=== PATIENT | male | born 1945 | race American Indian/Alaskan Native ===

== ENCOUNTER 2017-12-14 15:15 | Inpatient (IN) | payer MEDICARE ==
[2017-12-14 16:37] LABS: BASO % 0.3 % (0.0-2.0); EOS # 0.1 K/uL (0.0-0.7); EOS % 2.1 % (0.0-4.0); HEMOGLOBIN 11.9 g/dL (12.0-18.0); LYMPH # 1.8 K/uL (1.0-4.3); LYMPH % 34.8 % (20.0-40.0); MEAN CELL VOLUME 98.1 fL (80.0-94.0); MEAN CORPUSCULAR HEMOGLOBIN 33.4 pg (27.0-31.0); MEAN PLATELET VOLUME 9.4 fL (7.2-11.7); MONO % 18.7 % (0.0-10.0); NEUT # 2.3 K/uL (1.8-7.0); NEUT % 44.1 % (50.0-75.0); NRBC % 0.3 % (0.0-2.0); RBC 3.55 Mil/uL (4.40-5.90); RED CELL DISTRIBUTION WIDTH 14.3 % (11.5-14.5); WHITE BLOOD COUNT 5.2 K/uL (4.8-10.8)
[2017-12-14 16:45] LABS: INR 1.7; PROTHROMBIN TIME 19.4 SECONDS (9.7-12.2)
[2017-12-14 16:55] LABS: ALB/GLOB RATIO 0.6 (1.0-2.1); ALBUMIN 2.4 g/dL (3.5-5.0); ALT/SGPT 61 U/L (21-72); AST/SGOT 100 U/L (17-59); BLOOD UREA NITROGEN 28 mg/dL (9-20); CALCIUM 8.2 mg/dl (8.6-10.4); GFR AFRICAN-AMERICAN > 60; GFR NON-AFRICAN AMERICAN 60
[2017-12-14 17:09] LABS: B-TYPE NATRIURETIC PEPTIDE 1100 pg/mL (0-900)
--- NOTE | 2017-12-14 17:26 | C.PDOC ---
History Of Present Illness 72 year old male presents to the ED c/o 2 month history of bilateral extremity swelling. Patient reports taking his "water pill" with no relief this morning. Patient tried getting out of bed this morning but his leg" felt too weak" and had to slid out of bed. Patient denies trauma, injury, fall, headache, head injury, LOC, CP, SOB, weakness, numbness. Time Seen by Provider: 12/14/17 16:00 Chief Complaint (Nursing): Lower Extremity Problem/Injury History Per: Patient History/Exam Limitations: no limitations Onset/Duration Of Symptoms: Days Current Symptoms Are (Timing): Still Present Recent travel outside of the [place]: No Additional History Per: Patient - Ankle/Foot Description Of Injury: Other Currently Unable To: Bend Or Move Past Medical History Reviewed: Historical Data, Nursing Documentation, Vital Signs Vital Signs: Last Vital Signs Temp 97.5 F L 12/14/17 15:20 Pulse 88 12/14/17 17:50 Resp 16 12/14/17 17:50 BP 180/65 H 12/14/17 17:50 Pulse Ox 98 12/14/17 18:07 - Medical History PMH: HTN Surgical History: No Surg Hx Family History: States: Unknown Family Hx - Social History Hx Alcohol Use: No (Former drinker) Hx Substance Use: No - Immunization History Hx Tetanus Toxoid Vaccination: No Hx Influenza Vaccination: No Hx Pneumococcal Vaccination: No Review Of Systems Constitutional: Negative for: Fever, Chills Cardiovascular: Negative for: Chest Pain Respiratory: Negative for: Cough, Shortness of Breath Gastrointestinal: Negative for: Nausea, Vomiting, Abdominal Pain Musculoskeletal: Positive for: Foot Pain Skin: Negative for: Rash Neurological: Negative for: Weakness, Numbness Physical Exam - Physical Exam Appears: Non-toxic, Chronically Ill Skin: Normal Color, Warm, Dry, Other (7 cm stage 2 decubitus ulcer to the right hip) Head: Atraumatic, Normacephalic Eye(s): bilateral: Normal Inspection Nose: No Discharge Oral Mucosa: Moist Neck: Normal ROM, Supple Chest: Symmetrical Cardiovascular: Rhythm Regular, No Murmur Respiratory: Normal Breath Sounds, No Rales, No Rhonchi, No Wheezing Gastrointestinal/Abdominal: Soft, No Tenderness, No Guarding, No Rebound Extremity: No Tenderness, No Calf Tenderness, Capillary Refill (< 2 seconds), Swelling (+2 pitting edema until his knees), Other (no erythema ) Pulses: Left Dorsalis Pedis: Normal, Right Dorsalis Pedis: Normal Neurological/Psych: Oriented x3 ED Course And Treatment - Laboratory Results Result Diagrams: 12/14/17 16:18 12/14/17 16:33 O2 Sat by Pulse Oximetry: 98 (On RA) Pulse Ox Interpretation: Normal Medical Decision Making Medical Decision Making: Plan: * EKG * Labs * CXR * Lasix 20 mg IVP Thecase was discussed with Dr. Johnson (PMD) who agrees to admit the patient to his service as the patient has unsteady gait. The patient has started to have tremors, Librium given. Disposition - Disposition Disposition: HOSPITALIZED Disposition Time: 17:30 Condition: FAIR - POA Present On Arrival: Pressure Ulcer - Clinical Impression Clinical Impression: Leg edema, Weakness, Failure to thrive - PA / ANIMAL RIDE MANAGER / Resident Statement MD/DO has reviewed & agrees with the documentation as recorded. - Scribe Statement The provider has reviewed the documentation as recorded by the Scribe Trip Romero All medical record entries made by the Scribe were at my direction and personally dictated by me. I have reviewed the chart and agree that the record accurately reflects my personal performance of the history, physical exam, medical decision making, and the department course for this patient. I have also personally directed, reviewed, and agree with the discharge instructions and disposition.
--- NOTE | 2017-12-14 17:34 | RAD ---
PROCEDURE: CHEST RADIOGRAPH, 1 VIEW HISTORY: chest pain COMPARISON: None available. FINDINGS: LUNGS: Clear. PLEURA: No pneumothorax or pleural fluid seen. CARDIOVASCULAR: Top-normal heart size. Possible minimal pulmonary venous congestion OSSEOUS STRUCTURES: No significant abnormalities. VISUALIZED UPPER ABDOMEN: Normal. OTHER FINDINGS: None. IMPRESSION: Heart size. Possible minimal pulmonary venous congestion
--- NOTE | 2017-12-14 23:33 | CP.PCM.HP ---
History of Present Illness - History of Present Illness History of Present Illness: Chief Complaint : Lower Extremity Problem/Injury HPI: 72 year old male presents to the ED c/o 2 month history of bilateral extremity swelling. Patient reports taking his "water pill" with no relief this morning. Patient tried getting out of bed this morning but his leg" felt too weak" and had to slid out of bed. Patient denies trauma, injury, fall, headache , head injury, LOC, CP, SOB, weakness, numbness. Present on Admission - Present on Admission Any Indicators Present on Admission: No Past Patient History - Past Medical History & Family History Past Medical History?: Yes - Past Social History Smoking Status: Former Smoker - CARDIAC Hx Hypertension: Yes - RENAL Hx Renal Failure: Yes - ENDOCRINE/METABOLIC Hx Diabetes Mellitus Type 2: Yes - MUSCULOSKELETAL/RHEUMATOLOGICAL Hx Falls: Yes - PSYCHIATRIC Hx Substance Use: No - SURGICAL HISTORY Hx Surgeries: Yes Hx Herniorrhaphy: Yes (Umbilical) - ANESTHESIA Hx Anesthesia: Yes Hx Anesthesia Reactions: No Hx Malignant Hyperthermia: No Has any member of the family had a problem w/ anesthesia?: No Meds Allergies/Adverse Reactions: Allergies Allergy/AdvReac Type Severity Reaction Status Date / Time No Known Allergies Allergy Verified 12/14/17 15:26 Results - Vital Signs Recent Vital Signs: Last Vital Signs Temp 97.5 F L 12/14/17 15:20 Pulse 88 12/14/17 17:50 Resp 16 12/14/17 17:50 BP 180/65 H 12/14/17 17:50 Pulse Ox 98 12/14/17 18:44 - Labs Result Diagrams: 12/27/17 07:13 12/27/17 07:13 Labs: Laboratory Results - last 24 hr 12/14/17 12/14/17 12/14/17 16:18 16:33 16:33 WBC 5.2 RBC 3.55 L Hgb 11.9 L Hct 34.9 L MCV 98.1 H MCH 33.4 H MCHC 34.0 RDW 14.3 Plt Count 65 L MPV 9.4 Neut % (Auto) 44.1 L Lymph % (Auto) 34.8 Cedar % (Auto) 18.7 H Eos % (Auto) 2.1 Baso % (Auto) 0.3 Neut # (Auto) 2.3 Lymph # (Auto) 1.8 Cedar # (Auto) 1.0 H Eos # (Auto) 0.1 Baso # (Auto) 0.0 Differential Comment PT 19.4 H INR 1.7 APTT 35 H Sodium 139 Potassium 3.4 L Chloride 104 Carbon Dioxide 22 Anion Gap 16 BUN 28 H Creatinine 1.2 Est GFR ( Amer) > 60 Est GFR (Non-Af Amer) 60 Random Glucose 196 H Calcium 8.2 L Total Bilirubin 3.2 H AST 100 H ALT 61 Alkaline Phosphatase 122 Troponin I 0.0250 NT-Pro-B Natriuret Pep 1100 H Total Protein 6.1 L Albumin 2.4 L Globulin 3.7 Albumin/Globulin Ratio 0.6 L
[2017-12-15] MEDS: Multiple Vitamins Oral Solution PO SCH (09:48)
[2017-12-15] MEDS: (Novolin R) Insulin Human Regular 100 units/ml vial SC SCH ×3 (12:00→22:32)
[2017-12-15 12:42] LABS: IRON 78 ug/dL (49-181)
[2017-12-15 12:53] LABS: % IRON SATURATION 38 (20-55); TOTAL IRON BINDING CAPACITY 206 ug/dL (250-450)
--- NOTE | 2017-12-15 14:45 | US ---
HISTORY: cirrhosis COMPARISON: None. TECHNIQUE: Sonographic evaluation of the abdomen. FINDINGS: LIVER: Measures 15.3 cm. Patent portal vein. Portal venous flow: Hepatopetal. Increased echogenicity of the liver parenchyma. Nodular contour to the liver consistent with clinical diagnosis of cirrhosis. No mass. No intrahepatic bile duct dilatation. GALLBLADDER: Unremarkable. No gallstones. COMMON BILE DUCT: Measures 17.6 mm. Dilated common bile duct without visible intrinsic or extrinsic abnormality. PANCREAS: Unremarkable as visualized. No mass. No ductal dilatation. Portions of the tail and distal body obscured by overlying bowel gas. Incomplete visualization pancreatic head. RIGHT KIDNEY: Measures 5.6 x 9.4cm. Normal echogenicity. No calculus, mass, or hydronephrosis. LEFT KIDNEY: Measures 5.4 x 10.2cm. Normal echogenicity. No calculus, mass, or hydronephrosis. SPLEEN: Normal in size and contour. No mass. AORTA: No aneurysmal dilatation. IVC: Unremarkable. OTHER FINDINGS: Intra-abdominal ascites identified IMPRESSION: Nodular contour to the liver, increased echogenicity compatible hepatocellular disease/ fatty infiltration. Markedly dilated common bile duct without intrahepatic bile duct dilatation. Limitations of the current examination: Suboptimal assessment of the pancreas including pancreatic head, tail.
[2017-12-15] MEDS ORDERED: Multivitamin (MVI) 10 ML, Thiamine 100 MG, Folic Acid 1 MG in Sodium Chloride 0.9% 1,00... IV ONE (19:30)
--- NOTE | 2017-12-15 23:47 | CP.PCM.PN ---
Subjective - Date & Time of Evaluation Date of Evaluation: 12/15/17 Time of Evaluation: 19:45 - Subjective Subjective: Pt seen and examined, afebrile, no chest pain, sob, is feeling better Objective - Vital Signs/Intake and Output Vital Signs (last 24 hours): Temp Pulse Resp BP Pulse Ox 99.4 F 106 H 20 135/61 93 L 12/15/17 16:00 12/15/17 16:00 12/15/17 08:00 12/15/17 16:00 12/15/17 16:00 Intake and Output: 12/15/17 12/16/17 18:59 06:59 Intake Total 100 600 Output Total 50 Balance 100 550 - Medications Medications: Current Medications Chlordiazepoxide (Librium) 25 mg PO Q6 [facility] Last Admin: 12/15/17 18:01 Dose: 25 mg Chlordiazepoxide (Librium) 25 mg PO Q4 PRN PRN Reason: alcohol withdrawal Famotidine (Pepcid) 40 mg PO DAILY [facility] Last Admin: 12/15/17 09:48 Dose: 40 mg Furosemide (Lasix) 40 mg IVP DAILY [facility] Last Admin: 12/15/17 09:49 Dose: 40 mg Multivitamins/Vitamin C 10 ml/Thiamine HCl 100 mg/ Folic Acid 1 mg/ Sodium Chloride 1,011.2 mls @ 80 mls/hr IV .[id number] ONE Stop: 12/16/17 08:08 Last Admin: 12/15/17 20:06 Dose: 80 mls/hr Insulin Human Regular (Novolin R) 0 unit SC ACHS [facility] PRN Reason: Protocol Last Admin: 12/15/17 22:32 Dose: Not Given Multivitamins/Vitamin C (Multi-Delyn Liquid) 5 ml PO DAILY [facility] Last Admin: 12/15/17 09:48 Dose: 5 ml Pneumococcal Polyvalent Vaccine (Pneumovax 23 Vaccine) 0.5 ml IM .ONCE ONE Stop: 12/16/17 10:01 Spironolactone (Aldactone) 25 mg PO BID [facility] Last Admin: 12/15/17 17:06 Dose: 25 mg - Labs Labs: 12/14/17 16:18 12/14/17 16:33 PT 19.4 SECONDS (9.7-12.2) H 12/14/17 16:33 INR 1.7 12/14/17 16:33 APTT 35 SECONDS (21-34) H 12/14/17 16:33 - Constitutional Appears: No Acute Distress, Chronically Ill - Head Exam Head Exam: ATRAUMATIC, NORMAL INSPECTION, NORMOCEPHALIC - Eye Exam Eye Exam: EOMI, Normal appearance, PERRL Pupil Exam: NORMAL ACCOMODATION, PERRL - Respiratory Exam Respiratory Exam: Decreased Breath Sounds, Rales, Rhonchi - Cardiovascular Exam Cardiovascular Exam: REGULAR RHYTHM, +S1, +S2. absent: Murmur - GI/Abdominal Exam GI & Abdominal Exam: Soft, Normal Bowel Sounds. absent: Tenderness - Rectal Exam Rectal Exam: Deferred - Exam Exam: Circumcision, NORMAL INSPECTION External exam: NORMAL EXTERNAL EXAM Speculum exam: NORMAL SPECULUM EXAM Bimanual exam: NORMAL BIMANUAL EXAM
--- NOTE | 2017-12-16 00:37 | CARD ---
APPROVED REPORT EXAM: Two-dimensional and M-mode echocardiogram with Doppler and color Doppler. Other Information Quality : GoodRhythm : INDICATION Peripheral Edema Cardiac Disease: RISK FACTORS Hypertension 2D DIMENSIONS IVSd0.9 (0.7-1.1cm)LVDd4.2 (3.9-5.9cm) PWd0.9 (0.7-1.1cm)LVDs2.2 (2.5-4.0cm) FS (%) 47.6 %LVEF (%)70.0 (>50%) M-Mode DIMENSIONS Left Atrium (MM)4.01 (2.5-4.0cm)Aortic Root3.44 (2.2-3.7cm) Aortic Cusp Exc.2.46 (1.5-2.0cm) Mitral Valve MV E Rjxwckfa15.7cm/sMV A Hkxvusby332.6cm/sE/A ratio0.8 TDI E/Lateral E'0.0E/Medial E'0.0 Tricuspid Valve TR Peak [id number]/sTR Peak [id number] LEFT VENTRICLE The left ventricle is normal size. There is normal left ventricular wall thickness. Left ventricle systolic function is normal. The Ejection Fraction is 65-70%. There is normal LV segmental wall motion. Tissue Doppler imaging reveals abnormal left ventricular diastolic dysfunction. RIGHT VENTRICLE The right ventricle is normal size. There is normal right ventricular wall thickness. The right ventricular systolic function is normal. ATRIA The left atrium size is normal. The right atrium size is normal. The interatrial septum is intact with no evidence for an atrial septal defect. AORTIC VALVE The aortic valve is normal in structure. No aortic regurgitation is present. There is no aortic valvular stenosis. There is no aortic valvular vegetation. MITRAL VALVE The mitral valve is normal in structure. There is no evidence of mitral valve prolapse. There is no mitral valve stenosis. Mitral regurgitation is mild. TRICUSPID VALVE The tricuspid valve is normal in structure. There is mild tricuspid regurgitation. Right ventricular systolic pressure is estimated at 40-50 mmHg. There is mild-moderate pulmonary hypertension. PULMONIC VALVE The pulmonic valve is not well visualized. There is mild pulmonic valvular regurgitation. GREAT VESSELS The aortic root is normal in size. PERICARDIAL EFFUSION There is no significant pericardial effusion. <Conclusion> Left ventricle systolic function is normal. The Ejection Fraction is 65-70%. Diastolic dysfunction. No aortic regurgitation is present. Mitral regurgitation is mild. There is mild tricuspid regurgitation. There is mild-moderate pulmonary hypertension. There is mild pulmonic valvular regurgitation.
[2017-12-16 07:00] LABS: BARBITURATES, UR NEGATIVE (NEGATIVE); OPIATES, UR NEGATIVE (NEGATIVE); PHENCYCLIDINE, UR NEGATIVE (NEGATIVE)
[2017-12-16 07:01] LABS: BASO % 0.2 % (0.0-2.0); EOS % 0.6 % (0.0-4.0); HEMOGLOBIN 12.2 g/dL (12.0-18.0); LYMPH # 1.8 K/uL (1.0-4.3); LYMPH % 29.4 % (20.0-40.0); MEAN CORPUSCULAR HEMOGLOBIN 33.5 pg (27.0-31.0); MEAN CORPUSCULAR HGB CONC 34.5 g/dL (33.0-37.0); MEAN PLATELET VOLUME 9.7 fL (7.2-11.7); MONO # 0.6 K/uL (0.0-0.8); MONO % 9.8 % (0.0-10.0); NEUT # 3.6 K/uL (1.8-7.0); NRBC % 0.2 % (0.0-2.0); RBC 3.63 Mil/uL (4.40-5.90); RED CELL DISTRIBUTION WIDTH 14.9 % (11.5-14.5)
[2017-12-16 07:04] LABS: BENZODIAZEPINES, UR POSITIVE (NEGATIVE)
[2017-12-16 07:11] LABS: ALB/GLOB RATIO 0.6 (1.0-2.1); ALBUMIN 2.1 g/dL (3.5-5.0); ALT/SGPT 57 U/L (21-72); AST/SGOT 74 U/L (17-59); BLOOD UREA NITROGEN 20 mg/dL (9-20); CALCIUM 7.6 mg/dl (8.6-10.4); GFR AFRICAN-AMERICAN > 60; GFR NON-AFRICAN AMERICAN > 60
[2017-12-16] MEDS: (Novolin R) Insulin Human Regular 100 units/ml vial SC SCH ×4 (07:48→23:02)
[2017-12-16] MEDS ORDERED: Pneumococcal 23-Valent Vaccine IM ONE (10:00)
[2017-12-16] MEDS ORDERED: Potassium Chloride 20 mEq ER Tab PO ONE (10:15)
[2017-12-16] MEDS: Multiple Vitamins Oral Solution PO SCH (10:45)
--- NOTE | 2017-12-16 11:53 | PN ---
DATE: LOCATION: [address]. SUBJECTIVE: This is a 72-year-old male seen and examined in rounds early this morning. Case discussed with the staff in the chart. Today's lab results showed thrombocytopenia of 42 secondary to liver disease, but so far normal hemoglobin and hematocrit with low potassium at 3.2, blood glucose level 171, calcium 7.6, total bilirubin 3, AST 74, normal ALT, albumin 2.1, total protein 5.6. Ultrasound of the abdomen was ordered and the findings are indicative of liver cirrhosis with markedly dilated common bile duct. PHYSICAL EXAMINATION: GENERAL: This is a 72-year-old male, appears to be somewhat awake and alert. VITAL SIGNS: Afebrile with blood pressure of 124/60, pulse of 82, respiratory rate of 20 to 22. HEENT: Showed dry oral mucous membrane. Bilateral icteric sclerae. LUNGS: A few scattered crepitation. Decreased air entry at bases. HEART: Positive S1 and S2. ABDOMEN: Soft, bowel sounds are present with mild generalized tenderness. No mass or organomegaly. No rebound tenderness or guarding. RECTAL: The patient refused. EXTREMITIES: Without significant clubbing, cyanosis, or edema. NEURO: No reported new neurological deficits, sensory or motor. IMPRESSION: 1. Alcoholic liver disease. 2. Abnormal liver function tests secondary to above. 3. Jaundice with increased bilirubin levels secondary to above; however, the patient was found to have dilated common bile duct on the ultrasound of unclear etiology despite no evidence of obstructive jaundice by radiology studies. 4. Hypertension by history. 5. Thrombocytopenia due to alcoholic liver disease. 6. Cancer markers including alpha-fetoprotein which reported to be normal but with elevated CEA and CA 19-9 raising the question of possible colon neoplastic lesion and/or pancreatic neoplastic lesion. SUGGESTIONS: 1. Agree with your plan. 2. . 3. Lactulose p.o. 4. Ammonia level. 5. The patient may need ERCP with biliary stent insertion when he is more stable clinically. Lachelle Rodrigues MD
[2017-12-16 14:06] LABS: ARTERIAL BLOOD GAS HEMOGLOBIN 12.6 g/dL (11.7-17.4); ARTERIAL BLOOD GAS O2 SAT 92.5 % (95-98); ARTERIAL BLOOD GAS PCO2 34 mm/Hg (35-45); ARTERIAL BLOOD GAS PH 7.51 (7.35-7.45); ARTERIAL BLOOD GAS PO2 52 mm/Hg (80-100); ARTERIAL BLOOD GAS TCO2 28.1 mmol/L (22-28)
[2017-12-16] MEDS ORDERED: Vancomycin 1 gm/NS 200 ml 1 GM/200 ML BAG IVPB ONE (16:00)
[2017-12-16] MEDS: Sodium Chloride 0.9% 1,000 ML IV SCH (16:29)
[2017-12-16] MEDS: Piperacill/Tazo 3.375gm in Dex 3.375 GM/50 ML BAG IVPB SCH ×2 (17:13→22:57)
[2017-12-16 20:18] LABS: SQUAMOUS EPITHIAL < 1 /hpf (0-5); URINE BACTERIA RARE (<OCC); URINE BILIRUBIN NEGATIVE (NEGATIVE); URINE BLOOD 1+ (NEGATIVE); URINE CLARITY Clear (Clear); URINE COLOR Yellow (YELLOW); URINE GLUCOSE (UA) NORMAL (Normal); URINE LEUKOCYTE ESTERASE NEG Leu/uL (Negative); URINE PROTEIN NEGATIVE (NEGATIVE)
--- NOTE | 2017-12-16 22:05 | CP.PCM.CON ---
History of Present Illness - History of Present Illness History of Present Illness: 72 year old male seen at bedside with is daughter present for b/l leg swelling with weeping x 2 months. Patient is sleeping at time of visit and unresponsive to questioning secondary to Delirium Tremens due to chronic alcohol abuse so patient's daughter answers all questions during visit. Daughter states that patient was given a "water pill" which has decreased the swelling in his legs greatly. She states that he is a diabetic but has no history of ulceration to b/ l LE. Denies any further pedal complaints at this time. Denies any recent N/V/F/ C/CP/SOB/D/posterior calf pain. Review of Systems - Review of Systems Review of Systems: ROS as per HPI Past Patient History - Past Medical History & Family History Past Medical History?: Yes - Past Social History Smoking Status: Former Smoker - CARDIAC Hx Hypertension: Yes - RENAL Hx Renal Failure: Yes - ENDOCRINE/METABOLIC Hx Diabetes Mellitus Type 2: Yes - MUSCULOSKELETAL/RHEUMATOLOGICAL Hx Falls: Yes - PSYCHIATRIC Hx Substance Use: No - SURGICAL HISTORY Hx Surgeries: Yes Hx Herniorrhaphy: Yes (Umbilical) - ANESTHESIA Hx Anesthesia: Yes Hx Anesthesia Reactions: No Hx Malignant Hyperthermia: No Has any member of the family had a problem w/ anesthesia?: No Meds Allergies/Adverse Reactions: Allergies Allergy/AdvReac Type Severity Reaction Status Date / Time No Known Allergies Allergy Verified 12/14/17 15:26 - Medications Medications: Current Medications Acetaminophen (Tylenol 650 Mg Supp) 650 mg [place] Q6 PRN PRN Reason: fever of >100.4 and above Last Admin: 12/16/17 17:05 Dose: 650 mg Chlordiazepoxide (Librium) 25 mg PO Q6 [facility] Last Admin: 12/16/17 18:26 Dose: Not Given Chlordiazepoxide (Librium) 25 mg PO Q4 PRN PRN Reason: alcohol withdrawal Famotidine (Pepcid) 40 mg PO DAILY [facility] Last Admin: 12/16/17 10:46 Dose: 40 mg Furosemide (Lasix) 40 mg IVP DAILY [facility] Last Admin: 12/16/17 10:48 Dose: 40 mg Sodium Chloride (Sodium Chloride 0.9%) 1,000 mls @ 100 mls/hr IV .Q10H [facility] Last Admin: 12/16/17 16:29 Dose: 100 mls/hr Piperacillin Sod/Tazobactam Sod (Zosyn 3.375 Gm Iv Premix) 3.375 gm in 50 mls @ 100 mls/hr IVPB Q8 JE PRN Reason: Protocol Last Admin: 12/16/17 17:13 Dose: 100 mls/hr Vancomycin HCl 750 mg/ Sodium (Chloride) 100 mls @ 100 mls/hr IVPB Q12 JE PRN Reason: Protocol Insulin Human Regular (Novolin R) 0 unit SC ACHS JE PRN Reason: Protocol Last Admin: 12/16/17 18:26 Dose: Not Given Multivitamins/Vitamin C (Multi-Delyn Liquid) 5 ml PO DAILY [facility] Last Admin: 12/16/17 10:45 Dose: 5 ml Spironolactone (Aldactone) 25 mg PO BID [facility] Last Admin: 12/16/17 18:26 Dose: Not Given Physical Exam - Constitutional Appears: Well, Non-toxic, No Acute Distress - Extremities Exam Additional comments: VASC: DP/PT pulses are palpable 2/4 B/L. Cap refill time: < 3 seconds to all digits. Skin temperature warm to cool from proximal to distal. Moderate 1+ pitting edema noted to b/l legs with weeping. DERM: no onen lesions, no inter digital maceration, nails are cut to hygenic length, no clinical suspicion of active infection. Hyperpigmented skin noted to distal medial leg most likely secondary to hemosiderin deposition NEURO: Unable to determine due to patient's mental status ORTHO: Unable to determine due to patient's mental status - Neurological Exam Neurological exam: Alert, Oriented x3 - Psychiatric Exam Psychiatric exam: Normal Affect, Normal Mood Results - Vital Signs Recent Vital Signs: Last Vital Signs Temp 102.1 F H 12/16/17 17:05 Pulse 100 H 12/16/17 15:25 Resp 24 12/16/17 15:25 BP 144/72 12/16/17 15:25 Pulse Ox 98 12/16/17 15:25 - Labs Result Diagrams: 12/16/17 06:44 12/16/17 06:44 Labs: Laboratory Results - last 24 hr 12/16/17 12/16/17 12/16/17 02:24 06:40 06:44 WBC 6.0 RBC 3.63 L Hgb 12.2 Hct 35.2 MCV 97.0 H MCH 33.5 H MCHC 34.5 RDW 14.9 H Plt Count 42 L D MPV 9.7 Neut % (Auto) 60.0 Lymph % (Auto) 29.4 [place] % (Auto) 9.8 Eos % (Auto) 0.6 Baso % (Auto) 0.2 Neut # (Auto) 3.6 Lymph # (Auto) 1.8 [place] # (Auto) 0.6 Eos # (Auto) 0.0 Baso # (Auto) 0.0 Puncture Site pCO2 pO2 HCO3 ABG pH ABG Total CO2 ABG O2 Saturation ABG Base Excess ABG Hemoglobin ABG Carboxyhemoglobin POC ABG HHb (Measured) ABG Methemoglobin Elkin Test A-a O2 Difference Respiratory Index Hgb O2 Saturation Liter Flow FiO2 Sodium Potassium Chloride Carbon Dioxide Anion Gap BUN Creatinine Est GFR ( Amer) Est GFR (Non-Af Amer) POC Glucose (mg/dL) 200 H Random Glucose Lactic Acid Calcium Total Bilirubin AST ALT Alkaline Phosphatase Ammonia Total Protein Albumin Globulin Albumin/Globulin Ratio Urine Color Urine Clarity Urine pH Ur Specific [place] Urine Protein Urine Glucose (UA) Urine Ketones Urine Blood Urine Nitrate Urine Bilirubin Urine Urobilinogen Ur Leukocyte Esterase Urine WBC (Auto) Urine RBC (Auto) Ur Squamous Epith Cells Urine Bacteria Hyaline Casts Urine Opiates Screen Negative Urine Methadone Screen Negative Ur Barbiturates Screen Negative Ur Phencyclidine Scrn Negative Ur Amphetamines Screen Negative U Benzodiazepines Scrn Positive U Oth Cocaine Metabols Negative U Cannabinoids Screen Negative 12/16/17 12/16/17 12/16/17 06:44 06:44 07:05 WBC RBC Hgb Hct MCV MCH MCHC RDW Plt Count MPV Neut % (Auto) Lymph % (Auto) [place] % (Auto) Eos % (Auto) Baso % (Auto) Neut # (Auto) Lymph # (Auto) [place] # (Auto) Eos # (Auto) Baso # (Auto) Puncture Site pCO2 pO2 HCO3 ABG pH ABG Total CO2 ABG O2 Saturation ABG Base Excess ABG Hemoglobin ABG Carboxyhemoglobin POC ABG HHb (Measured) ABG Methemoglobin [place]kin Test A-a O2 Difference Respiratory Index Hgb O2 Saturation Liter Flow FiO2 Sodium 138 Potassium 3.2 L Chloride 105 Carbon Dioxide 26 Anion Gap 11 BUN 20 Creatinine 1.0 Est GFR ( Amer) > 60 Est GFR (Non-Af Amer) > 60 POC Glucose (mg/dL) 188 H Random Glucose 171 H Lactic Acid Calcium 7.6 L Total Bilirubin 3.0 H AST 74 H D ALT 57 Alkaline Phosphatase 114 Ammonia 33 D Total Protein 5.6 L Albumin 2.1 L Globulin 3.5 Albumin/Globulin Ratio 0.6 L Urine Color Urine Clarity Urine pH Ur Specific [place] Urine Protein Urine Glucose (UA) Urine Ketones Urine Blood Urine Nitrate Urine Bilirubin Urine Urobilinogen Ur Leukocyte Esterase Urine WBC (Auto) Urine RBC (Auto) Ur Squamous Epith Cells Urine Bacteria Hyaline Casts Urine Opiates Screen Urine Methadone Screen Ur Barbiturates Screen Ur Phencyclidine Scrn Ur Amphetamines Screen U Benzodiazepines Scrn U Oth Cocaine Metabols U Cannabinoids Screen 12/16/17 12/16/17 12/16/17 11:55 14:03 16:32 WBC RBC Hgb Hct MCV MCH MCHC RDW Plt Count MPV Neut % (Auto) Lymph % (Auto) [place] % (Auto) Eos % (Auto) Baso % (Auto) Neut # (Auto) Lymph # (Auto) [place] # (Auto) Eos # (Auto) Baso # (Auto) Puncture Site Rra pCO2 34 L pO2 52 L HCO3 28.0 ABG pH 7.51 H ABG Total CO2 28.1 H ABG O2 Saturation 92.5 L ABG Base Excess 4.2 H ABG Hemoglobin 12.6 ABG Carboxyhemoglobin 2.6 H POC ABG HHb (Measured) 7.2 H ABG Methemoglobin 1.7 Elkin Test Na A-a O2 Difference 55.0 Respiratory Index 1.1 Hgb O2 Saturation 88.5 L Liter Flow 0 FiO2 21.0 Sodium Potassium Chloride Carbon Dioxide Anion Gap BUN Creatinine Est GFR ( Amer) Est GFR (Non-Af Amer) POC Glucose (mg/dL) 219 H 244 H Random Glucose Lactic Acid Calcium Total Bilirubin AST ALT Alkaline Phosphatase Ammonia Total Protein Albumin Globulin Albumin/Globulin Ratio Urine Color Urine Clarity Urine pH Ur Specific [place] Urine Protein Urine Glucose (UA) Urine Ketones Urine Blood Urine Nitrate Urine Bilirubin Urine Urobilinogen Ur Leukocyte Esterase Urine WBC (Auto) Urine RBC (Auto) Ur Squamous Epith Cells Urine Bacteria Hyaline Casts Urine Opiates Screen Urine Methadone Screen Ur Barbiturates Screen Ur Phencyclidine Scrn Ur Amphetamines Screen U Benzodiazepines Scrn U Oth Cocaine Metabols U Cannabinoids Screen 12/16/17 12/16/17 12/16/17 16:36 20:06 20:57 WBC RBC Hgb Hct MCV MCH MCHC RDW Plt Count MPV Neut % (Auto) Lymph % (Auto) [place] % (Auto) Eos % (Auto) Baso % (Auto) Neut # (Auto) Lymph # (Auto) [place] # (Auto) Eos # (Auto) Baso # (Auto) Puncture Site pCO2 pO2 HCO3 ABG pH ABG Total CO2 ABG O2 Saturation ABG Base Excess ABG Hemoglobin ABG Carboxyhemoglobin POC ABG HHb (Measured) ABG Methemoglobin Elkin Test A-a O2 Difference Respiratory Index Hgb O2 Saturation Liter Flow FiO2 Sodium Potassium Chloride Carbon Dioxide Anion Gap BUN Creatinine Est GFR ( Amer) Est GFR (Non-Af Amer) POC Glucose (mg/dL) 237 H Random Glucose Lactic Acid 2.0 Calcium Total Bilirubin AST ALT Alkaline Phosphatase Ammonia Total Protein Albumin Globulin Albumin/Globulin Ratio Urine Color Yellow Urine Clarity Clear Urine pH 5.0 Ur Specific [place] 1.010 Urine Protein Negative Urine Glucose (UA) Normal Urine Ketones Negative Urine Blood 1+ H Urine Nitrate Negative Urine Bilirubin Negative Urine Urobilinogen 4.0 Ur Leukocyte Esterase Neg Urine WBC (Auto) 1 Urine RBC (Auto) < 1 Ur Squamous Epith Cells < 1 Urine Bacteria Rare Hyaline Casts 3-5 H Urine Opiates Screen Urine Methadone Screen Ur Barbiturates Screen Ur Phencyclidine Scrn Ur Amphetamines Screen U Benzodiazepines Scrn U Oth Cocaine Metabols U Cannabinoids Screen Assessment & Plan - Assessment and Plan (Free Text) Assessment: 72 year old male seen for b/l LE edema with weeping Plan: Patient seen and evaluated Afebrile, absent leukocytosis Plan discussed with attending Dr. Sarabia Patients legs dressed with kirlix and lightly compressive DEMARCUS dressing No plan for surgical interventon at this time Podiatry will continue to follow while patient in house - Date & Time Date: 12/16/17 Time: 10:09
[2017-12-17] MEDS: Sodium Chloride 0.9% 1,000 ML IV SCH ×4 (01:45→22:34)
--- NOTE | 2017-12-17 02:00 | CON ---
DATE: 12/16/2017 CHIEF COMPLAINT AND REASON FOR CONSULTATION: The patient is referred by Dr. Johnson for comanagement evaluation. The patient has history of about more than 50 years of alcoholism. The patient has been drinking almost daily, and according to the daughter, a pint of gin and 22 ounces of Beer. HISTORY OF PRESENT ILLNESS: This is a 72-year-old male who was admitted here for 2-month history of bilateral leg swelling. The patient also has been complaining of increasing weakness and unsteady gait. The patient was admitted here for debility, failure to thrive, and bilateral leg edema but referred for evaluation as he was noted early to be coughing, signs and symptoms of alcohol withdrawal, was getting very tremulous and was given Librium. The patient according to the daughter has about more than 50 years of drinking, almost daily a pint of gin and also some beer. The patient cannot give much information, he was sedated today from delirium but the patient is a daily drinker. 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 Today, he has been complaining of weakness and swelling and also his ammonia level was 64 initially but has gone down to 33. He was given Librium 25 mg q.6 for alcohol withdrawal and seems to be calm but very drowsy. No behavioral problems noted. PAST PSYCH HISTORY: Denies any. DRUG/ALCOHOL HISTORY: Denies any drug use but alcohol history of drinking gin and beer for more than 50 years. No history of being detoxed at rehab. No legal issues related to his drinking. MEDICAL HISTORY: History of hypertension as stated, failure to thrive, leg edema. 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 LABORATORY DATA: I reviewed his labs. His potassium is low at 3.2. Ammonia level is now 33, it was initially 64. Drug screen is positive for benzo, but the patient was given Librium. His AST is elevated at 74, ALT is 57 and within normal limits. Alkaline phosphatase is 114. Albumin is 2.1 which is low. Total protein is 5.6. CURRENT MEDICATIONS: List of current medications include the following meds: The patient is on spironolactone, Lasix, Librium 25 mg q.4 p.r.n., Librium 25 mg q.6, multivitamins, and insulin. REVIEW OF SYSTEMS: GENERAL: The patient is drowsy but arousable, not in acute respiratory distress, seen with her daughter who gave all the information as the patient is drowsy. SKIN: No diaphoresis. HEENT: No headache or dizziness. NECK: Supple. RESPIRATORY: No dyspnea. CARDIOVASCULAR: No chest pain. GASTROINTESTINAL: No nausea, no vomiting. The patient has poor appetite. EXTREMITIES: Noted to have swollen lower extremities. Gait is unsteady. MUSCULOSKELETAL: Feels weak. NEUROLOGIC: Alert with periods of confusion. GENITOURINARY: No dysuria. MENTAL STATUS EXAMINATION: Elderly male who looks stated age, about 5 feet 7 inches, 180 pounds weight. Speech is slow. Affect is restricted. Mood is dysphoric. Thought process is confused off and on. Thought content, no overt paranoia. No hallucinations. No suicidal or homicidal ideation. Attention and memory seems to be limited. Insight and judgement is limited. Impulse control is fair at this time. VITAL SIGNS: Temperature 98.5, pulse 83, blood pressure 122/74, respirations 20, oxygen sat is 95%. IMPRESSION: History of alcohol dependence, alcohol withdrawal, failure to thrive, and hypertension. PLAN AND RECOMMENDATIONS: The patient is seen, meds reviewed. Continue Librium detox as ordered. Continue multivitamin supplements. Continue treatment and plan as outlined. I discussed with her daughter, the daughter wants the patient to go for subacute rehab because the patient.s gait is very unsteady, and the patient needs reconditioning after his detox and once he is medically cleared. Right now, the patient is compliant, no behavioral problems noted. Stas Knox MD cc:
[2017-12-17] MEDS: Piperacill/Tazo 3.375gm in Dex 3.375 GM/50 ML BAG IVPB SCH ×2 (06:00→13:27)
[2017-12-17 08:05] LABS: BASO % 0.1 % (0.0-2.0); EOS % 0.2 % (0.0-4.0); HEMOGLOBIN 11.8 g/dL (12.0-18.0); LYMPH # 0.8 K/uL (1.0-4.3); LYMPH % 14.5 % (20.0-40.0); MEAN CELL VOLUME 97.5 fL (80.0-94.0); MEAN CORPUSCULAR HGB CONC 33.9 g/dL (33.0-37.0); MEAN PLATELET VOLUME 8.9 fL (7.2-11.7); MONO # 0.5 K/uL (0.0-0.8); MONO % 9.6 % (0.0-10.0); NEUT # 4.1 K/uL (1.8-7.0); NEUT % 75.6 % (50.0-75.0); NRBC % 0.3 % (0.0-2.0); RBC 3.56 Mil/uL (4.40-5.90); RED CELL DISTRIBUTION WIDTH 14.9 % (11.5-14.5); WHITE BLOOD COUNT 5.4 K/uL (4.8-10.8)
[2017-12-17] MEDS: (Novolin R) Insulin Human Regular 100 units/ml vial SC SCH ×4 (08:05→22:28)
[2017-12-17 08:19] LABS: BLOOD UREA NITROGEN 19 mg/dL (9-20); CALCIUM 7.4 mg/dl (8.6-10.4); GFR AFRICAN-AMERICAN > 60; GFR NON-AFRICAN AMERICAN > 60
--- NOTE | 2017-12-17 08:54 | RAD ---
HISTORY: febrile COMPARISON: 12/14/2017 FINDINGS: LUNGS: Bibasilar platelike atelectasis. No acute infiltrate. PLEURA: No significant pleural effusion identified, no pneumothorax apparent. CARDIOVASCULAR: Normal. OSSEOUS STRUCTURES: No significant abnormalities. VISUALIZED UPPER ABDOMEN: Normal. OTHER FINDINGS: None. IMPRESSION: Bibasilar platelike atelectasis. Otherwise unremarkable.
--- NOTE | 2017-12-17 09:39 | PN ---
DATE: LOCATION: 365, bed A. SUBJECTIVE: This is a 72 years old male, seen and examined in rounds, appeared to be somewhat mildly drowsy with reported low-grade temperature before with less oral intake since admission. No reported active bleeding. The entire chart is reviewed including, but not limited to, the most recent labs and radiologists study results, current and the previous medication list, current and the previous medical events. Case discussed with the staff at length. Today's lab showed blood glucose level of 219, and yesterday/s lab showed elevated total bilirubin to 3, AST 74, but normal ALT and alkaline phosphatase, but subsequent drop of ammonia level to 33 with reported increase CEA and CA 19-9. PHYSICAL EXAMINATION: GENERAL: This is a 72-year-old male. VITAL SIGNS: Early temperature of 99.1, pulse of 82, blood pressure of 152/64, respiratory rate 20 to 22.. HEENT: Showed pale dry oral mucous membrane. Bilateral icteric sclerae. LUNGS: Few scattered crepitation. Decreased air entry at bases. HEART: Positive S1 and S2. ABDOMEN: With mild distention with generalized tenderness. No mass or organomegaly could be appreciated. EXTREMITIES: Without significant clubbing, cyanosis, or edema. NEUROLOGIC: No reported new neurological deficits, sensory, or motor. IMPRESSION: 1. Alcoholism. 2. Alcoholic liver disease with mild hepatic encephalopathy. 3 Abnormal liver function tests with jaundice secondary to above. Abnormal ultrasound of the abdomen with dilated common bile duct but normal intrahepatic duct to rule out intraduct lesion. 4. Hypertension by history. 5. Thrombocytopenia secondary to above. 6. Elevated CEA and CA 19-9 to rule out occult gastrointestinal malignancy. SUGGESTIONS: 1. Agree with your plan. 2. MRCP. 3. Neomycin p.o. 4. The patient will need ERCP when he is more stable clinically. 5. Further recommendation to follow. Lachelle Rodrigues MD
[2017-12-17] MEDS: Multiple Vitamins Oral Solution PO SCH (10:30)
--- NOTE | 2017-12-17 14:28 | CP.PCM.PN ---
Subjective - Date & Time of Evaluation Date of Evaluation: 12/16/17 Time of Evaluation: 16:00 - Subjective Subjective: Pt is spiking 103 fever, he is wweak , drowsy, no cough, wound on leg but no discharge, CXR and UA has been done, pending results to rule out septicemia. pt is being started on broad spectrum antibiotics Objective - Vital Signs/Intake and Output Vital Signs (last 24 hours): Temp Pulse Resp BP Pulse Ox 98.6 F 80 20 122/73 98 12/17/17 07:44 12/17/17 07:44 12/17/17 07:44 12/17/17 10:28 12/17/17 07:44 Intake and Output: 12/17/17 12/17/17 06:59 18:59 Intake Total 1000 2220 Output Total 300 700 Balance 700 1520 - Medications Medications: Current Medications Acetaminophen (Tylenol 650 Mg Supp) 650 mg [place] Q6 PRN PRN Reason: fever of >100.4 and above Last Admin: 12/17/17 00:55 Dose: 650 mg Chlordiazepoxide (Librium) 25 mg PO Q6 [facility] Last Admin: 12/17/17 12:59 Dose: Not Given Chlordiazepoxide (Librium) 25 mg PO Q4 PRN PRN Reason: alcohol withdrawal Famotidine (Pepcid) 40 mg PO DAILY [facility] Last Admin: 12/17/17 10:30 Dose: 40 mg Furosemide (Lasix) 40 mg IVP DAILY [facility] Last Admin: 12/17/17 10:28 Dose: 40 mg Sodium Chloride (Sodium Chloride 0.9%) 1,000 mls @ 100 mls/hr IV .Q10H [facility] Last Admin: 12/17/17 05:30 Dose: 100 mls/hr Piperacillin Sod/Tazobactam Sod (Zosyn 3.375 Gm Iv Premix) 3.375 gm in 50 mls @ 100 mls/hr IVPB Q8 JE PRN Reason: Protocol Last Admin: 12/17/17 13:27 Dose: 100 mls/hr Vancomycin HCl 750 mg/ Sodium (Chloride) 150 mls @ 100 mls/hr IVPB Q12 JE PRN Reason: Protocol Last Admin: 12/17/17 10:28 Dose: 100 mls/hr Insulin Human Regular (Novolin R) 0 unit SC ACHS JE PRN Reason: Protocol Last Admin: 12/17/17 11:59 Dose: Not Given Multivitamins/Vitamin C (Multi-Delyn Liquid) 5 ml PO DAILY [facility] Last Admin: 12/17/17 10:30 Dose: 5 ml Spironolactone (Aldactone) 25 mg PO BID [facility] Last Admin: 12/17/17 10:30 Dose: 25 mg - Labs Labs: 12/17/17 07:53 12/17/17 07:53 PT 19.4 SECONDS (9.7-12.2) H 12/14/17 16:33 INR 1.7 12/14/17 16:33 APTT 35 SECONDS (21-34) H 12/14/17 16:33 - Constitutional Appears: No Acute Distress - Head Exam Head Exam: ATRAUMATIC, NORMAL INSPECTION, NORMOCEPHALIC - Eye Exam Eye Exam: EOMI, Normal appearance, PERRL Pupil Exam: NORMAL ACCOMODATION, PERRL - Respiratory Exam Respiratory Exam: Clear to Ausculation Bilateral, NORMAL BREATHING PATTERN - Cardiovascular Exam Cardiovascular Exam: REGULAR RHYTHM, +S1, +S2. absent: Murmur - GI/Abdominal Exam GI & Abdominal Exam: Soft, Normal Bowel Sounds. absent: Tenderness Assessment and Plan (1) Alcoholic hepatitis Status: Acute (2) Anemia Status: Acute (3) Fever Status: Acute (4) Hypertension Status: Acute
--- NOTE | 2017-12-17 14:30 | CP.PCM.PN ---
Subjective - Date & Time of Evaluation Date of Evaluation: 12/17/17 Time of Evaluation: 18:00 - Subjective Subjective: Pt still weak, lethargic, on Iv antibiotics, fever trending down, gram neg septicemia Objective - Vital Signs/Intake and Output Vital Signs (last 24 hours): Temp Pulse Resp BP Pulse Ox 98.6 F 80 20 122/73 98 12/17/17 07:44 12/17/17 07:44 12/17/17 07:44 12/17/17 10:28 12/17/17 07:44 Intake and Output: 12/17/17 12/17/17 06:59 18:59 Intake Total 1000 2220 Output Total 300 700 Balance 700 1520 - Medications Medications: Current Medications Acetaminophen (Tylenol 650 Mg Supp) 650 mg [place] Q6 PRN PRN Reason: fever of >100.4 and above Last Admin: 12/17/17 00:55 Dose: 650 mg Chlordiazepoxide (Librium) 25 mg PO Q6 [facility] Last Admin: 12/17/17 12:59 Dose: Not Given Chlordiazepoxide (Librium) 25 mg PO Q4 PRN PRN Reason: alcohol withdrawal Famotidine (Pepcid) 40 mg PO DAILY [facility] Last Admin: 12/17/17 10:30 Dose: 40 mg Furosemide (Lasix) 40 mg IVP DAILY [facility] Last Admin: 12/17/17 10:28 Dose: 40 mg Sodium Chloride (Sodium Chloride 0.9%) 1,000 mls @ 100 mls/hr IV .Q10H [facility] Last Admin: 12/17/17 05:30 Dose: 100 mls/hr Piperacillin Sod/Tazobactam Sod (Zosyn 3.375 Gm Iv Premix) 3.375 gm in 50 mls @ 100 mls/hr IVPB Q8 JE PRN Reason: Protocol Last Admin: 12/17/17 13:27 Dose: 100 mls/hr Vancomycin HCl 750 mg/ Sodium (Chloride) 150 mls @ 100 mls/hr IVPB Q12 JE PRN Reason: Protocol Last Admin: 12/17/17 10:28 Dose: 100 mls/hr Insulin Human Regular (Novolin R) 0 unit SC ACHS JE PRN Reason: Protocol Last Admin: 12/17/17 11:59 Dose: Not Given Multivitamins/Vitamin C (Multi-Delyn Liquid) 5 ml PO DAILY [facility] Last Admin: 12/17/17 10:30 Dose: 5 ml Spironolactone (Aldactone) 25 mg PO BID [facility] Last Admin: 12/17/17 10:30 Dose: 25 mg - Labs Labs: 12/17/17 07:53 12/17/17 07:53 PT 19.4 SECONDS (9.7-12.2) H 12/14/17 16:33 INR 1.7 12/14/17 16:33 APTT 35 SECONDS (21-34) H 12/14/17 16:33 - Constitutional Appears: Chronically Ill - Head Exam Head Exam: ATRAUMATIC, NORMAL INSPECTION, NORMOCEPHALIC - Eye Exam Eye Exam: EOMI, Normal appearance, PERRL Pupil Exam: NORMAL ACCOMODATION, PERRL - Respiratory Exam Respiratory Exam: Clear to Ausculation Bilateral, NORMAL BREATHING PATTERN - Cardiovascular Exam Cardiovascular Exam: REGULAR RHYTHM, +S1, +S2. absent: Murmur - GI/Abdominal Exam GI & Abdominal Exam: Soft, Normal Bowel Sounds. absent: Tenderness
--- NOTE | 2017-12-17 15:17 | CP.PCM.PN ---
Subjective - Date & Time of Evaluation Date of Evaluation: 12/17/17 Time of Evaluation: 11:14 - Subjective Subjective: 72 year old male seen at bedside for b/l swollen, weeping legs. Patient is seen sitting up in bed AAO x 3 and NAD accompanied by his daughter at time of visit. Denies any new leg pain or acute overnight events. Denies any recent N/V/F/CP/ SOB/D/posterior calf pain when squeezed. Objective - Vital Signs/Intake and Output Vital Signs (last 24 hours): Temp Pulse Resp BP Pulse Ox 98.6 F 80 20 122/73 98 12/17/17 07:44 12/17/17 07:44 12/17/17 07:44 12/17/17 10:28 12/17/17 07:44 Intake and Output: 12/17/17 12/17/17 06:59 18:59 Intake Total 1000 2220 Output Total 300 700 Balance 700 1520 - Medications Medications: Current Medications Acetaminophen (Tylenol 650 Mg Supp) 650 mg [place] Q6 PRN PRN Reason: fever of >100.4 and above Last Admin: 12/17/17 00:55 Dose: 650 mg Chlordiazepoxide (Librium) 25 mg PO Q6 JE Last Admin: 12/17/17 12:59 Dose: Not Given Chlordiazepoxide (Librium) 25 mg PO Q4 PRN PRN Reason: alcohol withdrawal Famotidine (Pepcid) 40 mg PO DAILY [facility] Last Admin: 12/17/17 10:30 Dose: 40 mg Furosemide (Lasix) 40 mg IVP DAILY [facility] Last Admin: 12/17/17 10:28 Dose: 40 mg Sodium Chloride (Sodium Chloride 0.9%) 1,000 mls @ 100 mls/hr IV .Q10H [facility] Last Admin: 12/17/17 05:30 Dose: 100 mls/hr Piperacillin Sod/Tazobactam Sod (Zosyn 3.375 Gm Iv Premix) 3.375 gm in 50 mls @ 100 mls/hr IVPB Q8 JE PRN Reason: Protocol Last Admin: 12/17/17 13:27 Dose: 100 mls/hr Vancomycin HCl 750 mg/ Sodium (Chloride) 150 mls @ 100 mls/hr IVPB Q12 JE PRN Reason: Protocol Last Admin: 12/17/17 10:28 Dose: 100 mls/hr Insulin Human Regular (Novolin R) 0 unit SC ACHS [facility] PRN Reason: Protocol Last Admin: 12/17/17 11:59 Dose: Not Given Multivitamins/Vitamin C (Multi-Delyn Liquid) 5 ml PO DAILY [facility] Last Admin: 12/17/17 10:30 Dose: 5 ml Spironolactone (Aldactone) 25 mg PO BID [facility] Last Admin: 12/17/17 10:30 Dose: 25 mg - Labs Labs: 12/17/17 07:53 12/17/17 07:53 PT 19.4 SECONDS (9.7-12.2) H 12/14/17 16:33 INR 1.7 12/14/17 16:33 APTT 35 SECONDS (21-34) H 12/14/17 16:33 - Constitutional Appears: Well, Non-toxic, No Acute Distress - Extremities Exam Additional comments: VASC: DP/PT pulses are palpable 2/4 B/L. Cap refill time: < 3 seconds to all digits. Skin temperature warm to cool from proximal to distal. B/l LE edema noted to be resolved at this time with no weeping noted DERM: no onen lesions, no inter digital maceration, nails are cut to hygenic length, no clinical suspicion of active infection. Hyperpigmented skin noted to distal medial leg most likely secondary to hemosiderin deposition NEURO: Unable to determine due to patient's mental status ORTHO: Unable to determine due to patient's mental status. No gross deformities noted - Neurological Exam Neurological Exam: Alert, Awake, Oriented x3 - Psychiatric Exam Psychiatric exam: Normal Affect, Normal Mood Assessment and Plan - Assessment and Plan (Free Text) Assessment: 72 year old male seen for b/l LE edema with weeping, resolved Plan: Patient seen and evaluated Afebrile, absent leukocytosis Plan discussed with attending Dr. Sarabia Patients legs left open to air and lotion lathered on hyperpigmented areas No plan for surgical interventon at this time Will reassess legs tomorrow to determine if they still need compressive dressing or not Podiatry will continue to follow while patient in house
[2017-12-17] MEDS ORDERED: Amikacin Sulfate 1,000 MG in Sodium Chloride 0.9% 250 ML IVPB ONE (18:50)
--- NOTE | 2017-12-17 19:56 | PN ---
DATE: 12/17/2017 SUBJECTIVE: The patient is seen. The patient noted to be very lethargic, not eating, constantly keeping his eyes closed. According to the nurse, she held the Librium. The patient has mild tremors but due to his increased lethargy, we will stop the standing Librium and just give him Librium 25 q.4 p.r.n. The patient also had a fever earlier. VITAL SIGNS: Temperature is 98.6, pulse of 80, blood pressure 122/72, respirations 20, oxygen saturation is 98%. The patient had a fever of 100 degree Fahrenheit earlier. REVIEW OF SYSTEMS: GENERAL: The patient is drowsy but arousable, still with periods of confusion. He was complaining of feeling cold. SKIN: No diaphoresis. HEENT: No headache or dizziness. NECK: Supple. RESPIRATORY: No dyspnea. CARDIOVASCULAR: No chest pain. GASTROINTESTINAL: No nausea or vomiting. EXTREMITIES: The patient is moving extremities, has mild tremors. NEUROLOGIC: Alert with periods of confusion. GENITOURINARY: No dysuria. MENTAL STATUS EXAMINATION: Elderly male, who looks stated age. Still with periods of confusion. Oriented to person, not to place or time. Mood is dysphoric. Affect is restrictive. Speech is slow. Thought process, confused off and on. Thought content, no overt psychosis. No suicidal or homicidal ideation. Attention and memory seem to be limited. Insight and judgment limited. Impulse control is guarded at this time. IMPRESSION: History of alcohol withdrawal, alcohols dependence, failure to thrive, leg edema. PLAN AND RECOMMENDATIONS: The patient is seen, medications reviewed. We will discontinue the Librium standing. We will just give the patient Librium 25 q.4 p.r.n. due to the extreme lethargy. Review of his lab; his blood sugar is 212, random blood sugar is 208, creatinine is 1.1. We will monitor vital signs. Continue treatment plan as outlined. Stas Knox MD
--- NOTE | 2017-12-17 20:09 | CP.PCM.CON ---
History of Present Illness - History of Present Illness History of Present Illness: INFECTIOUS DISEASE CONSULT. HPI: 72-year-old male, with history of hypertension and diabetes mellitus who was admitted via the emergency room on 12/14/17 with 2 month history of bilateral lower extremity swelling and generalized weakness. Patient has history off alcohol abuse and was found in DTs on admission and unable to answer any questions. As per family patient has generalized weakness with failure to thrive. He also slid at home developing a wound on the right rib cage. Patient has been spiking temperature to 102 to 103 for the last 3 days. Patient was empirically started on IV Zosyn 3.375 every 8 hourly and IV vancomycin 1 g loading dose followed by 750 every 12 hourly. INFECTIOUS DISEASE CONSULTATION REQUESTED TODAY BLOOD CULTURES REPORTED GRAM- NEGATIVE RODS IN ANAEROBIC BOTTLE. ALSO WOUND CULTURE REPORTED GRAM-NEGATIVE RODS. HISTORY IS SKETCHY PATIENT UNABLE TO GIVE ANY DETAILS AND IS CONFUSED TO SURROUNDINGS AND PLACE.. PATIENT'S SON WAS AT HIS BEDSIDE BUT UNABLE TO GIVE ANY DETAILS HE DOES NOT LIVE WITH HIM. PMH; HYPERTENSION, DIABETES MELLITUS. Surgical History: No Surg Hx Family History: States: Unknown Family Hx - Social History Hx Alcohol Use: No (Former drinker) Hx Substance Use: No - Immunization History Hx Tetanus Toxoid Vaccination: No Hx Influenza Vaccination: No Hx Pneumococcal Vaccination: No ALLERGY; NKA. ROS; NA. Past Patient History - Past Medical History & Family History Past Medical History?: Yes - Past Social History Smoking Status: Former Smoker - CARDIAC Hx Hypertension: Yes - RENAL Hx Renal Failure: Yes - ENDOCRINE/METABOLIC Hx Diabetes Mellitus Type 2: Yes - MUSCULOSKELETAL/RHEUMATOLOGICAL Hx Falls: Yes - PSYCHIATRIC Hx Substance Use: No - SURGICAL HISTORY Hx Surgeries: Yes Hx Herniorrhaphy: Yes (Umbilical) - ANESTHESIA Hx Anesthesia: Yes Hx Anesthesia Reactions: No Hx Malignant Hyperthermia: No Has any member of the family had a problem w/ anesthesia?: No Meds Allergies/Adverse Reactions: Allergies Allergy/AdvReac Type Severity Reaction Status Date / Time No Known Allergies Allergy Verified 12/14/17 15:26 - Medications Medications: Current Medications Acetaminophen (Tylenol 650 Mg Supp) 650 mg [place] Q6 PRN PRN Reason: fever of >100.4 and above Last Admin: 12/17/17 16:20 Dose: 650 mg Chlordiazepoxide (Librium) 25 mg PO Q4 PRN PRN Reason: alcohol withdrawal Famotidine (Pepcid) 40 mg PO DAILY [facility] Last Admin: 12/17/17 10:30 Dose: 40 mg Furosemide (Lasix) 40 mg IVP DAILY [facility] Last Admin: 12/17/17 10:28 Dose: 40 mg Sodium Chloride (Sodium Chloride 0.9%) 1,000 mls @ 100 mls/hr IV .Q10H [facility] Last Admin: 12/17/17 17:49 Dose: 100 mls/hr Potassium Chloride (Potassium Chloride 20 Meq/100 Ml) 20 meq in 100 mls @ 50 mls/hr IVPB Q2 [facility] Stop: 12/17/17 21:59 Last Admin: 12/17/17 17:08 Dose: 50 mls/hr Meropenem 1 gm/ Sodium (Chloride) 100 mls @ 100 mls/hr IVPB Q12H [facility] PRN Reason: Protocol Insulin Human Regular (Novolin R) 0 unit SC ACHS [facility] PRN Reason: Protocol Last Admin: 12/17/17 17:42 Dose: 2 unit Multivitamins/Vitamin C (Multi-Delyn Liquid) 5 ml PO DAILY [facility] Last Admin: 12/17/17 10:30 Dose: 5 ml Spironolactone (Aldactone) 25 mg PO BID [facility] Last Admin: 12/17/17 17:43 Dose: 25 mg Thiamine HCl (Vitamin B1 Tab) 100 mg PO BID [facility] Last Admin: 12/17/17 17:44 Dose: 100 mg Physical Exam - Constitutional Appears: No Acute Distress, Chronically Ill - Head Exam Head Exam: NORMAL INSPECTION - Eye Exam Eye Exam: PERRL, Scleral icterus - ENT Exam ENT Exam: Normal Oropharynx - Neck Exam Neck exam: Positive for: Normal Inspection - Respiratory Exam Respiratory Exam: Decreased Breath Sounds - Cardiovascular Exam Cardiovascular Exam: REGULAR RHYTHM, +S1, +S2 - GI/Abdominal Exam GI & Abdominal Exam: Normal Bowel Sounds, Soft. absent: Tenderness - Extremities Exam Extremities exam: Positive for: normal capillary refill, pedal edema (2+ EDEMA WITH MULTI-pODUS BOOTS BILATERALLY), pedal pulses present. Negative for: calf tenderness - Neurological Exam Neurological exam: Altered (UNABLE TO EVALUATE NEUROLOGICAL EXAMINATION, PATIENT CONFUSED.) - Psychiatric Exam Psychiatric exam: Flat Affect - Skin Skin Exam: Warm Results - Vital Signs Recent Vital Signs: Last Vital Signs Temp 102 F H 12/17/17 16:20 Pulse 99 H 12/17/17 15:00 Resp 22 12/17/17 15:00 BP 164/84 H 12/17/17 15:00 Pulse Ox 100 12/17/17 15:00 - Labs Result Diagrams: 12/17/17 07:53 12/17/17 07:53 Labs: Laboratory Results - last 24 hr 12/16/17 12/16/17 12/17/17 20:06 20:57 07:13 WBC RBC Hgb Hct MCV MCH MCHC RDW Plt Count MPV Neut % (Auto) Lymph % (Auto) Daniels % (Auto) Eos % (Auto) Baso % (Auto) Neut # (Auto) Lymph # (Auto) Daniels # (Auto) Eos # (Auto) Baso # (Auto) Sodium Potassium Chloride Carbon Dioxide Anion Gap BUN Creatinine Est GFR ( Amer) Est GFR (Non-Af Amer) POC Glucose (mg/dL) 237 H 219 H Random Glucose Calcium Urine Color Yellow Urine Clarity Clear Urine pH 5.0 Ur Specific [place] 1.010 Urine Protein Negative Urine Glucose (UA) Normal Urine Ketones Negative Urine Blood 1+ H Urine Nitrate Negative Urine Bilirubin Negative Urine Urobilinogen 4.0 Ur Leukocyte Esterase Neg Urine WBC (Auto) 1 Urine RBC (Auto) < 1 Ur Squamous Epith Cells < 1 Urine Bacteria Rare Hyaline Casts 3-5 H 12/17/17 12/17/17 12/17/17 07:53 07:53 11:24 WBC 5.4 RBC 3.56 L Hgb 11.8 L Hct 34.8 L MCV 97.5 H MCH 33.0 H MCHC 33.9 RDW 14.9 H Plt Count 31 L MPV 8.9 Neut % (Auto) 75.6 H Lymph % (Auto) 14.5 L Daniels % (Auto) 9.6 Eos % (Auto) 0.2 Baso % (Auto) 0.1 Neut # (Auto) 4.1 Lymph # (Auto) 0.8 L Daniels # (Auto) 0.5 Eos # (Auto) 0.0 Baso # (Auto) 0.0 Sodium 140 Potassium 3.4 L Chloride 104 Carbon Dioxide 26 Anion Gap 14 BUN 19 Creatinine 1.1 Est GFR ( Amer) > 60 Est GFR (Non-Af Amer) > 60 POC Glucose (mg/dL) 212 H Random Glucose 208 H Calcium 7.4 L Urine Color Urine Clarity Urine pH Ur Specific [place] Urine Protein Urine Glucose (UA) Urine Ketones Urine Blood Urine Nitrate Urine Bilirubin Urine Urobilinogen Ur Leukocyte Esterase Urine WBC (Auto) Urine RBC (Auto) Ur Squamous Epith Cells Urine Bacteria Hyaline Casts 12/17/17 16:15 WBC RBC Hgb Hct MCV MCH MCHC RDW Plt Count MPV Neut % (Auto) Lymph % (Auto) Daniels % (Auto) Eos % (Auto) Baso % (Auto) Neut # (Auto) Lymph # (Auto) Daniels # (Auto) Eos # (Auto) Baso # (Auto) Sodium Potassium Chloride Carbon Dioxide Anion Gap BUN Creatinine Est GFR ( Amer) Est GFR (Non-Af Amer) POC Glucose (mg/dL) 218 H Random Glucose Calcium Urine Color Urine Clarity Urine pH Ur Specific [place] Urine Protein Urine Glucose (UA) Urine Ketones Urine Blood Urine Nitrate Urine Bilirubin Urine Urobilinogen Ur Leukocyte Esterase Urine WBC (Auto) Urine RBC (Auto) Ur Squamous Epith Cells Urine Bacteria Hyaline Casts - Imaging and Cardiology Chest x-ray Status: Report reviewed by me (BILATERAL PLATELIKE ATELECTASIS. nEGATIVE ACUTE INFILTRATE.) Assessment & Plan (1) Gram-negative sepsis Status: Acute (2) Wound infection, posttraumatic Status: Acute (3) Alcoholic hepatitis Status: Acute (4) Fatty liver with encephalopathy Status: Acute (5) Leg edema Status: Acute (6) Failure to thrive Status: Acute (7) Thrombocytopenia Status: Acute (8) Hypertension Status: Acute - Assessment and Plan (Free Text) Plan: PLAN; PANCULTURES DC iv ZOSYN DC IV VANCOMYCIN. START iv MERREM 1 G EVERY 12 HOURLY. 12/17/17. iv AMIKACIN 1 G iv PIGGYBACK STAT 12/17/17. fOLLOW-UP BLOOD CULTURES AND WOUND CULTURES TO ADJUST ANTIBIOTICS. F/U LFTS. F/U ABDOMINAL US. WATCH THROMBOCYTOPENIA. PATIENT ON THIAMINE FOR HEPATIC ENCEPHALOPATHY/ AND DTS. CASE DISCUSSED WITH THE STAFF. PATIENT ALSO GETTING POTASSIUM SUPPLEMENT FOR HYPOKALEMIA. CASE DISCUSSED WITH THE RN RELIEF CHARGE MS Wells.
[2017-12-17] MEDS: Meropenem 1 GM in Sodium Chloride 0.9% 100 ML IVPB SCH (20:55)
[2017-12-18] MEDS: Meropenem 1 GM in Sodium Chloride 0.9% 100 ML IVPB SCH ×2 (06:00→19:51)
[2017-12-18 07:20] LABS: BASO % 0.6 % (0.0-2.0); EOS # 0.1 K/uL (0.0-0.7); EOS % 1.2 % (0.0-4.0); HEMOGLOBIN 12.4 g/dL (12.0-18.0); LYMPH # 1.2 K/uL (1.0-4.3); LYMPH % 26.7 % (20.0-40.0); MEAN CELL VOLUME 97.9 fL (80.0-94.0); MEAN CORPUSCULAR HEMOGLOBIN 32.9 pg (27.0-31.0); MEAN CORPUSCULAR HGB CONC 33.6 g/dL (33.0-37.0); MEAN PLATELET VOLUME 9.5 fL (7.2-11.7); MONO # 0.7 K/uL (0.0-0.8); MONO % 15.8 % (0.0-10.0); NEUT # 2.5 K/uL (1.8-7.0); NEUT % 55.7 % (50.0-75.0); NRBC % 0.1 % (0.0-2.0); RBC 3.78 Mil/uL (4.40-5.90); WHITE BLOOD COUNT 4.5 K/uL (4.8-10.8)
--- NOTE | 2017-12-18 07:23 | CP.PCM.PN ---
<Rosa Linares - Last Filed: 12/18/17 07:20> Subjective - Date & Time of Evaluation Date of Evaluation: 12/18/17 Time of Evaluation: 07:20 - Subjective Subjective: 72 year old male seen at bedside for b/l swollen legs. Patient is seen sitting up in bed AAO x 3 and NAD. Denies any new leg pain or acute overnight events. Denies any recent N/V/F/CP/SOB/D/posterior calf pain when squeezed. Multipodus boots are intact to both lower extremities. Objective - Vital Signs/Intake and Output Vital Signs (last 24 hours): Temp Pulse Resp BP Pulse Ox 98.3 F 87 20 129/75 98 12/18/17 06:00 12/18/17 00:00 12/18/17 00:00 12/18/17 00:00 12/18/17 00:00 Intake and Output: 12/18/17 12/18/17 06:59 18:59 Intake Total 2500 Balance 2500 - Medications Medications: Current Medications Acetaminophen (Tylenol 650 Mg Supp) 650 mg [place] Q6 PRN PRN Reason: fever of >100.4 and above Last Admin: 12/17/17 16:20 Dose: 650 mg Chlordiazepoxide (Librium) 25 mg PO Q4 PRN PRN Reason: alcohol withdrawal Last Admin: 12/18/17 01:10 Dose: 25 mg Famotidine (Pepcid) 40 mg PO DAILY [facility] Last Admin: 12/17/17 10:30 Dose: 40 mg Furosemide (Lasix) 40 mg IVP DAILY [facility] Last Admin: 12/17/17 10:28 Dose: 40 mg Sodium Chloride (Sodium Chloride 0.9%) 1,000 mls @ 100 mls/hr IV .Q10H [facility] Last Admin: 12/17/17 22:34 Dose: Not Given Meropenem 1 gm/ Sodium (Chloride) 100 mls @ 100 mls/hr IVPB Q12H [facility] PRN Reason: Protocol Last Admin: 12/18/17 06:00 Dose: 100 mls/hr Insulin Human Regular (Novolin R) 0 unit SC ACHS [facility] PRN Reason: Protocol Last Admin: 12/17/17 22:28 Dose: Not Given Multivitamins/Vitamin C (Multi-Delyn Liquid) 5 ml PO DAILY [facility] Last Admin: 12/17/17 10:30 Dose: 5 ml Spironolactone (Aldactone) 25 mg PO BID [facility] Last Admin: 12/17/17 17:43 Dose: 25 mg Thiamine HCl (Vitamin B1 Tab) 100 mg PO BID [facility] Last Admin: 12/17/17 17:44 Dose: 100 mg - Labs Labs: 12/17/17 07:53 12/17/17 07:53 PT 19.4 SECONDS (9.7-12.2) H 12/14/17 16:33 INR 1.7 12/14/17 16:33 APTT 35 SECONDS (21-34) H 12/14/17 16:33 - Constitutional Appears: Well, Non-toxic, No Acute Distress - Extremities Exam Additional comments: VASC: DP/PT pulses are palpable 2/4 B/L. Cap refill time: < 3 seconds to all digits. Skin temperature warm to cool from proximal to distal. B/l LE edema noted to be resolved at this time with no weeping noted DERM: no open lesions, no inter digital maceration, nails are cut to hygenic length, no clinical suspicion of active infection. Hyperpigmented skin noted to distal medial leg most likely secondary to hemosiderin deposition NEURO: Unable to determine due to patient's mental status ORTHO: Unable to determine due to patient's mental status. No gross deformities noted - Neurological Exam Neurological Exam: Alert, Awake, Oriented x3 - Psychiatric Exam Psychiatric exam: Normal Affect, Normal Mood Assessment and Plan - Assessment and Plan (Free Text) Assessment: 72 year old male seen for b/l LE edema with weeping, resolved Plan: Patient seen and evaluated Afebrile, absent leukocytosis Plan discussed with attending Dr. Sarabia Patients legs left open to air and lotion lathered on hyperpigmented areas edema to bilateral lower extremities resolved at this time No plan for surgical interventon at this time Podiatry will continue to follow while patient in house <Patrick Sarabia - Last Filed: 12/19/17 08:56> Objective - Vital Signs/Intake and Output Vital Signs (last 24 hours): Temp Pulse Resp BP Pulse Ox 98 F 76 20 152/81 H 97 12/19/17 07:45 12/19/17 07:45 12/19/17 07:45 12/19/17 07:45 12/19/17 07:45 Intake and Output: 12/19/17 12/19/17 06:59 18:59 Intake Total 2250 Output Total 1 Balance 2249 - Medications Medications: Current Medications Acetaminophen (Tylenol 650 Mg Supp) 650 mg [place] Q6 PRN PRN Reason: fever of >100.4 and above Last Admin: 12/18/17 16:37 Dose: 650 mg Famotidine (Pepcid) 40 mg PO DAILY [facility] Last Admin: 12/18/17 10:25 Dose: 40 mg Furosemide (Lasix) 40 mg IVP DAILY [facility] Last Admin: 12/18/17 10:24 Dose: 40 mg Sodium Chloride (Sodium Chloride 0.9%) 1,000 mls @ 100 mls/hr IV .Q10H [facility] Last Admin: 12/19/17 03:45 Dose: Not Given Meropenem 1 gm/ Sodium (Chloride) 100 mls @ 100 mls/hr IVPB Q12H [facility] PRN Reason: Protocol Last Admin: 12/19/17 06:00 Dose: 100 mls/hr Vancomycin HCl (Vancocin 750mg/Ns 150 Ml) 150 mls @ 166.6 mls/hr IVPB Q12H [facility] PRN Reason: Protocol Stop: 12/22/17 20:30 Last Admin: 12/19/17 08:50 Dose: 166.6 mls/hr Insulin Human Regular (Novolin R) 0 unit SC ACHS [facility] PRN Reason: Protocol Last Admin: 12/19/17 08:27 Dose: 1 unit Multivitamins/Vitamin C (Multi-Delyn Liquid) 5 ml PO DAILY [facility] Last Admin: 12/18/17 10:25 Dose: 5 ml Spironolactone (Aldactone) 25 mg PO BID [facility] Last Admin: 12/18/17 17:25 Dose: 25 mg Thiamine HCl (Vitamin B1 Tab) 100 mg PO BID [facility] Last Admin: 12/18/17 17:25 Dose: 100 mg - Labs Labs: 12/18/17 07:06 12/18/17 07:06 PT 19.4 SECONDS (9.7-12.2) H 12/14/17 16:33 INR 1.7 12/14/17 16:33 APTT 35 SECONDS (21-34) H 12/14/17 16:33 Assessment and Plan - Assessment and Plan (Free Text) Plan: agree with above findings .labs and chart reviewed . /DR Sarabia .
[2017-12-18 07:33] LABS: ALB/GLOB RATIO 0.6 (1.0-2.1); ALBUMIN 2.1 g/dL (3.5-5.0); ALT/SGPT 48 U/L (21-72); AST/SGOT 60 U/L (17-59); BILIRUBIN,DIRECT 1.5 mg/dL (0.0-0.4); BLOOD UREA NITROGEN 18 mg/dL (9-20); CALCIUM 7.7 mg/dl (8.6-10.4); GFR AFRICAN-AMERICAN > 60; GFR NON-AFRICAN AMERICAN > 60
--- NOTE | 2017-12-18 08:24 | CON ---
DATE: 12/15/[address] Rodrigues to Dr. Jayden Johnson. I was called for a GI consultation by the admitting medical team. The patient is seen and fully examined on 12/15/2017 as recommended by the admitting medical staff. The entire chart is reviewed including, but not limited to the most recent lab and radiology study results, current and previous medication list, current and the previous medical events, allergies to medication list, as well as all the available current and the previous medical record. Case discussed with the staff at length before and immediately after my GI consultation on 12/15/2017. HISTORY OF PRESENT ILLNESS: This is a 72 years old male with a known history of excessive alcohol intake who was admitted to the hospital through the emergency room with a complaint of two months history of lower extremities edematous changes, mild increased abdominal gas, yellowish discoloration of his eyes with abdominal distention and discomfort. It has to be mentioned that his oral intake has been somewhat decreased recently. PAST MEDICAL HISTORY: Mainly including hypertension, peptic ulcer disease, excessive alcohol intake by history. CURRENT MEDICATIONS: Medication list post admission is reviewed. FAMILY HISTORY: Noncontributory. SOCIAL HISTORY: Positive for alcohol intake, but no substance abuse. LABORATORY DATA: After being admitted to the hospital, patient was found to have low hemoglobin of 11.9, hematocrit 34.9, thrombocytopenia of 65, potassium 3.4, BUN 28, but normal creatinine 1.2. Blood glucose level of 195 with abnormal liver function test. The patient denied any recent history of significant chest pain, palpitation, but mild shortness of breath. No chills or fever. PHYSICAL EXAMINATION: GENERAL: A 72 years old male, appeared to be somewhat mildly cachectic, but awake, alert and oriented.. VITAL SIGNS: Afebrile with pulse of 86, respiratory rate 18 to 20, blood pressure 172/62. HEENT: Showed pale, dry oral mucous membrane. Bilateral icteric sclerae. LYMPH NODES: No lymphadenitis or lymphadenopathy. LUNGS: Few scattered mild crepitations. Breathing sounds are present bilaterally. HEART: Positive S1 and S2. ABDOMEN: Soft with mild to moderate distention with small amount of ascites. Bowel sounds are hypoactive. No appreciated mass or organomegaly. No rebound tenderness or guarding. RECTAL: Patient refused. EXTREMITIES: With lower extremities edematous changes. No clubbing or cyanosis. NEUROLOGIC: No new reported neurological deficits, sensory or motor. No reported new focal deficits. Peripheral pulses are present bilaterally, but decreased at bases. IMPRESSION: 1. Alcoholism, with probably alcoholic liver disease, borderline hypertension, mild ascites with peripheral edema. 2. Poor oral intake, loss of appetite with failure to thrive. 3. Anemia, rule out gastrointestinal blood loss, upper versus lower versus occult gastrointestinal malignancy. 4. Re-exacerbation of peptic ulcer disease. 5. Abnormal liver function tests with jaundice, secondary to hepatocellular . 6. Reported history of hypertension, poorly controlled. SUGGESTIONS: 1. Agree with your plan. 2. MRCP. 3. Cancer markers including alpha-fetoprotein, CEA, CA 19-9. 4. Proton pump inhibitors IV. 5. Leg elevation. 7. Aldactone p.o. 8. Lasix IV. 9. Ammonia level, to rule out possible early stage of hepatic encephalopathy. 10. Pending on the outcome of the MRCP, patient may need ERCP for decompression due to what is reported to be dilated common bile duct by recent radiology study results. 11. Further recommendation to follow. Thank you for letting me participate in your patient's case management and peripheral hyperalimentation to start. Lachelle Rodrigues MD
[2017-12-18] MEDS: (Novolin R) Insulin Human Regular 100 units/ml vial SC SCH ×4 (08:29→22:03)
[2017-12-18] MEDS: Sodium Chloride 0.9% 1,000 ML IV SCH ×2 (08:32→18:40)
[2017-12-18] MEDS: Multiple Vitamins Oral Solution PO SCH (10:25)
--- NOTE | 2017-12-18 15:47 | PN ---
DATE: SUBJECTIVE: The patient is seen. The patient noted to be very lethargic today and he did not eat his breakfast. The patient was taken off the standing Librium detox and only given Librium p.r.n. as he becomes very sedated with the Librium dose. The patient is not exhibiting gross signs and symptoms of alcohol withdrawal, but he was seen by Dr. Lyles, Infectious Disease as the patient was having high-grade fever and also now taking antibiotics. Other than that, the patient is manageable. VITAL SIGNS: Temperature is 98.2, pulse 76, blood pressure 132/73, respirations 20, oxygen saturation is 100% on nasal cannula. REVIEW OF SYSTEMS: GENERAL: The patient is sleepy, but arousable, still with periods of confusion, but is improving. The patient knows that he is in the hospital. The patient also states he tried to stop drinking. SKIN: No diaphoresis. HEENT: No headache or dizziness. NECK: Supple. RESPIRATORY: No dyspnea. CARDIOVASCULAR: No chest pain. GASTROINTESTINAL: Appetite is poor. No nausea. No vomiting. EXTREMITIES: Gait is steady. He has some swelling in his lower extremities. No tremors noted. MUSCULOSKELETAL: Feels weak. NEUROLOGIC: Alert with periods of confusion. GENITOURINARY: No dysuria. MENTAL STATUS EXAMINATION: Elderly male, who looks stated age, oriented to place and person, not to time. Speech is slow. Affect is restricted. Mood is dysphoric. Thought process, confused off and on. Thought content, no overt psychosis. No suicidal or homicidal ideation. Attention and memory seems to be limited. Insight and judgment limited. Impulse control is fair at this time. LABORATORY DATA: On review of his lab, the patient's ammonia is now 42, went up a little bit. His vancomycin trough is 5.7, blood sugars 210, creatinine 0.9. IMPRESSION: Alcohol dependence, alcohol withdrawal, failure to thrive. PLAN AND RECOMMENDATIONS: The patient is seen, medications reviewed. We will continue Librium p.r.n. as ordered. The patient will be followed by Dr. Lyles, Infectious Disease . The patient is taking meropenem antibiotic. Plan is once the patient is more medically stable, we will try to refer the patient for subacute rehab as the patient is having a very unsteady gait and also has not been eating. The patient today did not eat his breakfast. Stas Knox MD [facility] # [id number]
--- NOTE | 2017-12-18 20:28 | CP.PCM.PN ---
Subjective - Date & Time of Evaluation Date of Evaluation: 12/18/17 Time of Evaluation: 20:28 - Subjective Subjective: spiking temperatures tmax 101.8 Drowsy but arousable. CLINICALLY UNCHANGED LABS REVIEWED BLOOD CULTURES 12/16/17 2:2 SETS GRAM-NEGATIVE RODS. WOUND CULTURES +VE kLEBSIELLA PNEUMONIAE/GRAM-POSITIVE COCCI S-mERREM. MEDS CONTINUE iv MERREM 1 G EVERY 12 HOURLY 12/17/17. AND iv VANCOMYCIN 750 MG iv EVERY 12 HOURLY FOR GRAM-POSITIVE COCCI IN THE WOUND.12/18/17. fOLLOW-UP CULTURES TO ADJUST ANTIBIOTICS. Objective - Vital Signs/Intake and Output Vital Signs (last 24 hours): Temp Pulse Resp BP Pulse Ox 100.0 F H 89 18 135/76 97 12/18/17 20:15 12/18/17 18:35 12/18/17 18:35 12/18/17 18:35 12/18/17 18:35 Intake and Output: 12/18/17 12/19/17 18:59 06:59 Intake Total 1200 Balance 1200 - Medications Medications: Current Medications Acetaminophen (Tylenol 650 Mg Supp) 650 mg [place] Q6 PRN PRN Reason: fever of >100.4 and above Last Admin: 12/18/17 16:37 Dose: 650 mg Chlordiazepoxide (Librium) 25 mg PO Q4 PRN PRN Reason: alcohol withdrawal Last Admin: 12/18/17 01:10 Dose: 25 mg Famotidine (Pepcid) 40 mg PO DAILY JE Last Admin: 12/18/17 10:25 Dose: 40 mg Furosemide (Lasix) 40 mg IVP DAILY [facility] Last Admin: 12/18/17 10:24 Dose: 40 mg Sodium Chloride (Sodium Chloride 0.9%) 1,000 mls @ 100 mls/hr IV .Q10H JE Last Admin: 12/18/17 18:40 Dose: Not Given Meropenem 1 gm/ Sodium (Chloride) 100 mls @ 100 mls/hr IVPB Q12H JE PRN Reason: Protocol Last Admin: 12/18/17 19:51 Dose: 100 mls/hr Vancomycin HCl 750 mg/ Sodium (Chloride) 250 mls @ 166.6 mls/hr IVPB Q12H JE PRN Reason: Protocol Stop: 12/22/17 20:30 Insulin Human Regular (Novolin R) 0 unit SC ACHS JE PRN Reason: Protocol Last Admin: 12/18/17 17:24 Dose: 2 unit Multivitamins/Vitamin C (Multi-Delyn Liquid) 5 ml PO DAILY [facility] Last Admin: 12/18/17 10:25 Dose: 5 ml Spironolactone (Aldactone) 25 mg PO BID [facility] Last Admin: 12/18/17 17:25 Dose: 25 mg Thiamine HCl (Vitamin B1 Tab) 100 mg PO BID [facility] Last Admin: 12/18/17 17:25 Dose: 100 mg - Labs Labs: 12/18/17 07:06 12/18/17 07:06 PT 19.4 SECONDS (9.7-12.2) H 12/14/17 16:33 INR 1.7 12/14/17 16:33 APTT 35 SECONDS (21-34) H 12/14/17 16:33 - Constitutional Appears: No Acute Distress, Chronically Ill - Head Exam Head Exam: NORMAL INSPECTION - Eye Exam Eye Exam: PERRL, Scleral icterus - ENT Exam ENT Exam: Normal Oropharynx - Neck Exam Neck Exam: Normal Inspection - Respiratory Exam Respiratory Exam: Decreased Breath Sounds - Cardiovascular Exam Cardiovascular Exam: REGULAR RHYTHM, +S1, +S2 - GI/Abdominal Exam GI & Abdominal Exam: Soft, Normal Bowel Sounds - Extremities Exam Extremities Exam: Pedal Edema (CHRONIC CHANGES SKIN DRY AND MACERATED FEET.). absent: Calf Tenderness - Neurological Exam Neurological Exam: Altered (DROWSY BUT AROUSABLE. WEAK. dOES NOT FOLLOW COMMANDS.) - Psychiatric Exam Psychiatric exam: Flat Affect - Skin Skin Exam: Normal Color, Warm Assessment and Plan (1) Gram-negative sepsis Status: Acute (2) Wound infection, posttraumatic Status: Acute (3) Alcoholic hepatitis Status: Acute (4) Fatty liver with encephalopathy Status: Acute (5) Leg edema Status: Acute (6) Failure to thrive Status: Acute (7) Thrombocytopenia Status: Acute (8) Hypertension Status: Acute - Assessment and Plan (Free Text) Plan: continue iv MERREM 1 G EVERY 12 HOURLY. 12/17/17. iv AMIKACIN 1 G iv PIGGYBACK STAT 12/17/17. at IV vancomycin 750 mg every 12 hourly 12/18/17 Follow-up Vanco levels prior to the fourth dose and keep between 10 and 20. fOLLOW-UP BLOOD CULTURES AND WOUND CULTURES TO ADJUST ANTIBIOTICS. F/U LFTS. WATCH THROMBOCYTOPENIA. PATIENT ON THIAMINE FOR HEPATIC ENCEPHALOPATHY/ AND DTS aS ammonia level is high. CASE DISCUSSED WITH THE STAFF.
[2017-12-18] MEDS: Vancomycin 750mg/NS 150 ml 150 ML IVPB SCH (21:22)
--- NOTE | 2017-12-18 23:29 | CP.PCM.PN ---
Subjective - Date & Time of Evaluation Date of Evaluation: 12/18/17 Time of Evaluation: 18:40 - Subjective Subjective: Pt still having fever, prefers to keep his eyes closed but responds to vocal stimuli, he is on antibiotics Objective - Vital Signs/Intake and Output Vital Signs (last 24 hours): Temp Pulse Resp BP Pulse Ox 98.9 F 89 18 135/76 97 12/18/17 22:41 12/18/17 18:35 12/18/17 18:35 12/18/17 18:35 12/18/17 18:35 Intake and Output: 12/18/17 12/19/17 18:59 06:59 Intake Total 1200 1150 Balance 1200 1150 - Medications Medications: Current Medications Acetaminophen (Tylenol 650 Mg Supp) 650 mg [place] Q6 PRN PRN Reason: fever of >100.4 and above Last Admin: 12/18/17 16:37 Dose: 650 mg Chlordiazepoxide (Librium) 25 mg PO Q4 PRN PRN Reason: alcohol withdrawal Last Admin: 12/18/17 01:10 Dose: 25 mg Famotidine (Pepcid) 40 mg PO DAILY [facility] Last Admin: 12/18/17 10:25 Dose: 40 mg Furosemide (Lasix) 40 mg IVP DAILY JE Last Admin: 12/18/17 10:24 Dose: 40 mg Sodium Chloride (Sodium Chloride 0.9%) 1,000 mls @ 100 mls/hr IV .Q10H JE Last Admin: 12/18/17 18:40 Dose: Not Given Meropenem 1 gm/ Sodium (Chloride) 100 mls @ 100 mls/hr IVPB Q12H JE PRN Reason: Protocol Last Admin: 12/18/17 19:51 Dose: 100 mls/hr Vancomycin HCl (Vancocin 750mg/Ns 150 Ml) 150 mls @ 166.6 mls/hr IVPB Q12H JE PRN Reason: Protocol Stop: 12/22/17 20:30 Last Admin: 12/18/17 21:22 Dose: 166.6 mls/hr Insulin Human Regular (Novolin R) 0 unit SC ACHS JE PRN Reason: Protocol Last Admin: 12/18/17 22:03 Dose: Not Given Multivitamins/Vitamin C (Multi-Delyn Liquid) 5 ml PO DAILY [facility] Last Admin: 12/18/17 10:25 Dose: 5 ml Spironolactone (Aldactone) 25 mg PO BID [facility] Last Admin: 12/18/17 17:25 Dose: 25 mg Thiamine HCl (Vitamin B1 Tab) 100 mg PO BID [facility] Last Admin: 12/18/17 17:25 Dose: 100 mg - Labs Labs: 12/18/17 07:06 12/18/17 07:06 PT 19.4 SECONDS (9.7-12.2) H 12/14/17 16:33 INR 1.7 12/14/17 16:33 APTT 35 SECONDS (21-34) H 12/14/17 16:33 - Constitutional Appears: No Acute Distress - Head Exam Head Exam: ATRAUMATIC, NORMAL INSPECTION, NORMOCEPHALIC - Eye Exam Eye Exam: EOMI, Normal appearance, PERRL Pupil Exam: NORMAL ACCOMODATION, PERRL - Respiratory Exam Respiratory Exam: Clear to Ausculation Bilateral, NORMAL BREATHING PATTERN - Cardiovascular Exam Cardiovascular Exam: REGULAR RHYTHM, +S1, +S2. absent: Murmur - GI/Abdominal Exam GI & Abdominal Exam: Soft, Normal Bowel Sounds. absent: Tenderness Assessment and Plan (1) Fatty liver with encephalopathy Status: Acute (2) Hypertension Status: Acute (3) Wound infection, posttraumatic Status: Acute (4) Fever Status: Acute
[2017-12-19] MEDS: Sodium Chloride 0.9% 1,000 ML IV SCH ×4 (03:45→13:16)
[2017-12-19] MEDS: Meropenem 1 GM in Sodium Chloride 0.9% 100 ML IVPB SCH ×2 (06:00→18:26)
[2017-12-19] MEDS: (Novolin R) Insulin Human Regular 100 units/ml vial SC SCH ×4 (08:27→21:14)
[2017-12-19] MEDS: Vancomycin 750mg/NS 150 ml 150 ML IVPB SCH ×2 (08:50→20:35)
[2017-12-19] MEDS: Multiple Vitamins Oral Solution PO SCH (10:34)
--- NOTE | 2017-12-19 14:12 | PN ---
DATE: 12/19/2017. LOCATION: [facility], bed A. SUBJECTIVE: This is a 72 years old male seen and examined in rounds without significant clinical changes or reported active bleeding with less abdominal pain, but with reported low-grade temperature. The entire chart is reviewed including, but not limited to the most recent labs and radiology study results, current and the previous medication list, current and the previous medical events. Case discussed with ID air quality consultant on the case. It has to be mentioned that the patient has very poor appetite reported recently with less oral intake. Today's labs showed blood glucose level of 209. PHYSICAL EXAMINATION: GENERAL: A 72 years old male. VITAL SIGNS: Afebrile at the time he was seen by me with pulse of 78, respiratory rate of 20 to 22, blood pressure of 144/78. HEENT: Showed mildly pale dry oral mucous membrane. Nonicteric sclerae. LUNGS: Few scattered crepitation. Decreased air entry at bases. HEART: Positive S1 and S2. ABDOMEN: Soft, bowel sounds are present with mild generalized tenderness. No mass or organomegaly. No rebound tenderness or guarding. EXTREMITIES: Without significant clubbing, cyanosis or edema. NEUROLOGIC: No reported new neurological deficits, sensory or motor. IMPRESSION: 1. Alcoholism. 2. Alcoholic liver disease. 3. Poorly controlled diabetes mellitus. 4. Known history of hypertension. 5. Thrombocytopenia secondary to above. 6. Abnormal liver function tests with abnormal ultrasound of the abdomen. 7. Elevated CEA and CA 19-9 to rule out occult gastrointestinal malignancy. SUGGESTIONS: 1. Agree with your plan. 2. For MRCP, the patient may need biliary stent insertion, pending the outcome of the MRCP. 3. Upper and lower endoscopy to be kept in mind. Lachelle Rodrigues MD
[2017-12-19] MEDS ORDERED: Sodium Chloride 0.9% 1,000 ML IV SCH (15:55)
--- NOTE | 2017-12-19 16:15 | PN ---
DATE: 12/19/2017 SUBJECTIVE: The patient is seen in his room, still feeling weak with periods of confusion, was better than yesterday. The patient is off Librium. The patient has been followed by Dr. Lyles, antibiotics because of his fever. His appetite is still variable, but the patient does not have any signs and symptoms of florid alcohol withdrawal. The patient speaks in soft voice. VITAL SIGNS: Temperature is 98, pulse of 76, blood pressure 152/81, respirations 20, oxygen saturation is 97%. The patient is taking meropenem prescribed by Dr. Lyles. PHYSICAL EXAMINATION/REVIEW OF SYSTEMS: GENERAL: The patient is drowsy but arousable, still with periods of confusion, seen in his room, not agitated. Had an eventful night. SKIN: No diaphoresis. HEENT: No headache or dizziness. NECK: Supple. RESPIRATORY: No dyspnea. CARDIOVASCULAR: No chest pain. GASTROINTESTINAL: Appetite is variable. EXTREMITIES: The patient has swelling of his lower extremities but no tremors noted. MUSCULOSKELETAL: Feels weak. GENITOURINARY: No dysuria. NEUROLOGIC: Alert with periods of confusion. MENTAL STATUS EXAMINATION: Elderly male who looks stated age, oriented to person and place. His speech is slow. Affect is restricted. Mood is dysphoric. Thought process, confused off and on but improving. Thought content, no overt paranoia or hallucinations. No suicidal or homicidal ideation. Attention and memory seem to be limited. Insight and judgment limited. Impulse control is guarded. IMPRESSION: History of alcohol dependence, alcohol withdrawal, failure to thrive, also confusion and delirium. PLAN AND RECOMMENDATIONS: The patient is seen, medications reviewed. Continue present management. Keep the patient off Librium and keep him on his thiamine supplements. The patient is followed by Dr. Lyles for ID-pringle for his infection. The patient may benefit from going for subacute rehab once he is medically stable. Review of his lab, the patient%s sodium is 141, his creatinine 0.9, his estimated GFR is greater than 60, his vancomycin trough is 5.7. Stas Knox MD [facility] # [id number]
--- NOTE | 2017-12-19 22:48 | CP.PCM.PN ---
Subjective - Date & Time of Evaluation Date of Evaluation: 12/19/17 Time of Evaluation: 22:48 - Subjective Subjective: spiking temperatures tmax 101.8 Drowsy but arousable. CLINICALLY UNCHANGED SPOKE TO FAMILY DAUGHTER AT BEDSIDE. LABS REVIEWED BLOOD CULTURES 12/16/17 2:2 SETS +VE E. COLI S-cIPRO, MERREM, GENTAMICIN. WOUND CULTURES +VE kLEBSIELLA PNEUMONIAE/STAPH EPI DERMIDIS S-mERREM/GENTAMICIN. CREATININE 0.9/bun 18 SERUM AMMONIA 42 HIGH. TOTAL BILI 2.2, ast 60, alt 48 MEDS CONTINUE iv MERREM 1 G EVERY 12 HOURLY 12/17/17. AND iv VANCOMYCIN 750 MG iv EVERY 12 HOURLY FOR GRAM-POSITIVE COCCI IN THE WOUND.12/18/17. fOLLOW-UP CULTURES TO ADJUST ANTIBIOTICS Objective - Vital Signs/Intake and Output Vital Signs (last 24 hours): Temp Pulse Resp BP Pulse Ox 100.0 F H 95 H 20 144/82 100 12/19/17 20:57 12/19/17 16:00 12/19/17 16:00 12/19/17 16:00 12/19/17 16:00 Intake and Output: 12/19/17 12/20/17 18:59 06:59 Intake Total 1100 Balance 1100 - Medications Medications: Current Medications Acetaminophen (Tylenol 650 Mg Supp) 650 mg [place] Q6 PRN PRN Reason: fever of >100.4 and above Last Admin: 12/19/17 18:08 Dose: 650 mg Furosemide (Lasix) 40 mg IVP DAILY [facility] Last Admin: 12/19/17 10:35 Dose: 40 mg Meropenem 1 gm/ Sodium (Chloride) 100 mls @ 100 mls/hr IVPB Q12H JE PRN Reason: Protocol Last Admin: 12/19/17 18:26 Dose: 100 mls/hr Vancomycin HCl (Vancocin 750mg/Ns 150 Ml) 150 mls @ 166.6 mls/hr IVPB Q12H JE PRN Reason: Protocol Stop: 12/22/17 20:30 Last Admin: 12/19/17 20:35 Dose: 166.6 mls/hr Insulin Human Regular (Novolin R) 0 unit SC ACHS JE PRN Reason: Protocol Last Admin: 12/19/17 21:14 Dose: Not Given Lactulose (Enulose) 20 gm PO BID [facility] Last Admin: 12/19/17 18:08 Dose: 20 gm Multivitamins/Vitamin C (Multi-Delyn Liquid) 5 ml PO DAILY [facility] Last Admin: 12/19/17 10:34 Dose: 5 ml Spironolactone (Aldactone) 25 mg PO BID [facility] Last Admin: 12/19/17 18:07 Dose: 25 mg Thiamine HCl (Vitamin B1 Tab) 100 mg PO BID [facility] Last Admin: 12/19/17 18:07 Dose: 100 mg - Labs Labs: 12/18/17 07:06 12/18/17 07:06 PT 19.4 SECONDS (9.7-12.2) H 12/14/17 16:33 INR 1.7 12/14/17 16:33 APTT 35 SECONDS (21-34) H 12/14/17 16:33 - Constitutional Appears: No Acute Distress, Chronically Ill - Head Exam Head Exam: NORMAL INSPECTION - Eye Exam Eye Exam: EOMI, PERRL, Scleral icterus - ENT Exam ENT Exam: Mucous Membranes Moist - Neck Exam Neck Exam: Normal Inspection - Respiratory Exam Respiratory Exam: Decreased Breath Sounds - Cardiovascular Exam Cardiovascular Exam: Tachycardia, +S1 - GI/Abdominal Exam GI & Abdominal Exam: Soft, Normal Bowel Sounds - Extremities Exam Extremities Exam: Pedal Edema (FEET SKIN DRY AND MACERATED. cHRONIC CHANGES.). absent: Calf Tenderness - Neurological Exam Neurological Exam: Altered (AROUSABLE, CONCENTRATION POOR.) - Psychiatric Exam Psychiatric exam: Flat Affect - Skin Skin Exam: Normal Color, Warm Assessment and Plan (1) Gram-negative sepsis Status: Acute (2) Wound infection, posttraumatic Status: Acute (3) Alcoholic hepatitis Status: Acute (4) Fatty liver with encephalopathy Status: Acute (5) Leg edema Status: Acute (6) Failure to thrive Status: Acute (7) Thrombocytopenia Status: Acute (8) Hypertension Status: Acute - Assessment and Plan (Free Text) Plan: continue iv MERREM 1 G EVERY 12 HOURLY. 12/17/17. iv AMIKACIN 1 G iv PIGGYBACK STAT 12/17/17. at IV vancomycin 750 mg every 12 hourly 12/18/17 Follow-up Vanco levels prior to the fourth dose and keep between 10 and 20. ADD iv GENTAMICIN 140MG X1 DOSE 12/19/17 F/U GENTAMICIN 100 MG DAILY X2 DOSES. 12/20. 3/22/18 2D ECHO R/O VEGETATIONS. SOURCE OF GRAM-NEGATIVE SEPSIS, NOT VERY CLEAR. F/U LFTS. WATCH THROMBOCYTOPENIA.
--- NOTE | 2017-12-20 00:42 | CP.PCM.PN ---
Subjective - Date & Time of Evaluation Date of Evaluation: 12/19/17 Time of Evaluation: 19:10 - Subjective Subjective: Pt seen and examined at bedside today Objective - Vital Signs/Intake and Output Vital Signs (last 24 hours): Temp Pulse Resp BP Pulse Ox 99.2 F 95 H 20 144/82 100 12/19/17 22:30 12/19/17 16:00 12/19/17 16:00 12/19/17 16:00 12/19/17 16:00 Intake and Output: 12/19/17 12/20/17 18:59 06:59 Intake Total 1100 1100 Balance 1100 1100 - Medications Medications: Current Medications Acetaminophen (Tylenol 650 Mg Supp) 650 mg [place] Q6 PRN PRN Reason: fever of >100.4 and above Last Admin: 12/19/17 18:08 Dose: 650 mg Furosemide (Lasix) 40 mg IVP DAILY [facility] Last Admin: 12/19/17 10:35 Dose: 40 mg Meropenem 1 gm/ Sodium (Chloride) 100 mls @ 100 mls/hr IVPB Q12H JE PRN Reason: Protocol Last Admin: 12/19/17 18:26 Dose: 100 mls/hr Vancomycin HCl (Vancocin 750mg/Ns 150 Ml) 150 mls @ 166.6 mls/hr IVPB Q12H JE PRN Reason: Protocol Stop: 12/22/17 20:30 Last Admin: 12/19/17 20:35 Dose: 166.6 mls/hr Gentamicin Sulfate 80 mg/ (Sodium Chloride) 102 mls @ 100 mls/hr IVPB Q24H JE PRN Reason: Protocol Stop: 12/22/17 00:32 Insulin Human Regular (Novolin R) 0 unit SC ACHS JE PRN Reason: Protocol Last Admin: 12/19/17 21:14 Dose: Not Given Lactulose (Enulose) 20 gm PO BID [facility] Last Admin: 12/19/17 18:08 Dose: 20 gm Multivitamins/Vitamin C (Multi-Delyn Liquid) 5 ml PO DAILY [facility] Last Admin: 12/19/17 10:34 Dose: 5 ml Spironolactone (Aldactone) 25 mg PO BID [facility] Last Admin: 12/19/17 18:07 Dose: 25 mg Thiamine HCl (Vitamin B1 Tab) 100 mg PO BID [facility] Last Admin: 12/19/17 18:07 Dose: 100 mg - Labs Labs: 12/18/17 07:06 12/18/17 07:06 PT 19.4 SECONDS (9.7-12.2) H 12/14/17 16:33 INR 1.7 12/14/17 16:33 APTT 35 SECONDS (21-34) H 12/14/17 16:33 Assessment and Plan (1) Fatty liver with encephalopathy Status: Acute (2) Hypertension Status: Acute (3) Wound infection, posttraumatic Status: Acute (4) Fever Status: Acute
[2017-12-20] MEDS: Meropenem 1 GM in Sodium Chloride 0.9% 100 ML IVPB SCH ×2 (06:03→18:46)
[2017-12-20 07:46] LABS: BASO % 0.4 % (0.0-2.0); EOS # 0.1 K/uL (0.0-0.7); EOS % 1.3 % (0.0-4.0); HEMOGLOBIN 12.7 g/dL (12.0-18.0); LYMPH # 1.7 K/uL (1.0-4.3); LYMPH % 27.1 % (20.0-40.0); MEAN CELL VOLUME 97.4 fL (80.0-94.0); MEAN CORPUSCULAR HEMOGLOBIN 33.6 pg (27.0-31.0); MEAN CORPUSCULAR HGB CONC 34.5 g/dL (33.0-37.0); MONO # 1.2 K/uL (0.0-0.8); MONO % 19.2 % (0.0-10.0); NEUT # 3.3 K/uL (1.8-7.0); NRBC % 0.1 % (0.0-2.0); RBC 3.79 Mil/uL (4.40-5.90); RED CELL DISTRIBUTION WIDTH 14.6 % (11.5-14.5); WHITE BLOOD COUNT 6.3 K/uL (4.8-10.8)
[2017-12-20 07:47] LABS: ALB/GLOB RATIO 0.5 (1.0-2.1); ALBUMIN 2.1 g/dL (3.5-5.0); ALT/SGPT 55 U/L (21-72); AST/SGOT 86 U/L (17-59); BILIRUBIN,DIRECT 1.9 mg/dL (0.0-0.4); BLOOD UREA NITROGEN 21 mg/dL (9-20); CALCIUM 7.9 mg/dl (8.6-10.4); GFR AFRICAN-AMERICAN > 60; GFR NON-AFRICAN AMERICAN > 60
[2017-12-20] MEDS: Vancomycin 750mg/NS 150 ml 150 ML IVPB SCH ×2 (08:18→20:25)
[2017-12-20] MEDS: (Novolin R) Insulin Human Regular 100 units/ml vial SC SCH ×4 (08:19→21:17)
[2017-12-20] MEDS: Multiple Vitamins Oral Solution PO SCH (10:50)
--- NOTE | 2017-12-20 13:04 | PN ---
DATE: 12/20/2017. LOCATION: [facility], bed A. SUBJECTIVE: This is a 72 years old male seen and examined in rounds today with intermittent period of low-grade temperature, but no reported active bleeding, chest pain, significant shortness of breath, palpitation. The patient experienced episodes of some chills as well as nausea with mild dyspepsia. The entire chart is reviewed including but not limited to the most recent lab and radiology study results, current and previous medication list, current and the previous medical events and today's lab showed normal white blood cells, normal hemoglobin and hematocrit, but thrombocytopenia of 39, BUN 21, normal creatinine, blood glucose level 226, total bilirubin 3.1, AST 86, alkaline phosphatase 146, albumin 2.1, with total protein 5.8. It has to be mentioned that the recently done abdominal ultrasound report is seen indicative of markedly dilated common bile duct without intrahepatic bile duct dilatation of unclear etiology with possible hepatocellular disease and/or cirrhosis with fatty infiltrate of the liver. PHYSICAL EXAMINATION: GENERAL: A 72 years old male. VITAL SIGNS: Afebrile this morning with pulse of 80, respiratory rate 20 to 22, blood pressure of 132/76. HEENT: Showed pale, dry oral mucous membrane. Nonicteric sclerae. LUNGS: Few scattered crepitation. Decreased air entry at bases. HEART: Positive S1 and S2. ABDOMEN: Soft with mild generalized tenderness. No mass or organomegaly. No rebound tenderness or guarding. EXTREMITIES: With mild lower extremity edematous changes. No clubbing or cyanosis. NEUROLOGIC: No reported new significant clinical or neurological deficit. No reported new motor or sensory deficits. Peripheral pulses are positive and wound is covered with clean dressing. It has to be mentioned that the patient reported to have positive blood culture of E. coli as well as wound culture positive for Klebsiella pneumoniae and staph infection, have been on gentamicin and Merrem. IMPRESSION: 1. Septicemia with gram-negative infection. 2. Posttraumatic wound infection. 3. Known history of but not limited to alcoholic hepatitis with fatty infiltrate of the liver, dilated common bile duct only of unclear etiology. 4. Known history of hypertension. 5. Thrombocytopenia of unclear etiology. 6. Abnormal liver function tests with jaundice that could be secondary to liver cirrhosis versus, less likely obstructive phenomenon. 7. Poorly controlled diabetes mellitus. 8. Elevated CEA and CA 19-9 to rule out occult gastrointestinal malignancy. SUGGESTIONS: 1. Agree with your plan. 2. MRCP to be followed by ERCP with possible stent insertion as needed and only when the patient is more stable clinically. Otherwise close observation to follow. 3. Case is to be discussed with the primary MD as well as family member. Lachelle Rodrigues MD
--- NOTE | 2017-12-20 18:42 | PN ---
DATE: SUBJECTIVE: The patient is seen. The patient is still confused, waxing and waning of mental status, but not having any signs or symptoms of alcohol withdrawal. His appetite is still poor, but the patient knows he is in the hospital. The patient is not agitated. PHYSICAL EXAMINATION: VITAL SIGNS: Temperature is 98.1, pulse of 80, blood pressure 137/78, respirations 20, and oxygen saturation is 97% on room air. REVIEW OF SYSTEMS: GENERAL: The patient is still confused and drowsy, seen in his room, but more responsive compared to the last few days. No signs or symptoms of alcohol withdrawal. SKIN: No diaphoresis. HEENT: No headache or dizziness. NECK: Supple. RESPIRATORY: No dyspnea. CARDIOVASCULAR: No chest pain. GASTROINTESTINAL: No nausea or vomiting. Appetite is poor. EXTREMITIES: The patient has been bed bound. MUSCULOSKELETAL: Feels weak. NEUROLOGIC: Alert with off and on periods of confusion. LABORATORY DATA: Review of his labs, WBC is 6.3, creatinine is 1, ammonia is 32. MENTAL STATUS EXAMINATION: Elderly male who looks stated age, still confused, oriented to place and person. Mood is dysphoric. Affect is restricted. Speech is slow. Thought process, confused. Thought content, no paranoia, no hallucinations. No suicidal or homicidal ideation. Attention and memory seem to be limited. Insight and judgment limited. Impulse control is fair at this time. IMPRESSION: Alcohol dependence, alcohol withdrawal, delirium, metabolic encephalopathy; multifactorial. PLAN AND RECOMMENDATIONS: The patient is seen, medications reviewed. The patient is followed by Dr. Lyles, Infectious Disease in regards to receiving antibiotics. For now, we will keep him off any psych medications except for the thiamine supplements. The patient is on meropenem, gentamicin. The patient may benefit from subacute rehab once he is more medically stable. His gait is very unsteady according to the family as well as the patient has not been eating for the last few days. Stas Knox MD
--- NOTE | 2017-12-20 19:02 | CARD ---
APPROVED REPORT EKG Measurement Heart [id number] IL [id number] [id number] <Conclusion> Sinus rhythm with short IL with premature ventricular complexes or fusion complexes Left axis deviation Inferior infarct, age undetermined ST & T wave abnormality, consider anterolateral ischemia Abnormal ECG
--- NOTE | 2017-12-20 22:38 | CP.PCM.PN ---
Subjective - Date & Time of Evaluation Date of Evaluation: 12/20/17 Time of Evaluation: 18:20 Objective - Vital Signs/Intake and Output Vital Signs (last 24 hours): Temp Pulse Resp BP Pulse Ox 98.9 F 96 H 24 137/81 94 L 12/20/17 15:06 12/20/17 15:06 12/20/17 15:06 12/20/17 15:06 12/20/17 15:06 Intake and Output: 12/20/17 12/21/17 18:59 06:59 Intake Total 270 Balance 270 - Medications Medications: Current Medications Acetaminophen (Tylenol 650 Mg Supp) 650 mg IA Q6 PRN PRN Reason: fever of >100.4 and above Last Admin: 12/19/17 18:08 Dose: 650 mg Furosemide (Lasix) 40 mg IVP DAILY [facility] Last Admin: 12/20/17 10:44 Dose: 40 mg Meropenem 1 gm/ Sodium (Chloride) 100 mls @ 100 mls/hr IVPB Q12H JE PRN Reason: Protocol Last Admin: 12/20/17 18:46 Dose: 100 mls/hr Vancomycin HCl (Vancocin 750mg/Ns 150 Ml) 150 mls @ 166.6 mls/hr IVPB Q12H JE PRN Reason: Protocol Stop: 12/22/17 20:30 Last Admin: 12/20/17 20:25 Dose: 166.6 mls/hr Gentamicin Sulfate 80 mg/ (Sodium Chloride) 102 mls @ 100 mls/hr IVPB Q24H JE PRN Reason: Protocol Stop: 12/22/17 00:32 Insulin Human Regular (Novolin R) 0 unit SC ACHS JE PRN Reason: Protocol Last Admin: 12/20/17 21:17 Dose: Not Given Lactulose (Enulose) 20 gm PO BID JE Last Admin: 12/20/17 18:47 Dose: 20 gm Multivitamins/Vitamin C (Multi-Delyn Liquid) 5 ml PO DAILY JE Last Admin: 12/20/17 10:50 Dose: 5 ml Spironolactone (Aldactone) 25 mg PO BID JE Last Admin: 12/20/17 17:41 Dose: 25 mg Thiamine HCl (Vitamin B1 Tab) 100 mg PO BID JE Last Admin: 12/20/17 17:41 Dose: 100 mg - Labs Labs: 12/20/17 07:18 03/21/18 07:18 PT 19.4 SECONDS (9.7-12.2) H 12/14/17 16:33 INR 1.7 12/14/17 16:33 APTT 35 SECONDS (21-34) H 12/14/17 16:33 Assessment and Plan (1) Fatty liver with encephalopathy Status: Acute (2) Hypertension Status: Acute (3) Wound infection, posttraumatic Status: Acute (4) Fever Status: Acute
--- NOTE | 2017-12-20 22:39 | CARD ---
APPROVED REPORT EXAM: LIMITED Two-dimensional and M-mode echocardiogram with Doppler and color Doppler. Other Information Quality : TDSRhythm : INDICATION Peripheral Edema Infection:Rule out subacute bacterial endocarditis ATRIA There is a mass suspected in the right atrium. AORTIC VALVE Small echodensity noted attached to the non-coronary cusp of the aortic valve. Cannot exclude aortic valvular vegetation. <Conclusion> This is a technically difficult study done to r/o vegetation. Small echodensity noted attached to the aortic valve. Cannot exclude aortic valvular vegetation. There is a mass suspected in the right atrium. Suggest AWILDA for further visualization and verification of above findings.
[2017-12-21] MEDS: Meropenem 1 GM in Sodium Chloride 0.9% 100 ML IVPB SCH ×2 (06:00→20:38)
[2017-12-21] MEDS: (Novolin R) Insulin Human Regular 100 units/ml vial SC SCH ×4 (08:00→22:49)
[2017-12-21] MEDS: Vancomycin 750mg/NS 150 ml 150 ML IVPB SCH ×2 (08:08→21:20)
[2017-12-21] MEDS: Multiple Vitamins Oral Solution PO SCH ×2 (09:25→09:46)
--- NOTE | 2017-12-21 13:08 | PN ---
DATE: 12/21/2017. LOCATION: [facility], bed A. SUBJECTIVE: This is a 72 years old male was originally scheduled for potential ERCP with biliary stent insertion due to his elevated liver function test and increased bilirubin with abnormal ultrasound of the abdomen but the patient appeared to be somewhat lethargic for which the procedure had to be canceled today and to be placed in for liquid diet for now, procedure to be rescheduled for a.m. No reported chest pain, active bleeding or significant chills or fever. No reported shortness of breath. Case discussed at length with the staff in the floor. The most recent lab results today showed blood glucose level 233, rest of the lab is still pending, and the patient reported to having less AST, increased alkaline phosphatase but normal ALT with subsequent increase of total bilirubin to 3.1. Cancer markers are still pending. PHYSICAL EXAMINATION: GENERAL: A 72 years old male who appeared to be somewhat lethargic. VITAL SIGNS: Afebrile, with pulse of 92, respiratory rate 20 to 22, blood pressure 130/76. HEENT: Showed pale, dry mucous membranes. Bilateral icteric sclerae. LUNGS: Scattered crepitations with decreased air entry at bases. HEART: Positive S1 and S2. ABDOMEN: Soft. Bowel sounds are present. Mild abdominal distention is noticed. EXTREMITIES: With lower extremities edematous changes. NEURO: No reported new neurological deficits, sensory or motor. IMPRESSION: 1. Abnormal liver function test with jaundice that could be secondary to liver cirrhosis versus possible obstructive phenomena. 2. Septicemia with gram-negative infection. 3. Posttraumatic wound infection, is still on antibiotics. 4. Known history of alcoholic liver disease with fatty infiltrate of the liver. 5. Known history of hypertension. 6. Thrombocytopenia secondary to above. 7. Elevated CEA and CA 19-9. 8. Anemia to rule out occult gastrointestinal malignancy versus gastrointestinal blood loss upper versus lower. SUGGESTIONS: 1. Agree with your plan. 2. The patient will need endoscopic evaluation of the GI tract including possible ERCP with biliary stent insertion when he is more stable clinically that has to be discussed at length with the ID sales operations consultant on the case. 3. Ammonia level to be ordered. 4. Lactulose p.o. 5. Correct any underlying electrolyte imbalance. 6. Further recommendations to follow. Lachelle Rodrigues MD [facility] # [id number]
--- NOTE | 2017-12-21 13:50 | PN ---
DATE: 12/21/2017 SUBJECTIVE: The patient is seen with the staff. The patient is still very drowsy, confused. The patient is supposed to be for ERCP today but his mental status seems to be waxing and waning. Yesterday, he was more alert. No signs and symptoms of alcohol withdrawal noted. The patient is still not eating well. The patient is cooperative with physical therapy. VITAL SIGNS: Temperature 97.8, pulse of 95, blood pressure 124/72, respirations 20, oxygen saturation is 97%. REVIEW OF SYSTEMS: GENERAL: The patient is drowsy but not agitated, mumbles of few words. He has been keeping his eyes closed. The patient has poor appetite according to the nurse. He has been n.p.o. for ERCP but his mental status seems to be very drowsy. SKIN: No diaphoresis. HEENT: No headache or dizziness. NECK: Supple. RESPIRATORY: No dyspnea. CARDIOVASCULAR: No chest pain. GASTROINTESTINAL: The patient is not having any diarrhea. No abdominal pain. EXTREMITIES: The patient was early complaining according to the staff of pain in his left lower extremities. MUSCULOSKELETAL: Generalized weakness. NEUROLOGIC: Alert with periods of confusion. GENITOURINARY: No dysuria. MENTAL STATUS EXAMINATION: Elderly male, who looked stated age, confused, oriented to person. Mood is dysphoric. Affect is restricted. Speech is slow . Thought process, confused. Thought content, no overt psychosis. No suicidal or homicidal ideation. Attention and memory seem to be limited. Insight and judgment limited. Impulse control is fair at this time. IMPRESSION: History of alcohol dependence, alcohol withdrawal as well as delirium, multifactorial. PLAN AND RECOMMENDATIONS: The patient is seen, meds reviewed. Continue present management. The patient is only on thiamine and multivitamin supplements. The patient antibiotic followed by Dr. Lyles and continue treatment plan as outlined. The patient is on meropenem for now. Stas Knox MD
--- NOTE | 2017-12-21 22:24 | CP.PCM.PN ---
Subjective - Date & Time of Evaluation Date of Evaluation: 12/21/17 Time of Evaluation: 16:00 - Subjective Subjective: Pt is opening eyes, but not able to say sentences, he is jsut mumbling, pt is for ERCP tomorrow Objective - Vital Signs/Intake and Output Vital Signs (last 24 hours): Temp Pulse Resp BP Pulse Ox 98.2 F 87 20 135/75 95 12/21/17 16:00 12/21/17 16:00 12/21/17 16:00 12/21/17 16:00 12/21/17 16:00 Intake and Output: 12/21/17 12/22/17 18:59 06:59 Intake Total 380 Balance 380 - Medications Medications: Current Medications Acetaminophen (Tylenol 650 Mg Supp) 650 mg HI Q6 PRN PRN Reason: fever of >100.4 and above Last Admin: 12/19/17 18:08 Dose: 650 mg Furosemide (Lasix) 40 mg IVP DAILY [facility] Last Admin: 12/21/17 09:24 Dose: 40 mg Meropenem 1 gm/ Sodium (Chloride) 100 mls @ 100 mls/hr IVPB Q12H JE PRN Reason: Protocol Last Admin: 12/21/17 20:38 Dose: 100 mls/hr Vancomycin HCl (Vancocin 750mg/Ns 150 Ml) 150 mls @ 166.6 mls/hr IVPB Q12H JE PRN Reason: Protocol Stop: 12/22/17 20:30 Last Admin: 12/21/17 21:20 Dose: 166.6 mls/hr Gentamicin Sulfate 80 mg/ (Sodium Chloride) 102 mls @ 100 mls/hr IVPB Q24H JE PRN Reason: Protocol Stop: 12/22/17 00:32 Last Admin: 12/20/17 23:55 Dose: 100 mls/hr Insulin Human Regular (Novolin R) 0 unit SC ACHS JE PRN Reason: Protocol Last Admin: 12/21/17 17:57 Dose: 3 unit Lactulose (Enulose) 20 gm PO BID [facility] Last Admin: 12/21/17 17:44 Dose: 20 gm Multivitamins/Vitamin C (Multi-Delyn Liquid) 5 ml PO DAILY [facility] Last Admin: 12/21/17 09:46 Dose: Not Given Spironolactone (Aldactone) 25 mg PO BID [facility] Last Admin: 12/21/17 17:44 Dose: 25 mg Thiamine HCl (Vitamin B1 Tab) 100 mg PO BID JE Last Admin: 12/21/17 17:44 Dose: 100 mg - Labs Labs: 12/20/17 07:18 12/20/17 07:18 PT 19.4 SECONDS (9.7-12.2) H 12/14/17 16:33 INR 1.7 12/14/17 16:33 APTT 35 SECONDS (21-34) H 12/14/17 16:33 - Constitutional Appears: No Acute Distress - Head Exam Head Exam: ATRAUMATIC, NORMAL INSPECTION, NORMOCEPHALIC - Eye Exam Eye Exam: EOMI, Normal appearance, PERRL Pupil Exam: NORMAL ACCOMODATION, PERRL - Respiratory Exam Respiratory Exam: Clear to Ausculation Bilateral, NORMAL BREATHING PATTERN - Cardiovascular Exam Cardiovascular Exam: REGULAR RHYTHM, +S1, +S2. absent: Murmur - GI/Abdominal Exam GI & Abdominal Exam: Soft, Normal Bowel Sounds. absent: Tenderness Assessment and Plan (1) Fatty liver with encephalopathy Status: Acute (2) Hypertension Status: Acute (3) Wound infection, posttraumatic Status: Acute (4) Fever Status: Acute
--- NOTE | 2017-12-21 22:28 | CP.PCM.PN ---
Subjective - Date & Time of Evaluation Date of Evaluation: 12/21/17 Time of Evaluation: 22:28 - Subjective Subjective: CHIEF COMPLAINTS TODAY : afebrile, more awake States feeling better. "Wants to have a beer " ROS. HEENT : N. Resp : No SOB wheezing, cough Cardio : No CP, PND orthopnea GI : No abd. 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 Musculoskel : N Ext. : Pedal pulses intact, no edema or calf pain Derm : N Psych : N. PE. Pt. is MORE AWAKE in no distress. V.S As noted in the chart Head ,ear nose,throat and eyes : Normal. Neck : Supple with normal carotids. Lungs: Clear air entry. Heart : S1 & S2 normal . . No murmur. S4 + Abd : Soft non tender with normal bowel sounds/ SLIGHTLY DISTENDED +VE ASCITES Neuro : Moves all ext. with no localized deficit. Ext : B/L EDEMA ,with intact pulses. Neg. calf tenderness Derm : No rashes or decubitus ulcer. Radiology/Labs wbc 6.3, HEMOGLOBIN 12.7 PLT 39 K 12/16/17 BLOOD CULTURES +VE ESCHERICHIA COLI.2:2 SETS- 12/19/17 REPEAT BLOOD CULTURES -VE GROWTH FOR 24 HOURS. LFTS BILIRUBIN 3.1, ast 86 alt 55 ALKALINE PHOSPHATASE 145. SERUM AMMONIA 34 vANCO TROUGH 13.4 NORMAL Objective - Vital Signs/Intake and Output Vital Signs (last 24 hours): Temp Pulse Resp BP Pulse Ox 98.2 F 87 20 135/75 95 12/21/17 16:00 12/21/17 16:00 12/21/17 16:00 12/21/17 16:00 12/21/17 16:00 Intake and Output: 12/21/17 12/22/17 18:59 06:59 Intake Total 380 Balance 380 - Medications Medications: Current Medications Acetaminophen (Tylenol 650 Mg Supp) 650 mg VT Q6 PRN PRN Reason: fever of >100.4 and above Last Admin: 12/19/17 18:08 Dose: 650 mg Furosemide (Lasix) 40 mg IVP DAILY JE Last Admin: 12/21/17 09:24 Dose: 40 mg Meropenem 1 gm/ Sodium (Chloride) 100 mls @ 100 mls/hr IVPB Q12H JE PRN Reason: Protocol Last Admin: 12/21/17 20:38 Dose: 100 mls/hr Vancomycin HCl (Vancocin 750mg/Ns 150 Ml) 150 mls @ 166.6 mls/hr IVPB Q12H JE PRN Reason: Protocol Stop: 12/22/17 20:30 Last Admin: 12/21/17 21:20 Dose: 166.6 mls/hr Gentamicin Sulfate 80 mg/ (Sodium Chloride) 102 mls @ 100 mls/hr IVPB Q24H JE PRN Reason: Protocol Stop: 12/22/17 00:32 Last Admin: 12/20/17 23:55 Dose: 100 mls/hr Insulin Human Regular (Novolin R) 0 unit SC ACHS JE PRN Reason: Protocol Last Admin: 12/21/17 17:57 Dose: 3 unit Lactulose (Enulose) 20 gm PO BID [facility] Last Admin: 12/21/17 17:44 Dose: 20 gm Multivitamins/Vitamin C (Multi-Delyn Liquid) 5 ml PO DAILY [facility] Last Admin: 12/21/17 09:46 Dose: Not Given Spironolactone (Aldactone) 25 mg PO BID [facility] Last Admin: 12/21/17 17:44 Dose: 25 mg Thiamine HCl (Vitamin B1 Tab) 100 mg PO BID [facility] Last Admin: 12/21/17 17:44 Dose: 100 mg - Labs Labs: 12/20/17 07:18 12/20/17 07:18 PT 19.4 SECONDS (9.7-12.2) H 12/14/17 16:33 INR 1.7 12/14/17 16:33 APTT 35 SECONDS (21-34) H 12/14/17 16:33 Assessment and Plan (1) Gram-negative sepsis Status: Acute (2) Wound infection, posttraumatic Status: Acute (3) Alcoholic hepatitis Status: Acute (4) Fatty liver with encephalopathy Status: Acute (5) Leg edema Status: Acute (6) Failure to thrive Status: Acute (7) Thrombocytopenia Status: Acute (8) Hypertension Status: Acute - Assessment and Plan (Free Text) Plan: Continue iv MERREM 1 G EVERY 12 HOURLY. 12/17/17. iv AMIKACIN 1 G iv PIGGYBACK STAT 12/17/17. at IV vancomycin 750 mg every 12 hourly 12/18/17 ON iv GENTAMICIN 140MG X1 DOSE 12/19/17 F/U GENTAMICIN 100 MG DAILY X2 DOSES. 12/20. 12/21/17 CHECK 2D ECHO R/O VEGETATIONS. SOURCE OF GRAM-NEGATIVE SEPSIS, NOT VERY CLEAR. F/U LFTS. WATCH THROMBOCYTOPENIA. LOCAL WOUND CARE PER WOUND CARE NURSE.
--- NOTE | 2017-12-22 04:59 | CON ---
DATE: REASON FOR CONSULTATION: To evaluate the patient for transesophageal echocardiographic study. HISTORY OF PRESENT ILLNESS: History was obtained from the patient's two brothers who are at the bedside. The patient is a 72 years old male who was admitted on the of this month because of bilateral lower extremity swelling and weakness. According to the patient's brother, the patient is a former IVDA, but no known history of HIV. No known prior cardiac history according to the brothers. The patient's blood culture was positive for E. coli and wound cultures were positive for Klebsiella pneumonia and staphylococcus epidermidis. According to the brothers, the patient is not an active IVDA anymore. SOCIAL HISTORY: The patient is a smoker, drinker. He lives by himself. He has no help at home. MEDICATIONS: Aldactone 25 mg twice a day, 20 mg twice a day, gentamicin 80 mg intravenously every 24 hours, Lasix 40 mg intravenously daily, meropenem 1 g intravenously every 12 hours, vancomycin 750 mg intravenously every 12 hours, thiamine 100 mg twice a day. REVIEW OF SYSTEMS: The patient gets into confusional state at times, no reported hypotension. The patient had remitting fever during his admission, highest was 102.1. PHYSICAL EXAMINATION: GENERAL: The patient is an elderly male, who is oriented to place at the moment of examination, does not appear to be in any respiratory distress. VITAL SIGNS: Blood pressure 135/75, heart rate 87, temperature 98.2, respirations 20. HEENT: Normocephalic. CHEST: Diminished breath sounds at the bases. HEART: S1 and S2 regular and distant. ABDOMEN: Soft. EXTREMITIES: 1+ pitting edema. LABORATORIES: Yesterday, CBC: WBC 6.3, hemoglobin 12.7, hematocrit 36.9, platelet count 39,000. The initial platelet count on admission was 65,000. Urine drug screen on admission was positive for benzodiazepines. INR on admission was 1.7, PTT 35. Influenza type A and B serology was negative. SMA-7 yesterday; sodium 141, potassium 4.1, chloride 105, CO2 of 27, glucose 212, BUN 21, creatinine 1.0. Ammonia was 32. Alkaline phosphatase 146, AST 86, ALT is 65. Total bilirubin 3.1. Echocardiographic study on the was read as normal ejection fraction, diastolic dysfunction, mild to moderate pulmonary hypertension; and the most recent echo on the was read as technically difficult to rule out vegetation, small echogenicity noted on the aortic valve, cannot exclude aortic valve vegetation. There is VA suspected in right atrium. Suggest AWILDA for further evaluation. EKG on admission revealed sinus rhythm, ST-T wave changes, consider anterolateral ischemia, prolonged QT interval. Chest x-ray revealed bilateral lower lobe infiltrate, borderline cardiomegaly. ASSESSMENT: 1. Gram-negative bacteremia. 2. Rule out bacterial endocarditis. 3. Thrombocytopenia. 4. Abnormal EKG with evidence of prolonged QT interval and ischemic anterolateral ST-T wave changes. RECOMMENDATIONS: We will obtain 12-lead EKG now and one set of troponin. The procedure of transesophageal echocardiographic study was discussed with the patient's brothers including the risks of bleeding, anesthesia injury. According to the patient himself, he never had upper gastrointestinal bleeding in the past, however, his reliability is very questionable. The patient will be booked for tomorrow around 2 p.m., pending a consent to be obtained from the patient's niece according to the patient's progress. Gurinder Hernandez MD
[2017-12-22] MEDS: Meropenem 1 GM in Sodium Chloride 0.9% 100 ML IVPB SCH ×2 (06:21→19:39)
[2017-12-22] MEDS: (Novolin R) Insulin Human Regular 100 units/ml vial SC SCH ×4 (07:30→21:25)
[2017-12-22 07:42] LABS: INR 1.8; PROTHROMBIN TIME 20.6 SECONDS (9.7-12.2)
[2017-12-22 07:43] LABS: HEMOGLOBIN 12.6 g/dL (12.0-18.0); MEAN CELL VOLUME 97.6 fL (80.0-94.0); MEAN CORPUSCULAR HEMOGLOBIN 33.3 pg (27.0-31.0); MEAN CORPUSCULAR HGB CONC 34.1 g/dL (33.0-37.0); MEAN PLATELET VOLUME 10.2 fL (7.2-11.7); RBC 3.78 Mil/uL (4.40-5.90); RED CELL DISTRIBUTION WIDTH 14.6 % (11.5-14.5); WHITE BLOOD COUNT 8.9 K/uL (4.8-10.8)
[2017-12-22 08:07] LABS: CALCIUM 8.4 mg/dl (8.6-10.4)
[2017-12-22] MEDS: Vancomycin 750mg/NS 150 ml 150 ML IVPB SCH ×2 (08:30→21:46)
[2017-12-22] MEDS: Multiple Vitamins Oral Solution PO SCH (09:34)
--- NOTE | 2017-12-22 10:26 | CARD ---
APPROVED REPORT EKG Measurement Heart [id number] <Conclusion> Normal sinus rhythm Left axis deviation Minimal voltage criteria for LVH, may be normal variant Possible Anterior infarct, age undetermined Abnormal ECG
--- NOTE | 2017-12-22 13:32 | PCM.SURG1 ---
Surgeon's Initial Post Op Note - Surgeon's Notes Surgeon: Herman Veronica MD [employer]: NONE Type of Anesthesia: Local Pre-Operative Diagnosis: Poor venous access Operative Findings: US showed patent right basilic vein Post-Operative Diagnosis: Poor venous access Operation Performed: SIngle lumen picc placement right basilic vein, 32 cm. Tip is in the SVC. Specimen/Specimens Removed: NONE Estimated Blood Loss: EBL {In ML}: 3 Blood Products Given: N/A Drains Used: No Drains Post-Op Condition: Fair Date of Surgery/Procedure: 12/22/17 Time of Surgery/Procedure: 13:30
[2017-12-22 13:48] LABS: HEPATITIS B SURFACE AG Negative (NEGATIVE)
[2017-12-22 13:54] LABS: HEPATITIS A IGM NEGATIVE (NEGATIVE); HEPATITIS B CORE AB NEGATIVE (NEGATIVE)
[2017-12-22 14:06] LABS: HEPATITIS C ANTIBODY NEGATIVE (NEGATIVE)
--- NOTE | 2017-12-22 14:34 | PN ---
DATE: 12/22/2017. LOCATION: 6[address] bed [address]. SUBJECTIVE: This 72 years old male seen and examined in rounds appears to be somewhat alert to self and to place awake without reported active bleeding with covered right knee as well as clean right hip dressing. The patient is still being jaundiced with less oral intake. Seen and evaluated by Dr. Hernandez and Dr. Lyles, still on antibiotics due to his reported gram negative septicemia with wound infection, posttraumatic. The patient was initially scheduled for ERCP with potential biliary stent insertion, but was scheduled also for possible transesophageal echo for which ERCP was canceled and to be rescheduled when the patient is more stable clinically. Today's lab showed normal CBC, thrombocytopenia of 63, increased PT to 20.6, PTT 46, BUN 39, creatinine 1.6, blood glucose level 227, calcium 8.4 with ammonia level of 34. PHYSICAL EXAMINATION: GENERAL: A 72 years old male. VITAL SIGNS: Afebrile with pulse of 80, respiratory rate 20 to 22, blood pressure of 130/74. HEENT: Showed mildly pale, dry mucous membrane. Bilateral icteric sclerae. LUNGS: Few scattered crepitation. Decrease air entry at bases. HEART: Positive S1 and S2. ABDOMEN: Soft with slight distention and mild generalized tenderness. No mass or organomegaly. No rebound tenderness or guarding. RECTAL: The patient refused. EXTREMITIES: Clean dressing over the right hip and knee with lower extremities mild edematous changes. No clubbing or cyanosis. NEUROLOGIC: No reported new neurological deficits, sensory or motor. IMPRESSION: 1. Liver cirrhosis . 2. Abnormal liver function test with jaundice with possible obstructive jaundice, less likely. 3. Septicemia with gram negative infection. 4. Posttraumatic wound infection. 5. Known history of but not limited to hypertension. 6. Elevated CEA, and CA 19.9, to rule out occult gastrointestinal malignancy. 7. Thrombocytopenia secondary to his liver cirrhosis. 8. Anemia by recent history most likely secondary to above. SUGGESTIONS: 1. Agree with your plan. 2. Continue current management. 3. The patient for ERCP when he is more stable clinically and after complete cardiology work up. Further recommendation to follow. Alaa Salah-Harsha, MD [facility] # [id number]
--- NOTE | 2017-12-22 14:35 | US ---
Date of procedure: 12/22/2017 Procedure: Ultrasound guidance for vascular access HISTORY: Infection requiring long-term IV antibiotics TECHNIQUE: Following informed consent and procedure time-out, the patient placed supine on the interventional table and the right arm prepped and draped in the usual sterile fashion. Ultrasound showed a patent and compressible basilic vein. After the skin was anesthetized with lidocaine, the basilic vein was accessed with micro micropuncture technique using ultrasound guidance. An image documenting ultrasound guidance for vascular access was permanently saved. IMPRESSION: Ultrasound guidance for vascular access for placement of PICC.
--- NOTE | 2017-12-22 15:00 | RAD ---
PROCEDURE: Date of procedure: 12/22/2017 Procedure: 1. Placement of a right arm PICC with ultrasound and fluoroscopic guidance, CPT 36661 2. PICC tip confirmation with spot radiograph and is in the superior vena cava Medications: 1 percent lidocaine Total Fluoro time: 5.9 seconds Radiation: 1.8 MGy EBL: 2 cc HISTORY: Infection requiring long-term IV antibiotics TECHNIQUE: Following informed consent and procedure time-out, the patient was placed supine on the interventional table and the right arm prepped and draped in the usual sterile fashion. Ultrasound showed a patent and compressible right basilic vein. After the skin was anesthetized with lidocaine, the basilic vein was accessed with micro micropuncture technique using ultrasound guidance. A guidewire was then advanced under fluoroscopic guidance into the superior vena cava. An image documenting ultrasound guidance for vascular access was permanently saved. The length of the single-lumen 4 [place] PICC was trimmed to 32 centimeters and advanced through a peel-away sheath. The PICC was position with tip of PICC confirm a spot radiograph the superior vena cava. The PICC was secured to the patient's skin. The PICC was flushed. A biopatch and sterile dressing was applied. IMPRESSION: Placement of a single-lumen 4 [place] PICC trimmed to 32 centimeters via right basilic vein. The tip of the PICC is confirmed with spot radiograph and is in the superior vena cava.
--- NOTE | 2017-12-22 17:34 | CP.PCM.PN ---
Subjective - Date & Time of Evaluation Date of Evaluation: 12/22/17 Time of Evaluation: 13:00 - Subjective Subjective: Patient seen today more alert, oriented to person and place, denies s any complaints s/p PICC LINE Objective - Vital Signs/Intake and Output Vital Signs (last 24 hours): Temp Pulse Resp BP Pulse Ox 97.3 F L 86 22 126/76 95 12/22/17 15:15 12/22/17 15:15 12/22/17 15:15 12/22/17 15:15 12/22/17 15:15 Intake and Output: 12/22/17 12/22/17 06:59 18:59 Intake Total 400 200 Output Total 250 Balance 150 200 - Medications Medications: Current Medications Acetaminophen (Tylenol 650 Mg Supp) 650 mg MD Q6 PRN PRN Reason: fever of >100.4 and above Last Admin: 12/19/17 18:08 Dose: 650 mg Furosemide (Lasix) 40 mg IVP DAILY [facility] Last Admin: 12/21/17 09:24 Dose: 40 mg Meropenem 1 gm/ Sodium (Chloride) 100 mls @ 100 mls/hr IVPB Q12H JE PRN Reason: Protocol Last Admin: 12/22/17 06:21 Dose: 100 mls/hr Vancomycin HCl (Vancocin 750mg/Ns 150 Ml) 150 mls @ 166.6 mls/hr IVPB Q12H JE PRN Reason: Protocol Stop: 12/22/17 20:30 Last Admin: 12/22/17 08:30 Dose: 166.6 mls/hr Insulin Human Regular (Novolin R) 0 unit SC ACHS JE PRN Reason: Protocol Last Admin: 12/22/17 16:57 Dose: 1 unit Lactulose (Enulose) 20 gm PO BID [facility] Last Admin: 12/22/17 17:01 Dose: 20 gm Multivitamins/Vitamin C (Multi-Delyn Liquid) 5 ml PO DAILY [facility] Last Admin: 12/22/17 09:34 Dose: Not Given Phytonadione (Vitamin K Tab) 5 mg PO DAILY [facility] Stop: 12/24/17 10:01 Spironolactone (Aldactone) 25 mg PO BID [facility] Last Admin: 12/22/17 17:05 Dose: 25 mg Thiamine HCl (Vitamin B1 Tab) 100 mg PO BID [facility] Last Admin: 12/22/17 17:01 Dose: 100 mg - Labs Labs: 12/22/17 07:24 12/22/17 07:24 PT 20.6 SECONDS (9.7-12.2) H 12/22/17 07:24 INR 1.8 12/22/17 07:24 APTT 46 SECONDS (21-34) H 12/22/17 07:24 - Constitutional Appears: Well, No Acute Distress, Chronically Ill - Respiratory Exam Respiratory Exam: Decreased Breath Sounds, Clear to Ausculation Bilateral, NORMAL BREATHING PATTERN - Cardiovascular Exam Cardiovascular Exam: REGULAR RHYTHM, +S1, +S2 - GI/Abdominal Exam GI & Abdominal Exam: Soft - Neurological Exam Neurological Exam: Alert, Awake Assessment and Plan - Assessment and Plan (Free Text) Assessment: a/p 72 yr old male with hx of alcohol abuse admitted with Leg edema, and Weakness, blood culture positive for - e coli wound culture- positiv e repeat blood culture negative for 24 hrs d/w Dr.N Lyles , ok to place picc line for antibiotics Echo - questionable vegetation, Dr. Hernandez consulted for AWILDA, d/W Dr. Hernandez , need EGD and GI clearance before AWILDA D/W Dr. Mcleod , pt schedule for EGD/ERCP on monday d/w anaesthesia , recommends INR to be below 1.4 for procedure will continue with vit k and monitor PT/INT/PTT daily and if INR >1.4 will transfuse 1 unit of FFP before procedure THE above plan discussed with Dr. Johnson and agrees
--- NOTE | 2017-12-22 18:07 | PN ---
DATE: SUBJECTIVE: The patient is seen. The patient is less confused, more verbal today. The patient is still NPO, asked to go in for AWILDA today. There is also a possible ERCP. Psych pringle, he is manageable, still with confusion, but no signs and symptoms of alcohol withdrawal. PHYSICAL EXAMINATION VITAL SIGNS: Temperature 98.8, pulse 82, blood pressure 136/76, respirations 20, oxygen saturation is 97%. The patient is only taking Thiamine. No other psych meds given. He is also on meropenem, lactulose, spironolactone, Lasix, and vancomycin. REVIEW OF SYSTEMS: GENERAL: The patient is more alert, verbal, still confused, more interactive, still in his room, less agitated, currently NPO for AWILDA. SKIN: No diaphoresis. HEENT: No headache or dizziness. NECK: Supple. RESPIRATORY: No dyspnea. CARDIOVASCULAR: No chest pain. GASTROINTESTINAL: The patient is NPO. EXTREMITIES: The patient is moving extremities. MUSCULOSKELETAL: Feels weak. NEUROLOGIC: Alert with periods of confusion. GENITOURINARY: No dysuria. MENTAL STATUS EXAMINATION: An elderly male who looks stated age, oriented to place and person. Mood is a little brighter. Speech is more verbal today. Affect is restricted. Thought process, less confused. Thought content, no overt psychosis, no suicidal or homicidal ideation. Attention and memory seem to be limited. Insight and judgment limited. Impulse control is fair at this time. IMPRESSION: Alcohol dependence, alcohol withdrawal, possible delirium, metabolic encephalopathy; history of alcoholic hepatitis as well as hypertension, failure to thrive, fever. PLAN AND RECOMMENDATIONS: The patient is seen, medications reviewed. Continue present management. Continue treatment plan as outlined. The patient will benefit from subacute rehab once he is more medically stable. Stas Knox MD
--- NOTE | 2017-12-22 18:55 | PN ---
DATE: SUBJECTIVE: The patient is oriented to place. He denies any chest pain. PHYSICAL EXAMINATION: VITAL SIGNS: Blood pressure 156/76, heart rate 82, temperature is 98.8, respirations 20. HEENT: Normocephalic. CHEST: Bilateral rhonchi. HEART: S1 and S2 regular. EXTREMITIES: Trace leg edema. LABORATORIES: Today's hemoglobin and hematocrit are 12.6 and 36.9, white count 8.9, platelet count 63,000. Today's INR is 1.8, PTT 46. Today's BUN and creatinine are 39 and 1.6. Glucose 254. Today's SMA-7 is within normal limits. ASSESSMENT: 1. Escherichia coli bacteremia. 2. Rule out bacterial endocarditis. 3. Thrombocytopenia. 4. Coagulopathy. 5. Mild jaundice and consider cholestasis. RECOMMENDATIONS: Case was discussed at length with the medical team including the FARE COLLECTOR. The patient's scheduled AWILDA was canceled for today because of his coagulopathy and thrombocytopenia, pending at least a gastrointestinal clearance to rule out any . The patient is scheduled for ERCP by Dr. Shin. In the meantime, continue IV meropenem at 1 gm twice a day, IV vancomycin at 250 mg every 12 hours, vitamin K 5 mg p.o. daily. Consider Hematology evaluation. I did request acute hepatitis panel. In the meantime, the patient should be treated as bacterial endocarditis until proven otherwise. Gurinder Hernandez MD
[2017-12-22] MEDS ORDERED: Vancomycin 750mg/NS 150 ml 150 ML IVPB SCH (21:15)
--- NOTE | 2017-12-22 23:32 | CP.PCM.PN ---
Subjective - Date & Time of Evaluation Date of Evaluation: 12/22/17 Time of Evaluation: 23:32 - Subjective Subjective: CHIEF COMPLAINTS TODAY : afebrile, MORE RESPONSIVE. S/P RT SINGLE-LUMEN BASILIC picc LINE PLACEMENT BY IR. 2D ECHO 12/20/17 ? AV-VEGETATIONS, RIGHT ATRIAL MASS PT FOR AWILDA TODAY. ROS. HEENT : N. Resp : No SOB wheezing, cough Cardio : No CP, PND orthopnea GI : No abd. Pain, n/v INDUSTRIAL TRAINER : No headache , focal deficit. Musculoskel : N Ext. : Pedal pulses intact, no edema or calf pain Derm : N Psych : N. PE. Pt. is MORE AWAKE in no distress. V.S As noted in the chart Head ,ear nose,throat and eyes : Normal. Neck : Supple with normal carotids. Lungs: Clear air entry. Heart : S1 & S2 normal . . No murmur. S4 + Abd : Soft non tender with normal bowel sounds/ SLIGHTLY DISTENDED +VE ASCITES Neuro : Moves all ext. with no localized deficit. Ext : B/L EDEMA ,with intact pulses. Neg. calf tenderness Derm : No rashes or decubitus ulcer. Radiology/Labs wbc 8.9 HEMOGLOBIN 12.7 PLT 39 K ---> 63 HEPATITIS SCREEN NEGATIVE HEPATITIS C ANTIBODY NEGATIVE 12/16/17 BLOOD CULTURES +VE ESCHERICHIA COLI.2:2 SETS- 12/19/17 REPEAT BLOOD CULTURES -VE GROWTH FOR 24 HOURS. LFTS BILIRUBIN 3.1, ast 86 alt 55 ALKALINE PHOSPHATASE 145. SERUM AMMONIA 34 VANCO TROUGH 13.4 NORMAL Objective - Vital Signs/Intake and Output Vital Signs (last 24 hours): Temp Pulse Resp BP Pulse Ox 97.3 F L 86 22 126/76 95 12/22/17 15:15 12/22/17 15:15 12/22/17 15:15 12/22/17 15:15 12/22/17 15:15 Intake and Output: 12/22/17 12/23/17 18:59 06:59 Intake Total 200 570 Balance 200 570 - Medications Medications: Current Medications Acetaminophen (Tylenol 650 Mg Supp) 650 mg [place] Q6 PRN PRN Reason: fever of >100.4 and above Last Admin: 12/19/17 18:08 Dose: 650 mg Furosemide (Lasix) 40 mg IVP DAILY [facility] Last Admin: 12/21/17 09:24 Dose: 40 mg Meropenem 1 gm/ Sodium (Chloride) 100 mls @ 100 mls/hr IVPB Q12H JE PRN Reason: Protocol Last Admin: 12/22/17 19:39 Dose: 100 mls/hr Vancomycin HCl (Vancocin 750mg/Ns 150 Ml) 150 mls @ 166.6 mls/hr IVPB Q12H JE PRN Reason: Protocol Stop: 12/27/17 21:16 Last Admin: 12/22/17 21:47 Dose: Not Given Insulin Human Regular (Novolin R) 0 unit SC ACHS JE PRN Reason: Protocol Last Admin: 12/22/17 21:25 Dose: Not Given Lactulose (Enulose) 20 gm PO BID [facility] Last Admin: 12/22/17 17:01 Dose: 20 gm Multivitamins/Vitamin C (Multi-Delyn Liquid) 5 ml PO DAILY [facility] Last Admin: 12/22/17 09:34 Dose: Not Given Phytonadione (Vitamin K Tab) 5 mg PO DAILY [facility] Stop: 12/24/17 10:01 Spironolactone (Aldactone) 25 mg PO BID [facility] Last Admin: 12/22/17 17:05 Dose: 25 mg Thiamine HCl (Vitamin B1 Tab) 100 mg PO BID [facility] Last Admin: 12/22/17 17:01 Dose: 100 mg - Labs Labs: 12/22/17 07:24 12/22/17 07:24 PT 20.6 SECONDS (9.7-12.2) H 12/22/17 07:24 INR 1.8 12/22/17 07:24 APTT 46 SECONDS (21-34) H 12/22/17 07:24 Assessment and Plan (1) Gram-negative sepsis Status: Acute (2) Wound infection, posttraumatic Status: Acute (3) Alcoholic hepatitis Status: Acute (4) Fatty liver with encephalopathy Status: Acute (5) Leg edema Status: Acute (6) Failure to thrive Status: Acute (7) Thrombocytopenia Status: Acute (8) Hypertension Status: Acute - Assessment and Plan (Free Text) Plan: Patient for AWILDA R/O AORTIC VALVE VEGETATION/ ? MASS RT. [facility] DR. HUNTER ON CASE. Continue iv MERREM 1 G EVERY 12 HOURLY. 12/17/17. iv AMIKACIN 1 G iv PIGGYBACK STAT 12/17/17. ON iv GENTAMICIN 140MG X1 DOSE 12/19/17 F/U GENTAMICIN 100 MG DAILY X2 DOSES. 12/20. 12/21/17. DC IV vancomycin 750 mg every 12 hourly 12/18/17 case discussed with the staff and nurse practitioner MS PERSAUD.
--- NOTE | 2017-12-22 23:35 | CP.PCM.PN ---
Subjective - Date & Time of Evaluation Date of Evaluation: 12/22/17 Time of Evaluation: 17:35 - Subjective Subjective: Pt seen and examined, is more alert Objective - Vital Signs/Intake and Output Vital Signs (last 24 hours): Temp Pulse Resp BP Pulse Ox 97.3 F L 86 22 126/76 95 12/22/17 15:15 12/22/17 15:15 12/22/17 15:15 12/22/17 15:15 12/22/17 15:15 Intake and Output: 12/22/17 12/23/17 18:59 06:59 Intake Total 200 570 Balance 200 570 - Medications Medications: Current Medications Acetaminophen (Tylenol 650 Mg Supp) 650 mg [place] Q6 PRN PRN Reason: fever of >100.4 and above Last Admin: 12/19/17 18:08 Dose: 650 mg Furosemide (Lasix) 40 mg IVP DAILY [facility] Last Admin: 12/21/17 09:24 Dose: 40 mg Meropenem 1 gm/ Sodium (Chloride) 100 mls @ 100 mls/hr IVPB Q12H JE PRN Reason: Protocol Last Admin: 12/22/17 19:39 Dose: 100 mls/hr Vancomycin HCl (Vancocin 750mg/Ns 150 Ml) 150 mls @ 166.6 mls/hr IVPB Q12H JE PRN Reason: Protocol Stop: 12/27/17 21:16 Last Admin: 12/22/17 21:47 Dose: Not Given Insulin Human Regular (Novolin R) 0 unit SC ACHS JE PRN Reason: Protocol Last Admin: 12/22/17 21:25 Dose: Not Given Lactulose (Enulose) 20 gm PO BID [facility] Last Admin: 12/22/17 17:01 Dose: 20 gm Multivitamins/Vitamin C (Multi-Delyn Liquid) 5 ml PO DAILY [facility] Last Admin: 12/22/17 09:34 Dose: Not Given Phytonadione (Vitamin K Tab) 5 mg PO DAILY [facility] Stop: 12/24/17 10:01 Spironolactone (Aldactone) 25 mg PO BID [facility] Last Admin: 12/22/17 17:05 Dose: 25 mg Thiamine HCl (Vitamin B1 Tab) 100 mg PO BID [facility] Last Admin: 12/22/17 17:01 Dose: 100 mg - Labs Labs: 12/22/17 07:24 12/22/17 07:24 PT 20.6 SECONDS (9.7-12.2) H 12/22/17 07:24 INR 1.8 12/22/17 07:24 APTT 46 SECONDS (21-34) H 12/22/17 07:24 Assessment and Plan (1) Fatty liver with encephalopathy Status: Acute (2) Hypertension Status: Acute (3) Wound infection, posttraumatic Status: Acute (4) Fever Status: Acute
[2017-12-23] MEDS: Meropenem 1 GM in Sodium Chloride 0.9% 100 ML IVPB SCH ×2 (06:00→20:00)
[2017-12-23 06:28] LABS: BASO % 0.5 % (0.0-2.0); EOS # 0.2 K/uL (0.0-0.7); EOS % 2.2 % (0.0-4.0); HEMOGLOBIN 12.4 g/dL (12.0-18.0); LYMPH # 2.6 K/uL (1.0-4.3); LYMPH % 25.7 % (20.0-40.0); MEAN CELL VOLUME 97.1 fL (80.0-94.0); MEAN CORPUSCULAR HEMOGLOBIN 33.5 pg (27.0-31.0); MEAN CORPUSCULAR HGB CONC 34.4 g/dL (33.0-37.0); MEAN PLATELET VOLUME 10.3 fL (7.2-11.7); MONO # 1.4 K/uL (0.0-0.8); MONO % 13.4 % (0.0-10.0); NEUT % 58.2 % (50.0-75.0); NRBC % 0.2 % (0.0-2.0); RBC 3.7 Mil/uL (4.40-5.90); RED CELL DISTRIBUTION WIDTH 14.8 % (11.5-14.5); WHITE BLOOD COUNT 10.3 K/uL (4.8-10.8)
[2017-12-23 06:34] LABS: INR 1.8; PROTHROMBIN TIME 20.5 SECONDS (9.7-12.2)
[2017-12-23 06:46] LABS: CALCIUM 8.7 mg/dl (8.6-10.4)
[2017-12-23] MEDS: (Novolin R) Insulin Human Regular 100 units/ml vial SC SCH ×4 (08:08→22:56)
[2017-12-23] MEDS: Multiple Vitamins Oral Solution PO SCH (10:28)
--- NOTE | 2017-12-23 11:49 | PN ---
DATE: LOCATION: [facility], bed B. SUBJECTIVE: This is a 72-year-old male, seen and examined in rounds without significant clinical changes, positive placement of right PICC line on ultrasound with complaint of mild intermittent abdominal pain. No reported active bleeding. No hematemesis, but with some jaundice. The patient is still on antibiotic due to his positive blood culture for E. coli as well as positive wound culture, posttraumatic wound. The most recent lab and radiology study results, current and the previous medication list, current and the previous medical events reviewed and the patient's blood glucose level today is 224 with a viral hepatitis profile reported to be negative; however, the patient still has elevated BUN and creatinine with low calcium, mildly elevated ammonia level, with increased total bilirubin and AST, as well as alkaline phosphatase. PHYSICAL EXAMINATION: GENERAL: A 72-year-old male. VITAL SIGNS: Afebrile, with pulse of 82, respiratory rate of 20 to 22, and blood pressure of 130/80. HEENT: Showed pale, dry oral mucous membrane. Nonicteric sclerae. LUNGS: Few scattered crepitations. Decreased air entry at bases. HEART: Positive S1 and S2. ABDOMEN: Soft with slight distention, slightly tender. No mass or organomegaly. No rebound tenderness or guarding. EXTREMITIES: With clean cover of knees with no discharge. No cyanosis or clubbing. NEUROLOGIC: No reported new neurological deficits, sensory or motor. No reported new focal deficits. IMPRESSION: 1. Septicemia of Escherichia coli. 2. Jaundice with abnormal liver function tests, most likely secondary to hepatocellular injury secondary to alcohol-induced; however, due to the abnormal radiologic study result with dilated common bile duct, obstructive phenomenon should be ruled in or out. 3. Posttraumatic wound infection, on antibiotics. 4. Known history of hypertension. 5. Thrombocytopenia secondary to above. 6. Anemia with possible gastrointestinal blood loss versus chronic disease. 7. Elevated CEA and CA 19-9 with possible occult gastrointestinal malignancy. SUGGESTIONS: 1. Continue current management. 2. The patient for ERCP when he is more stable clinically. 3. Further recommendations to follow. Lachelle Rodrigues MD [facility] # [id number]
--- NOTE | 2017-12-23 11:55 | CP.PCM.PN ---
Subjective - Date & Time of Evaluation Date of Evaluation: 12/23/17 Time of Evaluation: 09:10 - Subjective Subjective: Podiatry Progress Note- Dr. Sarabia 72 year old male seen at bedside for b/l swollen legs. Family members at bedside during visitation. Patient appears to be resting comfortably in bed in NAD. Denies any new leg pain or acute overnight events. Denies any recent N/V/F/ CP/SOB/D/posterior calf pain when squeezed. Multipodus boots are intact to both lower extremities. Objective - Vital Signs/Intake and Output Vital Signs (last 24 hours): Temp Pulse Resp BP Pulse Ox 97.3 F L 81 20 121/73 94 L 12/23/17 07:00 12/23/17 07:00 12/23/17 07:00 12/23/17 10:27 12/23/17 07:00 Intake and Output: 12/23/17 12/23/17 06:59 18:59 Intake Total 890 Balance 890 - Medications Medications: Current Medications Acetaminophen (Tylenol 650 Mg Supp) 650 mg [place] Q6 PRN PRN Reason: fever of >100.4 and above Last Admin: 12/19/17 18:08 Dose: 650 mg Furosemide (Lasix) 40 mg IVP DAILY [facility] Last Admin: 12/23/17 10:27 Dose: 40 mg Meropenem 1 gm/ Sodium (Chloride) 100 mls @ 100 mls/hr IVPB Q12H JE PRN Reason: Protocol Last Admin: 12/23/17 06:00 Dose: 100 mls/hr Insulin Human Regular (Novolin R) 0 unit SC ACHS JE PRN Reason: Protocol Last Admin: 12/23/17 08:08 Dose: 2 unit Lactulose (Enulose) 20 gm PO BID [facility] Last Admin: 12/23/17 10:27 Dose: 20 gm Multivitamins/Vitamin C (Multi-Delyn Liquid) 5 ml PO DAILY [facility] Last Admin: 12/23/17 10:28 Dose: 5 ml Phytonadione (Vitamin K Tab) 5 mg PO DAILY [facility] Stop: 12/24/17 10:01 Last Admin: 12/23/17 10:29 Dose: 5 mg Spironolactone (Aldactone) 25 mg PO BID [facility] Last Admin: 12/23/17 10:27 Dose: 25 mg Thiamine HCl (Vitamin B1 Tab) 100 mg PO BID [facility] Last Admin: 12/23/17 10:28 Dose: 100 mg - Labs Labs: 12/23/17 06:18 12/23/17 06:18 PT 20.5 SECONDS (9.7-12.2) H 12/23/17 06:18 INR 1.8 12/23/17 06:18 APTT 39 SECONDS (21-34) H D 12/23/17 06:18 - Constitutional Appears: Well, Non-toxic, No Acute Distress - Extremities Exam Extremities Exam: absent: Calf Tenderness Additional comments: VASC: DP/PT pulses are palpable 2/4 B/L. Cap refill time: < 3 seconds to all digits. Skin temperature warm to cool from proximal to distal. B/l LE edema noted to be resolved at this time with no weeping noted DERM: no open lesions, no inter digital maceration, nails are cut to hygenic length, no clinical suspicion of active infection. Hyperpigmented skin noted to distal medial leg most likely secondary to hemosiderin deposition NEURO: Unable to determine due to patient's mental status ORTHO: Unable to determine due to patient's mental status. No gross deformities noted - Neurological Exam Neurological Exam: Alert, Awake, Oriented x3 - Psychiatric Exam Psychiatric exam: Normal Affect, Normal Mood Assessment and Plan - Assessment and Plan (Free Text) Assessment: 72 year old male seen for b/l LE edema stable Plan: Patient seen and evaluated with attending Dr. Sarabia Afebrile, absent leukocytosis No open lesions, edema to LE has improved C/W multipodus boots while in house Podiatry will continue to follow while patient in house
--- NOTE | 2017-12-23 18:31 | PN ---
DATE: SUBJECTIVE: The patient is at the bedside, oriented to place with his family members around him, his son, and his sister. He denies any chest pain. PHYSICAL EXAMINATION: VITAL SIGNS: Blood pressure 117/66, heart rate 81, temperature 97.3, respirations 20. HEENT: Normocephalic. CHEST: Diminished breath sounds at the bases. HEART: S1 and S2 regular. EXTREMITIES: No edema. LABORATORY DATA: Today's hemoglobin, hematocrit, and white count are within normal limits, today's platelet count 75,000. Today's INR is 1.8 and PTT is 39. Today's BUN and creatinine 45 and 1.8, glucose 223. ASSESSMENT: 1. Gram-negative bacteremia. 2. Rule out bacterial endocarditis. 3. Chronic renal insufficiency. 4. Thrombocytopenia and coagulopathy. RECOMMENDATIONS: Continue Lasix 40 mg intravenous daily, IV meropenem at 1 gm every 12 hours, thiamine 100 mg twice a day, vitamin K 5 mg orally daily. Case will be discussed with Dr. Mcleod regarding the timing and clearance for the procedure. Gurinder Hernandez MD
--- NOTE | 2017-12-23 20:08 | CP.PCM.PN ---
Subjective - Date & Time of Evaluation Date of Evaluation: 12/23/17 Time of Evaluation: 20:08 - Subjective Subjective: CHIEF COMPLAINTS TODAY : afebrile, MORE RESPONSIVE. AWILDA- CANCELLED TODAY SEEN BY GI 2D ECHO 12/20/17 ? AV-VEGETATIONS, RIGHT ATRIAL MASS ROS. HEENT : N. Resp : No SOB wheezing, cough Cardio : No CP, PND orthopnea GI : No abd. Pain, n/v PUFF IRON OPERATOR : No headache , focal deficit. Musculoskel : N Ext. : Pedal pulses intact, no edema or calf pain Derm : N Psych : N. PE. Pt. is MORE AWAKE in no distress. V.S As noted in the chart Head ,ear nose,throat and eyes : Normal. Neck : Supple with normal carotids. Lungs: Clear air entry. Heart : S1 & S2 normal . . No murmur. S4 + Abd : Soft non tender with normal bowel sounds/ SLIGHTLY DISTENDED +VE ASCITES Neuro : Moves all ext. with no localized deficit. Ext : B/L EDEMA ,with intact pulses. Neg. calf tenderness Derm : No rashes or decubitus ulcer. Radiology/Labs wbc 10.3HEMOGLOBIN 12.4 PLT 39 K ---> 63--->75 INR 1.8 HIGH HEPATITIS SCREEN NEGATIVE HEPATITIS C ANTIBODY NEGATIVE 12/16/17 BLOOD CULTURES +VE ESCHERICHIA COLI.2:2 SETS- 12/19/17 REPEAT BLOOD CULTURES -VE GROWTH FOR 24 HOURS. LFTS BILIRUBIN 3.1, ast 86 alt 55 ALKALINE PHOSPHATASE 145. SERUM AMMONIA 34 VANCO TROUGH 13.4 NORMAL Objective - Vital Signs/Intake and Output Vital Signs (last 24 hours): Temp Pulse Resp BP Pulse Ox 97.7 F 83 20 153/75 H 96 12/23/17 15:00 12/23/17 15:45 12/23/17 15:00 12/23/17 15:00 12/23/17 15:00 - Medications Medications: Current Medications Acetaminophen (Tylenol 650 Mg Supp) 650 mg [place] Q6 PRN PRN Reason: fever of >100.4 and above Last Admin: 12/19/17 18:08 Dose: 650 mg Furosemide (Lasix) 40 mg IVP DAILY [facility] Last Admin: 12/23/17 10:27 Dose: 40 mg Meropenem 1 gm/ Sodium (Chloride) 100 mls @ 100 mls/hr IVPB Q12H JE PRN Reason: Protocol Last Admin: 12/23/17 06:00 Dose: 100 mls/hr Insulin Human Regular (Novolin R) 0 unit SC ACHS [facility] PRN Reason: Protocol Last Admin: 12/23/17 17:30 Dose: 1 unit Lactulose (Enulose) 20 gm PO BID [facility] Last Admin: 12/23/17 17:34 Dose: 20 gm Multivitamins/Vitamin C (Multi-Delyn Liquid) 5 ml PO DAILY [facility] Last Admin: 12/23/17 10:28 Dose: 5 ml Phytonadione (Vitamin K Tab) 5 mg PO DAILY [facility] Stop: 12/24/17 10:01 Last Admin: 12/23/17 10:29 Dose: 5 mg Spironolactone (Aldactone) 25 mg PO BID [facility] Last Admin: 12/23/17 17:33 Dose: 25 mg Thiamine HCl (Vitamin B1 Tab) 100 mg PO BID [facility] Last Admin: 12/23/17 17:33 Dose: 100 mg - Labs Labs: 12/23/17 06:18 12/23/17 06:18 PT 20.5 SECONDS (9.7-12.2) H 12/23/17 06:18 INR 1.8 12/23/17 06:18 APTT 39 SECONDS (21-34) H D 12/23/17 06:18 Assessment and Plan (1) Gram-negative sepsis Status: Acute (2) Wound infection, posttraumatic Status: Acute (3) Alcoholic hepatitis Status: Acute (4) Fatty liver with encephalopathy Status: Acute (5) Leg edema Status: Acute (6) Failure to thrive Status: Acute (7) Thrombocytopenia Status: Acute (8) Hypertension Status: Acute - Assessment and Plan (Free Text) Plan: Continue iv MERREM 1 G EVERY 12 HOURLY. 12/17/17. OFF AMIKACIN 1 G iv PIGGYBACK STAT 12/17/17. OFF iv GENTAMICIN 140MG X1 DOSE 12/19/17 F/U GENTAMICIN 100 MG DAILY X2 DOSES. 12/20. 12/21/17. DC IV vancomycin 750 mg every 12 hourly 12/18/17---12/23/17 ALL CULTURES -VE. VANCO TROUGH STAT 21.6 TODAY --SLIGHTLY HIGH.12/23/17 GI W/U IN PROGRESS. AWILDA WHEN CLEARED BY GI case discussed with the staff.
--- NOTE | 2017-12-23 21:11 | PN ---
DATE: SUBJECTIVE: The patient seen in his room with his son. The patient is more alert and verbal. Still fees weak with periods of confusion. His appetite is variable. The patient is awaiting completion of AWILDA and also possible ERCP. The patient has been bed bound and family wants the patient to go for subacute rehab for conditioning. The patient has no signs and symptoms of alcohol withdrawal at this time. He is not taking any psych meds. He is only on spironolactone, lactulose, Lasix, and also on thiamine. PHYSICAL EXAMINATION VITAL SIGNS: Temperature 97.7, pulse 83, blood pressure 153/75, respirations 20, and oxygen saturation is 96%. REVIEW OF SYSTEMS: GENERAL: The patient is alert, verbal, still with periods of confusion. Feeling weak. Speaks in a soft voice. SKIN: No diaphoresis. HEENT: No headache or dizziness. NECK: Supple. RESPIRATORY: No dyspnea. CARDIOVASCULAR: No chest pain. GASTROINTESTINAL: Appetite is poor. No nausea or vomiting. EXTREMITIES: Gait is unsteady. He is complaining of swelling in his lower extremities. GENITOURINARY: No dysuria. NEUROLOGIC: Alert with periods of confusion. The patient is scheduled for possible AWILDA next week. His creatinine is now 1.8. When he came in, the patient's creatinine was 0.9. His GFR is still greater than 60. The patient's blood sugar, the last one is 183. MENTAL STATUS EXAMINATION: Elderly male, who looks stated age. Speaks in a soft voice. Mood is dysphoric. Affect is restricted. Thought process, confused off and on, but improving. Thought content, no overt psychosis. No suicidal or homicidal ideation. The patient has been cooperative with antibiotic treatment. The patient as stated has no psychosis. No suicidal or homicidal ideation. Attention and memory seem to be limited. Insight and judgment limited. Impulse control is fair at this time. IMPRESSION: History of alcohol dependence, alcohol withdrawal, delirium secondary to his medical problems. PLAN AND RECOMMENDATIONS: The patient is seen, medications reviewed. Continue present management. Continue treatment plan. The patient is awaiting medical clearance to go for possible subacute rehab. The patient also awaiting completion of tests of AWILDA and the ERCP. The patient is also on antibiotic at this time. Stas Knox MD [facility] # [id number]
[2017-12-24 04:26] LABS: BASO # 0.1 K/uL (0.0-0.2); BASO % 0.8 % (0.0-2.0); EOS # 0.2 K/uL (0.0-0.7); EOS % 1.9 % (0.0-4.0); HEMOGLOBIN 12.5 g/dL (12.0-18.0); LYMPH # 2.4 K/uL (1.0-4.3); LYMPH % 22.9 % (20.0-40.0); MEAN CELL VOLUME 97.3 fL (80.0-94.0); MEAN CORPUSCULAR HEMOGLOBIN 33.4 pg (27.0-31.0); MEAN CORPUSCULAR HGB CONC 34.3 g/dL (33.0-37.0); MEAN PLATELET VOLUME 10.3 fL (7.2-11.7); MONO # 1.3 K/uL (0.0-0.8); MONO % 12.3 % (0.0-10.0); NEUT # 6.4 K/uL (1.8-7.0); NEUT % 62.1 % (50.0-75.0); NRBC % 0.1 % (0.0-2.0); RBC 3.73 Mil/uL (4.40-5.90); RED CELL DISTRIBUTION WIDTH 14.3 % (11.5-14.5); WHITE BLOOD COUNT 10.3 K/uL (4.8-10.8)
[2017-12-24 04:37] LABS: INR 1.6; PROTHROMBIN TIME 18.7 SECONDS (9.7-12.2)
[2017-12-24 04:39] LABS: SQUAMOUS EPITHIAL < 1 /hpf (0-5); URINE BACTERIA RARE (<OCC); URINE BILIRUBIN NEGATIVE (NEGATIVE); URINE BLOOD NEGATIVE (NEGATIVE); URINE CLARITY Hazy (Clear); URINE COLOR Amber (YELLOW); URINE GLUCOSE (UA) 1+ mg/dL (Normal); URINE HYALINE CAST >20 /lpf (0-2); URINE LEUKOCYTE ESTERASE NEG Leu/uL (Negative); URINE PROTEIN NEGATIVE (NEGATIVE)
[2017-12-24 04:44] LABS: CALCIUM 8.8 mg/dl (8.6-10.4)
[2017-12-24] MEDS: Meropenem 1 GM in Sodium Chloride 0.9% 100 ML IVPB SCH ×2 (06:02→19:51)
[2017-12-24] MEDS: (Novolin R) Insulin Human Regular 100 units/ml vial SC SCH ×4 (07:57→21:15)
[2017-12-24] MEDS: Multiple Vitamins Oral Solution PO SCH (09:22)
--- NOTE | 2017-12-24 10:48 | PN ---
DATE: 12/24/2017 LOCATION: [address] SUBJECTIVE: This is a 72-year-old male who appeared to be somewhat sleepy early in rounds today, with intact clean cover of the right lateral knee and right hip. Somewhat tolerating oral intake well, but with complaint of mild dyspepsia and nausea. The entire chart is reviewed including, but not limited to, the most recent lab and radiology study results, current and previous medication list, current and previous medical events. Case discussed with staff at length. Today's lab showed normal white blood cells, normal hemoglobin and hematocrit, but thrombocytopenia of 90 with PT of 18.7. BUN is 51, creatinine 2.1, blood glucose level 232, with the latest hepatitis profile negative; however, the patient still has reported elevated liver function tests including elevated total bilirubin. PHYSICAL EXAMINATION: GENERAL: A 72-year-old male. VITAL SIGNS: Afebrile, with pulse of 88, respiratory rate of 20 to 22, blood pressure 130/76. HEENT: Showed pale, dry mucous membrane. Nonicteric sclerae. LUNGS: Few scattered crepitations. Decreased air entry at bases. HEART: Positive S1 and S2. ABDOMEN: Soft, bowel sounds are present. No mass or organomegaly. No rebound tenderness or guarding. With mild abdominal distention. EXTREMITIES: With lower extremity mild edematous changes. No clubbing or cyanosis. NEUROLOGIC: No reported new neurological deficits, sensory or motor. IMPRESSION: 1. Abnormal liver function test, with elevated bilirubin and jaundice as well as abnormal radiology study results. 2. Septicemia of Escherichia coli. 3. Re-exacerbation of peptic ulcer disease. 4. Known history of hypertension. 5. Thrombocytopenia secondary to above. 6. Recent history of anemia most likely secondary to gastrointestinal blood loss. 7. Elevated CEA and CA 19-9, to rule out occult gastrointestinal malignancy. SUGGESTIONS: 1. Continue current management. 2. Correct any underlying etiology. 3. The patient is scheduled for ERCP at a.m. with potential biliary stent insertion as needed. Lachelle Rodrigues MD
--- NOTE | 2017-12-24 15:58 | CP.PCM.PN ---
Subjective - Date & Time of Evaluation Date of Evaluation: 12/23/17 Time of Evaluation: 18:00 - Subjective Subjective: pt seen and examined, he is more awake, weak, not moving much, urine is dark color Objective - Vital Signs/Intake and Output Vital Signs (last 24 hours): Temp Pulse Resp BP Pulse Ox 97.3 F L 80 19 121/75 98 12/24/17 15:00 12/24/17 15:00 12/24/17 15:00 12/24/17 15:00 12/24/17 15:00 Intake and Output: 12/24/17 12/24/17 06:59 18:59 Output Total 75 Balance -75 - Medications Medications: Current Medications Acetaminophen (Tylenol 650 Mg Supp) 650 mg ND Q6 PRN PRN Reason: fever of >100.4 and above Last Admin: 12/19/17 18:08 Dose: 650 mg Furosemide (Lasix) 40 mg IVP DAILY [facility] Last Admin: 12/24/17 09:23 Dose: 40 mg Meropenem 1 gm/ Sodium (Chloride) 100 mls @ 100 mls/hr IVPB Q12H JE PRN Reason: Protocol Last Admin: 12/24/17 06:02 Dose: 100 mls/hr Insulin Human Regular (Novolin R) 0 unit SC ACHS JE PRN Reason: Protocol Last Admin: 12/24/17 11:50 Dose: 2 unit Lactulose (Enulose) 20 gm PO BID JE Last Admin: 12/24/17 09:22 Dose: 20 gm Multivitamins/Vitamin C (Multi-Delyn Liquid) 5 ml PO DAILY JE Last Admin: 12/24/17 09:22 Dose: 5 ml Spironolactone (Aldactone) 25 mg PO BID JE Last Admin: 12/24/17 09:21 Dose: 25 mg Thiamine HCl (Vitamin B1 Tab) 100 mg PO BID JE Last Admin: 12/24/17 09:22 Dose: 100 mg - Labs Labs: 12/24/17 04:23 12/24/17 04:23 PT 18.7 SECONDS (9.7-12.2) H 12/24/17 04:23 INR 1.6 12/24/17 04:23 APTT 39 SECONDS (21-34) H D 12/23/17 06:18 - Constitutional Appears: No Acute Distress - Head Exam Head Exam: ATRAUMATIC, NORMAL INSPECTION, NORMOCEPHALIC - Eye Exam Eye Exam: EOMI, Normal appearance, PERRL Pupil Exam: NORMAL ACCOMODATION, PERRL - Respiratory Exam Respiratory Exam: Decreased Breath Sounds, Rales, Rhonchi - Cardiovascular Exam Cardiovascular Exam: REGULAR RHYTHM, +S1, +S2. absent: Murmur - GI/Abdominal Exam GI & Abdominal Exam: Soft, Normal Bowel Sounds. absent: Tenderness - Rectal Exam Rectal Exam: Deferred Assessment and Plan (1) Fatty liver with encephalopathy Status: Acute (2) Hypertension Status: Acute (3) Wound infection, posttraumatic Status: Acute (4) Fever Status: Acute
--- NOTE | 2017-12-24 16:00 | CP.PCM.PN ---
Subjective - Date & Time of Evaluation Date of Evaluation: 12/23/17 Time of Evaluation: 18:40 - Subjective Subjective: pt seen and examined Objective - Vital Signs/Intake and Output Vital Signs (last 24 hours): Temp Pulse Resp BP Pulse Ox 97.3 F L 80 19 121/75 98 12/24/17 15:00 12/24/17 15:00 12/24/17 15:00 12/24/17 15:00 12/24/17 15:00 Intake and Output: 12/24/17 12/24/17 06:59 18:59 Output Total 75 Balance -75 - Medications Medications: Current Medications Acetaminophen (Tylenol 650 Mg Supp) 650 mg [place] Q6 PRN PRN Reason: fever of >100.4 and above Last Admin: 12/19/17 18:08 Dose: 650 mg Furosemide (Lasix) 40 mg IVP DAILY [facility] Last Admin: 12/24/17 09:23 Dose: 40 mg Meropenem 1 gm/ Sodium (Chloride) 100 mls @ 100 mls/hr IVPB Q12H JE PRN Reason: Protocol Last Admin: 12/24/17 06:02 Dose: 100 mls/hr Insulin Human Regular (Novolin R) 0 unit SC ACHS JE PRN Reason: Protocol Last Admin: 12/24/17 11:50 Dose: 2 unit Lactulose (Enulose) 20 gm PO BID [facility] Last Admin: 12/24/17 09:22 Dose: 20 gm Multivitamins/Vitamin C (Multi-Delyn Liquid) 5 ml PO DAILY [facility] Last Admin: 12/24/17 09:22 Dose: 5 ml Spironolactone (Aldactone) 25 mg PO BID [facility] Last Admin: 12/24/17 09:21 Dose: 25 mg Thiamine HCl (Vitamin B1 Tab) 100 mg PO BID [facility] Last Admin: 12/24/17 09:22 Dose: 100 mg - Labs Labs: 12/24/17 04:23 12/24/17 04:23 PT 18.7 SECONDS (9.7-12.2) H 12/24/17 04:23 INR 1.6 12/24/17 04:23 APTT 39 SECONDS (21-34) H D 12/23/17 06:18 - Constitutional Appears: No Acute Distress - Head Exam Head Exam: ATRAUMATIC, NORMAL INSPECTION, NORMOCEPHALIC - Eye Exam Eye Exam: EOMI, Normal appearance, PERRL Pupil Exam: NORMAL ACCOMODATION, PERRL - Respiratory Exam Respiratory Exam: Decreased Breath Sounds, Rales, Rhonchi - Cardiovascular Exam Cardiovascular Exam: REGULAR RHYTHM, +S1, +S2. absent: Murmur - GI/Abdominal Exam GI & Abdominal Exam: Soft, Normal Bowel Sounds. absent: Tenderness Assessment and Plan (1) Fatty liver with encephalopathy Status: Acute (2) Hypertension Status: Acute (3) Wound infection, posttraumatic Status: Acute (4) Fever Status: Acute
--- NOTE | 2017-12-24 18:53 | CP.PCM.PN ---
Subjective - Date & Time of Evaluation Date of Evaluation: 12/24/17 Time of Evaluation: 19:00 - Subjective Subjective: pt seen and examined, laying in bed, less short of breath, she is speaking in full sentences, she has slight cough Objective - Vital Signs/Intake and Output Vital Signs (last 24 hours): Temp Pulse Resp BP Pulse Ox 97.3 F L 78 19 121/75 98 12/24/17 15:00 12/24/17 15:30 12/24/17 15:00 12/24/17 15:00 12/24/17 15:00 Intake and Output: 12/24/17 12/24/17 06:59 18:59 Output Total 75 Balance -75 - Medications Medications: Current Medications Acetaminophen (Tylenol 650 Mg Supp) 650 mg [place] Q6 PRN PRN Reason: fever of >100.4 and above Last Admin: 12/19/17 18:08 Dose: 650 mg Furosemide (Lasix) 40 mg IVP DAILY [facility] Last Admin: 12/24/17 09:23 Dose: 40 mg Meropenem 1 gm/ Sodium (Chloride) 100 mls @ 100 mls/hr IVPB Q12H JE PRN Reason: Protocol Last Admin: 12/24/17 06:02 Dose: 100 mls/hr Insulin Human Regular (Novolin R) 0 unit SC ACHS JE PRN Reason: Protocol Last Admin: 12/24/17 17:00 Dose: 2 unit Lactulose (Enulose) 20 gm PO BID JE Last Admin: 12/24/17 17:01 Dose: 20 gm Multivitamins/Vitamin C (Multi-Delyn Liquid) 5 ml PO DAILY [facility] Last Admin: 12/24/17 09:22 Dose: 5 ml Spironolactone (Aldactone) 25 mg PO BID JE Last Admin: 12/24/17 17:01 Dose: 25 mg Thiamine HCl (Vitamin B1 Tab) 100 mg PO BID JE Last Admin: 12/24/17 17:01 Dose: 100 mg - Labs Labs: 12/24/17 04:23 12/24/17 04:23 PT 18.7 SECONDS (9.7-12.2) H 12/24/17 04:23 INR 1.6 12/24/17 04:23 APTT 39 SECONDS (21-34) H D 12/23/17 06:18 Assessment and Plan (1) Fatty liver with encephalopathy Status: Acute (2) Hypertension Status: Acute (3) Wound infection, posttraumatic Status: Acute (4) Fever Status: Acute
--- NOTE | 2017-12-24 19:11 | PN ---
DATE: SUBJECTIVE: The patient is seen. The patient is more alert and verbal, but still has periods of confusion. The patient was seen earlier by Dr. Mcleod and plan is patient to undergo ERCP in the morning. The patient has already signed for the consent, but the patient still has significant periods of confusion. He is not agitated, redirectable by staff, but still has periods of confusion. The patient is not exhibiting signs and symptoms of alcohol withdrawal at this time. PHYSICAL EXAMINATION: VITAL SIGNS: Temperature is 97, pulse rate is 90, blood pressure 124/69, respirations 20, and oxygen saturation is 94%. The patient is currently followed by Dr. Lyles and taking antibiotics for gram-negative sepsis. REVIEW OF SYSTEMS: GENERAL: The patient is more alert and verbal, but still with periods of confusion. Speaks in a soft voice in his room, not in acute respiratory distress. SKIN: No diaphoresis. HEENT: No headache or dizziness. NECK: Supple. RESPIRATORY: No dyspnea. CARDIOVASCULAR: No chest pain. GASTROINTESTINAL: Appetite is variable. EXTREMITIES: No tremors. The patient has been spending most of his time in bed. His gait is unsteady. MUSCULOSKELETAL: Generalized weakness. NEUROLOGIC: Alert with periods of confusion. The patient is aware that he is in the hospital as well as oriented to person not to time. MENTAL STATUS EXAMINATION: Elderly male, who looks stated age. Still has periods of confusion, oriented x2. Mood is dysphoric. Affect is restricted. Speech is slow. Thought process, confused off and on. Thought content, no overt psychosis. No suicidal or homicidal ideation. The patient stated he is comfortable being in hospital. Attention and memory still limited. Insight and judgment limited. Impulse control is fair at this time. IMPRESSION: History of alcohol dependence, alcohol withdrawal, delirium, metabolic encephalopathy probably secondary to gram-negative sepsis. PLAN AND RECOMMENDATIONS: The patient was seen and meds reviewed. We will keep the patient off psych meds. The patient is taking thiamine as supplement as he has long hx of alcoholism. Continue antibiotics as prescribed by Dr. Lyles for the gram-negative sepsis. The patient is for ERCP in the morning. Stas Knox MD [facility] # [id number] MTDMelanie
--- NOTE | 2017-12-24 21:02 | PN ---
DATE: SUBJECTIVE: The patient is sleepy. He has not been in any distress. PHYSICAL EXAMINATION: VITAL SIGNS: Blood pressure 121/75, heart rate 80, temperature 97.3, respirations 19. HEENT: Normocephalic. CHEST: Clear. HEART: S1, S2 regular. EXTREMITIES: No edema. LABORATORY DATA: SMA-7, sodium 141, potassium 4.6, chloride 106, CO2 of 28, glucose 123, BUN 51, creatinine 2.1. Today's hemoglobin and hematocrit are 12.5 and 36.3. White count 10.3, platelet count has improved to 90,000. Today his INR is 1.6. ASSESSMENT: 1. Consider aortic valve endocarditis. 2. Improving thrombocytopenia and coagulopathy. 3. Hypertension. 4. Gram-negative bacteremia. RECOMMENDATIONS: The gastrointestinal followup by Dr. Mcleod was reviewed and the patient is scheduled for ERCP on Monday a.m. with potential biliary stent insertion as needed. Continue current Aldactone 20 mg twice daily, Lasix 20 mg intravenously once a day, IV meropenem at 1 gm every 12 hours, and thiamine 100 mg twice a day. We will discuss the findings of future upper endoscopy with Dr. Mcleod prior to scheduling the patient for AWILDA. Gurinder Hernandez MD
[2017-12-25 02:25] LABS: BASO % 0.5 % (0.0-2.0); EOS # 0.2 K/uL (0.0-0.7); EOS % 2.2 % (0.0-4.0); HEMOGLOBIN 12.4 g/dL (12.0-18.0); LYMPH # 2.4 K/uL (1.0-4.3); LYMPH % 24.8 % (20.0-40.0); MEAN CELL VOLUME 98.1 fL (80.0-94.0); MEAN CORPUSCULAR HEMOGLOBIN 33.2 pg (27.0-31.0); MEAN CORPUSCULAR HGB CONC 33.8 g/dL (33.0-37.0); MEAN PLATELET VOLUME 9.8 fL (7.2-11.7); MONO # 1.1 K/uL (0.0-0.8); MONO % 11.9 % (0.0-10.0); NEUT # 5.8 K/uL (1.8-7.0); NEUT % 60.6 % (50.0-75.0); NRBC % 0.2 % (0.0-2.0); RBC 3.74 Mil/uL (4.40-5.90); RED CELL DISTRIBUTION WIDTH 14.6 % (11.5-14.5); WHITE BLOOD COUNT 9.6 K/uL (4.8-10.8)
[2017-12-25 02:28] LABS: INR 1.5; PROTHROMBIN TIME 17.6 SECONDS (9.7-12.2)
[2017-12-25 02:36] LABS: CALCIUM 8.7 mg/dl (8.6-10.4)
[2017-12-25] MEDS: Meropenem 1 GM in Sodium Chloride 0.9% 100 ML IVPB SCH ×2 (07:59→19:34)
[2017-12-25] MEDS: (Novolin R) Insulin Human Regular 100 units/ml vial SC SCH ×4 (08:14→21:29)
--- NOTE | 2017-12-25 10:13 | CP.PCM.PCO ---
Physician Communication Note - Physician Communication Note Physician Communication Note: Patient medically cleared forEGD/ERCP per Dr. Johnson
[2017-12-25] MEDS: Multiple Vitamins Oral Solution PO SCH (10:17)
--- NOTE | 2017-12-25 11:30 | CP.PCM.PN ---
Subjective - Date & Time of Evaluation Date of Evaluation: 12/25/17 Time of Evaluation: 10:00 - Subjective Subjective: Patient seen today , awake, alert, oriented to person and place, NAD , denies any complaints s/p units of FFP for possible EGD/ERCP today by Dr. Mcleod No overnight events reported by RN a febrile INR- 1.5 Objective - Vital Signs/Intake and Output Vital Signs (last 24 hours): Temp Pulse Resp BP Pulse Ox 98.0 F 76 20 117/82 97 12/25/17 08:15 12/25/17 08:15 12/25/17 08:15 12/25/17 10:24 12/25/17 08:15 Intake and Output: 12/25/17 12/25/17 06:59 18:59 Intake Total 785 Output Total 0 Balance 785 - Medications Medications: Current Medications Acetaminophen (Tylenol 650 Mg Supp) 650 mg [place] Q6 PRN PRN Reason: fever of >100.4 and above Last Admin: 12/19/17 18:08 Dose: 650 mg Furosemide (Lasix) 40 mg IVP DAILY [facility] Last Admin: 12/25/17 10:24 Dose: 40 mg Meropenem 1 gm/ Sodium (Chloride) 100 mls @ 100 mls/hr IVPB Q12H JE PRN Reason: Protocol Last Admin: 12/25/17 07:59 Dose: 100 mls/hr Insulin Human Regular (Novolin R) 0 unit SC ACHS JE PRN Reason: Protocol Last Admin: 12/25/17 08:14 Dose: Not Given Lactulose (Enulose) 20 gm PO BID [facility] Last Admin: 12/25/17 10:17 Dose: Not Given Multivitamins/Vitamin C (Multi-Delyn Liquid) 5 ml PO DAILY [facility] Last Admin: 12/25/17 10:17 Dose: Not Given Spironolactone (Aldactone) 25 mg PO BID JE Last Admin: 12/25/17 10:17 Dose: Not Given Thiamine HCl (Vitamin B1 Tab) 100 mg PO BID [facility] Last Admin: 12/25/17 10:17 Dose: Not Given - Labs Labs: 12/25/17 02:20 12/25/17 02:20 PT 17.6 SECONDS (9.7-12.2) H 12/25/17 02:20 INR 1.5 12/25/17 02:20 APTT 38 SECONDS (21-34) H 12/25/17 03:16 - Constitutional Appears: Well, No Acute Distress, Chronically Ill - Respiratory Exam Respiratory Exam: Decreased Breath Sounds, NORMAL BREATHING PATTERN - Cardiovascular Exam Cardiovascular Exam: REGULAR RHYTHM, +S1, +S2 - GI/Abdominal Exam GI & Abdominal Exam: Soft, Normal Bowel Sounds (distended ) - Neurological Exam Neurological Exam: Alert, Awake Assessment and Plan - Assessment and Plan (Free Text) Assessment: A/P 72 yr old male with known alcoholic history admitted with LE weakness Gram negative sepsis - on iv antibiotics and ID Dr. Jameson Echo- questionable valve endocarditis elevated liver function and thrombocytopenia Patient scheduled for EGD/ ERCP and possible stent s/p 2 unit of FFP transfusion INR - today 1.5 D/W Dr. Johnson, pt cleared for procedure today D/W Dr. Hernandez, AWILDA when cleared by GI
--- NOTE | 2017-12-25 13:23 | CP.PCM.PN ---
Subjective - Date & Time of Evaluation Date of Evaluation: 12/25/17 Time of Evaluation: 19:00 - Subjective Subjective: Patient seen today , awake, alert, oriented to person and place, NAD , denies any complaints s/p units of FFP for possible EGD/ERCP today by Dr. Mcleod No overnight events reported by RN a febrile INR- 1.5 Objective - Vital Signs/Intake and Output Vital Signs (last 24 hours): Temp Pulse Resp BP Pulse Ox 97.8 F 80 20 116/68 96 12/25/17 13:10 12/25/17 13:10 12/25/17 13:10 12/25/17 13:10 12/25/17 13:10 Intake and Output: 12/25/17 12/25/17 06:59 18:59 Intake Total 785 115 Output Total 0 150 Balance 785 -35 - Medications Medications: Current Medications Acetaminophen (Tylenol 650 Mg Supp) 650 mg SC Q6 PRN PRN Reason: fever of >100.4 and above Last Admin: 12/19/17 18:08 Dose: 650 mg Furosemide (Lasix) 40 mg IVP DAILY [facility] Last Admin: 12/25/17 10:24 Dose: 40 mg Meropenem 1 gm/ Sodium (Chloride) 100 mls @ 100 mls/hr IVPB Q12H JE PRN Reason: Protocol Last Admin: 12/25/17 07:59 Dose: 100 mls/hr Insulin Human Regular (Novolin R) 0 unit SC ACHS JE PRN Reason: Protocol Last Admin: 12/25/17 12:20 Dose: Not Given Lactulose (Enulose) 20 gm PO BID [facility] Last Admin: 12/25/17 10:17 Dose: Not Given Multivitamins/Vitamin C (Multi-Delyn Liquid) 5 ml PO DAILY JE Last Admin: 12/25/17 10:17 Dose: Not Given Spironolactone (Aldactone) 25 mg PO BID JE Last Admin: 12/25/17 10:17 Dose: Not Given Thiamine HCl (Vitamin B1 Tab) 100 mg PO BID [facility] Last Admin: 12/25/17 10:17 Dose: Not Given - Labs Labs: 12/25/17 02:20 12/25/17 02:20 PT 17.6 SECONDS (9.7-12.2) H 12/25/17 02:20 INR 1.5 12/25/17 02:20 APTT 38 SECONDS (21-34) H 12/25/17 03:16 Assessment and Plan (1) Fatty liver with encephalopathy Status: Acute (2) Hypertension Status: Acute (3) Wound infection, posttraumatic Status: Acute (4) Fever Status: Acute
[2017-12-25] MEDS ORDERED: Glucagon Recombinant 1 mg Inj ONE (13:52)
[2017-12-25] MEDS ORDERED: Propofol 10 mg/ml Inj (20 ML) ONE (13:52)
--- NOTE | 2017-12-25 14:26 | CP.PCM.PN ---
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 Mcleod, recommends to do paracentesis today and continue with vit k and if pt clinically improved tomorrow, will re schedule EGD when schedule permit Objective - Vital Signs/Intake and Output Vital Signs (last 24 hours): Temp Pulse Resp BP Pulse Ox 97.8 F 80 20 116/68 96 12/25/17 13:10 12/25/17 13:10 12/25/17 13:10 12/25/17 13:10 12/25/17 13:10 Intake and Output: 12/25/17 12/25/17 06:59 18:59 Intake Total 785 115 Output Total 0 150 Balance 785 -35 - Medications Medications: Current Medications Acetaminophen (Tylenol 650 Mg Supp) 650 mg [place] Q6 PRN PRN Reason: fever of >100.4 and above Last Admin: 12/19/17 18:08 Dose: 650 mg Furosemide (Lasix) 40 mg IVP DAILY [facility] Last Admin: 12/25/17 10:24 Dose: 40 mg Meropenem 1 gm/ Sodium (Chloride) 100 mls @ 100 mls/hr IVPB Q12H JE PRN Reason: Protocol Last Admin: 12/25/17 07:59 Dose: 100 mls/hr Insulin Human Regular (Novolin R) 0 unit SC ACHS JE PRN Reason: Protocol Last Admin: 12/25/17 12:20 Dose: Not Given Lactulose (Enulose) 20 gm PO BID JE Last Admin: 12/25/17 10:17 Dose: Not Given Multivitamins/Vitamin C (Multi-Delyn Liquid) 5 ml PO DAILY JE Last Admin: 12/25/17 10:17 Dose: Not Given Spironolactone (Aldactone) 25 mg PO BID JE Last Admin: 12/25/17 10:17 Dose: Not Given Thiamine HCl (Vitamin B1 Tab) 100 mg PO BID JE Last Admin: 12/25/17 10:17 Dose: Not Given - Labs Labs: 12/25/17 02:20 12/25/17 02:20 PT 17.6 SECONDS (9.7-12.2) H 12/25/17 02:20 INR 1.5 12/25/17 02:20 APTT 38 SECONDS (21-34) H 12/25/17 03:16
--- NOTE | 2017-12-25 17:27 | PN ---
DATE: 12/25/2017 SUBJECTIVE: The patient is seen. The patient is more alert, verbal, still with periods of confusion, but no behavioral problems. The patient states he is n.p.o. except meds and awaiting for ERCP today. The patient is aware that he is in the hospital also oriented to person but not to time. He is still feeling weak and frail and nonambulatory at this time. Vital signs: Temperature is 98, 76, 117/82, respirations 20, oxygen saturation is 97%. Psych pringle: The patient is only taking thiamine supplements. REVIEW OF SYSTEMS: GENERAL: The patient is more alert, verbal, still with periods of confusion but not agitated, not in acute respiratory distress, seen in his room resting. SKIN: No diaphoresis. HEENT: No headache or dizziness. NECK: Supple. RESPIRATORY: No dyspnea. CARDIOVASCULAR: No chest pain. GASTROINTESTINAL: No abdominal pain, no nausea, no vomiting. EXTREMITIES: The patient moving extremities, but gait has been steady. MUSCULOSKELETAL: Generalized weakness. NEURO: Alert with periods of confusion. GENITOURINARY: No dysuria. MENTAL STATUS EXAMINATION: Elderly male who looks stated age, oriented x2. Mood is dysphoric. Affect is restricted. Speech is spontaneous. Thought process confused off and on. Thought content, no overt psychosis. No suicidal ideation. Attention and memory seem to be limited. Insight and judgment limited. Impulse control is fair at this time. IMPRESSION: History of alcohol dependence, alcohol withdrawal, delirium, metabolic encephalopathy. PLAN AND RECOMMENDATIONS: The patient is seen, meds reviewed. Continue present management. The patient is for ERCP today. His mental status seems to be improving. The patient is not having signs and symptoms of alcohol withdrawal at this time. The patient advised to stay sober from alcohol. Stas Knox MD
--- NOTE | 2017-12-25 17:42 | PN ---
DATE: SUBJECTIVE: The patient denies any chest pain. He is oriented to place. PHYSICAL EXAMINATION VITAL SIGNS: Blood pressure 117/82, heart rate 76, temperature 98, respirations 20. HEENT: Normocephalic. CHEST: Clear. HEART: S1 and S2, regular. EXTREMITIES: Trace leg edema. LABORATORY DATA: Today's BUN and creatinine are 54 and 2.2 respectively. Glucose 252. Rest of the SMA-7 is within normal limits. Today's hemoglobin and hematocrit 12.4 and 36.7, white count 9.6, platelet count 91,000. ASSESSMENT: 1. Gram-negative bacteremia. 2. Rule out bacterial endocarditis of the aortic valve. 3. Chronic renal insufficiency. 4. Cholestasis, rule out portal hypertension. RECOMMENDATIONS: Continue Lasix 40 mg intravenously once a day, IV meropenem at 1 gm every 12 hours. Oral medications are on hold today. The patient is scheduled for ERCP. We will further discuss the findings of the ERCP with store administrative assistant, Dr. Mcleod. Gurinder Hernandez MD
--- NOTE | 2017-12-25 18:54 | PN ---
DATE: LOCATION: [facility], bed B. SUBJECTIVE: This is a 72-year-old male seen and fully examined and re-evaluated in the endoscopy room in the presence of the Anesthesia staff, endoscopy nursing staff, as well as the patient's own daughter before he is supposed to go under ERCP testing. However, due to the patient's clinical presentation of shortness of breath with increased abdominal girth, the case was discussed at length with the Anesthesia staff as well as the patient's daughter and it was decided to cancel the ERCP for now until the patient has ultrasound-guided abdominal paracentesis when he is more stable clinically. Today's lab showed normal white blood cells, normal hemoglobin, hematocrit, thrombocytopenia of 91, blood glucose level of 238. BUN 54, creatinine 2.2. PHYSICAL EXAMINATION VITAL SIGNS: The patient, however, is afebrile with heart rate of 84, respiratory rate 20 to 24, blood pressure 112/66. GENERAL: Appears to be somewhat awake, alert, and oriented. At this point, it was decided to cancel the ERCP until the patient is more stable clinically and again to have abdominal paracentesis guided by ultrasound by the IR staff, and after correcting his thrombocytopenia to avoid any potential high risk of respiratory arrest during the procedure. This decision made in combination of my decision, Anesthesia staff decision, as well as the patient's own daughter. We will follow up closely with you. Lachelle Rodrigues MD
--- NOTE | 2017-12-25 21:08 | CP.PCM.PN ---
Subjective - Date & Time of Evaluation Date of Evaluation: 12/25/17 Time of Evaluation: 21:08 - Subjective Subjective: CHIEF COMPLAINTS TODAY : afebrile, CLINICALLY SAME. egd/ercp cancelled as noted. PT FOR IR PARACENTESIS 2D ECHO 12/20/17 ? AV-VEGETATIONS, RIGHT ATRIAL MASS ROS. HEENT : N. Resp : No SOB wheezing, cough Cardio : No CP, PND orthopnea GI : No abd. Pain, n/v INTERNAL AFFAIRS INVESTIGATOR : No headache , focal deficit. Musculoskel : N Ext. : Pedal pulses intact, no edema or calf pain Derm : N Psych : N. PE. Pt. is MORE AWAKE in no distress. V.S As noted in the chart Head ,ear nose,throat and eyes : Normal. Neck : Supple with normal carotids. Lungs: Clear air entry. Heart : S1 & S2 normal . . No murmur. S4 + Abd : Soft non tender with normal bowel sounds/ DISTENDED +VE ASCITES Neuro : Moves all ext. with no localized deficit. Ext : B/L EDEMA ,with intact pulses. Neg. calf tenderness Derm : No rashes or decubitus ulcer. Radiology/Labs wbc 9.6 HEMOGLOBIN 12.4 PLT 91K BETTER INR 1.8 HIGH HEPATITIS SCREEN NEGATIVE HEPATITIS C ANTIBODY NEGATIVE 12/16/17 BLOOD CULTURES +VE ESCHERICHIA COLI.2:2 SETS- 12/19/17 REPEAT BLOOD CULTURES -VE GROWTH FOR 5 DAYS. LFTS BILIRUBIN 3.1, ast 86 alt 55 ALKALINE PHOSPHATASE 145. Objective - Vital Signs/Intake and Output Vital Signs (last 24 hours): Temp Pulse Resp BP Pulse Ox 97.2 F L 81 20 135/80 99 12/25/17 15:47 12/25/17 15:47 12/25/17 15:47 12/25/17 15:47 12/25/17 15:47 Intake and Output: 12/25/17 12/26/17 18:59 06:59 Intake Total 115 Output Total 150 Balance -35 - Medications Medications: Current Medications Acetaminophen (Tylenol 650 Mg Supp) 650 mg PA Q6 PRN PRN Reason: fever of >100.4 and above Last Admin: 12/19/17 18:08 Dose: 650 mg Furosemide (Lasix) 40 mg IVP DAILY JE Last Admin: 12/25/17 10:24 Dose: 40 mg Meropenem 1 gm/ Sodium (Chloride) 100 mls @ 100 mls/hr IVPB Q12H JE PRN Reason: Protocol Last Admin: 12/25/17 19:34 Dose: 100 mls/hr Insulin Human Regular (Novolin R) 0 unit SC ACHS JE PRN Reason: Protocol Last Admin: 12/25/17 17:19 Dose: 2 unit Lactulose (Enulose) 20 gm PO BID JE Last Admin: 12/25/17 17:20 Dose: 20 gm Multivitamins/Vitamin C (Multi-Delyn Liquid) 5 ml PO DAILY [facility] Last Admin: 12/25/17 10:17 Dose: Not Given Spironolactone (Aldactone) 25 mg PO BID [facility] Last Admin: 12/25/17 10:17 Dose: Not Given Thiamine HCl (Vitamin B1 Tab) 100 mg PO BID [facility] Last Admin: 12/25/17 17:20 Dose: 100 mg - Labs Labs: 12/25/17 02:20 12/25/17 02:20 PT 17.6 SECONDS (9.7-12.2) H 12/25/17 02:20 INR 1.5 12/25/17 02:20 APTT 38 SECONDS (21-34) H 12/25/17 03:16 Assessment and Plan (1) Gram-negative sepsis Status: Acute (2) Wound infection, posttraumatic Status: Acute (3) Alcoholic hepatitis Status: Acute (4) Fatty liver with encephalopathy Status: Acute (5) Leg edema Status: Acute (6) Failure to thrive Status: Acute (7) Thrombocytopenia Status: Acute (8) Hypertension Status: Acute - Assessment and Plan (Free Text) Plan: Continue iv MERREM 1 G EVERY 12 HOURLY. 12/17/17. F/U RENAL FUNCTION S CLOSELY. GI W/U IN PROGRESS. PT FOR PARACENTESIS BY IR PER GI. CASE DISCUSSED WITH CIVIL PROJECT ENGINEER MS PERSAUD. SEND ASCITES [place] FOR APPROPRIATE STUDIES CELL COUNTAND DIFF,LDH,SUGAR,PROTEINS AND CULTURES, GRAM STAIN AND BACTERIAL CULTURE,FUNGAL SMEAR /CULTURE, AFB SMEAR /CULTURE. AWILDA WHEN CLEARED BY GI.
[2017-12-26] MEDS: Meropenem 1 GM in Sodium Chloride 0.9% 100 ML IVPB SCH ×2 (06:23→20:30)
[2017-12-26 07:05] LABS: INR 1.4; PROTHROMBIN TIME 16.2 SECONDS (9.7-12.2)
[2017-12-26 07:29] LABS: BASO % 0.6 % (0.0-2.0); EOS # 0.2 K/uL (0.0-0.7); EOS % 2.5 % (0.0-4.0); MEAN CORPUSCULAR HGB CONC 34.7 g/dL (33.0-37.0); MEAN PLATELET VOLUME 10.3 fL (7.2-11.7); MONO % 12.2 % (0.0-10.0); NEUT # 4.6 K/uL (1.8-7.0); NEUT % 58.7 % (50.0-75.0); RBC 3.25 Mil/uL (4.40-5.90); RED CELL DISTRIBUTION WIDTH 14.5 % (11.5-14.5); WHITE BLOOD COUNT 7.8 K/uL (4.8-10.8)
[2017-12-26 08:10] LABS: ALB/GLOB RATIO 0.5 (1.0-2.1); ALBUMIN 2.1 g/dL (3.5-5.0); BILIRUBIN,DIRECT 2.5 mg/dL (0.0-0.4); CALCIUM 8.1 mg/dl (8.6-10.4)
[2017-12-26] MEDS: (Novolin R) Insulin Human Regular 100 units/ml vial SC SCH ×4 (08:27→21:20)
[2017-12-26 10:06] LABS: BODY FLUID TYPE PERITONEAL
[2017-12-26] MEDS: Multiple Vitamins Oral Solution PO SCH ×2 (10:38→10:45)
[2017-12-26 11:14] LABS: BF GROSS APPEARANCE SL CLOUDY (CLEAR); BODY FLUID MONO/MACROPHAGE 2 % (0-0); BODY FLUID TOTAL COUNT 100 (0-0)
--- NOTE | 2017-12-26 11:22 | PN ---
DATE: LOCATION: [facility], bed B. SUBJECTIVE: This is a 72-year-old male seen and examined in rounds early today without significant clinical changes, appears to be slightly and mildly lethargic, complaining of some abdominal pain and distention, noted to have larger abdominal girth due to ascites. The entire chart is reviewed including but not limited to most recent lab and radiology study results, current and the previous medication list, current and the previous medical events. Case discussed with the staff at length. Today's lab showed PT of 16.2, PTT of 39, with elevated blood glucose level of 241, and the patient is still having increased BUN and creatinine. PHYSICAL EXAMINATION GENERAL: A 72-year-old male. VITAL SIGNS: Afebrile, with pulse of 80, respiratory rate of 20 to 22, blood pressure of 142/72. HEENT: Showed pale, dry, oral mucous membranes. Nonicteric sclerae. LUNGS: Few scattered crepitations. Decreased air entry at bases. HEART: Positive S1 and S2. ABDOMEN: Soft with mild distention. Positive for large amount of ascites with hypoactive bowel sounds. No mass or organomegaly. No rebound tenderness or guarding. EXTREMITIES: With lower extremity edematous changes. No clubbing or cyanosis. NEUROLOGIC: No new reported neurological deficits, sensory or motor. No focal deficits reported. IMPRESSION: 1. Abnormal liver function tests with increased bilirubin inducing jaundice that could be obstructive jaundice versus more likely hepatocellular injury. 2. Ascites. 3. Septicemia with E. coli. 4. Re-exacerbation of peptic ulcer disease. 5. Thrombocytopenia secondary to above. 6. Excessive increase of CEA and CA 19-9. The possibility of occult gastrointestinal malignancy to be ruled in or out. 7. Known history of hypertension. 8. Anemia by recent history secondary to above. SUGGESTIONS: 1. Continue current management. 2. Abdominal paracentesis. 3. We will schedule the patient for ERCP with possible biliary stent insertion post abdominal paracentesis by the IR staff, if stable clinically, otherwise close observation to follow. 4. The patient needs Lasix and Aldactone. 5. Further recommendations to follow. Lachelle Rodrigues MD [facility] # [id number]
--- NOTE | 2017-12-26 12:51 | PCM.SURG1 ---
Surgeon's Initial Post Op Note - Surgeon's Notes Surgeon: Herman Brown MD Cdl Driver: NONE Type of Anesthesia: Local Pre-Operative Diagnosis: Ascites Operative Findings: US showed a small amount of ascites Post-Operative Diagnosis: Ascites Operation Performed: US guided paracentesis. Specimen/Specimens Removed: 1250 cc of straw colored fluid Estimated Blood Loss: EBL {In ML}: 0 Blood Products Given: N/A Drains Used: No Drains Post-Op Condition: Fair Date of Surgery/Procedure: 12/26/17 Time of Surgery/Procedure: 09:45
--- NOTE | 2017-12-26 12:58 | US ---
Date of Procedure: 12/26/2017 PROCEDURE: Ultrasound-guided paracentesis, CPT 16056 Medications: 7 cc 1% Lidocaine HISTORY: Ascites, abdominal pain TECHNIQUE: Following informed consent , the patient was placed supine on the stretcher and the site was marked. A limited abdominal ultrasound was performed that showed a small amount of intra-abdominal fluid. Procedural time out was called and the Pt's abdomen was marked and prepped and draped in the usual sterile fashion. Ultrasound-guided large volume paracentesis performed. A total of 1250 liters of straw colored fluid was removed without complication. Fluid specimen was sent for culture, sensitivity, cytology and chemistries. IMPRESSION: Ultrasound-guided paracentesis.
--- NOTE | 2017-12-26 15:59 | PN ---
DATE: SUBJECTIVE: The patient is seen. The patient is more alert, but confused. The patient had paracentesis earlier today. The patient also noted to be jaundiced, but not agitated. PHYSICAL EXAMINATION VITAL SIGNS: Temperature 98, pulse 83, blood pressure 120/74, respirations 20, oxygen saturation is 96% on room air. REVIEW OF SYSTEMS: GENERAL: The patient is alert, verbal, but still confused, seen in his room, not in acute respiratory distress. SKIN: No diaphoresis. HEENT: The patient has nonicteric sclerae. Does not complain of headache or dizziness. NECK: Supple. RESPIRATORY: No dyspnea. CARDIOVASCULAR: No chest pain. GASTROINTESTINAL: No abdominal pain, no nausea, no vomiting. EXTREMITIES: The patient has unsteady gait, has not been standing, most of the time in bed. MUSCULOSKELETAL: Generalized weakness. NEURO: Alert with some periods of confusion. GENITOURINARY: No dysuria. MENTAL STATUS EXAMINATION: An elderly male who looks stated age, alert, but still with periods of confusion, oriented x2 to place and person. Speech is slow. Affect is restricted. Mood is dysphoric. Thought process is confused at times. Thought content, no overt psychosis. No suicidal or homicidal ideation. Attention and memory seem to be limited. Insight and judgment limited. Impulse control is fair at this time. IMPRESSION: History of alcohol dependence, alcohol withdrawal, alcoholic liver disease, as well as possible delirium. PLAN AND RECOMMENDATIONS: The patient is seen, meds reviewed. Continue GI workup as ordered. Continue thiamine as ordered. The patient is for subacute rehab once medically cleared. Stas Knox MD
--- NOTE | 2017-12-26 19:48 | PN ---
DATE: 12/26/2017 SUBJECTIVE: The patient denies chest pain. The patient underwent ultrasound-guided paracentesis today with removal of 1260 mL of straw colored fluid. PHYSICAL EXAMINATION: VITAL SIGNS: Blood pressure 120/74, heart rate 82, temperature 98, respirations 20. HEENT: Normocephalic. CHEST: Diminished breath sounds at the bases. HEART: S1 and S2, regular. ABDOMEN: Mild ascites. EXTREMITIES: No edema. LABORATORY DATA: Today's hemoglobin and hematocrit 11 and 31.8 respectively. Platelet count 76,000. Today, his INR is 1.4. PTT is 39. Today's BUN and creatinine are 67 and 1.9 respectively. Glucose 222. Rest of SMA-7 is within normal limit. ASSESSMENT: 1. Gram-negative bacteremia. 2. Rule out bacterial endocarditis of the aortic valve. 3. Chronic renal insufficiency. 4. Thrombocytopenia. 5. Cholestasis. 6. Portal hypertension. 7. Status post abdominal paracentesis for ascites. RECOMMENDATIONS: Continue IV meropenem at 1 gm every 12 hours, thiamine 100 mg twice a day. Still awaiting ERCP and GI clearance for the patient's AWILDA procedure. Gurinder Hernandez MD
--- NOTE | 2017-12-26 22:13 | CP.PCM.PN ---
Subjective - Date & Time of Evaluation Date of Evaluation: 12/26/17 Time of Evaluation: 22:12 - Subjective Subjective: CHIEF COMPLAINTS TODAY : afebrile, PT CONFUSED, S/P PARACENTESIS TODAY BY IR. 12/26/17 SERUM NH3 52 -HIGH ON LACTULOSE 2D ECHO 12/20/17 ? AV-VEGETATIONS, RIGHT ATRIAL MASS ROS. HEENT : N. Resp : No SOB wheezing, cough Cardio : No CP, PND orthopnea GI : +VE ABDOMINAL PAIN GENERALIZED, NO n/v RADIOTELEPHONE OPERATOR : No headache , focal deficit. Musculoskel : N Ext. : Pedal pulses intact, no edema or calf pain Derm : N Psych : N. PE. Pt. is CONFUSED ,AROUSABLE V.S As noted in the chart Head ,ear nose,throat and eyes : Normal. Neck : Supple with normal carotids. Lungs: Clear air entry. Heart : S1 & S2 normal . . No murmur. S4 + Abd : Soft non tender with normal bowel sounds/ DISTENDED +VE ASCITES Neuro : Moves all ext. with no localized deficit. Ext : B/L EDEMA ,with intact pulses. Neg. calf tenderness Derm : No rashes or decubitus ulcer. Radiology/Labs WBC 7.8 H/H 11.0/31.8 PLT 76 LOW HEPATITIS SCREEN NEGATIVE HEPATITIS C ANTIBODY NEGATIVE 12/16/17 BLOOD CULTURES +VE ESCHERICHIA COLI.2:2 SETS- 12/19/17 REPEAT BLOOD CULTURES -VE GROWTH FOR 5 DAYS. LFTS BILIRUBIN 3.1,-->4.2 ast 89 alt 43 ALKALINE PHOSPHATASE 145.-->167 Objective - Vital Signs/Intake and Output Vital Signs (last 24 hours): Temp Pulse Resp BP Pulse Ox 98 F 90 20 150/80 96 12/26/17 15:50 12/26/17 16:20 12/26/17 15:50 12/26/17 15:50 12/26/17 15:50 - Medications Medications: Current Medications Acetaminophen (Tylenol 650 Mg Supp) 650 mg CO Q6 PRN PRN Reason: fever of >100.4 and above Last Admin: 12/19/17 18:08 Dose: 650 mg Furosemide (Lasix) 40 mg IVP DAILY JE Last Admin: 12/25/17 10:24 Dose: 40 mg Meropenem 1 gm/ Sodium (Chloride) 100 mls @ 100 mls/hr IVPB Q12H JE PRN Reason: Protocol Last Admin: 12/26/17 20:30 Dose: 100 mls/hr Insulin Human Regular (Novolin R) 0 unit SC ACHS JE PRN Reason: Protocol Last Admin: 12/26/17 21:20 Dose: Not Given Lactulose (Enulose) 20 gm PO BID [facility] Last Admin: 12/26/17 17:29 Dose: 20 gm Multivitamins/Vitamin C (Multi-Delyn Liquid) 5 ml PO DAILY [facility] Last Admin: 12/26/17 10:45 Dose: Not Given Spironolactone (Aldactone) 25 mg PO BID [facility] Last Admin: 12/25/17 10:17 Dose: Not Given Thiamine HCl (Vitamin B1 Tab) 100 mg PO BID [facility] Last Admin: 12/26/17 17:29 Dose: 100 mg - Labs Labs: 12/26/17 06:37 12/26/17 06:37 PT 16.2 SECONDS (9.7-12.2) H 12/26/17 06:37 INR 1.4 12/26/17 06:37 APTT 39 SECONDS (21-34) H 12/26/17 06:37 Assessment and Plan (1) Gram-negative sepsis Status: Acute (2) Wound infection, posttraumatic Status: Acute (3) Alcoholic hepatitis Status: Acute (4) Fatty liver with encephalopathy Status: Acute (5) Leg edema Status: Acute (6) Failure to thrive Status: Acute (7) Thrombocytopenia Status: Acute (8) Hypertension Status: Acute - Assessment and Plan (Free Text) Plan: Continue iv MERREM 1 G EVERY 12 HOURLY. 12/17/17. F/U RENAL FUNCTION S CLOSELY. PT ON LACTULOSE GI W/U IN PROGRESS. PT FOR PARACENTESIS BY IR PER GI. CASE DISCUSSED WITH AQUATIC PERFORMER MS PERSAUD. SEND ASCITES [place] FOR APPROPRIATE STUDIES CELL COUNTAND DIFF,LDH,SUGAR,PROTEINS AND CULTURES, GRAM STAIN AND BACTERIAL CULTURE,FUNGAL SMEAR /CULTURE, AFB SMEAR /CULTURE. F/U PARACENTESIS FLUID. AWILDA WHEN CLEARED BY GI.
[2017-12-27] MEDS: Meropenem 1 GM in Sodium Chloride 0.9% 100 ML IVPB SCH ×2 (06:00→19:12)
[2017-12-27 07:21] LABS: BASO % 0.8 % (0.0-2.0); EOS # 0.2 K/uL (0.0-0.7); EOS % 3.3 % (0.0-4.0); HEMOGLOBIN 11.4 g/dL (12.0-18.0); LYMPH # 1.7 K/uL (1.0-4.3); LYMPH % 26.4 % (20.0-40.0); MEAN CELL VOLUME 98.9 fL (80.0-94.0); MEAN CORPUSCULAR HGB CONC 34.4 g/dL (33.0-37.0); MEAN PLATELET VOLUME 9.9 fL (7.2-11.7); MONO # 0.7 K/uL (0.0-0.8); MONO % 11.3 % (0.0-10.0); NEUT # 3.8 K/uL (1.8-7.0); NEUT % 58.2 % (50.0-75.0); NRBC % 0.1 % (0.0-2.0); RBC 3.35 Mil/uL (4.40-5.90); RED CELL DISTRIBUTION WIDTH 14.7 % (11.5-14.5); WHITE BLOOD COUNT 6.5 K/uL (4.8-10.8)
[2017-12-27 07:35] LABS: CALCIUM 8.6 mg/dl (8.6-10.4)
[2017-12-27 07:43] LABS: INR 1.6; PROTHROMBIN TIME 18.1 SECONDS (9.7-12.2)
[2017-12-27] MEDS: (Novolin R) Insulin Human Regular 100 units/ml vial SC SCH ×4 (08:30→21:44)
[2017-12-27] MEDS: Multiple Vitamins Oral Solution PO SCH (10:12)
--- NOTE | 2017-12-27 13:34 | PN ---
DATE: LOCATION: [facility], bed B. SUBJECTIVE: This is a 72-year-old male seen and examined in rounds without significant clinical changes, still has abdominal pain with abdominal distention, post abdominal paracentesis, reported removal was about 1250 with removal of large amount of ascitic fluid yesterday. The entire chart is reviewed including, but not limited to the most recent lab and radiology study results, current and the previous medication list, current and the previous medical events. Case discussed with the staff at length. Today's lab showed hemoglobin 11.4, hematocrit 33.1, thrombocytopenia of 82, PT 18.1, PTT 39, BUN 58, creatinine 1.9, blood glucose level 274, ammonia level still elevated at 63. PHYSICAL EXAMINATION: GENERAL: A 72-year-old male, appeared to be somewhat mildly lethargic. VITAL SIGNS: Afebrile, with pulse of 78, respiratory rate 20 to 22, blood pressure 128/76. HEENT: Showed pale, dry oral mucous membranes. Nonicteric sclerae. LUNGS: Few scattered crepitations. Decreased air entry at bases. HEART: Positive S1 and S2. ABDOMEN: With [id number] distention with ascites and mild generalized tenderness. No masses or organomegaly. No rebound tenderness or guarding. EXTREMITIES: Mild lower extremity edematous changes. No clubbing or cyanosis. NEUROLOGIC: No reported new neurological deficits, sensory or motor. IMPRESSION: 1. Gram-negative septicemia. 2. Evidence of liver cirrhosis, portal hypertension, and massive ascites. 3. Thrombocytopenia with anemia, most likely secondary to above. 4. Chronic renal insufficiency. 5. Jaundice with abnormal liver function tests secondary to above, however, the possibility of obstructive jaundice was raised. 6. Excessive elevation of CEA, CA19-9 raised the possibility of gastrointestinal occult malignancy. 7. Known history of hypertension. SUGGESTIONS: 1. Continue current management. 2. No need for aggressive GI workup in the meantime until the patient is more stable clinically, otherwise close observation to follow. 3. Guaiac all the stools daily x3. 4. We will follow up closely with you. Lachelle Rodrigues MD [facility] # [id number]
--- NOTE | 2017-12-27 14:06 | CP.PCM.PN ---
Subjective - Date & Time of Evaluation Date of Evaluation: 12/27/17 Time of Evaluation: 14:02 - Subjective Subjective: DISCUSSED PLAN FOR ERCP AND AWILDA WITH BOTH DR. HUNTER AND DR. AWAN. PER DR. AWAN, THE PT IS STABLE FOR A AWILDA FROM HIS PERSPECTIVE. I HAVE NOTIFIED DR. HUNTER OF THIS AND HE WILL DO THE AWILDA AFTER ERCP IS DONE. PER DR. AWAN HE MAY POSSIBLY DO ERCP ON MONDAY. DISCUSSED THIS WITH CM. NO FURTHER ORDERS. Objective - Vital Signs/Intake and Output Vital Signs (last 24 hours): Temp Pulse Resp BP Pulse Ox 97.9 F 81 20 123/79 96 12/27/17 07:15 12/27/17 09:00 12/27/17 07:15 12/27/17 07:15 12/27/17 07:15 Intake and Output: 12/27/17 12/27/17 06:59 18:59 Output Total 250 Balance -250 - Medications Medications: Current Medications Acetaminophen (Tylenol 650 Mg Supp) 650 mg NH Q6 PRN PRN Reason: fever of >100.4 and above Last Admin: 12/19/17 18:08 Dose: 650 mg Furosemide (Lasix) 40 mg IVP DAILY JE Last Admin: 12/25/17 10:24 Dose: 40 mg Meropenem 1 gm/ Sodium (Chloride) 100 mls @ 100 mls/hr IVPB Q12H JE PRN Reason: Protocol Last Admin: 12/27/17 06:00 Dose: 100 mls/hr Insulin Human Regular (Novolin R) 0 unit SC ACHS JE PRN Reason: Protocol Last Admin: 12/27/17 12:15 Dose: 3 unit Lactulose (Enulose) 20 gm PO BID JE Last Admin: 12/27/17 10:10 Dose: 20 gm Multivitamins/Vitamin C (Multi-Delyn Liquid) 5 ml PO DAILY [facility] Last Admin: 12/27/17 10:12 Dose: 5 ml Spironolactone (Aldactone) 25 mg PO BID JE Last Admin: 12/25/17 10:17 Dose: Not Given Thiamine HCl (Vitamin B1 Tab) 100 mg PO BID JE Last Admin: 12/27/17 10:11 Dose: 100 mg - Labs Labs: 12/27/17 07:13 12/27/17 07:13 PT 18.1 SECONDS (9.7-12.2) H 12/27/17 07:13 INR 1.6 12/27/17 07:13 APTT 39 SECONDS (21-34) H 12/27/17 07:13
--- NOTE | 2017-12-27 16:43 | PN ---
DATE: SUBJECTIVE: The patient is seen. The patient is more alert, but still has periods of confusion. The patient is currently being treated for Gram-negative sepsis. On review of his labs, his ammonia is still elevated at 53. The patient was seen with his daughter and sister and the patient's periods of confusion seem to be related to his hepatic encephalopathy as well as he is currently treated for Gram-negative sepsis. His liver enzymes are still elevated. The patient still has icteric sclerae, but he is not agitated. The patient has mittens, he was apparently trying to pull his line. PHYSICAL EXAMINATION VITAL SIGNS: Temperature is 97.9, pulse 81, blood pressure 123/79, respirations 20, oxygen saturation is 96%. REVIEW OF SYSTEMS: GENERAL: The patient is alert, verbal, still with periods of confusion, but improving. SKIN: No diaphoresis. HEENT: He has icteric sclerae. No headache. No dizziness. NECK: Supple. RESPIRATORY: No dyspnea. CARDIOVASCULAR: No chest pain. GASTROINTESTINAL: The patient is complaining of abdominal pain. Appetite is variable. EXTREMITIES: The patient is moving extremities, spending most time in bed. MUSCULOSKELETAL: Generalized weakness. NEUROLOGIC: Alert, oriented, intermittent periods of confusion. GENITOURINARY: No dysuria. MENTAL STATUS EXAMINATION: Elderly male, who looks stated age, oriented x2, seen with his family. Speech is slow. Affect is restricted. Mood is dysphoric. Thought process, confused. Thought content, no overt paranoia. No suicidal or homicidal ideation. No hallucination. Attention and memory seems to be limited. Insight and judgment limited. Impulse control is fair at this time. IMPRESSION: History of alcohol dependence, alcohol withdrawal, history of Gram-negative sepsis, as well as possible delirium, history of alcoholic liver disease, failure to thrive. PLAN AND RECOMMENDATIONS: The patient was seen, meds reviewed. Continue present management. We will keep the patient off psych meds. The patient is manageable. The patient is followed by Dr. Lyles, Infectious Disease for Gram-negative sepsis. The patient is now taking lactulose for his elevated ammonia. The patient is on meropenem for his Gram-negative sepsis. The patient is on thiamine supplement for his alcohol problems. The patient advised to stay sober from alcohol as the patient has liver complications now from his chronic drinking. The patient had history of drinking for more than 50 years. Stas Knox MD
[2017-12-27 16:54] LABS: VITAMIN K 420 pg/mL (80-1160)
--- NOTE | 2017-12-27 19:56 | PN ---
DATE: 12/27/2017 SUBJECTIVE: The patient denies any chest pain or shortness of breath. He does not appear to be in any distress. His son and his daughter are at the bedside. PHYSICAL EXAMINATION: VITAL SIGNS: Blood pressure 123/79, heart rate 81, temperature 97.9, respirations 20. HEENT: Normocephalic. NECK: No JVD. CHEST: Clear. HEART: S1 and S2, regular. ABDOMEN: Mild ascites. EXTREMITIES: No edema. LABORATORY DATA: Today's BUN and creatinine are 58 and 1.9 respectively. Glucose 221. Rest of SMA-7 is within normal limit. Hemoglobin and hematocrit 11.4 and 32.1, white count 6.5, platelet count 82,000. ASSESSMENT: 1. Rule out bacterial endocarditis. 2. Improving thrombocytopenia. 3. Worsening renal insufficiency. 4. Cholestasis and portal hypertension. RECOMMENDATIONS: Discontinue IV Lasix. Continue IV meropenem at 1 gm every 12 hours. Continue thiamine 100 mg once a day. The patient is scheduled for ERCP on Monday, to be followed next week with a transesophageal echocardiography study. The plan was discussed with the patient's family at the bedside. Gurinder Hernandez MD
--- NOTE | 2017-12-27 20:47 | CP.PCM.PN ---
Subjective - Date & Time of Evaluation Date of Evaluation: 12/27/17 Time of Evaluation: 20:46 - Subjective Subjective: CHIEF COMPLAINTS TODAY : afebrile, PT CONFUSED, S/P PARACENTESIS TODAY BY IR. 12/26/17 [facility] LEVEL TODAY 53 HIGH ON LACTULOSE 2D ECHO 12/20/17 ? AV-VEGETATIONS, RIGHT ATRIAL MASS ROS. HEENT : N. Resp : No SOB wheezing, cough Cardio : No CP, PND orthopnea GI : +VE ABDOMINAL PAIN GENERALIZED, NO n/v CONTRACT SPECIALIST : No headache , focal deficit. Musculoskel : N Ext. : Pedal pulses intact, no edema or calf pain Derm : N Psych : N. PE. Pt. is CONFUSED ,AROUSABLE V.S As noted in the chart Head ,ear nose,throat and eyes : Normal. Neck : Supple with normal carotids. Lungs: Clear air entry. Heart : S1 & S2 normal . . No murmur. S4 + Abd : Soft non tender with normal bowel sounds/ DISTENDED +VE ASCITES Neuro : Moves all ext. with no localized deficit. Ext : B/L EDEMA ,with intact pulses. Neg. calf tenderness Derm : No rashes or decubitus ulcer. Radiology/Labs . ASCITES FLUID -VE GROWTH TO DATE HEPATITIS SCREEN NEGATIVE HEPATITIS C ANTIBODY NEGATIVE 12/16/17 BLOOD CULTURES +VE ESCHERICHIA COLI.2:2 SETS- 12/19/17 REPEAT BLOOD CULTURES -VE GROWTH FOR 5 DAYS. LFTS BILIRUBIN 3.1,-->4.2 ast 89 alt 43 ALKALINE PHOSPHATASE 145.-->167 Objective - Vital Signs/Intake and Output Vital Signs (last 24 hours): Temp Pulse Resp BP Pulse Ox 97.4 F L 82 20 122/74 93 L 12/27/17 16:00 12/27/17 16:10 12/27/17 16:00 12/27/17 16:00 12/27/17 16:00 - Medications Medications: Current Medications Acetaminophen (Tylenol 650 Mg Supp) 650 mg IN Q6 PRN PRN Reason: fever of >100.4 and above Last Admin: 12/19/17 18:08 Dose: 650 mg Meropenem 1 gm/ Sodium (Chloride) 100 mls @ 100 mls/hr IVPB Q12H JE PRN Reason: Protocol Last Admin: 12/27/17 19:12 Dose: 100 mls/hr Insulin Human Regular (Novolin R) 0 unit SC ACHS [facility] PRN Reason: Protocol Last Admin: 12/27/17 17:47 Dose: Not Given Lactulose (Enulose) 20 gm PO BID [facility] Last Admin: 12/27/17 17:46 Dose: 20 gm Multivitamins/Vitamin C (Multi-Delyn Liquid) 5 ml PO DAILY [facility] Last Admin: 12/27/17 10:12 Dose: 5 ml Spironolactone (Aldactone) 25 mg PO BID [facility] Last Admin: 12/25/17 10:17 Dose: Not Given Thiamine HCl (Vitamin B1 Tab) 100 mg PO BID [facility] Last Admin: 12/27/17 19:13 Dose: Not Given - Labs Labs: 12/27/17 07:13 12/27/17 07:13 PT 18.1 SECONDS (9.7-12.2) H 12/27/17 07:13 INR 1.6 12/27/17 07:13 APTT 39 SECONDS (21-34) H 12/27/17 07:13 Assessment and Plan (1) Gram-negative sepsis Status: Acute (2) Wound infection, posttraumatic Status: Acute (3) Alcoholic hepatitis Status: Acute (4) Fatty liver with encephalopathy Status: Acute (5) Leg edema Status: Acute (6) Failure to thrive Status: Acute (7) Thrombocytopenia Status: Acute (8) Hypertension Status: Acute - Assessment and Plan (Free Text) Plan: Continue iv MERREM 1 G EVERY 12 HOURLY. 12/17/17. F/U RENAL FUNCTION S CLOSELY. GI -CLEARED FOR AWILDA NOTED . AWILDA PER CARDIOLOGY.TO BE ARRANGED. CONTINUE LACTULOSE. SON AT BEDSIDE. CASE DISCUSSED WITH HIM.
--- NOTE | 2017-12-27 23:14 | CP.PCM.PN ---
Subjective - Date & Time of Evaluation Date of Evaluation: 12/27/17 Time of Evaluation: 17:40 - Subjective Subjective: Pt seen and examined at bedside, pt is for ERCP, then trans esophageal ECHO, pt is feeling better Objective - Vital Signs/Intake and Output Vital Signs (last 24 hours): Temp Pulse Resp BP Pulse Ox 97.4 F L 82 20 122/74 93 L 12/27/17 16:00 12/27/17 16:10 12/27/17 16:00 12/27/17 16:00 12/27/17 16:00 - Medications Medications: Current Medications Acetaminophen (Tylenol 650 Mg Supp) 650 mg [place] Q6 PRN PRN Reason: fever of >100.4 and above Last Admin: 12/19/17 18:08 Dose: 650 mg Meropenem 1 gm/ Sodium (Chloride) 100 mls @ 100 mls/hr IVPB Q12H JE PRN Reason: Protocol Last Admin: 12/27/17 19:12 Dose: 100 mls/hr Insulin Human Regular (Novolin R) 0 unit SC ACHS JE PRN Reason: Protocol Last Admin: 12/27/17 21:44 Dose: Not Given Lactulose (Enulose) 20 gm PO BID [facility] Last Admin: 12/27/17 17:46 Dose: 20 gm Multivitamins/Vitamin C (Multi-Delyn Liquid) 5 ml PO DAILY [facility] Last Admin: 12/27/17 10:12 Dose: 5 ml Spironolactone (Aldactone) 25 mg PO BID [facility] Last Admin: 12/25/17 10:17 Dose: Not Given Thiamine HCl (Vitamin B1 Tab) 100 mg PO BID [facility] Last Admin: 12/27/17 19:13 Dose: Not Given - Labs Labs: 12/27/17 07:13 12/27/17 07:13 PT 18.1 SECONDS (9.7-12.2) H 12/27/17 07:13 INR 1.6 12/27/17 07:13 APTT 39 SECONDS (21-34) H 12/27/17 07:13 - Constitutional Appears: No Acute Distress - Head Exam Head Exam: ATRAUMATIC, NORMAL INSPECTION, NORMOCEPHALIC - Eye Exam Eye Exam: EOMI, Normal appearance, PERRL Pupil Exam: NORMAL ACCOMODATION, PERRL - Respiratory Exam Respiratory Exam: Decreased Breath Sounds, Rales - Cardiovascular Exam Cardiovascular Exam: REGULAR RHYTHM, +S1, +S2. absent: Murmur - GI/Abdominal Exam GI & Abdominal Exam: Distended, Soft, Normal Bowel Sounds. absent: Tenderness Assessment and Plan (1) Alcoholic hepatitis Status: Acute (2) Hypertension Status: Acute
[2017-12-28] MEDS: Meropenem 1 GM in Sodium Chloride 0.9% 100 ML IVPB SCH ×2 (06:00→19:57)
[2017-12-28 06:32] LABS: HEMOGLOBIN 11.3 g/dL (12.0-18.0); MEAN CELL VOLUME 99.4 fL (80.0-94.0); MEAN CORPUSCULAR HEMOGLOBIN 33.3 pg (27.0-31.0); MEAN CORPUSCULAR HGB CONC 33.5 g/dL (33.0-37.0); MEAN PLATELET VOLUME 9.8 fL (7.2-11.7); RBC 3.41 Mil/uL (4.40-5.90); RED CELL DISTRIBUTION WIDTH 15.3 % (11.5-14.5); WHITE BLOOD COUNT 6.2 K/uL (4.8-10.8)
[2017-12-28 06:39] LABS: INR 1.6; PROTHROMBIN TIME 18.6 SECONDS (9.7-12.2)
[2017-12-28 06:50] LABS: ALB/GLOB RATIO 0.5 (1.0-2.1); ALBUMIN 2.2 g/dL (3.5-5.0); CALCIUM 8.7 mg/dl (8.6-10.4)
[2017-12-28] MEDS: (Novolin R) Insulin Human Regular 100 units/ml vial SC SCH ×4 (08:01→21:26)
[2017-12-28] MEDS: Multiple Vitamins Oral Solution PO SCH (10:00)
[2017-12-28] MEDS ORDERED: Phytonadione 10 mg/ml Inj (Adult) SC ONE (11:30)
--- NOTE | 2017-12-28 14:51 | PN ---
DATE: SUBJECTIVE: The patient seen. The patient is more alert. He states he is feeling better. He is asking some water. Less confused, but cooperative with staff. PHYSICAL EXAMINATION VITAL SIGNS: Temperature 97.9, pulse 95, blood pressure 134/74, respirations 20, oxygen saturation 99% GENERAL: The patient is cooperative. His last ammonia level is much better, now it is 23. REVIEW OF SYSTEMS: GENERAL: He is more alert, verbal, less confused in his room. Still with hand mittens as the patient is trying to pull his line, but he is more manageable. SKIN: No diaphoresis. HEENT: No headache. No dizziness. NECK: Supple. RESPIRATORY: No dyspnea. CARDIOVASCULAR: No chest pain. GASTROINTESTINAL: Appetite is variable. EXTREMITIES: The patient has been bed bound, has hand mittens. NEUROLOGIC: Alert, verbal, less confused. GENITOURINARY: No dysuria. MENTAL STATUS EXAMINATION: Elderly male, who looks stated age, more alert and verbal, oriented x2, less confused. Speech is soft. Affect is reactive. Mood is dysphoric. Thought process is less confused. Thought content, the patient wants some water, no psychosis. No suicidal or homicidal ideation. Attention and memory seems to be limited. Insight and judgment limited. Impulse control is fair at this time. IMPRESSION: History of alcohol dependence, alcohol withdrawal, debility, failure to thrive, as well as Gram-negative sepsis. PLAN AND RECOMMENDATIONS: The patient is seen, meds reviewed. Continue present management. We will monitor his liver function tests as well as his ammonia level. His ammonia level is much better today. Once the patient is medically cleared, he is for subacute rehab for reconditioning. The patient also advised to stop drinking alcohol. Stas Knox MD
--- NOTE | 2017-12-28 16:19 | PN ---
DATE: LOCATION: [address] [place] [address] B. SUBJECTIVE: This 72-year-old male seen and examined in rounds early today, tolerating oral intake somewhat, but no reported active bleeding, chills, or fever this morning. No reported chest pain or palpitation. The entire chart is reviewed including, but not limited to the most recent lab and radiology study results, current and the previous medication list, current and the previous medical events. The patient still has low hemoglobin 11.3, hematocrit 33.9, thrombocytopenia 79, PT 18.6, BUN 58, creatinine 2.0, blood glucose level 238, total bilirubin 5.4, AST 89, albumin 2.2. PHYSICAL EXAMINATION: GENERAL: A 72-year-old male. VITAL SIGNS: Afebrile, with heart rate of 86, respiratory rate 20 to 22, blood pressure of 130/76. HEENT: Showed pale dry mucous membranes. Bilateral icteric sclerae. LUNGS: Few scattered crepitations. Decreased air entry at bases. HEART: Positive S1 and S2. ABDOMEN: Soft, with mild generalized tenderness. No mass or organomegaly. No rebound tenderness or guarding. EXTREMITIES: Clean dressing on the left knee and hip with mild edematous changes. No clubbing or cyanosis. NEURO: No reported new neurological deficits, sensory or motor. IMPRESSION: 1. Jaundice, to rule out possibility of obstructive jaundice. 2. To rule out bacterial endocarditis. 3. Renal insufficiency. 4. Evidence of portal hypertension with ascites. 5. Gram-negative septicemia, still on antibiotics. 6. Evidence of liver cirrhosis with thrombocytopenia and anemia. 7. Excessive increase of CEA and CA 19-9 with possible occult gastrointestinal malignancy. 8. Known history of hypertension. SUGGESTION: 1. Continue current management. 2. We will schedule the patient for potential ERCP tomorrow with possible biliary stent insertion if possible. 3. Further recommendations to follow. Lachelle Rodrigues MD
--- NOTE | 2017-12-28 19:10 | PN ---
DATE: SUBJECTIVE: The patient denies any chest pain or shortness of breath. He refuses to eat his lunch meal by his nurse aide. PHYSICAL EXAMINATION: VITAL SIGNS: Blood pressure 145/82, heart rate 81, temperature 98, respiration 20. HEENT: Normocephalic. CHEST: Diminished breath sounds at the bases. HEART: S1 and S2 regular. ABDOMEN: Mild ascites. EXTREMITIES: 1+ pitting edema. LABORATORY DATA: His hemoglobin and hematocrit 11.3 and 33.9, white count 6.2, platelet count 79,000. Today's SMA-7: Sodium 145, potassium 4.2, chloride 107, CO2 29, glucose 175, BUN 58, creatinine 2.0. ASSESSMENT: 1. Consider bacterial endocarditis of the aortic valve. 2. Gram-negative bacteremia. 3. Chronic renal insufficiency. 4. Mild anemia. 5. Uncontrolled diabetes mellitus. 6. Thrombocytopenia and mild coagulopathy. RECOMMENDATIONS: Continue Aldactone 25 mg once a day, IV meropenem 1 gm twice a day, thiamine 100 mg once a day. The patient can undergo ERCP from the cardiac point of view tomorrow morning. Following that, the patient will be scheduled for transesophageal echocardiographic study. Gurinder Hernandez MD
--- NOTE | 2017-12-28 22:40 | CP.PCM.PN ---
Subjective - Date & Time of Evaluation Date of Evaluation: 12/28/17 Time of Evaluation: 22:40 - Subjective Subjective: CHIEF COMPLAINTS TODAY : afebrile, PT CONFUSED, JAUNDICED 'S/P PARACENTESIS TODAY BY IR. 12/26/17 [facility] LEVEL TODAY 23B -IMPROVED ON LACTULOSE 2D ECHO 12/20/17 ? AV-VEGETATIONS, RIGHT ATRIAL MASS ROS. HEENT : N. 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 Musculoskel : N Ext. : Pedal pulses intact, no edema or calf pain Derm : N Psych : N. PE. Pt. is CONFUSED ,AROUSABLE V.S As noted in the chart Head ,ear nose,throat and eyes : Normal. Neck : Supple with normal carotids. Lungs: Clear air entry. Heart : S1 & S2 normal . . No murmur. S4 + Abd : Soft non tender with normal bowel sounds/ DISTENDED +VE ASCITES Neuro : Moves all ext. with no localized deficit. Ext : B/L EDEMA ,with intact pulses. Neg. calf tenderness Derm : No rashes or decubitus ulcer. Radiology/Labs . ASCITES FLUID -VE GROWTH TO DATE HEPATITIS SCREEN NEGATIVE HEPATITIS C ANTIBODY NEGATIVE 12/16/17 BLOOD CULTURES +VE ESCHERICHIA COLI.2:2 SETS- 12/19/17 REPEAT BLOOD CULTURES -VE GROWTH FOR 5 DAYS. LFTS BILIRUBIN 3.1,-->4.2--> 5.2 INCREASING ast 89 alt 43 ALKALINE PHOSPHATASE 145.-->167 Objective - Vital Signs/Intake and Output Vital Signs (last 24 hours): Temp Pulse Resp BP Pulse Ox 98.1 F 95 H 21 126/80 95 12/28/17 15:00 12/28/17 18:00 12/28/17 15:00 12/28/17 15:00 12/28/17 15:00 Intake and Output: 12/28/17 12/29/17 18:59 06:59 Intake Total 400 Output Total 250 Balance 150 - Medications Medications: Current Medications Acetaminophen (Tylenol 650 Mg Supp) 650 mg [place] Q6 PRN PRN Reason: fever of >100.4 and above Last Admin: 12/19/17 18:08 Dose: 650 mg Meropenem 1 gm/ Sodium (Chloride) 100 mls @ 100 mls/hr IVPB Q12H JE PRN Reason: Protocol Last Admin: 12/28/17 19:57 Dose: 100 mls/hr Insulin Human Regular (Novolin R) 0 unit SC ACHS JE PRN Reason: Protocol Last Admin: 12/28/17 21:26 Dose: 2 unit Lactulose (Enulose) 20 gm PO BID [facility] Last Admin: 12/28/17 17:56 Dose: 20 gm Multivitamins/Vitamin C (Multi-Delyn Liquid) 5 ml PO DAILY [facility] Last Admin: 12/28/17 10:00 Dose: 5 ml Spironolactone (Aldactone) 25 mg PO BID [facility] Last Admin: 12/25/17 10:17 Dose: Not Given Thiamine HCl (Vitamin B1 Tab) 100 mg PO BID [facility] Last Admin: 12/28/17 17:56 Dose: 100 mg - Labs Labs: 12/28/17 06:25 12/28/17 06:25 PT 18.6 SECONDS (9.7-12.2) H 12/28/17 06:25 INR 1.6 12/28/17 06:25 APTT 39 SECONDS (21-34) H 12/27/17 07:13 Assessment and Plan (1) Gram-negative sepsis Status: Acute (2) Wound infection, posttraumatic Status: Acute (3) Alcoholic hepatitis Status: Acute (4) Fatty liver with encephalopathy Status: Acute (5) Leg edema Status: Acute (6) Failure to thrive Status: Acute (7) Thrombocytopenia Status: Acute (8) Hypertension Status: Acute - Assessment and Plan (Free Text) Plan: Continue iv MERREM 1 G EVERY 12 HOURLY. 12/17/17. F/U RENAL FUNCTION S CLOSELY. GI -FOR EGD IN A AM IF STABLE CONTINUE LACTULOSE. SON AT BEDSIDE. CASE DISCUSSED WITH HIM. CASE DISCUSSED WITH STAFF/[employer] W[employer] FINISHER MS PER[employer]UD
--- NOTE | 2017-12-28 23:08 | CP.PCM.PN ---
Subjective - Date & Time of Evaluation Date of Evaluation: 12/28/17 Time of Evaluation: 18:35 - Subjective Subjective: Pt seen and examined at bedside Objective - Vital Signs/Intake and Output Vital Signs (last 24 hours): Temp Pulse Resp BP Pulse Ox 98.1 F 95 H 21 126/80 95 12/28/17 15:00 12/28/17 18:00 12/28/17 15:00 12/28/17 15:00 12/28/17 15:00 Intake and Output: 12/28/17 12/29/17 18:59 06:59 Intake Total 400 776 Output Total 250 300 Balance 150 476 - Medications Medications: Current Medications Acetaminophen (Tylenol 650 Mg Supp) 650 mg [place] Q6 PRN PRN Reason: fever of >100.4 and above Last Admin: 12/19/17 18:08 Dose: 650 mg Meropenem 1 gm/ Sodium (Chloride) 100 mls @ 100 mls/hr IVPB Q12H JE PRN Reason: Protocol Last Admin: 12/28/17 19:57 Dose: 100 mls/hr Insulin Human Regular (Novolin R) 0 unit SC ACHS JE PRN Reason: Protocol Last Admin: 12/28/17 21:26 Dose: 2 unit Lactulose (Enulose) 20 gm PO BID [facility] Last Admin: 12/28/17 17:56 Dose: 20 gm Multivitamins/Vitamin C (Multi-Delyn Liquid) 5 ml PO DAILY [facility] Last Admin: 12/28/17 10:00 Dose: 5 ml Spironolactone (Aldactone) 25 mg PO BID [facility] Last Admin: 12/25/17 10:17 Dose: Not Given Thiamine HCl (Vitamin B1 Tab) 100 mg PO BID [facility] Last Admin: 12/28/17 17:56 Dose: 100 mg - Labs Labs: 12/28/17 06:25 12/28/17 06:25 PT 18.6 SECONDS (9.7-12.2) H 12/28/17 06:25 INR 1.6 12/28/17 06:25 APTT 39 SECONDS (21-34) H 12/27/17 07:13 Assessment and Plan (1) Alcoholic hepatitis Status: Acute (2) Hypertension Status: Acute
[2017-12-29] MEDS: Meropenem 1 GM in Sodium Chloride 0.9% 100 ML IVPB SCH ×2 (06:23→20:00)
[2017-12-29 06:33] LABS: BASO # 0.1 K/uL (0.0-0.2); BASO % 1.4 % (0.0-2.0); EOS # 0.2 K/uL (0.0-0.7); EOS % 3.2 % (0.0-4.0); HEMOGLOBIN 11.2 g/dL (12.0-18.0); LYMPH # 2.1 K/uL (1.0-4.3); LYMPH % 32.9 % (20.0-40.0); MEAN CELL VOLUME 100.1 fL (80.0-94.0); MEAN CORPUSCULAR HEMOGLOBIN 33.7 pg (27.0-31.0); MEAN CORPUSCULAR HGB CONC 33.6 g/dL (33.0-37.0); MEAN PLATELET VOLUME 10.1 fL (7.2-11.7); MONO # 0.9 K/uL (0.0-0.8); MONO % 14.5 % (0.0-10.0); NEUT # 3.1 K/uL (1.8-7.0); NRBC % 0.1 % (0.0-2.0); RBC 3.32 Mil/uL (4.40-5.90); RED CELL DISTRIBUTION WIDTH 16.1 % (11.5-14.5); WHITE BLOOD COUNT 6.5 K/uL (4.8-10.8)
[2017-12-29 06:39] LABS: INR 1.4; PROTHROMBIN TIME 16.2 SECONDS (9.7-12.2)
[2017-12-29 07:02] LABS: CALCIUM 8.9 mg/dl (8.6-10.4)
[2017-12-29] MEDS: (Novolin R) Insulin Human Regular 100 units/ml vial SC SCH ×4 (07:38→21:47)
[2017-12-29] MEDS: Multiple Vitamins Oral Solution PO SCH (09:10)
[2017-12-29] MEDS ORDERED: Midazolam 2 MG/2 ML VIAL ONE (13:26)
[2017-12-29] MEDS ORDERED: Glucagon Recombinant 1 mg Inj ONE (13:30)
[2017-12-29] MEDS ORDERED: Lactated Ringer's 500 ML IV ONE (13:55)
--- NOTE | 2017-12-29 16:37 | RAD ---
PROCEDURE: Intraoperative fluoroscopy HISTORY: ABNORMAL LFT COMPARISON: Not available TECHNIQUE: Intraoperative fluoroscopy was provided for ERCP examination. Total time of fluoroscopy was 95.7 seconds. FINDINGS: Multiple fluoroscopic spot films are submitted. Films are on file for review. IMPRESSION: Fluoroscopy provided.
--- NOTE | 2017-12-29 22:49 | CP.PCM.PN ---
Subjective - Date & Time of Evaluation Date of Evaluation: 12/29/17 Time of Evaluation: 22:49 - Subjective Subjective: CHIEF COMPLAINTS TODAY : afebrile, icteric, MORE AWAKE. S/P ERCP- FINDINGS NOTED 2D ECHO 12/20/17 ? AV-VEGETATIONS, RIGHT ATRIAL MASS ROS. HEENT : N. 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 Musculoskel : N Ext. : Pedal pulses intact, no edema or calf pain Derm : N Psych : N. PE. Pt. is CONFUSED ,AROUSABLE V.S As noted in the chart Head ,ear nose,throat and eyes : Normal. Neck : Supple with normal carotids. Lungs: Clear air entry. Heart : S1 & S2 normal . . No murmur. S4 + Abd : Soft non tender with normal bowel sounds/ LESS DISTENDED +VE ASCITES Neuro : Moves all ext. with no localized deficit. Ext : B/L EDEMA ,with intact pulses. Neg. calf tenderness Derm : No rashes or decubitus ulcer. Radiology/Labs . ASCITES FLUID -VE GROWTH TO DATE HEPATITIS SCREEN NEGATIVE HEPATITIS C ANTIBODY NEGATIVE 12/16/17 BLOOD CULTURES +VE ESCHERICHIA COLI.2:2 SETS- 12/19/17 REPEAT BLOOD CULTURES -VE GROWTH FOR 5 DAYS. LFTS BILIRUBIN 3.1,-->4.2--> 5.2 INCREASING ast 89 alt 43 ALKALINE PHOSPHATASE 145.-->167 Objective - Vital Signs/Intake and Output Vital Signs (last 24 hours): Temp Pulse Resp BP Pulse Ox 97.3 F L 95 H 20 131/79 98 12/29/17 16:20 12/29/17 16:28 12/29/17 16:20 12/29/17 16:20 12/29/17 16:20 Intake and Output: 12/29/17 12/30/17 18:59 06:59 Intake Total 340 Output Total 200 100 Balance -200 240 - Medications Medications: Current Medications Acetaminophen (Tylenol 650 Mg Supp) 650 mg [place] Q6 PRN PRN Reason: fever of >100.4 and above Last Admin: 12/19/17 18:08 Dose: 650 mg Meropenem 1 gm/ Sodium (Chloride) 100 mls @ 100 mls/hr IVPB Q12H JE PRN Reason: Protocol Last Admin: 12/29/17 20:00 Dose: 100 mls/hr Insulin Human Regular (Novolin R) 0 unit SC ACHS [facility] PRN Reason: Protocol Last Admin: 12/29/17 21:47 Dose: Not Given Lactulose (Enulose) 20 gm PO BID [facility] Last Admin: 12/29/17 17:27 Dose: 20 gm Multivitamins/Vitamin C (Multi-Delyn Liquid) 5 ml PO DAILY [facility] Last Admin: 12/29/17 09:10 Dose: Not Given Spironolactone (Aldactone) 25 mg PO BID [facility] Last Admin: 12/25/17 10:17 Dose: Not Given Thiamine HCl (Vitamin B1 Tab) 100 mg PO BID [facility] Last Admin: 12/29/17 17:27 Dose: 100 mg - Labs Labs: 12/29/17 06:22 12/29/17 06:22 PT 16.2 SECONDS (9.7-12.2) H 12/29/17 06:22 INR 1.4 12/29/17 06:22 APTT 37 SECONDS (21-34) H 12/29/17 06:22 Assessment and Plan (1) Gram-negative sepsis Status: Acute (2) Wound infection, posttraumatic Status: Acute (3) Alcoholic hepatitis Status: Acute (4) Fatty liver with encephalopathy Status: Acute (5) Leg edema Status: Acute (6) Failure to thrive Status: Acute (7) Thrombocytopenia Status: Acute (8) Hypertension Status: Acute - Assessment and Plan (Free Text) Plan: Continue iv MERREM 1 G EVERY 12 HOURLY. 12/17/17. F/U RENAL FUNCTION S CLOSELY. GI -S/P ERCP 12/29/17 CONTINUE LACTULOSE. SON/FAMILY AT BEDSIDE . CASE DISCUSSED WITH CARDIOLOGY. AWAITING GI CLEARANCE FOR AWILDA.
--- NOTE | 2017-12-29 23:19 | CP.PCM.PN ---
Subjective - Date & Time of Evaluation Date of Evaluation: 12/29/17 Time of Evaluation: 19:00 - Subjective Subjective: Pt seen and examined at bedside Objective - Vital Signs/Intake and Output Vital Signs (last 24 hours): Temp Pulse Resp BP Pulse Ox 97.3 F L 95 H 20 131/79 98 12/29/17 16:20 12/29/17 16:28 12/29/17 16:20 12/29/17 16:20 12/29/17 16:20 Intake and Output: 12/29/17 12/30/17 18:59 06:59 Intake Total 340 Output Total 200 100 Balance -200 240 - Medications Medications: Current Medications Acetaminophen (Tylenol 650 Mg Supp) 650 mg [place] Q6 PRN PRN Reason: fever of >100.4 and above Last Admin: 12/19/17 18:08 Dose: 650 mg Meropenem 1 gm/ Sodium (Chloride) 100 mls @ 100 mls/hr IVPB Q12H JE PRN Reason: Protocol Last Admin: 12/29/17 20:00 Dose: 100 mls/hr Insulin Human Regular (Novolin R) 0 unit SC ACHS JE PRN Reason: Protocol Last Admin: 12/29/17 21:47 Dose: Not Given Lactulose (Enulose) 20 gm [facility] BID [facility] Last Admin: 12/29/17 17:27 Dose: 20 gm Multivitamins/Vitamin C (Multi-Delyn Liquid) 5 ml PO DAILY [facility] Last Admin: 12/29/17 09:10 Dose: Not Given Spironolactone (Aldactone) 25 mg PO BID [facility] Last Admin: 12/25/17 10:17 Dose: Not Given Thiamine HCl (Vitamin B1 Tab) 100 mg PO BID [facility] Last Admin: 12/29/17 17:27 Dose: 100 mg - Labs Labs: 12/29/17 06:22 12/29/17 06:22 PT 16.2 SECONDS (9.7-12.2) H 12/29/17 06:22 INR 1.4 12/29/17 06:22 APTT 37 SECONDS (21-34) H 12/29/17 06:22 Assessment and Plan (1) Alcoholic hepatitis Status: Acute (2) Hypertension Status: Acute
--- NOTE | 2017-12-30 00:21 | PN ---
DATE: 12/29/2017 SUBJECTIVE: The patient went for ERCP earlier, today he is drowsy, still with periods of confusion and complaining of back pain. Blood sugar is 259, still confused. Stated last ammonia level is 23. PHYSICAL EXAMINATION VITAL SIGNS: 97.3, 95, 131/79, respirations 20, oxygen sats 98%. REVIEW OF SYSTEMS: GENERAL: The patient is sleepy, but arousable, not in acute respiratory distress, seen with the family at bedside, complaining of pain in his back as well as abdomen. SKIN: No diaphoresis. HEENT: No headache or dizziness. NECK: Supple. RESPIRATORY: No dyspnea. CARDIOVASCULAR: No chest pain. GASTROINTESTINAL: Complains of abdominal pain. EXTREMITIES: The patient moving extremities. MUSCULOSKELETAL: Feels weak. NEUROLOGIC: Alert, drowsy, still with periods of confusion. MENTAL STATUS EXAMINATION: Elderly male, who looks stated age, status post ERCP, seems confused. Affect is restricted. Mood is dysphoric. Speech is slow. Thought process is confused. Thought content, no overt psychosis. No suicidal or homicidal ideation. Attention and memory seems to be limited. Insight and judgment limited. Impulse control is fair at this time. IMPRESSION: History of alcohol dependence, alcohol withdrawal, possible delirium, history of failure to thrive, status post endoscopic retrograde cholangiopancreatography, gram-negative sepsis, alcoholic hepatitis, history of hepatic encephalopathy, thrombocytopenia, hypertension. PLAN AND RECOMMENDATIONS: The patient seen, meds reviewed. Continue present management. Continue treatment plan. Continue antibiotics as ordered. We will monitor his ammonia level. The patient once medically cleared can go for subacute rehab for the confusion. Stas Knox MD
--- NOTE | 2017-12-30 00:52 | PN ---
DATE: SUBJECTIVE: The patient underwent ERCP today. No reported hypotension or acute cardiac arrhythmia. The patient denies any chest pain. PHYSICAL EXAMINATION: VITAL SIGNS: Blood pressure 130/79, heart rate 94, temperature 97.3, respirations 20. HEENT: Normocephalic. CHEST: Diminished breath sounds over the bases. HEART: S1 and S2 regular and distant. ABDOMEN: Moderate ascites. EXTREMITIES: No edema. LABORATORY DATA: Today's BUN and creatinine are 56 and 1.8, glucose 276. Rest of SMA-7 is within normal limits. Today's hemoglobin and hematocrit are 11.2 and 33.3, white count 6.5, platelet count 73,000. ASSESSMENT: 1. Gram-negative bacteremia. 2. Portal hypertension and cholestasis. 3. Chronic renal insufficiency. 4. Thrombocytopenia. 5. Bacterial endocarditis. RECOMMENDATIONS: Case was discussed with Dr. Lyles, the infectious disease doctor. Continue current IV meropenem at 1 gm every 12 hours, thiamine 100 mg twice a day. AWILDA will be considered next week if cleared by the medical team. Gurinder Hernandez MD
[2017-12-30] MEDS: Meropenem 1 GM in Sodium Chloride 0.9% 100 ML IVPB SCH ×2 (06:00→19:43)
[2017-12-30 07:20] LABS: BASO % 0.6 % (0.0-2.0); EOS # 0.2 K/uL (0.0-0.7); EOS % 2.3 % (0.0-4.0); HEMOGLOBIN 11.7 g/dL (12.0-18.0); LYMPH # 2.2 K/uL (1.0-4.3); MEAN CELL VOLUME 99.7 fL (80.0-94.0); MEAN CORPUSCULAR HGB CONC 34.1 g/dL (33.0-37.0); MEAN PLATELET VOLUME 10.4 fL (7.2-11.7); MONO # 1.1 K/uL (0.0-0.8); MONO % 15.2 % (0.0-10.0); NEUT # 3.7 K/uL (1.8-7.0); NEUT % 50.9 % (50.0-75.0); NRBC % 0.1 % (0.0-2.0); RBC 3.44 Mil/uL (4.40-5.90); RED CELL DISTRIBUTION WIDTH 15.8 % (11.5-14.5); WHITE BLOOD COUNT 7.2 K/uL (4.8-10.8)
[2017-12-30 08:08] LABS: ALB/GLOB RATIO 0.5 (1.0-2.1); ALBUMIN 2.3 g/dL (3.5-5.0); BILIRUBIN,DIRECT 4.1 mg/dL (0.0-0.4); CALCIUM 8.9 mg/dl (8.6-10.4)
[2017-12-30] MEDS: (Novolin R) Insulin Human Regular 100 units/ml vial SC SCH ×4 (08:33→21:17)
[2017-12-30] MEDS: Multiple Vitamins Oral Solution PO SCH (10:19)
--- NOTE | 2017-12-30 13:38 | PN ---
DATE: LOCATION: [facility], [facility]. SUBJECTIVE: This is a 72-year-old male, post ERCP. Yesterday, he was attempting to insert biliary stent. Unfortunately, due to an experienced nursing staff, the biliary stent was not inserted at that particular time. The patient still has generalized jaundice, but no reported active bleeding. The entire chart is reviewed including, but not limited to the most recent lab and radiology study results, current and the previous medication list, current and the previous medical events. Today's lab showed hemoglobin 11.7, hematocrit 34.3, and platelet count 84. BUN 63, creatinine 2.2, blood glucose level 203, with bilirubin of 6.1, and AST 98, alkaline phosphatase 186, albumin 2.3. PHYSICAL EXAMINATION: GENERAL: A 72-year-old male, awake, alert. VITAL SIGNS: Afebrile, appeared to be mildly cachectic with pulse of 94, respiratory rate 20 to 22, blood pressure 112/66. HEENT: Showed pale dry mucous membranes. Nonicteric sclerae. LUNGS: Few scattered crepitations. Decreased air entry at bases. HEART: Positive S1 and S2, with increased rate. ABDOMEN: Soft, with mild distention. Small amount of ascites. EXTREMITIES: Lower extremities with mild edematous changes. No clubbing or cyanosis. NEUROLOGIC: No reported new neurological deficits, sensory or motor. No reported new focal deficits. Peripheral pulses are present bilaterally, but decreased at bases. IMPRESSION: 1. Evidence of severe papillary spasm with bilateral common bile duct and non-visualized cystic duct or gallbladder by endoscopic retrograde cholangiopancreatography. 2. Alcoholism with alcoholic liver disease, liver cirrhosis, with portal hypertension and ascites. 3. Renal insufficiency. 4. Gram-negative septicemia, to rule out bacterial endocarditis. 5. Excessive elevation of CEA and CA 19-9 with possible occult gastrointestinal malignancy. 6. Known history of hypertension. 7. Anemia, most likely secondary to above. SUGGESTION: 1. Continue current management. 2. The patient for transesophageal echo. 3. If there is subsequent increase of total bilirubin, then repeat ERCP with biliary stent insertion for decompression is highly suggested. 4. Further recommendations to follow. 5. Hematology/Oncology consult due to the patient's thrombocytopenia. Lachelle Rodrigues MD [facility] # [id number]
--- NOTE | 2017-12-30 21:46 | PN ---
DATE: 12/30/2017 SUBJECTIVE: The patient is seen. The patient is still confused but more alert. The patient noted to have a very poor appetite. According to the nurse, the patient has some problems with swallowing, and currently on liquids. The patient wants to eat regular diet, but his appetite is still poor. REVIEW OF SYSTEMS: CONSTITUTIONAL: The patient is more alert, less confused, but not in acute respiratory distress. Seen in his room. SKIN: No diaphoresis. HEENT: Sclerae is still slightly icteric. No headache. No dizziness. NECK: Supple. RESPIRATORY: No dyspnea. CARDIOVASCULAR: No chest pain. GASTROINTESTINAL: Appetite is very poor. No abdominal pain. EXTREMITIES: Swelling in his lower extremities. The patient has been bedbound. MUSCULOSKELETAL: Feels weak. NEURO: Alert with intermittent periods of confusion. VITAL SIGNS: Temperature 97.8, pulse 106, blood pressure 109/68, respirations 20, oxygen saturation is 94%. LABORATORY DATA: Review of his labs: His last blood sugar is 220. Liver enzymes are still elevated. MENTAL STATUS EXAMINATION: Elderly male who looks stated age. Oriented x2. Mood is dysphoric. Affect is restricted. Speech is slow. Thought process, confused often. Thought content, no overt psychosis. No suicidal ideation. Attention and memory seem to be limited. Insight and judgment limited. Impulse control is clear. IMPRESSION: History of alcoholic dependence, alcohol withdrawal, delirium, metabolic encephalopathy. Failure to thrive. Alcoholic hepatitis. Thrombocytopenia. History of hepatic encephalopathy. Gram-negative sepsis. RECOMMENDATIONS: The patient is seen, meds reviewed. Continue present management. Continue treatment plan. The patient is awaiting medical clearance for subacute rehab once medically cleared. The patient cannot go home as the patient is very debilitated. Stas Knox MD
--- NOTE | 2017-12-30 21:55 | PN ---
DATE: 12/30/2017 SUBJECTIVE: The patient appears weak but not in any respiratory distress. He denies any chest pain. PHYSICAL EXAMINATION: VITAL SIGNS: Blood pressure 109/68, heart rate 106, temperature 97.8, respirations 20. HEENT: Facial edema. CHEST: Absent breath sounds over the bases. HEART: S1 and S2, regular. ABDOMEN: Moderate ascites. EXTREMITIES: 2+ pitting edema. LABORATORY DATA: Today's hemoglobin and hematocrit are 11.7 and 34.3. Today's platelet count 84,000. Today's BUN and creatinine are 63 and 2.2 respectively. Glucose 220. Rest of SMA-7 is within normal limits. Total bilirubin today is 6.1, direct bilirubin 4.1. Alkaline phosphatase is 186. I did review Dr. Mcleod's followup and according to his notes that biliary stent insertion was attempted but was not placed and impression is evidence of severe biliary spasm with bilateral common bile duct and non-visualized cystic duct of the gallbladder and recommendation is to continue current management and is to get transesophageal echocardiogram. ASSESSMENT: 1. Gram-negative bacteremia. 2. Consider bacterial endocarditis. 3. Alcoholic liver disease. 4. Severe biliary spasms of bilateral common bile duct and non-visualized cystic duct on endoscopic retrograde cholangiogram. 5. Portal hypertension. RECOMMENDATIONS: The patient will be started on IV Lasix 40 mg twice a day. We will continue oral thiamine. May discontinue Tylenol in the presence of liver disease. I will schedule the patient for transesophageal echocardiography next week. Gurinder Hernandez MD
--- NOTE | 2017-12-30 23:01 | CP.PCM.PN ---
Subjective - Date & Time of Evaluation Date of Evaluation: 12/30/17 Time of Evaluation: 09:00 - Subjective Subjective: Pt seen and examined, is more alert, afebrile, less tremors, positive ascites Objective - Vital Signs/Intake and Output Vital Signs (last 24 hours): Temp Pulse Resp BP Pulse Ox 97.8 F 106 H 20 110/70 94 L 12/30/17 15:30 12/30/17 15:30 12/30/17 15:30 12/30/17 17:50 12/30/17 15:30 Intake and Output: 12/30/17 12/31/17 18:59 06:59 Intake Total 220 Output Total 100 150 Balance -100 70 - Medications Medications: Current Medications Acetaminophen (Tylenol 650 Mg Supp) 650 mg MD Q6 PRN PRN Reason: fever of >100.4 and above Last Admin: 12/19/17 18:08 Dose: 650 mg Furosemide (Lasix) 40 mg IVP BID [facility] Last Admin: 12/30/17 17:50 Dose: 40 mg Meropenem 1 gm/ Sodium (Chloride) 100 mls @ 100 mls/hr IVPB Q12H JE PRN Reason: Protocol Last Admin: 12/30/17 19:43 Dose: 100 mls/hr Insulin Human Regular (Novolin R) 0 unit SC ACHS JE PRN Reason: Protocol Last Admin: 12/30/17 21:17 Dose: Not Given Lactulose (Enulose) 20 gm PO BID [facility] Last Admin: 12/30/17 17:46 Dose: 20 gm Multivitamins/Vitamin C (Multi-Delyn Liquid) 5 ml PO DAILY [facility] Last Admin: 12/30/17 10:19 Dose: 5 ml Spironolactone (Aldactone) 25 mg PO BID [facility] Last Admin: 12/25/17 10:17 Dose: Not Given Thiamine HCl (Vitamin B1 Tab) 100 mg PO BID [facility] Last Admin: 12/30/17 17:47 Dose: 100 mg - Labs Labs: 12/30/17 07:07 12/30/17 07:07 PT 16.2 SECONDS (9.7-12.2) H 12/29/17 06:22 INR 1.4 12/29/17 06:22 APTT 37 SECONDS (21-34) H 12/29/17 06:22 - Constitutional Appears: No Acute Distress - Head Exam Head Exam: ATRAUMATIC, NORMAL INSPECTION, NORMOCEPHALIC - Eye Exam Eye Exam: EOMI, Normal appearance, PERRL Pupil Exam: NORMAL ACCOMODATION, PERRL - Respiratory Exam Respiratory Exam: Decreased Breath Sounds, Rales, Rhonchi - Cardiovascular Exam Cardiovascular Exam: REGULAR RHYTHM, +S1, +S2. absent: Murmur - GI/Abdominal Exam GI & Abdominal Exam: Distended Assessment and Plan (1) Alcoholic hepatitis Assessment & Plan: on antibiotics possible AWILDA Status: Acute (2) Hypertension Status: Acute
--- NOTE | 2017-12-30 23:56 | CP.PCM.PN ---
Subjective - Date & Time of Evaluation Date of Evaluation: 12/30/17 Time of Evaluation: 23:56 - Subjective Subjective: CHIEF COMPLAINTS TODAY : afebrile, icteric, MORE AWAKE. less tremors S/P ERCP- FINDINGS NOTED 2D ECHO 12/20/17 ? AV-VEGETATIONS, RIGHT ATRIAL MASS ROS. HEENT : N. Resp : No SOB wheezing, cough Cardio : No CP, PND orthopnea GI : +VE ABDOMINAL PAIN GENERALIZED, NO n/v FERMENTOLOGIST : No headache , focal deficit. Musculoskel : N Ext. : Pedal pulses intact, no edema or calf pain Derm : N Psych : N. PE. Pt. is CONFUSED ,AROUSABLE V.S As noted in the chart Head ,ear nose,throat and eyes : Normal. Neck : Supple with normal carotids. Lungs: Clear air entry. Heart : S1 & S2 normal . . No murmur. S4 + Abd : Soft non tender with normal bowel sounds/ LESS DISTENDED +VE ASCITES Neuro : Moves all ext. with no localized deficit. Ext : B/L EDEMA ,with intact pulses. Neg. calf tenderness Derm : No rashes or decubitus ulcer. Radiology/Labs . WBC 7.2 PLT 84 LOW CREAT2.2 /BUN 63 ASCITES FLUID -VE GROWTH TO DATE x4days 12/19/17 REPEAT BLOOD CULTURES -VE GROWTH FOR 5 DAYS 12/16/17 BLOOD CULTURES +VE ESCHERICHIA COLI.2:2 SETS- LFTS BILIRUBIN 3.1,-->4.2--> 5.2 INCREASING-->6.1 ast 98 alt 43 ALKALINE PHOSPHATASE 145.-->167-->186 Objective - Vital Signs/Intake and Output Vital Signs (last 24 hours): Temp Pulse Resp BP Pulse Ox 97.8 F 106 H 20 110/70 94 L 12/30/17 15:30 12/30/17 15:30 12/30/17 15:30 12/30/17 17:50 12/30/17 15:30 Intake and Output: 12/30/17 12/31/17 18:59 06:59 Intake Total 220 Output Total 100 150 Balance -100 70 - Medications Medications: Current Medications Acetaminophen (Tylenol 650 Mg Supp) 650 mg LA Q6 PRN PRN Reason: fever of >100.4 and above Last Admin: 12/19/17 18:08 Dose: 650 mg Furosemide (Lasix) 40 mg IVP BID [facility] Last Admin: 12/30/17 17:50 Dose: 40 mg Meropenem 1 gm/ Sodium (Chloride) 100 mls @ 100 mls/hr IVPB Q12H JE PRN Reason: Protocol Last Admin: 12/30/17 19:43 Dose: 100 mls/hr Insulin Human Regular (Novolin R) 0 unit SC ACHS JE PRN Reason: Protocol Last Admin: 12/30/17 21:17 Dose: Not Given Lactulose (Enulose) 20 gm PO BID [facility] Last Admin: 12/30/17 17:46 Dose: 20 gm Multivitamins/Vitamin C (Multi-Delyn Liquid) 5 ml PO DAILY [facility] Last Admin: 12/30/17 10:19 Dose: 5 ml Spironolactone (Aldactone) 25 mg PO BID [facility] Last Admin: 12/25/17 10:17 Dose: Not Given Thiamine HCl (Vitamin B1 Tab) 100 mg PO BID [facility] Last Admin: 12/30/17 17:47 Dose: 100 mg - Labs Labs: 12/30/17 07:07 12/30/17 07:07 PT 16.2 SECONDS (9.7-12.2) H 12/29/17 06:22 INR 1.4 12/29/17 06:22 APTT 37 SECONDS (21-34) H 12/29/17 06:22 Assessment and Plan (1) Gram-negative sepsis Status: Acute (2) Wound infection, posttraumatic Status: Acute (3) Alcoholic hepatitis Status: Acute (4) Fatty liver with encephalopathy Status: Acute (5) Leg edema Status: Acute (6) Failure to thrive Status: Acute (7) Thrombocytopenia Status: Acute (8) Hypertension Status: Acute - Assessment and Plan (Free Text) Plan: decrease iv MERREM 500mg iv q 8hrly. 12/17/17. (2weeks Rx-) F/U RENAL FUNCTION S CLOSELY. GI -S/P ERCP 12/29/17 FAMILY AT BEDSIDE . WILL F/U WITH CARDIOLOGY. PROGNOSIS GUARDED.
[2017-12-31] MEDS: Meropenem 1 GM in Sodium Chloride 0.9% 100 ML IVPB SCH ×2 (06:00→19:54)
[2017-12-31 07:55] LABS: HEMOGLOBIN 10.1 g/dL (12.0-18.0); MEAN CELL VOLUME 100.7 fL (80.0-94.0); MEAN CORPUSCULAR HEMOGLOBIN 34.1 pg (27.0-31.0); MEAN CORPUSCULAR HGB CONC 33.9 g/dL (33.0-37.0); MEAN PLATELET VOLUME 11.2 fL (7.2-11.7); RBC 2.95 Mil/uL (4.40-5.90); RED CELL DISTRIBUTION WIDTH 16.2 % (11.5-14.5); WHITE BLOOD COUNT 6.9 K/uL (4.8-10.8)
[2017-12-31 08:03] LABS: CALCIUM 7.9 mg/dl (8.6-10.4)
[2017-12-31] MEDS: (Novolin R) Insulin Human Regular 100 units/ml vial SC SCH ×4 (08:49→21:22)
[2017-12-31] MEDS ORDERED: Phytonadione 10 mg/ml Inj (Adult) SC STA (09:29)
[2017-12-31] MEDS: Multiple Vitamins Oral Solution PO SCH (10:21)
[2017-12-31 10:48] LABS: ALB/GLOB RATIO 0.5 (1.0-2.1); ALBUMIN 2.3 g/dL (3.5-5.0)
--- NOTE | 2017-12-31 12:53 | PN ---
DATE: 12/31/2017 LOCATION: 651, bed E. SUBJECTIVE: This 72-year-old male seen and examined in rounds. Appears to be slightly and mildly semi-oriented, but tolerating somewhat oral intake. The entire chart is reviewed including, but not limited to, the most recent lab and radiology study results, current and previous medication list, current and previous medical events. Case discussed at length with staff in the floor. Today's lab showed hemoglobin 10.1, hematocrit 29.7 with thrombocytopenia of 78. BUN 63, creatinine 2.4, blood glucose level 316, calcium 7.9. The patient still has elevated liver function test with low albumin. PHYSICAL EXAMINATION: GENERAL: A 72-year-old male, afebrile with pulse of 92, respiratory rate 20 to 22, blood pressure 136/80. HEENT: Showed pale, dry oral mucous membrane. Bilateral icteric sclerae. LUNGS: Few scattered crepitations. Decreased air entry at bases. HEART: Positive S1 and S2. ABDOMEN: Soft with small amount of ascites and mild generalized tenderness. No mass or organomegaly. No rebound tenderness or guarding. NEUROLOGIC: No reported new neurological deficits, sensory or motor. IMPRESSION: 1. Alcoholism with alcoholic liver disease. 2. Jaundice with increased total bilirubin and evidence of severe papillary spasm and/or stenosis. 3. Thrombocytopenia. 4. Anemia most likely secondary to above. 5. Renal insufficiency. 6. Known history of portal hypertension with ascites and status post abdominal thoracentesis. 7. Gram-negative septicemia, to rule out possible bacterial endocarditis. 8. Elevated CEA level and excessive increase of CA 19-9 indicative and highly suggestive of occult gastrointestinal malignancy, mainly the pancreas. 9. Known history of hypertension. SUGGESTION: 1. Agree with your plan. 2. Antireflux measures. 3. Further recommendation to follow. Lachelle Rodrigues MD
[2017-12-31 18:30] LABS: CREATININE, RANDOM URINE 92.4 mg/dL
--- NOTE | 2017-12-31 19:54 | PN ---
DATE: 12/31/2017 SUBJECTIVE: The patient denies chest pain. However, he is experiencing lower abdominal pain. The patient has pulled his Lara catheter out for subsequent hematuria. The teams are awaiting a bladder scan to check the patient for obstruction. PHYSICAL EXAMINATION: VITAL SIGNS: Blood pressure 127/78, heart rate 88, temperature 97.8, respirations 20. HEENT: Pale conjunctiva. CHEST: Diminished breath sounds at bases. HEART: S1 and S2, regular. ABDOMEN: Moderate ascites. EXTREMITIES: 1+ pitting edema. LABORATORY DATA: Today's BUN and creatinine are 72 and 2.7 respectively. Glucose 314. The patient's hemoglobin and hematocrit are 10.1 and 29.7 and platelet count 78,000. ASSESSMENT: 1. Bacterial endocarditis. 2. Gram-negative bacteremia. 3. Biliary colic. 4. Thrombocytopenia. 5. Anemia. 6. Acute renal failure. RECOMMENDATIONS: Continue current IV Lasix at 40 mg twice a day, IV meropenem at 1 gm every 12 hours, thiamine 100 mg twice a day. The patient will undergo a bladder scan prior to any further bladder catheterization. the urologist, has been consulted. Gurinder Hernandez MD
--- NOTE | 2017-12-31 20:39 | PN ---
DATE: 12/31/2017 SUBJECTIVE: The patient is seen. The patient still has difficulty swallowing and currently on clear liquids. The patient is for AWILDA on Monday, still experiencing some confusion but no behavioral problems. Has generalized debility. The patient was seen with family at bedside. The patient's p.o. intake is still poor, awaiting medical clearance for him to go for subacute rehab. VITAL SIGNS: Temperature is 97.8, pulse rate 88, blood pressure is 127/78, respirations 20, oxygen saturation is 95%. REVIEW OF SYSTEMS: GENERAL: The patient is sleepy but arousable, seen in his room, not in acute respiratory distress. SKIN: No diaphoresis. HEENT: No headache or dizziness. NECK: Supple. RESPIRATORY: No dyspnea. CARDIOVASCULAR: No chest pain. GASTROINTESTINAL: The patient has poor p.o. intake. Has off and on dysphagia. EXTREMITIES: The patient is mostly bed bound, moving extremities. MUSCULOSKELETAL: Generalized weakness. NEURO: Alert but with periods of confusion. GENITOURINARY: No dysuria. MENTAL STATUS EXAMINATION: An elderly male, who looks stated age, oriented x2, drowsy but arousable. Mood is dysphoric. Affect is restricted. Speech is fluent. Thought process, confused off and on. Thought content, no overt psychosis. No suicidal or homicidal ideation. Attention and memory seem to be limited. Insight and judgement limited. Impulse control is fair at this time. IMPRESSION: History of alcohol dependence, alcohol withdrawal, failure to thrive, delirium, metabolic encephalopathy, multifactorial history, probably secondary to gram-negative sepsis. PLAN AND RECOMMENDATIONS: The patient is seen, meds reviewed. Continue present management. We will keep the patient off psych meds for now. His last pneumonia level is 17 which has improved; however, his liver function tests are still elevated. The patient's random blood sugar is 314 today. His creatinine is going up, the last one is 2.7 as well as his BUN is 58. We will monitor his electrolytes, continue treatment plan as outlined. The patient is for subacute rehab once medically cleared. Stas Knox MD
--- NOTE | 2017-12-31 21:57 | CP.PCM.PN ---
Subjective - Date & Time of Evaluation Date of Evaluation: 12/31/17 Time of Evaluation: 14:50 - Subjective Subjective: Pt is seen and examined today Objective - Vital Signs/Intake and Output Vital Signs (last 24 hours): Temp Pulse Resp BP Pulse Ox 98.7 F 83 18 120/70 100 12/31/17 15:33 12/31/17 15:33 12/31/17 15:33 12/31/17 17:36 12/31/17 15:33 Intake and Output: 12/31/17 01/01/18 18:59 06:59 Intake Total 60 Output Total 200 Balance -140 - Medications Medications: Current Medications Acetaminophen (Tylenol 650 Mg Supp) 650 mg NV Q6 PRN PRN Reason: fever of >100.4 and above Last Admin: 12/19/17 18:08 Dose: 650 mg Furosemide (Lasix) 40 mg IVP BID [facility] Last Admin: 12/31/17 17:36 Dose: 40 mg Meropenem 1 gm/ Sodium (Chloride) 100 mls @ 100 mls/hr IVPB Q12H JE PRN Reason: Protocol Last Admin: 12/31/17 19:54 Dose: 100 mls/hr Dextrose (Dextrose 5% In Water 1000 Ml) 1,000 mls @ 60 mls/hr IV .[id number] [facility] Last Admin: 12/31/17 16:04 Dose: 60 mls/hr Insulin Human Regular (Novolin R) 0 unit SC ACHS JE PRN Reason: Protocol Last Admin: 12/31/17 21:22 Dose: Not Given Lactulose (Enulose) 20 gm PO BID [facility] Last Admin: 12/31/17 17:37 Dose: 20 gm Multivitamins/Vitamin C (Multi-Delyn Liquid) 5 ml PO DAILY [facility] Last Admin: 12/31/17 10:21 Dose: 5 ml Phytonadione (Vitamin K Inj) 10 mg SC ONCE ONE Stop: 01/01/18 06:01 Spironolactone (Aldactone) 25 mg PO BID [facility] Last Admin: 12/25/17 10:17 Dose: Not Given Thiamine HCl (Vitamin B1 Tab) 100 mg PO BID [facility] Last Admin: 12/31/17 17:37 Dose: 100 mg - Labs Labs: 12/31/17 07:27 12/31/17 10:24 PT 16.2 SECONDS (9.7-12.2) H 12/29/17 06:22 INR 1.4 12/29/17 06:22 APTT 37 SECONDS (21-34) H 12/29/17 06:22 Assessment and Plan (1) Alcoholic hepatitis Status: Acute (2) Hypertension Status: Acute
--- NOTE | 2017-12-31 23:29 | CP.PCM.PN ---
Subjective - Date & Time of Evaluation Date of Evaluation: 12/31/17 Time of Evaluation: 23:29 - Subjective Subjective: CHIEF COMPLAINTS TODAY : EVENTS NOTICED PT PULLED OUT HIS FOLYS HEMATURIA. afebrile, icteric, MORE AWAKE. FOR EVALUATION ! S/P ERCP- FINDINGS NOTED 2D ECHO 12/20/17 ? AV-VEGETATIONS, RIGHT ATRIAL MASS ROS. HEENT : N. Resp : No SOB wheezing, cough Cardio : No CP, PND orthopnea GI : +VE ABDOMINAL PAIN GENERALIZED, NO n/v LEVER MILLER : No headache , focal deficit. Musculoskel : N Ext. : Pedal pulses intact, no edema or calf pain Derm : N Psych : N. PE. Pt. is CONFUSED ,AROUSABLE V.S As noted in the chart Head ,ear nose,throat and eyes : Normal. Neck : Supple with normal carotids. Lungs: Clear air entry. Heart : S1 & S2 normal . . No murmur. S4 + Abd : Soft non tender with normal bowel sounds/ LESS DISTENDED +VE ASCITES Neuro : Moves all ext. with no localized deficit. Ext : B/L EDEMA ,with intact pulses. Neg. calf tenderness Derm : No rashes or decubitus ulcer. Radiology/Labs . WBC 6.9 PLT 78 LOW CREAT2.7 /BUN 72 INCREASING ASCITES FLUID -VE GROWTH TO DATE x4days 12/19/17 REPEAT BLOOD CULTURES -VE GROWTH FOR 5 DAYS 12/16/17 BLOOD CULTURES +VE ESCHERICHIA COLI.2:2 SETS- LFTS BILIRUBIN 3.1,-->4.2--> 5.2 INCREASING-->6.1 TRANSAMINITES AST 126, ALT N, AP 194 Objective - Vital Signs/Intake and Output Vital Signs (last 24 hours): Temp Pulse Resp BP Pulse Ox 98.7 F 83 18 120/70 100 12/31/17 15:33 12/31/17 15:33 12/31/17 15:33 12/31/17 17:36 12/31/17 15:33 Intake and Output: 12/31/17 01/01/18 18:59 06:59 Intake Total 60 Output Total 200 150 Balance -140 -150 - Medications Medications: Current Medications Acetaminophen (Tylenol 650 Mg Supp) 650 mg [place] Q6 PRN PRN Reason: fever of >100.4 and above Last Admin: 12/19/17 18:08 Dose: 650 mg Furosemide (Lasix) 40 mg IVP BID [facility] Last Admin: 12/31/17 17:36 Dose: 40 mg Dextrose (Dextrose 5% In Water 1000 Ml) 1,000 mls @ 60 mls/hr IV .[id number] [facility] Last Admin: 12/31/17 16:04 Dose: 60 mls/hr Meropenem 500 mg/ Sodium (Chloride) 100 mls @ 100 mls/hr IVPB Q8 JE PRN Reason: Protocol Insulin Human Regular (Novolin R) 0 unit SC ACHS JE PRN Reason: Protocol Last Admin: 12/31/17 21:22 Dose: Not Given Lactulose (Enulose) 20 gm PO BID [facility] Last Admin: 12/31/17 17:37 Dose: 20 gm Multivitamins/Vitamin C (Multi-Delyn Liquid) 5 ml PO DAILY [facility] Last Admin: 12/31/17 10:21 Dose: 5 ml Phytonadione (Vitamin K Inj) 10 mg SC ONCE ONE Stop: 01/01/18 06:01 Spironolactone (Aldactone) 25 mg PO BID [facility] Last Admin: 12/25/17 10:17 Dose: Not Given Thiamine HCl (Vitamin B1 Tab) 100 mg PO BID [facility] Last Admin: 12/31/17 17:37 Dose: 100 mg - Labs Labs: 12/31/17 07:27 12/31/17 10:24 PT 16.2 SECONDS (9.7-12.2) H 12/29/17 06:22 INR 1.4 12/29/17 06:22 APTT 37 SECONDS (21-34) H 12/29/17 06:22 Assessment and Plan (1) Gram-negative sepsis Status: Acute (2) Wound infection, posttraumatic Status: Acute (3) Alcoholic hepatitis Status: Acute (4) Fatty liver with encephalopathy Status: Acute (5) Leg edema Status: Acute (6) Failure to thrive Status: Acute (7) Thrombocytopenia Status: Acute (8) Hypertension Status: Acute - Assessment and Plan (Free Text) Plan: DECREASE iv MERREM 500mg iv q 8hrly. 12/17/17. (2weeks Rx-) F/U RENAL FUNCTION S CLOSELY. -EVAL IN PROGRESS R/O OBSTRUTIVE UROPATHY. FOR BLADDER SCAN PER . GI -S/P ERCP 12/29/17 - F/U GI RECOMENDATIONS FAMILY AT BEDSIDE . WILL F/U WITH CARDIOLOGY. IF PT HAS ? AORTIC VALVE VEGETATIONS/ AND AWILDA CANNOT BE PERFORMED DUE TO TECHNICAL DIFFICULTIES , PT . WILL NEED TOTAL OF 6 WEEKS ABX EMPIRICALLY. REPEAT BLOOD CULTURES -VE TO DATE.
[2018-01-01] MEDS: Meropenem 500 MG in Sodium Chloride 0.9% 100 ML IVPB SCH ×3 (06:00→21:29)
[2018-01-01] MEDS ORDERED: Phytonadione 10 mg/ml Inj (Adult) SC ONE (06:00)
[2018-01-01 07:06] LABS: HEMOGLOBIN 10.2 g/dL (12.0-18.0); MEAN CELL VOLUME 100.2 fL (80.0-94.0); MEAN CORPUSCULAR HEMOGLOBIN 34.1 pg (27.0-31.0); MEAN CORPUSCULAR HGB CONC 34.1 g/dL (33.0-37.0); MEAN PLATELET VOLUME 10.8 fL (7.2-11.7); RED CELL DISTRIBUTION WIDTH 15.8 % (11.5-14.5); WHITE BLOOD COUNT 7.3 K/uL (4.8-10.8)
[2018-01-01 07:22] LABS: CALCIUM 8.6 mg/dl (8.6-10.4)
--- NOTE | 2018-01-01 07:45 | OP ---
DATE: NAME OF THE PROCEDURE: Endoscopic retrograde cholangiopancreatography. DATE OF THE PROCEDURE: 12/29/2017. PREOPERATIVE DIAGNOSES: 1. Abnormal liver function test. 2. Jaundice. 3. To rule out destructive biliary tree lesion. POSTOPERATIVE DIAGNOSES: 1. Mildly dilated common bile duct. 2. Evidence of papillary stenosis and spasm. 3. Nonvisualized cystic duct in the gall bladder. 4. cannulize main pancreatic duct. A guide wire was inserted into the biliary tree for possible biliary tree stent, but due to the technical fault of a nursing staff and pulling out the guide wire more than once, the procedure had to be terminated. Anesthesia given by the anesthesia staff. The patient was intubated. DESCRIPTION OF THE PROCEDURE: In short, the advanced into the second portion of the duodenal cannulize the main pancreatic duct. Immediately, the common bile duct was cannulized and visualized, and appear to be dilated with intact left intrahepatic duct, but mildly visualized right intrahepatic duct and nonvisualized cystic duct or gallbladder. Within 3 to 4 minutes, a guide wire was inserted more than once inside the biliary tree with attention to insert a biliary stent. However, due to the technical error of the nursing staff during the procedure, the guide wire was pulled out at this point, and as the patient was under near general anesthesia, was intubated, the procedure has to be terminated as the patient has evidence of severe papillary spasm and stenosis. SUGGESTION: 1. Please see official ERCP notes in the computer and a print out of the procedure. 2. Repeat liver function test. If there is subsequent increase of total bilirubin, then repeat ERCP nursing staff and insertion of biliary tree may be needed and suggested. 3. Alpha fetoprotein. 4. Antismooth muscle antibody. 5. Antimitochondrial antibody. 6. Advanced diet gradually. Further recommendations to follow. The case is to be discussed with the admitting , Dr. lAex Carpenter. Lachelle Rodrigues MD
[2018-01-01] MEDS: (Novolin R) Insulin Human Regular 100 units/ml vial SC SCH ×4 (08:25→21:42)
[2018-01-01] MEDS: Multiple Vitamins Oral Solution PO SCH ×2 (10:03→10:30)
--- NOTE | 2018-01-01 16:15 | PN ---
DATE: LOCATION: [facility], bed B. SUBJECTIVE: This is a 72-year-old male seen and examined early in rounds without significant clinical changes or reported active bleeding with generalized weakness and malaise, appeared to be slightly lethargic with jaundice. No reported chest pain, palpitation, or significant shortness of breath. The entire chart is reviewed including, but not limited to the most recent lab and radiology study results, current and the previous medication list, current and the previous medical events. Today's lab showed hemoglobin 10.2, hematocrit 30.0, with thrombocytopenia of 74, BUN is 79, creatinine 2.7, blood glucose level 330. Previously, the patient was found to have elevated liver function tests with total bilirubin of 5.2. PHYSICAL EXAMINATION: GENERAL: A 72-year-old male. VITAL SIGNS: Afebrile, with pulse of 76, respiratory rate 20 to 22, and blood pressure of 124/74. HEENT: Showed pale dry oral mucous membranes. Bilateral icteric sclerae. LUNGS: Few scattered crepitations, with decreased air entry at bases. HEART: Positive S1 and S2. ABDOMEN: Soft. Bowel sounds are present. No mass or organomegaly. No rebound tenderness or guarding. Abdominal distention mildly noticed with small amount of ascites. EXTREMITIES: Lower extremities with mild edematous changes. NEURO: No reported new neurological deficits, sensory or motor. No focal deficits reported. IMPRESSION: 1. Abnormal liver function tests, with jaundice and evidence of severe papillary spasm and stenosis. 2. Alcoholism with alcoholic liver disease. 3. Thrombocytopenia by history. 4. Anemia, secondary to above. 5. Acute renal insufficiency. 6. Known history of portal hypertension with ascites, and status post abdominal thoracentesis. 7. Negative septicemia, to rule out possible bacterial endocarditis. 8. Excessive increase of CEA and CA 19-9 raising the possibility gastrointestinal occult malignancy. 9. Known history of hypertension. SUGGESTIONS: 1. Agree with your plan. 2. The patient may need repeat ERCP with biliary stent insertion when he is more stable clinically. I will discuss the case with the Cardiology consult on the case. We will follow up closely with you. Lachelle Rodrigues MD [facility] # [id number]
--- NOTE | 2018-01-01 17:06 | PN ---
DATE: SUBJECTIVE: The patient appears weak and exhausted. The patient's son at the bedside. The patient looks more jaundiced today. Scanty urinary output. PHYSICAL EXAMINATION: VITAL SIGNS: Blood pressure 118/73, heart rate 70, temperature 98.4, respirations 20. HEENT: Icteric sclerae. NECK: No JVD. CHEST: Bilateral rhonchi. HEART: S1 and S2, regular. ABDOMEN: Moderate ascites. EXTREMITIES: 2+ pitting edema. LABORATORY DATA: Today's BUN and creatinine are 79 and 2.7 respectively. Glucose 320. The patient's hemoglobin and hematocrit are 10.1 and 30, white count 7.3, and platelet count 74,000. ASSESSMENT: 1. Gram-negative bacteremia. 2. Bacterial endocarditis. 3. Worsening renal insufficiency. 4. Worsening cholestasis and jaundice. RECOMMENDATIONS: Case was discussed with the psychiatrist, Dr. Stas Knox and with the [employer]. I recommended evaluation by Anesthesia Team prior to scheduling the patient for AWILDA given the poor general condition of the patient and that was discussed with the patient#s son at the bedside. AWILDA is mainly a diagnostic tool and the patient can be treated for bacterial endocarditis and will be regardless of the outcome of the AWILDA. Any surgical findings that will be found in a AWILDA will not qualify the patient for any cardiothoracic surgery referral because of the overall poor condition. Gurinder Hernandez MD
--- NOTE | 2018-01-01 18:46 | PN ---
DATE: SUBJECTIVE: The patient is seen. The patient is more alert, but still with periods of confusion. He was seen with his family, who was trying to give him some fluids. The patient was then referred, was seen by Dr. Lee because of his kidney function. The patient's creatinine is still 2.7. His blood sugar is 330 and his GFR is 28. BUN is 79. The patient had been trying to drink some fluids. The patient is for possible AWILDA in the morning, but awaiting medical clearance due to his current medical condition. PHYSICAL EXAMINATION: VITAL SIGNS: Temperature is 98.4, pulse rate 70, blood pressure is 128/76, respirations 20, oxygen saturation is 97%. Patient note, the patient's dose of his antibiotic, the meropenem, was readjusted due to his renal status. REVIEW OF SYSTEMS: GENERAL: The patient is more alert, verbal, still with periods of confusion, speaks in soft voice, seen drinking some fluids. SKIN: No diaphoresis. HEENT: No headache, but his sclerae was still icteric. No dizziness. NECK: Supple. RESPIRATORY: No dyspnea. CARDIOVASCULAR: No chest pain. GASTROINTESTINAL: The patient has very poor p.o. intake. Abdominal pain. EXTREMITIES: The patient is moving extremities. MUSCULOSKELETAL: Feels weak. NEURO: Alert with intermittent periods of confusion. GENITOURINARY: No dysuria. MENTAL STATUS EXAMINATION: An elderly male, who looks stated age, oriented to place and person, seen with his family. Mood is dysphoric. Affect is restricted. Speech is slow, speaks in a soft voice. Thought process, confused off and on. Thought content, no overt psychosis. No suicidal or homicidal ideation. Attention and memory seem to be limited. Insight and judgement limited. Impulse control is fair at this time. IMPRESSION: History of alcohol dependence, alcohol withdrawal, Gram-negative sepsis, history of alcoholic hepatitis, failure to thrive, hypertension. PLAN AND RECOMMENDATIONS: The patient is seen, meds reviewed. Continue present management. The patient is awaiting renal evaluation for his kidney problems. Continue treatment plan as outlined. We will keep the patient off psych meds for now. The patient is for subacute rehab once medically cleared. Stas Knox MD [facility] # [id number]
--- NOTE | 2018-01-01 21:42 | CP.PCM.PN ---
Subjective - Date & Time of Evaluation Date of Evaluation: 01/01/18 Time of Evaluation: 21:41 - Subjective Subjective: CHIEF COMPLAINTS TODAY : afebrile, icteric, MORE AWAKE. S/P ERCP- FINDINGS NOTED 2D ECHO 12/20/17 ? AV-VEGETATIONS, RIGHT ATRIAL MASS ROS. HEENT : N. 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 Musculoskel : N Ext. : Pedal pulses intact, no edema or calf pain Derm : N Psych : N. PE. Pt. is CONFUSED ,AROUSABLE V.S As noted in the chart Head ,ear nose,throat and eyes : Normal. Neck : Supple with normal carotids. Lungs: Clear air entry. Heart : S1 & S2 normal . . No murmur. S4 + Abd : Soft non tender with normal bowel sounds/ LESS DISTENDED +VE ASCITES Neuro : Moves all ext. with no localized deficit. Ext : B/L EDEMA ,with intact pulses. Neg. calf tenderness Derm : No rashes or decubitus ulcer. Radiology/Labs . WBC 6.9 PLT 78 LOW CREAT2.7 /BUN 72 INCREASING ASCITES FLUID -VE GROWTH TO DATE x4days 12/19/17 REPEAT BLOOD CULTURES -VE GROWTH FOR 5 DAYS 12/16/17 BLOOD CULTURES +VE ESCHERICHIA COLI.2:2 SETS- LFTS BILIRUBIN 3.1,-->4.2--> 5.2 INCREASING-->6.1 TRANSAMINITES AST 126, ALT N, AP 194 Objective - Vital Signs/Intake and Output Vital Signs (last 24 hours): Temp Pulse Resp BP Pulse Ox 97.4 F L 86 20 102/63 96 01/01/18 15:08 01/01/18 15:08 01/01/18 15:08 01/01/18 17:26 01/01/18 15:08 - Medications Medications: Current Medications Acetaminophen (Tylenol 650 Mg Supp) 650 mg [place] Q6 PRN PRN Reason: fever of >100.4 and above Last Admin: 12/19/17 18:08 Dose: 650 mg Furosemide (Lasix) 40 mg IVP BID JE Last Admin: 01/01/18 17:26 Dose: 40 mg Dextrose (Dextrose 5% In Water 1000 Ml) 1,000 mls @ 60 mls/hr IV .[id number] [facility] Last Admin: 01/01/18 10:02 Dose: 60 mls/hr Meropenem 500 mg/ Sodium (Chloride) 100 mls @ 100 mls/hr IVPB Q8 JE PRN Reason: Protocol Last Admin: 01/01/18 21:29 Dose: 100 mls/hr Insulin Human Regular (Novolin R) 0 unit SC ACHS JE PRN Reason: Protocol Last Admin: 01/01/18 17:27 Dose: 5 unit Lactulose (Enulose) 20 gm PO BID [facility] Last Admin: 01/01/18 17:26 Dose: 20 gm Multivitamins/Vitamin C (Multi-Delyn Liquid) 5 ml PO DAILY [facility] Last Admin: 01/01/18 10:30 Dose: Not Given Spironolactone (Aldactone) 25 mg PO BID [facility] Last Admin: 12/25/17 10:17 Dose: Not Given Tamsulosin HCl (Flomax) 0.4 mg PO DAILY [facility] Last Admin: 01/01/18 13:27 Dose: 0.4 mg Thiamine HCl (Vitamin B1 Tab) 100 mg PO BID [facility] Last Admin: 01/01/18 17:30 Dose: 100 mg - Labs Labs: 01/01/18 06:54 01/01/18 06:54 PT 16.2 SECONDS (9.7-12.2) H 12/29/17 06:22 INR 1.4 12/29/17 06:22 APTT 37 SECONDS (21-34) H 12/29/17 06:22 Assessment and Plan (1) Gram-negative sepsis Status: Acute (2) Wound infection, posttraumatic Status: Acute (3) Alcoholic hepatitis Status: Acute (4) Fatty liver with encephalopathy Status: Acute (5) Leg edema Status: Acute (6) Failure to thrive Status: Acute (7) Thrombocytopenia Status: Acute (8) Hypertension Status: Acute - Assessment and Plan (Free Text) Plan: DECREASE iv MERREM 500mg iv q 8hrly. 12/17/17. (2weeks Rx-) F/U RENAL FUNCTION S CLOSELY. -EVAL IN PROGRESS R/O OBSTRUTIVE UROPATHY. FOR BLADDER SCAN PER . GI -S/P ERCP 12/29/17 - F/U GI RECOMENDATIONS FAMILY AT BEDSIDE .
--- NOTE | 2018-01-01 23:01 | CON ---
DATE: HISTORY OF PRESENT ILLNESS: The patient is a 72-year-old male who was admitted to the hospital because of edema, weakness, and found to have ascites. The patient post upper endoscopy could not urinate or the urine output was low. Lara catheter inserted, and the patient was pulling on it, and he pulled the catheter with the balloon inflate. After pulling the catheter, the patient was urinating and after hydrating him, he was fair amount, like bloody, with no clots and now it is clear. The patient is voiding and incontinent. No clots passing at this stage. PHYSICAL EXAMINATION: Revealed mild ascites, no suprapubic tenderness or fullness. Testicle and scrotum within normal limits. Penis, no edema, phimosis. Glans penis within normal limits. Rectal 1-1/2 prostate, smooth. IMPRESSION: Prostatic hypertrophy. The patient voiding at this stage. Trauma to the urethra from the balloon but no bleeding at this stage. PLAN: Followup and follow his urine output. Alistair Snell MD
[2018-01-02 06:14] LABS: HEMOGLOBIN 10.5 g/dL (12.0-18.0); MEAN CELL VOLUME 100.3 fL (80.0-94.0); MEAN CORPUSCULAR HEMOGLOBIN 34.3 pg (27.0-31.0); MEAN CORPUSCULAR HGB CONC 34.2 g/dL (33.0-37.0); MEAN PLATELET VOLUME 10.9 fL (7.2-11.7); RBC 3.07 Mil/uL (4.40-5.90)
[2018-01-02] MEDS: (Novolin R) Insulin Human Regular 100 units/ml vial SC SCH ×4 (08:10→21:14)
[2018-01-02] MEDS: Multiple Vitamins Oral Solution PO SCH (10:03)
--- NOTE | 2018-01-02 11:11 | CP.PCM.CON ---
History of Present Illness - History of Present Illness History of Present Illness: pt is seen and examined, full consult is dictated #[id number] 1. GLENN, most likely sec to ATN 2. cirrhosis of liver 3. HTN 4. S/p gram neg sepsis check hept.serology hba1c, lipid profile check Ammonia level,r/o hepatic encephalopathy consider gentle hydration Past Patient History - Past Medical History & Family History Past Medical History?: Yes - Past Social History Smoking Status: Former Smoker - CARDIAC Hx Hypertension: Yes - RENAL Hx Renal Failure: Yes - ENDOCRINE/METABOLIC Hx Diabetes Mellitus Type 2: Yes - MUSCULOSKELETAL/RHEUMATOLOGICAL Hx Falls: Yes - PSYCHIATRIC Hx Substance Use: No - SURGICAL HISTORY Hx Surgeries: Yes Hx Herniorrhaphy: Yes (Umbilical) - ANESTHESIA Hx Anesthesia: Yes Hx Anesthesia Reactions: No Hx Malignant Hyperthermia: No Has any member of the family had a problem w/ anesthesia?: No Meds Allergies/Adverse Reactions: Allergies Allergy/AdvReac Type Severity Reaction Status Date / Time No Known Allergies Allergy Verified 12/14/17 15:26 - Medications Medications: Current Medications Acetaminophen (Tylenol 650 Mg Supp) 650 mg [place] Q6 PRN PRN Reason: fever of >100.4 and above Last Admin: 12/19/17 18:08 Dose: 650 mg Furosemide (Lasix) 40 mg IVP BID [facility] Last Admin: 01/02/18 10:03 Dose: 40 mg Dextrose (Dextrose 5% In Water 1000 Ml) 1,000 mls @ 60 mls/hr IV .[id number] [facility] Last Admin: 01/02/18 02:00 Dose: Not Given Meropenem 500 mg/ Sodium (Chloride) 100 mls @ 100 mls/hr IVPB Q8 JE PRN Reason: Protocol Last Admin: 01/01/18 21:29 Dose: 100 mls/hr Insulin Human Regular (Novolin R) 0 unit SC ACHS JE PRN Reason: Protocol Last Admin: 01/02/18 08:10 Dose: 5 unit Lactulose (Enulose) 20 gm PO BID [facility] Last Admin: 01/02/18 10:03 Dose: 20 gm Multivitamins/Vitamin C (Multi-Delyn Liquid) 5 ml PO DAILY [facility] Last Admin: 01/02/18 10:03 Dose: 5 ml Spironolactone (Aldactone) 25 mg PO BID [facility] Last Admin: 03/26/18 10:17 Dose: Not Given Tamsulosin HCl (Flomax) 0.4 mg PO DAILY [facility] Last Admin: 01/02/18 10:03 Dose: 0.4 mg Thiamine HCl (Vitamin B1 Tab) 100 mg PO BID [facility] Last Admin: 01/02/18 10:03 Dose: 100 mg Results - Vital Signs Recent Vital Signs: Last Vital Signs Temp 97.3 F L 01/02/18 07:15 Pulse 89 01/02/18 07:15 Resp 18 01/02/18 07:15 BP 101/62 01/02/18 10:03 Pulse Ox 95 01/02/18 07:15 - Labs Result Diagrams: 01/02/18 06:07 01/02/18 06:07 Labs: Laboratory Results - last 24 hr 12/31/17 01/01/18 01/01/18 17:59 11:52 16:40 WBC RBC Hgb Hct MCV MCH MCHC RDW Plt Count MPV Sodium Potassium Chloride Carbon Dioxide Anion Gap BUN Creatinine Est GFR ( Amer) Est GFR (Non-Af Amer) POC Glucose (mg/dL) 330 H 350 H Random Glucose Calcium Urine Chloride 78 01/01/18 01/02/18 01/02/18 21:31 05:58 06:07 WBC 7.0 RBC 3.07 L Hgb 10.5 L Hct 30.8 L MCV 100.3 H MCH 34.3 H MCHC 34.2 RDW 16.0 H Plt Count 69 L MPV 10.9 Sodium Potassium Chloride Carbon Dioxide Anion Gap BUN Creatinine Est GFR ( Amer) Est GFR (Non-Af Amer) POC Glucose (mg/dL) 316 H 363 H Random Glucose Calcium Urine Chloride 01/02/18 06:07 WBC RBC Hgb Hct MCV MCH MCHC RDW Plt Count MPV Sodium 139 Potassium 4.7 Chloride 101 Carbon Dioxide 27 Anion Gap 15 BUN 75 H Creatinine 2.7 H Est GFR ( Amer) 28 Est GFR (Non-Af Amer) 23 POC Glucose (mg/dL) Random Glucose 354 H Calcium 9.0 Urine Chloride
[2018-01-02 11:55] LABS: HEPATITIS B SURFACE AG Negative (NEGATIVE)
[2018-01-02 12:01] LABS: HEPATITIS A IGM NEGATIVE (NEGATIVE); HEPATITIS B CORE AB NEGATIVE (NEGATIVE)
--- NOTE | 2018-01-02 12:12 | CP.PCM.PN ---
Subjective - Date & Time of Evaluation Date of Evaluation: 01/01/18 Time of Evaluation: 18:00 Objective - Vital Signs/Intake and Output Vital Signs (last 24 hours): Temp Pulse Resp BP Pulse Ox 97.3 F L 89 18 101/62 95 01/02/18 07:15 01/02/18 07:15 01/02/18 07:15 01/02/18 10:03 01/02/18 07:15 Intake and Output: 01/02/18 01/02/18 06:59 18:59 Intake Total 1240 Output Total 400 Balance 840 - Medications Medications: Current Medications Acetaminophen (Tylenol 650 Mg Supp) [address] Q6 PRN PRN Reason: fever of >100.4 and above Last Admin: 12/19/17 18:08 Dose: 650 mg Furosemide (Lasix) 40 mg IVP BID [facility] Last Admin: 01/02/18 10:03 Dose: 40 mg Dextrose (Dextrose 5% In Water 1000 Ml) 1,000 mls @ 60 mls/hr IV .[id number] [facility] Last Admin: 01/02/18 02:00 Dose: Not Given Meropenem 500 mg/ Sodium (Chloride) 100 mls @ 100 mls/hr IVPB Q8 JE PRN Reason: Protocol Last Admin: 01/01/18 21:29 Dose: 100 mls/hr Insulin Human Regular (Novolin R) 0 unit SC ACHS JE PRN Reason: Protocol Last Admin: 01/02/18 08:10 Dose: 5 unit Lactulose (Enulose) 20 gm PO BID [facility] Last Admin: 01/02/18 10:03 Dose: 20 gm Multivitamins/Vitamin C (Multi-Delyn Liquid) 5 ml PO DAILY [facility] Last Admin: 01/02/18 10:03 Dose: 5 ml Spironolactone (Aldactone) 25 mg PO BID [facility] Last Admin: 12/25/17 10:17 Dose: Not Given Tamsulosin HCl (Flomax) 0.4 mg PO DAILY [facility] Last Admin: 01/02/18 10:03 Dose: 0.4 mg Thiamine HCl (Vitamin B1 Tab) 100 mg PO BID [facility] Last Admin: 01/02/18 10:03 Dose: 100 mg - Labs Labs: 01/02/18 06:07 01/02/18 06:07 PT 16.2 SECONDS (9.7-12.2) H 12/29/17 06:22 INR 1.4 12/29/17 06:22 APTT 37 SECONDS (21-34) H 12/29/17 06:22 Assessment and Plan (1) Alcoholic hepatitis Status: Acute (2) Hypertension Status: Acute
[2018-01-02 12:13] LABS: HEPATITIS C ANTIBODY NEGATIVE (NEGATIVE)
--- NOTE | 2018-01-02 12:56 | CP.PCM.PN ---
Subjective - Date & Time of Evaluation Date of Evaluation: 01/02/18 Time of Evaluation: 10:50 - Subjective Subjective: Patient seen today , lethargic, arousable , oriented to person and place, denies any complaints a febrile BUN/CR . still elevated Objective - Vital Signs/Intake and Output Vital Signs (last 24 hours): Temp Pulse Resp BP Pulse Ox 97.3 F L 89 18 101/62 95 01/02/18 07:15 01/02/18 07:15 01/02/18 07:15 01/02/18 10:03 01/02/18 07:15 Intake and Output: 01/02/18 01/02/18 06:59 18:59 Intake Total 1240 Output Total 400 Balance 840 - Medications Medications: Current Medications Acetaminophen (Tylenol 650 Mg Supp) 650 mg [place] Q6 PRN PRN Reason: fever of >100.4 and above Last Admin: 12/19/17 18:08 Dose: 650 mg Furosemide (Lasix) 40 mg IVP BID [facility] Last Admin: 01/02/18 10:03 Dose: 40 mg Dextrose (Dextrose 5% In Water 1000 Ml) 1,000 mls @ 60 mls/hr IV .[id number] [facility] Last Admin: 01/02/18 02:00 Dose: Not Given Meropenem 500 mg/ Sodium (Chloride) 100 mls @ 100 mls/hr IVPB Q8 JE PRN Reason: Protocol Last Admin: 01/01/18 21:29 Dose: 100 mls/hr Insulin Human Regular (Novolin R) 0 unit SC ACHS JE PRN Reason: Protocol Last Admin: 01/02/18 08:10 Dose: 5 unit Lactulose (Enulose) 20 gm PO BID [facility] Last Admin: 01/02/18 10:03 Dose: 20 gm Lactulose (Enulose) 20 gm PO ONCE ONE Stop: 01/02/18 14:01 Multivitamins/Vitamin C (Multi-Delyn Liquid) 5 ml PO DAILY [facility] Last Admin: 01/02/18 10:03 Dose: 5 ml Spironolactone (Aldactone) 25 mg PO BID [facility] Last Admin: 12/25/17 10:17 Dose: Not Given Tamsulosin HCl (Flomax) 0.4 mg PO DAILY [facility] Last Admin: 01/02/18 10:03 Dose: 0.4 mg Thiamine HCl (Vitamin B1 Tab) 100 mg PO BID JE Last Admin: 01/02/18 10:03 Dose: 100 mg - Labs Labs: 01/02/18 06:07 01/02/18 06:07 PT 16.2 SECONDS (9.7-12.2) H 12/29/17 06:22 INR 1.4 12/29/17 06:22 APTT 37 SECONDS (21-34) H 12/29/17 06:22 - Constitutional Appears: Chronically Ill, Other (mild resp. distress ) - Eye Exam Eye Exam: Scleral icterus - Respiratory Exam Respiratory Exam: Decreased Breath Sounds, NORMAL BREATHING PATTERN - Cardiovascular Exam Cardiovascular Exam: REGULAR RHYTHM, +S1, +S2 - GI/Abdominal Exam GI & Abdominal Exam: Soft (+ tendereness, mild ascitis ) - Exam Exam: Bladder Distension - Neurological Exam Neurological Exam: Alert, Awake Assessment and Plan - Assessment and Plan (Free Text) Assessment: a/p GRAM NEGATIVE SEPSIS GLENN- BUN/CR STILL ELEVATED , WILL CONTINUE WITH GENTLE HYDRATION , DR. KAUFMAN ON CONSULT , BLADDER SCAN - 655 ML , F/C INSERTED , WILL DO RENAL ULTRASOUND AMMONIA 53 TODAY - CONTINUE WITH LACTULOSE AND REPEAT LABS IN AM D/W WIT DR. MCKEON , RESTART MERRUM 250 MG Q 12 HRS THE ABOVE PLAN DISCUSSED WITH DR. OMALLEY AND AGREES
--- NOTE | 2018-01-02 13:18 | PN ---
DATE: SUBJECTIVE: The patient is more alert, verbal, still has periods of confusion, but offers no new complaints. He has been drinking more fluids. The patient awaiting evaluation by Dr. Lee, hospital medical assistant as this patient's creatinine is still high 2.7, his GFR is 28, the BUN is 75. The patient's dose of his antibiotic was readjusted. Other than that, no behavioral problems. PHYSICAL EXAMINATION: VITAL SIGNS: Temperature is 97.3, pulse rate 89, blood pressure 101/62, respirations 18, oxygen saturation is 95%. REVIEW OF SYSTEMS: GENERAL: The patient is alert, less confused, not in acute respiratory distress. SKIN: No pruritus. HEENT: Sclerae are less icteric. No headache. NECK: Supple. RESPIRATORY: No dyspnea. CARDIOVASCULAR: No chest pain. GASTROINTESTINAL: The patient has been trying to drink more fluids. No abdominal pain. EXTREMITIES: The patient's gait is unsteady. The patient has been mostly bed-bound. MUSCULOSKELETAL: Generalized weakness. GENITOURINARY: No dysuria. NEURO: Alert with periods of confusion. He is not agitated. He is more responsive. MENTAL STATUS EXAMINATION: An elderly male, who looks stated age, oriented x2. Mood is dysphoric. Affect is restricted. Speech is slow. Thought process, confused off and on. Thought content, no overt psychosis. No suicidal or homicidal ideation. Attention and memory seems to be limited. Insight and judgement limited. Impulse control is fair at this time. IMPRESSION: History of alcohol dependence, alcohol withdrawal, delirium, failure to thrive. PLAN AND RECOMMENDATIONS: The patient is seen, meds reviewed. Continue present management. The patient is awaiting evaluation of Dr. Lee, hospital medical assistant. Continue treatment plan as outlined. The patient is awaiting medical clearance prior to transfer to the senior care for subacute rehab. Stas Knox MD
[2018-01-02 13:21] LABS: ALB/GLOB RATIO 0.5 (1.0-2.1); ALBUMIN 2.3 g/dL (3.5-5.0); BILIRUBIN,DIRECT 3.1 mg/dL (0.0-0.4)
--- NOTE | 2018-01-02 15:28 | US ---
PROCEDURE: Ultrasound of the Kidneys HISTORY: urinary retention , ARF COMPARISON: None available. TECHNIQUE: Sonogram of the kidneys. FINDINGS: RIGHT KIDNEY: Measures: 4.4 x 4.6 x 8.8 cm. Normal in size, contour and echogenicity. No stone, solid mass lesion or hydronephrosis visualized. LEFT KIDNEY: Measures: 4.4 x 5 x 9.2 cm. Normal in size, contour and echogenicity. No stone, solid mass lesion or hydronephrosis visualized. OTHER FINDINGS: Incompletely visualized abdominal ascites. Lara catheter identified in a decompressed urinary bladder. IMPRESSION: Unremarkable renal sonogram.
--- NOTE | 2018-01-02 20:33 | PN ---
DATE: SUBJECTIVE: The patient is still lethargic. He is getting few drinks, he is on liquid diet with the help of his son. A Lara catheter was inserted as the patient was found to be retaining urine. PHYSICAL EXAMINATION: VITAL SIGNS: Blood pressure 101/62, heart rate 89, temperature 97.3, respirations 18. HEENT: Acute conjunctivae. CHEST: Absent breath sounds over the bases. HEART: S1, S2 regular. ABDOMEN: Mild ascites. EXTREMITIES: 1+ pitting edema. LABORATORY DATA: Today's BUN and creatinine 75 and 2.7. Glucose 364. Rest of SMA-7 is within normal limits. Alkaline phosphatase is 216. Today's hemoglobin and hematocrit 10.5 and 30.8, white count 7.0, platelet count 69,000. Renal ultrasound, unremarkable study. ASSESSMENT: 1. Bacterial endocarditis of the aortic valve. 2. Gram-negative bacteremia. 3. Obstructive uropathy with acute renal failure. 4. Thrombocytopenia. 5. Portal hypertension and cholestasis. RECOMMENDATIONS: The case was discussed at length with the patient's son at bedside and with WOOD CUTTER. Continue current lactulose, IV Lasix, and oral thiamine. Transesophageal echocardiographic study does require moderate sedation, will not be safe to perform at this time, and we will not add to the management options except for duration of the intravenous antibiotics and the patient can be attributing it as presumed endocarditis of the aortic valve until full course of appropriate intravenous antibiotic therapy is completed. Gurinder Hernandez MD cc:
--- NOTE | 2018-01-02 22:31 | CP.PCM.PN ---
Subjective - Date & Time of Evaluation Date of Evaluation: 01/02/18 Time of Evaluation: 22:31 - Subjective Subjective: Patient seen today , lethargic, arousable , oriented to person and place, C/O PAIN LT FLANK afebrile BUN/CR . still elevated . LABS REVIEWED; CASE DISCUSSED WITH CHIEF ENGINEER [employer]ODUCTION.MS PERSAUD Objective - Vital Signs/Intake and Output Vital Signs (last 24 hours): Temp Pulse Resp BP Pulse Ox 97.2 F L 96 H 20 90/70 L 95 01/02/18 15:36 01/02/18 15:36 01/02/18 15:36 01/02/18 17:14 01/02/18 15:36 Intake and Output: 01/02/18 01/03/18 18:59 06:59 Intake Total 600 Output Total 200 Balance 400 - Medications Medications: Current Medications Acetaminophen (Tylenol 650 Mg Supp) 650 mg [place] Q6 PRN PRN Reason: fever of >100.4 and above Last Admin: 12/19/17 18:08 Dose: 650 mg Furosemide (Lasix) 40 mg IVP BID [facility] Last Admin: 01/02/18 17:14 Dose: 40 mg Dextrose (Dextrose 5% In Water 1000 Ml) 1,000 mls @ 60 mls/hr IV .[id number] [facility] Last Admin: 01/02/18 18:00 Dose: 60 mls/hr Meropenem 250 mg/ Sodium (Chloride) 100 mls @ 100 mls/hr IVPB Q12 JE PRN Reason: Protocol Last Admin: 01/02/18 21:15 Dose: 100 mls/hr Insulin Human Regular (Novolin R) 0 unit SC ACHS JE PRN Reason: Protocol Last Admin: 01/02/18 21:14 Dose: Not Given Lactulose (Enulose) 20 gm PO BID [facility] Last Admin: 01/02/18 17:14 Dose: 20 gm Multivitamins (Hexavitamin) 1 tab PO DAILY [facility] Sitagliptin Phosphate (Januvia) 25 mg PO DAILY [facility] Last Admin: 01/02/18 14:08 Dose: 25 mg Spironolactone (Aldactone) 25 mg PO BID [facility] Last Admin: 12/25/17 10:17 Dose: Not Given Tamsulosin HCl (Flomax) 0.4 mg PO DAILY [facility] Last Admin: 01/02/18 10:03 Dose: 0.4 mg Thiamine HCl (Vitamin B1 Tab) 100 mg PO BID [facility] Last Admin: 01/02/18 17:16 Dose: 100 mg - Labs Labs: 01/02/18 06:07 01/02/18 06:07 PT 16.2 SECONDS (9.7-12.2) H 12/29/17 06:22 INR 1.4 12/29/17 06:22 APTT 37 SECONDS (21-34) H 12/29/17 06:22 - Constitutional Appears: Cachectic, Chronically Ill - Head Exam Head Exam: NORMAL INSPECTION - Eye Exam Eye Exam: EOMI, PERRL, Scleral icterus - ENT Exam ENT Exam: Normal Oropharynx - Neck Exam Neck Exam: Normal Inspection - Respiratory Exam Respiratory Exam: Decreased Breath Sounds - Cardiovascular Exam Cardiovascular Exam: Tachycardia, REGULAR RHYTHM, +S1, +S2 - GI/Abdominal Exam GI & Abdominal Exam: Soft, Tenderness (GENERALIZED BRONWYN. LT FLANK), Hypoactive Bowel Sounds - Extremities Exam Extremities Exam: absent: Calf Tenderness, Pedal Edema - Neurological Exam Neurological Exam: Altered, Awake - Psychiatric Exam Psychiatric exam: Flat Affect - Skin Skin Exam: Normal Color, Warm Assessment and Plan (1) Gram-negative sepsis Status: Acute (2) Wound infection, posttraumatic Status: Acute (3) Alcoholic hepatitis Status: Acute (4) Fatty liver with encephalopathy Status: Acute (5) Leg edema Status: Acute (6) Failure to thrive Status: Acute (7) Thrombocytopenia Status: Acute (8) Hypertension Status: Acute - Assessment and Plan (Free Text) Plan: GRAM NEGATIVE SEPSIS E. [facility]- BUN/CR STILL ELEVATED DR. KAUFMAN ON CONSULT , BLADDER SCAN - 655 ML , F/C INSERTED , FOR RENAL ULTRASOUND AMMONIA 53 HIGH AGAIN TODAY - CONTINUE WITH LACTULOSE PER PMD RESTART MERRUM 250 MG Q 12 HRS . F/U RENAL FUNCTION.
--- NOTE | 2018-01-02 23:08 | CP.PCM.PN ---
Subjective - Date & Time of Evaluation Date of Evaluation: 01/02/18 Time of Evaluation: 18:30 - Subjective Subjective: Patient seen today , lethargic, arousable , oriented to person and place, C/O PAIN LT FLANK afebrile BUN/CR . still elevated . Objective - Vital Signs/Intake and Output Vital Signs (last 24 hours): Temp Pulse Resp BP Pulse Ox 97.2 F L 96 H 20 90/70 L 95 01/02/18 15:36 01/02/18 15:36 01/02/18 15:36 01/02/18 17:14 01/02/18 15:36 Intake and Output: 01/02/18 01/03/18 18:59 06:59 Intake Total 600 Output Total 200 Balance 400 - Medications Medications: Current Medications Acetaminophen (Tylenol 650 Mg Supp) 650 mg [place] Q6 PRN PRN Reason: fever of >100.4 and above Last Admin: 12/19/17 18:08 Dose: 650 mg Furosemide (Lasix) 40 mg IVP BID [facility] Last Admin: 01/02/18 17:14 Dose: 40 mg Dextrose (Dextrose 5% In Water 1000 Ml) 1,000 mls @ 60 mls/hr IV .[id number] [facility] Last Admin: 01/02/18 18:00 Dose: 60 mls/hr Meropenem 250 mg/ Sodium (Chloride) 100 mls @ 100 mls/hr IVPB Q12 JE PRN Reason: Protocol Last Admin: 01/02/18 21:15 Dose: 100 mls/hr Insulin Human Regular (Novolin R) 0 unit SC ACHS JE PRN Reason: Protocol Last Admin: 01/02/18 21:14 Dose: Not Given Lactulose (Enulose) 20 gm PO BID [facility] Last Admin: 01/02/18 17:14 Dose: 20 gm Multivitamins (Hexavitamin) 1 tab PO DAILY [facility] Sitagliptin Phosphate (Januvia) 25 mg PO DAILY [facility] Last Admin: 01/02/18 14:08 Dose: 25 mg Spironolactone (Aldactone) 25 mg PO BID [facility] Last Admin: 12/25/17 10:17 Dose: Not Given Tamsulosin HCl (Flomax) 0.4 mg PO DAILY [facility] Last Admin: 01/02/18 10:03 Dose: 0.4 mg Thiamine HCl (Vitamin B1 Tab) 100 mg PO BID [facility] Last Admin: 01/02/18 17:16 Dose: 100 mg - Labs Labs: 01/02/18 06:07 01/02/18 06:07 PT 16.2 SECONDS (9.7-12.2) H 12/29/17 06:22 INR 1.4 12/29/17 06:22 APTT 37 SECONDS (21-34) H 12/29/17 06:22 Assessment and Plan (1) Alcoholic hepatitis Status: Acute (2) Hypertension Status: Acute
[2018-01-03 07:15] LABS: CALCIUM 8.7 mg/dl (8.6-10.4)
[2018-01-03] MEDS: (Novolin R) Insulin Human Regular 100 units/ml vial SC SCH ×4 (08:55→21:27)
[2018-01-03 09:49] LABS: ABG ALLEN TEST PO; ARTERIAL BLOOD GAS HCO3 25.3 mmol/L (21-28); ARTERIAL BLOOD GAS HEMOGLOBIN 11.9 g/dL (11.7-17.4); ARTERIAL BLOOD GAS O2 SAT 91.4 % (95-98); ARTERIAL BLOOD GAS PCO2 34 mm/Hg (35-45); ARTERIAL BLOOD GAS PH 7.46 (7.35-7.45); ARTERIAL BLOOD GAS PO2 52 mm/Hg (80-100); ARTERIAL BLOOD GAS TCO2 25.2 mmol/L (22-28)
--- NOTE | 2018-01-03 10:08 | CON ---
DATE: LOCATION: The patient is located in room 651, bed B. REQUESTED BY: Jayden Johnson MD REASON FOR RENAL CONSULTATION: Increased BUN and creatinine and for further evaluation. HISTORY OF PRESENT ILLNESS: Mr. Crain is about 72-year-old, elderly male with a past medical history significant for hypertension, questionable diabetes, EtOH abuse, who was initially admitted on 12/14/2017, was admitted initially with bilateral leg swelling, not relieved with diuretics. The patient was unable to get out of the bed and felt too weak. The patient had to slide out of the bed and denied any trauma, injury, fall headache, loss of consciousness, chest pain, shortness of breath, numbness, and weakness on side of the body initially, and subsequently the patient was found in the hospital with increased BUN and creatinine and also urosepsis. Blood culture and urine culture was positive for E. coli. Initially, the patient was treated with vancomycin and Zosyn, subsequently changed to meropenem. The patient also underwent paracentesis and drained about 1250 mL of ascitic fluid. Now, Renal consult requested for evaluation of increased BUN and creatinine. Unable to get much history from the patient. The patient is a very poor historian. Chart reviewed and history obtained from the review of the chart and also from the nurse practitioner at bedside. PAST MEDICAL HISTORY: Significant for hypertension, cirrhosis of the liver, questionable diabetes. PAST SURGICAL HISTORY: Denies. ALLERGIES: NO KNOWN DRUG ALLERGIES. SOCIAL HISTORY: Former drinker, and also has history of smoking. Denies any drug abuse. FAMILY HISTORY: Not significant. CURRENT MEDICATIONS: Include Aldactone, on hold, 25 mg p.o. b.i.d., IV fluids D5W at 60 mL/hour, lactulose 20 gm p.o. b.i.d., Flomax 0.4 mg p.o. daily, multivitamin one tablet daily, Januvia 25 mg p.o. daily, Lasix 40 mg IV b.i.d., meropenem 250 mg every 12 hours, Novolin R for sliding scale, Tylenol 650 mg every 6 hours, thiamine 100 mg p.o. b.i.d., pneumococcal vaccine x1 on 12/16/2017. REVIEW OF SYSTEMS: Significant for confusion, and also edema and sepsis on admission. All other review of systems reviewed as per HPI. PHYSICAL EXAMINATION: VITAL SIGNS: On physical exam this morning as follows: Blood pressure 101/62, pulse 89, respirations 18, temperature 97.3, saturations 95%. Height 5 feet 7 inches, weight is 180 pounds. GENERAL: Mr. Crain is a 72-year-old elderly male, well-built, well-nourished, not in acute distress. HEENT: Pupils normal and reactive to light and accommodation. Conjunctivae pink. Sclerae are icteric. Tongue is moist and trachea is midline. LUNGS: Symmetric on both sides. Bilateral breath sounds present. Clear to auscultation. CVS: Schaller at the fifth intercostal space, midclavicular line. S1, S2 audible. No murmur or gallop. ABDOMEN: Normal in appearance. Slightly distended and soft. Mild suprapubic dullness present. No guarding. No rigidity. No hepatosplenomegaly. [employer]IVITY: The patient is awake, following simple commands, oriented x1 to 2. Sensory-motor system is grossly within normal limits. Cranial nerves II through XII grossly intact. EXTREMITIES: No cyanosis, no clubbing, no edema. LABORATORY DATA: Include as follows: As of 01/02/2018, WBC 7, hemoglobin 10.5, hematocrit is 30.8, platelets 69. Sodium 139, potassium 4.7, chloride 101, CO2 27, BUN 75, creatinine 2.7, glucose 354, and hemoglobin A1c 7.10, calcium 9, total bilirubin 4.3, direct bilirubin is 3.1. AST 159, ALT 50, alkaline phosphatase 216, total protein 7.0, albumin is 2.3. Hepatitis C antibody IgM negative, B surface antigen negative. Core antibody is negative. Hepatitis C antibody is negative. Ammonia level this morning is 53. As of 12/14/2017, WBC 5.2, hemoglobin 11.9, hematocrit is 34.9, platelets 65. Repeat PT 19.4, INR 35. Sodium 139, potassium 3.4, chloride 104, CO2 22, BUN 28, and creatinine 1.1. Glucose is 196, calcium 8.2, alpha-fetoprotein is 4.9, CEA is 9.4, CA 19-9 is 129. Other laboratory data: As of 12/16/2017, his blood culture is positive for E. coli x2, his urine culture was negative, and wound culture positive for Klebsiella pneumonia. Blood culture x2 negative as of 12/19/2017. Ascitic fluid as of 12/26/2017 was negative, no growth after 4 days. His creatinine as of 12/14/2017, 1.2. As of 12/18/2017, creatinine is 0.9. Urinalysis as of 12/24/2017, shyam, hazy, pH 5, specific 1.015, protein negative, glucose negative, ketones negative, blood negative, nitrites negative, bilirubin negative, urobilinogen 4.0, leukocyte esterase negative, and wbc's 2, rbc's 1, bacteria rare, and hyaline cast more than 20. As of 12/31/2017, urine chloride is 78, urine osmolality 463, urine creatinine 92.4, urine sodium is 95. Urine eosinophils are negative. IMPRESSION: Ultrasound of the abdomen: Nodular contour of the liver, increased echogenicity compatible with hepatocellular disease versus fatty infiltration, markedly dilated common bile duct without intrahepatic bile duct dilatation. Ultrasound of the kidneys: Right kidney 4.4 cm x 4.6 cm x 8.8 cm, normal size, contour, and echodensity. Left kidney measures 4.4 cm x 5 cm x 9.2 cm, normal size, contour, and echodensity. Incompletely visualized abdominal ascites, Lara catheter identified, and decompression of the urinary bladder. IMPRESSION: Unremarkable urinary sonogram. In summary, Mr. Crain is a 72-year-old elderly male with a history of hypertension, questionable diabetes, cirrhosis of the liver, was admitted initially with weakness and found to have Escherichia coli sepsis, initially treated with vancomycin and Zosyn, subsequently changed to meropenem with a dilated common bile duct, and status post paracentesis, and increasing BUN and creatinine, increased liver function tests. 1. Nonoliguric acute renal failure, most likely secondary to acute tubular necrosis, cannot rule out secondary to drugs and spironolactone. 2. Cirrhosis of the liver. 3. Thrombocytopenia, most likely secondary to cirrhosis of the liver. 4. Status post Gram-negative sepsis. PLAN: I discussed with the nurse practitioner this morning in rounds and checked bladder scan to rule out any residual urine. Consider to place a TAXUS catheter for strict I's and O's. May need gentle IV hydration and also continue lactulose. Repeat BMP daily and we will follow with you. Thank you for allowing me to participate in your patient's care. Neri Lee MD
[2018-01-03] MEDS: Multiple Vitamins Tab PO SCH (10:34)
[2018-01-03] MEDS ORDERED: Dextrose 5%/0.45% NS 1,000 ML IV SCH (11:15)
--- NOTE | 2018-01-03 12:09 | US ---
PROCEDURE: Ultrasound of the Bladder HISTORY: urinary retention COMPARISON: None available. TECHNIQUE: Sonographic evaluation of the bladder was performed. FINDINGS: Minimally distended bladder, limiting evaluation for wall thickening. Pelvic ascites. Prevoid Volume: 158.5 cc. Patient unable to void. IMPRESSION: Minimally distended bladder, limited evaluation for wall thickening. Patient unable to void. Pelvic ascites.
--- NOTE | 2018-01-03 12:14 | CP.PCM.PCO ---
Physician Communication Note - Physician Communication Note Physician Communication Note: Family meeting today at 2 pm
--- NOTE | 2018-01-03 13:44 | CP.PCM.CON ---
History of Present Illness - History of Present Illness History of Present Illness: Palliative consult requested by Nigel CHAN for goals of care and Advanced Planing Patient is a 72 yo AA male admitted on 12/14/2017 with edema to B/L LEs X 2 months. Patient was not able to ambulate due to heaviness in his legs. Patient denied any injury/trauma. Multiple diagnostic studies provided on this admissin concluded hepatocellular injury most likely due to ETOH and gastric malignancy indicated by elevated CA and CEA. Patient is post paracentesis on 12/29/17. Ammonia level high. Wound and blood cultures +, Merrem IV on board. PMH: former smoker, ETOH, HTN Soc. hx: , retired, has two daughter Fam. Hx: No fam Hx. reported. Review of Systems - Review of Systems All systems: reviewed and no additional remarkable complaints except Review of Systems: ROS unobtainable due to lethargy. Per nursing, patient has been lethargicandAmmonia remais high. Past Patient History - Past Medical History & Family History Past Medical History?: Yes - Past Social History Smoking Status: Former Smoker - CARDIAC Hx Hypertension: Yes - RENAL Hx Renal Failure: Yes - ENDOCRINE/METABOLIC Hx Diabetes Mellitus Type 2: Yes - MUSCULOSKELETAL/RHEUMATOLOGICAL Hx Falls: Yes - PSYCHIATRIC Hx Substance Use: No - SURGICAL HISTORY Hx Surgeries: Yes Hx Herniorrhaphy: Yes (Umbilical) - ANESTHESIA Hx Anesthesia: Yes Hx Anesthesia Reactions: No Hx Malignant Hyperthermia: No Has any member of the family had a problem w/ anesthesia?: No Meds Allergies/Adverse Reactions: Allergies Allergy/AdvReac Type Severity Reaction Status Date / Time No Known Allergies Allergy Verified 12/14/17 15:26 - Medications Medications: Current Medications Acetaminophen (Tylenol 650 Mg Supp) 650 mg [place] Q6 PRN PRN Reason: fever of >100.4 and above Last Admin: 12/19/17 18:08 Dose: 650 mg Furosemide (Lasix) 40 mg IVP BID [facility] Last Admin: 01/03/18 10:34 Dose: 40 mg Meropenem 250 mg/ Sodium (Chloride) 100 mls @ 100 mls/hr IVPB Q12 JE PRN Reason: Protocol Last Admin: 01/03/18 10:33 Dose: 100 mls/hr Dextrose/Sodium Chloride (Dextrose 5%/0.45% Ns 1000 Ml) 1,000 mls @ 50 mls/hr IV .Q20H [facility] Last Admin: 01/03/18 12:14 Dose: 50 mls/hr Insulin Human Regular (Novolin R) 0 unit SC [facility] PRN Reason: Protocol Last Admin: 01/03/18 12:15 Dose: 4 unit Lactulose (Enulose) 20 gm PO BID [facility] Last Admin: 01/03/18 10:33 Dose: 20 gm Multivitamins (Hexavitamin) 1 tab PO DAILY [facility] Last Admin: 01/03/18 10:34 Dose: 1 tab Sitagliptin Phosphate (Januvia) 25 mg PO DAILY [facility] Last Admin: 01/03/18 10:33 Dose: 25 mg Spironolactone (Aldactone) 25 mg PO BID [facility] Last Admin: 12/25/17 10:17 Dose: Not Given Tamsulosin HCl (Flomax) 0.4 mg PO DAILY [facility] Last Admin: 01/03/18 10:34 Dose: 0.4 mg Thiamine HCl (Vitamin B1 Tab) 100 mg PO BID [facility] Last Admin: 01/03/18 10:33 Dose: 100 mg Physical Exam - Constitutional Appears: In Acute Distress, Chronically Ill - Head Exam Head Exam: ATRAUMATIC, NORMAL INSPECTION, NORMOCEPHALIC - Eye Exam Pupil Exam: NORMAL ACCOMODATION - ENT Exam ENT Exam: Normal Exam - Neck Exam Neck exam: Positive for: Normal Inspection - Respiratory Exam Respiratory Exam: Decreased Breath Sounds - Cardiovascular Exam Cardiovascular Exam: Tachycardia - GI/Abdominal Exam GI & Abdominal Exam: Diminished Bowel Sounds, Distended - Rectal Exam Rectal Exam: Deferred - Exam Exam: NORMAL INSPECTION - Extremities Exam Extremities exam: Positive for: pedal edema - Back Exam Back exam: NORMAL INSPECTION - Neurological Exam Neurological exam: Altered - Psychiatric Exam Psychiatric exam: Flat Affect Results - Vital Signs Recent Vital Signs: Last Vital Signs Temp 97.7 F 01/03/18 07:10 Pulse 80 01/03/18 07:10 Resp 20 01/03/18 07:10 BP 124/72 01/03/18 10:34 Pulse Ox 99 01/03/18 07:10 - Labs Result Diagrams: 01/02/18 06:07 01/03/18 06:45 Labs: Laboratory Results - last 24 hr 01/02/18 01/02/18 01/03/18 16:20 21:06 06:05 Puncture Site pCO2 pO2 HCO3 ABG pH ABG Total CO2 ABG O2 Saturation ABG Base Excess ABG Hemoglobin ABG Carboxyhemoglobin POC ABG HHb (Measured) ABG Methemoglobin Elkin Test A-a O2 Difference Respiratory Index Hgb O2 Saturation FiO2 Sodium Potassium Chloride Carbon Dioxide Anion Gap BUN Creatinine Est GFR ( Amer) Est GFR (Non-Af Amer) POC Glucose (mg/dL) 354 H 342 H 324 H Random Glucose Calcium Ammonia Triglycerides Cholesterol LDL Cholesterol Direct HDL Cholesterol 01/03/18 01/03/18 01/03/18 06:45 09:27 09:45 Puncture Site Rra pCO2 34 L pO2 52 L HCO3 25.3 ABG pH 7.46 H ABG Total CO2 25.2 ABG O2 Saturation 91.4 L ABG Base Excess 0.7 ABG Hemoglobin 11.9 ABG Carboxyhemoglobin 2.7 H POC ABG HHb (Measured) 8.3 H ABG Methemoglobin 1.1 Elkin Test Po A-a O2 Difference 55.0 Respiratory Index 1.1 Hgb O2 Saturation 87.9 L FiO2 21.0 Sodium 137 Potassium 4.6 Chloride 101 Carbon Dioxide 25 Anion Gap 16 BUN 81 H Creatinine 2.9 H Est GFR ( Amer) 26 Est GFR (Non-Af Amer) 22 POC Glucose (mg/dL) Random Glucose 339 H Calcium 8.7 Ammonia 66 H D Triglycerides 96 Cholesterol 82 LDL Cholesterol Direct 45 HDL Cholesterol 7 L 01/03/18 11:08 Puncture Site pCO2 pO2 HCO3 ABG pH ABG Total CO2 ABG O2 Saturation ABG Base Excess ABG Hemoglobin ABG Carboxyhemoglobin POC ABG HHb (Measured) ABG Methemoglobin Elkin Test A-a O2 Difference Respiratory Index Hgb O2 Saturation FiO2 Sodium Potassium Chloride Carbon Dioxide Anion Gap BUN Creatinine Est GFR ( Amer) Est GFR (Non-Af Amer) POC Glucose (mg/dL) 309 H Random Glucose Calcium Ammonia Triglycerides Cholesterol LDL Cholesterol Direct HDL Cholesterol Assessment & Plan - Assessment and Plan (Free Text) Assessment: Palliative consult Code status Full Code, no Advance Directive on the chart, PPS 10% I reviewed medical records, all diagnostic studies, examined patient in the bed. Patient is very lethatgyc, eyes closed, unable to fallow simple commends. Sclera jaundiced. Diminished breath sounds. Abdomen softly distended, active bowel sounds, on Lactulose. Edema to LEs. Poor condition of toe nails. Hydration provided via IVF at 60 cc /hr. Urine concentrated, tea color. Aldactone and Lasix on board. BP 109/69, HR 82, O2Sat 99%. BUN 81, Fern Picker 2.9concerning of acute kidney faillure. Ammonia 66, from 53 yesterday. Overall condition looks very poor. family meeting scheduled for 2 pm today with patient's two daughter. Impression * This is a very sick man due to Alcoholic Liver injury * Acute kidney injury * Lethargy * At risk for aspiration due to lethargy * Ascites * Weakness * At risk for malnutrition Suggestion * Would keep NPO with IV hydration * Promote safety * Skin care * paracentesis as needed; to discuss Pleurex insertion for recurrent ascites * Comfort care would be appropriate level of care for this patient Will discuss End of life care with Family at meeting today. Will update my notes accordingly. Thank you for consulting Palliative Care
[2018-01-03] MEDS ORDERED: Sodium Chloride 0.9% 250 ML IV ONE (14:30)
--- NOTE | 2018-01-03 16:34 | PN ---
DATE: LOCATION: [facility], bed B. SUBJECTIVE: This is a 72-year-old male seen and examined in rounds, without significant clinical changes. The entire chart is reviewed including but not limited to the most recent lab and radiology study results, current and the previous medication list, current and the previous medical events. Most recent lab results showed abnormal ABGs with blood glucose levels at 309, BUN 81, creatinine 2.9, ammonia level increased to 66. The patient is semi confused. PHYSICAL EXAMINATION GENERAL: A 72-year-old male. VITAL SIGNS: Afebrile, with heart rate of 82, respiratory rate of 20 to 22, blood pressure of 120/70. HEENT: Showed pale, dry, mucous membranes. Bilateral icteric sclerae. LUNGS: Few scattered crepitations. Decreased air entry at bases. HEART: Positive S1 and S2. ABDOMEN: Soft, bowel sounds are present with small amount of ascites. No mass or organomegaly. No rebound tenderness or guarding. EXTREMITIES: Evidence of muscle wasting syndrome and lower extremity edematous changes. No clubbing or cyanosis. NEUROLOGIC: No reported neurological deficits, sensory or motor. IMPRESSION: 1. 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 2. Thrombocytopenia secondary to above. 3. Anemia secondary to above. 4. Acute renal insufficiency. 5. Known history, but not limited to hypertension. Lachelle Rodrigues MD
--- NOTE | 2018-01-03 17:25 | PN ---
DATE: SUBJECTIVE: The patient is more drowsy and lethargic today, could hardly converse. LABORATORY DATA: Review of his labs, his BUN is 81, creatinine is 2.9, blood sugars still elevated 339. His ammonia level also has gone up 66, elevated. The patient is followed by Dr. Lee, investment manager. The patient is on lactulose for hepatic encephalopathy. PHYSICAL EXAMINATION: VITAL SIGNS: Temperature is 97.7, pulse rate is 80, blood pressure 124/72, respirations 20, oxygen saturation 99%. REVIEW OF SYSTEMS: GENERAL: The patient is drowsy, but arousable. According to the nurse, he has very poor p.o. intake. He is also reluctant to take his meds and is not drinking enough fluids. SKIN: No diaphoresis. HEENT: Noted to be drowsy. NECK: Supple. RESPIRATORY: Not in acute respiratory distress. CARDIOVASCULAR: No chest pain. GASTROINTESTINAL: Has very poor p.o. intake. EXTREMITIES: He is moving extremities. NEUROLOGIC: The patient with increasing confusion. GENITOURINARY: No dysuria. MENTAL STATUS EXAMINATION: Elderly male, who looks stated age, more confused, and is lethargic. He has poverty of speech. Affect is restricted. Mood is dysphoric. Thought process, more confused. Thought content, no overt psychosis. No suicidal or homicidal ideation. Attention and memory seems to be impaired. Insight and judgement impaired. Impulse control is fair at this time. IMPRESSION: Delirium, multifactorial, history of alcohol dependence, alcohol withdrawal, history of failure to thrive, hepatic encephalopathy. PLAN AND RECOMMENDATIONS: The patient is seen, meds reviewed. Continue present management. The patient's condition is deteriorating. May consider Palliative Care as the patient seems to be declining medically also. We will monitor his electrolytes as well as his ammonia level. Stas Knox MD
--- NOTE | 2018-01-03 19:34 | CP.PCM.PN ---
Subjective - Date & Time of Evaluation Date of Evaluation: 01/03/18 Time of Evaluation: 19:34 - Subjective Subjective: pt is seen and examined, follow up consult is dictated #[id number] d/c aldactone and lasix due to GLENN Objective - Vital Signs/Intake and Output Vital Signs (last 24 hours): Temp Pulse Resp BP Pulse Ox 97.3 F L 78 18 121/71 97 01/03/18 15:57 01/03/18 16:24 01/03/18 15:57 01/03/18 15:57 01/03/18 15:57 Intake and Output: 01/03/18 01/04/18 18:59 06:59 Output Total 250 Balance -250 - Medications Medications: Current Medications Acetaminophen (Tylenol 650 Mg Supp) 650 mg [place] Q6 PRN PRN Reason: fever of >100.4 and above Last Admin: 12/19/17 18:08 Dose: 650 mg Furosemide (Lasix) 40 mg IVP DAILY JE Meropenem 250 mg/ Sodium (Chloride) 100 mls @ 100 mls/hr IVPB Q12 JE PRN Reason: Protocol Last Admin: 01/03/18 10:33 Dose: 100 mls/hr Dextrose/Sodium Chloride (Dextrose 5%/0.45% Ns 1000 Ml) 1,000 mls @ 50 mls/hr IV .Q20H JE Last Admin: 01/03/18 12:14 Dose: 50 mls/hr Insulin Human Regular (Novolin R) 0 unit SC ACHS JE PRN Reason: Protocol Last Admin: 01/03/18 17:44 Dose: Not Given Lactulose (Enulose) 20 gm PO BID [facility] Last Admin: 01/03/18 17:45 Dose: 20 gm Multivitamins (Hexavitamin) 1 tab PO DAILY JE Last Admin: 01/03/18 10:34 Dose: 1 tab Sitagliptin Phosphate (Januvia) 25 mg PO DAILY [facility] Last Admin: 01/03/18 10:33 Dose: 25 mg Spironolactone (Aldactone) 25 mg PO BID JE Last Admin: 12/25/17 10:17 Dose: Not Given Tamsulosin HCl (Flomax) 0.4 mg PO DAILY [facility] Last Admin: 01/03/18 10:34 Dose: 0.4 mg Thiamine HCl (Vitamin B1 Tab) 100 mg PO BID JE Last Admin: 01/03/18 17:44 Dose: 100 mg - Labs Labs: 01/02/18 06:07 01/03/18 06:45 PT 16.2 SECONDS (9.7-12.2) H 12/29/17 06:22 INR 1.4 12/29/17 06:22 APTT 37 SECONDS (21-34) H 12/29/17 06:22
--- NOTE | 2018-01-03 23:40 | CP.PCM.PN ---
Subjective - Date & Time of Evaluation Date of Evaluation: 01/03/18 Time of Evaluation: 18:30 - Subjective Subjective: Pt seen and examined at bedside Objective - Vital Signs/Intake and Output Vital Signs (last 24 hours): Temp Pulse Resp BP Pulse Ox 97.3 F L 78 18 121/71 97 01/03/18 15:57 01/03/18 16:24 01/03/18 15:57 01/03/18 15:57 01/03/18 15:57 Intake and Output: 01/03/18 01/04/18 18:59 06:59 Intake Total 400 Output Total 250 150 Balance -250 250 - Medications Medications: Current Medications Acetaminophen (Tylenol 650 Mg Supp) 650 mg [place] Q6 PRN PRN Reason: fever of >100.4 and above Last Admin: 12/19/17 18:08 Dose: 650 mg Furosemide (Lasix) 40 mg IVP DAILY JE Meropenem 250 mg/ Sodium (Chloride) 100 mls @ 100 mls/hr IVPB Q12 JE PRN Reason: Protocol Last Admin: 01/03/18 21:26 Dose: 100 mls/hr Dextrose/Sodium Chloride (Dextrose 5%/0.45% Ns 1000 Ml) 1,000 mls @ 50 mls/hr IV .Q20H JE Last Admin: 01/03/18 12:14 Dose: 50 mls/hr Insulin Human Regular (Novolin R) 0 unit SC ACHS JE PRN Reason: Protocol Last Admin: 01/03/18 21:27 Dose: Not Given Lactulose (Enulose) 20 gm PO BID JE Last Admin: 01/03/18 17:45 Dose: 20 gm Multivitamins (Hexavitamin) 1 tab PO DAILY JE Last Admin: 01/03/18 10:34 Dose: 1 tab Sitagliptin Phosphate (Januvia) 25 mg PO DAILY JE Last Admin: 01/03/18 10:33 Dose: 25 mg Spironolactone (Aldactone) 25 mg PO BID JE Last Admin: 12/25/17 10:17 Dose: Not Given Tamsulosin HCl (Flomax) 0.4 mg PO DAILY JE Last Admin: 01/03/18 10:34 Dose: 0.4 mg Thiamine HCl (Vitamin B1 Tab) 100 mg PO BID JE Last Admin: 01/03/18 17:44 Dose: 100 mg - Labs Labs: 01/02/18 06:07 01/03/18 06:45 PT 16.2 SECONDS (9.7-12.2) H 12/29/17 06:22 INR 1.4 12/29/17 06:22 APTT 37 SECONDS (21-34) H 12/29/17 06:22 Assessment and Plan (1) Alcoholic hepatitis Status: Acute (2) Hypertension Status: Acute
--- NOTE | 2018-01-04 04:25 | PN ---
DATE: FOLLOWUP RENAL CONSULTATION LOCATION: This is located in room 651, bed B. REQUESTED BY: Jayden Johnson MD REASON FOR FOLLOWUP: Acute renal failure for further evaluation. HISTORY OF PRESENT ILLNESS: Mr. Crain is 72 years old elderly male with a past medical history significant for hypertension, EtOH abuse, smoker, and questionable diabetes who was admitted with feeling weak and tired, and unable to ambulate. The patient was found to have a gram-negative sepsis, blood culture positive for E. Coli. The patient was initially treated with vancomycin and Zosyn, subsequently changed to meropenem. The patient was also found to have cirrhosis of the liver with ascites, status post paracentesis about 1.25 liters, and also found to have abnormal LFTs and worsening renal function. The patient is drowsy, opens eyes to painful stimuli, not in distress. PHYSICAL EXAMINATION: GENERAL: Mr. Crain is a 72 years old elderly male, moderately built, moderately nourished, not in distress. HEENT: Pupils normal and reactive to light. Conjunctivae pink. Sclerae icteric. Tongue is moist and trachea is midline. LUNGS: Symmetric on both sides. Bilateral breath sounds present. Clear to auscultation. CVS: [place] at the fifth intercostal space, midclavicular line. S1, S2 audible. No murmur or gallop. ABDOMEN: Normal in appearance, slightly distended and soft. Tympanic. No guarding. No rigidity. No hepatosplenomegaly. CATERER HELPER: The patient is drowsy, opens eyes to painful stimuli. Sensory motor system is grossly within normal limits. Cranial nerves II through XII grossly intact. EXTREMITIES: No cyanosis, no clubbing. Trace edema in both lower extremities. CURRENT MEDICATIONS: Include as follows. Aldactone 25 mg p.o. b.i.d. on hold, IV fluids D5 half normal saline at 50 mL/hour, lactulose 20 gm p.o. b.i.d., Flomax 0.4 mg p.o. daily, multivitamin 1 tablet daily, Januvia 25 mg p.o. daily, Lasix 40 mg IV daily, meropenem 250 mg IV every 12 hours, Novolin R for sliding scale, Tylenol and thiamine 100 mg p.o. b.i.d. LABORATORY DATA: Include as follows. His ABG, pH 7.46, pCO2 of 34, pO2 of 52, bicarb is 25.3, saturation 91.4. Sodium 137, potassium 4.6, chloride 101, CO2 of 25, BUN 81, creatinine 2.9, glucose 339, calcium is 8.7, ammonia is 66, and triglycerides 96, cholesterol 82, LDL 45, HDL is 7. Hemoglobin A1c is 7.0. Other laboratory data as of 01/02, hepatitis C IgM antibody is negative, hepatitis B surface antigen negative. Core antibody IgM is negative and hep C antibody is negative. Other laboratory data, peritoneal fluid as of 12/26/2017, negative for fungal elements and body fluid cultures are negative day 4 as of 12/26 and blood culture as of 12/19/2017 x2 negative day 5 and initial blood culture on 12/16, positive for E. coli x2. IMPRESSION: In summary, Mr. Crain is a 72 years old elderly male with a past medical history significant for hypertension, EtOH abuse, ascites, status post paracentesis, status post treatment for gram-negative sepsis on admission with increasing BUN and creatinine and increased LFTs. 1. Nonoliguric acute renal failure, most likely secondary to acute tubular necrosis, cannot rule out secondary to diuretics and intravascular volume depletion. 2. Hypertension. Blood pressure is stable. 3. Uncontrolled diabetes. 4. Cirrhosis of the liver with ascites and status post paracentesis. PLAN: Continue gentle IV hydration D5 half normal saline at 50 mL/hour. Discontinue Aldactone due to acute renal failure and try to hold Lasix until renal function improves. Continue IV antibiotics as per ID recommendations. We will continue to monitor. Overall prognosis is guarded. Thank you for allowing me to participate in your patient's care. Neri Lee MD
--- NOTE | 2018-01-04 06:43 | PN ---
DATE: 01/03/2018 SUBJECTIVE: The patient is slightly lethargic. He only drank a few sips of juice today and did not drink ____. Lara catheter was inserted. No reported agitation. PHYSICAL EXAMINATION: VITAL SIGNS: Blood pressure 121/71, heart rate 74, temperature 97.3, respirations 18. HEENT: Pale conjunctiva. CHEST: Diminished breath sounds over the bases. HEART: Heart sounds S1 and S2, regular. ABDOMEN: Moderate ascites. EXTREMITIES: 1+ pitting edema. LABORATORY DATA: Today's blood sugars are 309 and 279. Today's BUN and creatinine are 81 and 2.9 respectively. ASSESSMENT AND PLAN: 1. Bacterial endocarditis. 2. Worsening renal insufficiency. 3. Bladder neck obstruction. 4. Gram-negative urinary tract infection. 5. Thrombocytopenia and anemia. RECOMMENDATIONS: The case was discussed at length with the patient's family for more than 20 minutes. The patient is not a suitable candidate for AWILDA and sedation at this time. The patient will be maintained on intravenous antibiotics, i.e., meropenem at 250 mg every 12 hours. Continue lactulose at 20 mg twice a day. Flomax 0.4 mg once a day. Reduce Lasix to 40 mg intravenously once a day. Gurinder Hernandez MD
[2018-01-04 07:18] LABS: ALB/GLOB RATIO 0.5 (1.0-2.1); ALBUMIN 2.1 g/dL (3.5-5.0); CALCIUM 8.9 mg/dl (8.6-10.4)
[2018-01-04] MEDS ORDERED: Dextrose 5%/0.45% NS 1,000 ML IV SCH (07:41)
[2018-01-04] MEDS: (Novolin R) Insulin Human Regular 100 units/ml vial SC SCH ×4 (08:33→21:24)
[2018-01-04] MEDS: Multiple Vitamins Tab PO SCH (11:42)
--- NOTE | 2018-01-04 13:13 | PN ---
DATE: LOCATION: [facility], bed B. SUBJECTIVE: This is a 72-year-old male, seen and examined in rounds today without significant clinical changes or reported active bleeding, he is still with generalized jaundice. No chest pain or palpitations reported. The entire chart is reviewed including but not limited to the most recent lab and radiology study results, current and the previous medication list, current and the previous medical events, and the patient's oral intake was reported to be less than usual. The patient seen again by the systems development consultant and the Nephrology customer sales consultant due to his acute renal failure, due to reported acute tubular necrosis. Most recent lab results showed BUN of 80, creatinine 3.1, blood glucose level 280, total bilirubin 4.7, AST 135, alkaline phosphatase 202, with ammonia level again 45, with low albumin. The patient had bladder ultrasound, official report seen. PHYSICAL EXAMINATION: GENERAL: A 72-year-old male, appeared to be somewhat cachectic. VITAL SIGNS: Afebrile, with pulse of 76, respiratory rate 20 to 22, blood pressure 130/74. HEENT: Showed pale, dry, oral mucous membranes with bilateral icteric sclerae. LUNGS: Few scattered crepitations. Decreased air entry at bases. HEART: Positive S1 and S2. ABDOMEN: Soft with mild distention with small amount of ascites. No mass or organomegaly. No rebound tenderness or guarding. EXTREMITIES: With lower extremities mild edematous changes. No clubbing or cyanosis. NEUROLOGIC: No reported new neurological deficits, sensory, or motor. No reported new focal deficits. Peripheral pulses are positive, but decreased bilaterally. IMPRESSION: 1. Abnormal liver function tests with jaundice, most likely secondary to alcohol-induced liver cirrhosis with evidence of portal hypertension and ascites. 2. Evidence of severe papillary spasm and/or stenosis, as a major factor also the patient's jaundice with elevated total bilirubin. 3. Thrombocytopenia secondary to above. 4. Acute renal failure with possible tubular necrosis as per the Nephrology customer sales consultant. 5. Anemia secondary to above. 6. Known history of hypertension. 7. Gram-negative septicemia believed to be secondary to urinary tract infection. 8. Possible bacterial endocarditis. SUGGESTIONS: 1. Agree with your plan. 2. Repeat blood culture. 3. Despite the patient's need for repeat ERCP with biliary stent insertion, he is not stable clinically for any further aggressive GI workup. We will follow up closely with you. Case discussed again with the systems development consultant, Dr. Hernandez. Lachelle Rodrigues MD
[2018-01-04] MEDS ORDERED: Acetaminophen 650mg/20.3ml solution UD PO ONE (13:17)
--- NOTE | 2018-01-04 16:25 | CP.PCM.PN ---
Subjective - Date & Time of Evaluation Date of Evaluation: 01/04/18 Time of Evaluation: 16:24 - Subjective Subjective: pt is seen and examined, follow up consult is dictated #[id number] Objective - Vital Signs/Intake and Output Vital Signs (last 24 hours): Temp Pulse Resp BP Pulse Ox 97.3 F L 103 H 20 129/77 98 01/04/18 08:13 01/04/18 11:54 01/04/18 08:13 01/04/18 11:54 01/04/18 08:13 Intake and Output: 01/04/18 01/04/18 06:59 18:59 Intake Total 800 Output Total 350 Balance 450 - Medications Medications: Current Medications Acetaminophen (Tylenol 650 Mg Supp) 650 mg [place] Q6 PRN PRN Reason: fever of >100.4 and above Last Admin: 12/19/17 18:08 Dose: 650 mg Meropenem 250 mg/ Sodium (Chloride) 100 mls @ 100 mls/hr IVPB Q12 JE PRN Reason: Protocol Last Admin: 01/04/18 11:42 Dose: 100 mls/hr Dextrose/Sodium Chloride (Dextrose 5%/0.45% Ns 1000 Ml) 1,000 mls @ 80 mls/hr IV .[id number] [facility] Last Admin: 01/04/18 08:00 Dose: Not Given Insulin Human Regular (Novolin R) 0 unit SC ACHS JE PRN Reason: Protocol Last Admin: 01/04/18 13:06 Dose: 3 unit Lactulose (Enulose) 20 gm PO BID [facility] Last Admin: 01/04/18 11:43 Dose: 20 gm Multivitamins (Hexavitamin) 1 tab PO DAILY JE Last Admin: 01/04/18 11:42 Dose: 1 tab Sitagliptin Phosphate (Januvia) 25 mg PO DAILY [facility] Last Admin: 01/04/18 11:42 Dose: 25 mg Tamsulosin HCl (Flomax) 0.4 mg PO DAILY [facility] Last Admin: 01/04/18 11:42 Dose: 0.4 mg Thiamine HCl (Vitamin B1 Tab) 100 mg PO BID [facility] Last Admin: 01/04/18 11:42 Dose: 100 mg - Labs Labs: 01/02/18 06:07 01/04/18 07:03 PT 16.2 SECONDS (9.7-12.2) H 12/29/17 06:22 INR 1.4 12/29/17 06:22 APTT 37 SECONDS (21-34) H 12/29/17 06:22
[2018-01-04] MEDS: Dextrose 5%/0.45% NS 1,000 ML IV SCH (19:17)
--- NOTE | 2018-01-04 23:08 | CP.PCM.PN ---
Subjective - Date & Time of Evaluation Date of Evaluation: 01/04/18 Time of Evaluation: 23:08 - Subjective Subjective: Patient seen today , JAUNDICED +VE lethargic, arousable , disoriented to person and place, afebrile labs; noted BUN/CR . still elevated .creatinine 3.1/BUN 80. SERUM AMMONIA 45 TODAY-SLIGHTLY BETTER. liver function tests. Total bili 4.7, direct bili 3.0 AST 135, ALT 58, alkaline phosphatase 22 increasing. Objective - Vital Signs/Intake and Output Vital Signs (last 24 hours): Temp Pulse Resp BP Pulse Ox 97.5 F L 67 18 111/66 100 01/04/18 15:34 01/04/18 16:00 01/04/18 15:34 01/04/18 15:34 01/04/18 15:34 Intake and Output: 01/04/18 01/05/18 18:59 06:59 Intake Total 940 Output Total 125 Balance 815 - Medications Medications: Current Medications Acetaminophen (Tylenol 650 Mg Supp) 650 mg [place] Q6 PRN PRN Reason: fever of >100.4 and above Last Admin: 12/19/17 18:08 Dose: 650 mg Meropenem 250 mg/ Sodium (Chloride) 100 mls @ 100 mls/hr IVPB Q12 JE PRN Reason: Protocol Last Admin: 01/04/18 21:23 Dose: 100 mls/hr Dextrose/Sodium Chloride (Dextrose 5%/0.45% Ns 1000 Ml) 1,000 mls @ 70 mls/hr IV .[id number] [facility] Last Admin: 01/04/18 19:17 Dose: 70 mls/hr Insulin Human Regular (Novolin R) 0 unit SC ACHS JE PRN Reason: Protocol Last Admin: 01/04/18 21:24 Dose: 2 unit Lactulose (Enulose) 20 gm PO BID [facility] Last Admin: 01/04/18 17:45 Dose: 20 gm Multivitamins (Hexavitamin) 1 tab PO DAILY [facility] Last Admin: 01/04/18 11:42 Dose: 1 tab Sitagliptin Phosphate (Januvia) 25 mg PO DAILY [facility] Last Admin: 01/04/18 11:42 Dose: 25 mg Tamsulosin HCl (Flomax) 0.4 mg PO DAILY [facility] Last Admin: 01/04/18 11:42 Dose: 0.4 mg Thiamine HCl (Vitamin B1 Tab) 100 mg PO BID JE Last Admin: 01/04/18 17:45 Dose: 100 mg - Labs Labs: 01/02/18 06:07 01/04/18 07:03 PT 16.2 SECONDS (9.7-12.2) H 12/29/17 06:22 INR 1.4 12/29/17 06:22 APTT 37 SECONDS (21-34) H 12/29/17 06:22 - Constitutional Appears: No Acute Distress, Cachectic, Chronically Ill - Head Exam Head Exam: NORMAL INSPECTION - Eye Exam Eye Exam: PERRL, Scleral icterus - ENT Exam ENT Exam: Mucous Membranes Moist - Respiratory Exam Respiratory Exam: Decreased Breath Sounds - Cardiovascular Exam Cardiovascular Exam: REGULAR RHYTHM, +S1, +S2 - GI/Abdominal Exam GI & Abdominal Exam: Soft, Tenderness (GENERALIZED .+VE ASCITES), Normal Bowel Sounds - Extremities Exam Extremities Exam: absent: Calf Tenderness, Pedal Edema - Neurological Exam Neurological Exam: Awake - Psychiatric Exam Psychiatric exam: Flat Affect - Skin Skin Exam: Dry, Warm Assessment and Plan (1) Gram-negative sepsis Status: Acute (2) Wound infection, posttraumatic Status: Acute (3) Alcoholic hepatitis Status: Acute (4) Fatty liver with encephalopathy Status: Acute (5) Leg edema Status: Acute (6) Failure to thrive Status: Acute (7) Thrombocytopenia Status: Acute (8) Hypertension Status: Acute - Assessment and Plan (Free Text) Plan: GRAM NEGATIVE SEPSIS E. COLI. AORTIC VALVE ENDOCARDITIS- 2D-ECHO +VEGETATIONS GLENN- ATN ? DIURETICS/HTN. ALCOHOLIC HEPATITIS S/P ERCP ( NOT-STENTED ?SPASM ) CIRRHOSIS OF LIVER TOXIC METABOLIC ENCEPHALOPATHY. DIABETES MELLITUS. PLAN ON IV MERRUM 250 MG Q 12 HRS . F/U RENAL FUNCTION. ON LACTULOSE PER GI PATIENT SEEN BY PALLIATIVE CARE. NEPHROLOGY ON THE CASE. FAMILY STILL IN DENIAL. CASE DISCUSSED WITH COMMUNITY OUTREACH DIRECTOR / STAFF DEBEADER. PROGNOSIS POOR.
--- NOTE | 2018-01-04 23:15 | CP.PCM.PN ---
Subjective - Date & Time of Evaluation Date of Evaluation: 01/04/18 Time of Evaluation: 17:50 - Subjective Subjective: Pt seen and examined at bedside, Objective - Vital Signs/Intake and Output Vital Signs (last 24 hours): Temp Pulse Resp BP Pulse Ox 97.5 F L 67 18 111/66 100 01/04/18 15:34 01/04/18 16:00 01/04/18 15:34 01/04/18 15:34 01/04/18 15:34 Intake and Output: 01/04/18 01/05/18 18:59 06:59 Intake Total 940 Output Total 125 Balance 815 - Medications Medications: Current Medications Acetaminophen (Tylenol 650 Mg Supp) 650 mg [place] Q6 PRN PRN Reason: fever of >100.4 and above Last Admin: 12/19/17 18:08 Dose: 650 mg Meropenem 250 mg/ Sodium (Chloride) 100 mls @ 100 mls/hr IVPB Q12 JE PRN Reason: Protocol Last Admin: 01/04/18 21:23 Dose: 100 mls/hr Dextrose/Sodium Chloride (Dextrose 5%/0.45% Ns 1000 Ml) 1,000 mls @ 70 mls/hr IV .[id number] [facility] Last Admin: 01/04/18 19:17 Dose: 70 mls/hr Insulin Human Regular (Novolin R) 0 unit SC ACHS JE PRN Reason: Protocol Last Admin: 01/04/18 21:24 Dose: 2 unit Lactulose (Enulose) 20 gm PO BID [facility] Last Admin: 01/04/18 17:45 Dose: 20 gm Multivitamins (Hexavitamin) 1 tab PO DAILY [facility] Last Admin: 01/04/18 11:42 Dose: 1 tab Sitagliptin Phosphate (Januvia) 25 mg PO DAILY [facility] Last Admin: 01/04/18 11:42 Dose: 25 mg Tamsulosin HCl (Flomax) 0.4 mg PO DAILY [facility] Last Admin: 01/04/18 11:42 Dose: 0.4 mg Thiamine HCl (Vitamin B1 Tab) 100 mg PO BID [facility] Last Admin: 01/04/18 17:45 Dose: 100 mg - Labs Labs: 01/02/18 06:07 01/04/18 07:03 PT 16.2 SECONDS (9.7-12.2) H 12/29/17 06:22 INR 1.4 12/29/17 06:22 APTT 37 SECONDS (21-34) H 12/29/17 06:22 Assessment and Plan (1) Alcoholic hepatitis Status: Acute (2) Hypertension Status: Acute
--- NOTE | 2018-01-05 00:29 | PN ---
DATE: SUBJECTIVE: The patient is seen with his family. The patient is still having waxing and waning of his mental status, confused, has very poor p.o. intake. The nurses are having hard time keeping his p.o. medication. On review of his labs, his BUN is 80, still elevated. Creatinine is 3.1. His GFR is now 24. Random glucose is 280. Ammonia still is elevated at 45. The patient is followed by Dr. Lee, store mgr. The patient also, according to nurse, will be going tomorrow for MRI of the brain. He is currently on lactulose and also taking a dose of meropenem and thiamine. PHYSICAL EXAMINATION: VITAL SIGNS: Temperature 97.5, pulse is 87, blood pressure 111/66, respirations 18, oxygen saturation is 100%. REVIEW OF SYSTEMS: GENERAL: The patient is still arousable, but drowsy, confused, not in acute respiratory distress. He was seen in his room with his family. SKIN: No pruritus. HEENT: Sclerae less icteric. No headache. NECK: Supple. RESPIRATORY: No dyspnea. CARDIOVASCULAR: No chest pain. GASTROINTESTINAL: He has very poor p.o. intake. No diarrhea. He is moving his bowels regularly. EXTREMITIES: He has been bed bound. MUSCULOSKELETAL: Feels weak. NEUROLOGIC: Alert with increasing periods of confusion. MENTAL STATUS EXAMINATION: Elderly male, who looks stated age, confused, was arousable, oriented to place and person. Mood is dysphoric. Affect restricted. Speech is slow. Thought process, confused. Thought content, no overt point of hallucination. No suicidal or homicidal ideation. Attention and memory seem to be limited. Insight and judgment limited. Impulse control is fair at this time. IMPRESSION: History of alcohol dependence, alcohol withdrawal, as well as delirium, metabolic encephalopathy secondary to hepatic encephalopathy as well as kidney problems, history of failure to thrive. PLAN AND RECOMMENDATIONS: The patient was seen, meds reviewed. Continue present management. Continue lactulose as ordered. Continue treatment plan as outlined. If the patient continues to deteriorate, the patient may benefit from palliative care but family, according to the nurse, wants everything to be done at this time. Stas Knox, MD [facility] # [phone]
--- NOTE | 2018-01-05 03:23 | PN ---
DATE: 01/04/2018 FOLLOWUP RENAL CONSULTATION LOCATION: The patient is located in room 651, bed B. REQUESTED BY: Jayden Johnson MD REASON FOR FOLLOWUP: Acute renal failure. HISTORY OF PRESENT ILLNESS: Mr. Crain is a 72-year-old elderly male with a past medical history significant for hypertension, recently diagnosed diabetes, EtOH abuse, cirrhosis of the liver who was admitted with weakness and status post fall and found to have gram-negative sepsis. Blood culture positive for E. coli, initially treated with vancomycin and Zosyn, subsequently changed to meropenem. The patient also underwent paracentesis and drained about 1.25 liters. The patient is more alert and awake, following simple commands, not in distress. The patient also is being treated for possible hepatic encephalopathy and on lactulose. PHYSICAL EXAMINATION: VITAL SIGNS: As follows: Blood pressure 111/66, pulse 86, respirations 18, temperature 97.5, saturation 100%. Height 5 feet 7 inches, weight is 180 pounds. GENERAL: Mr. Crain is a 72 years old elderly male, moderately built, moderately nourished, not in distress. HEENT: Pupils normal and reactive to light and accommodation. Conjunctivae pink. Sclerae is icteric. Tongue is moist, and trachea is midline. LUNGS: Symmetric on both sides. Bilateral breath sounds present. Clear on auscultation. CVS: [place] at the fifth intercostal space, midclavicular line. S1, S2 audible. No murmur or gallop. ABDOMEN: Slightly distended epigastric region, tympanic, and mild epigastric and right upper quadrant tenderness present. No guarding. Bowel sounds present. No hepatosplenomegaly. POLYMER TESTER: The patient is arousable, following simple commands. EXTREMITIES: No cyanosis, no clubbing. Trace edema in both lower extremities. MEDICATIONS: His current medications include as follows, IV fluids of D5 half normal saline at 70 mL/hour, lactulose 20 gm p.o. b.i.d., Flomax 0.4 mg p.o. daily, multivitamin 1 tablet daily, Januvia 25 mg p.o. daily, Novolin R for sliding scale, Tylenol and thiamine 100 mg p.o. b.i.d., spironolactone is on hold. LABORATORY DATA: Include as follows, as of 01/04/2018, no CBC available. Sodium is 138, potassium 4.5, chloride 101, CO2 of 25, BUN 80, creatinine 3.1. BUN creatinine ratio more than 20:1 and glucose is 280, calcium 8.9, total bili 4.79, direct bili is 3.0, AST 135, ALT 58, alkaline phosphatase 202, ammonia is 45, total protein 6.6, albumin 2.1, and peritoneal fluid for cultures are negative for fungal element as of 12/26/2017. IMPRESSION: In summary, Mr. Crain is a 72 years old elderly male with history of hypertension, recently diagnosed diabetes, cirrhosis of the liver, EtOH abuse, status post gram-negative sepsis, status post paracentesis with increased BUN and creatinine and abnormal LFTs. 1. Nonoliguric acute renal failure, most likely secondary to acute tubular necrosis, cannot rule out secondary to diuretics and intravascular depletion. 2. Cirrhosis of the liver. 3. Abnormal LFTs. PLAN: We will discontinue Lasix, and we will continue to hold Aldactone and continue IV fluids D5 half normal saline at 70 mL/hour, increase 50 this morning and encourage p.o. fluid intake and repeat BMP in a.m. We will follow with you. Thank you for allowing me to participate in your patient's care. Neri Lee MD
--- NOTE | 2018-01-05 04:07 | PN ---
DATE: 01/03/2018 The patient has a history of traumatic bleeding due to pulling the Lara while the balloon inflated, was voiding; and incontinent recently, did not void, so they called me to set the catheter. The patient is mildly distended, but not enough. Mainly, he has ascites. No suprapubic fullness. A Lara catheter inserted, #18 Croatian, and 200 mL of clear urine drained out. We will keep the catheter in till the patient's general condition improved. Alistair Snell MD
[2018-01-05 07:55] LABS: BASO % 0.5 % (0.0-2.0); EOS # 0.2 K/uL (0.0-0.7); EOS % 2.4 % (0.0-4.0); HEMOGLOBIN 11.8 g/dL (12.0-18.0); LYMPH # 1.7 K/uL (1.0-4.3); LYMPH % 25.4 % (20.0-40.0); MEAN CELL VOLUME 100.7 fL (80.0-94.0); MEAN CORPUSCULAR HEMOGLOBIN 34.5 pg (27.0-31.0); MEAN CORPUSCULAR HGB CONC 34.3 g/dL (33.0-37.0); MEAN PLATELET VOLUME 11.4 fL (7.2-11.7); MONO # 0.9 K/uL (0.0-0.8); MONO % 14.1 % (0.0-10.0); NEUT # 3.9 K/uL (1.8-7.0); NEUT % 57.6 % (50.0-75.0); NRBC % 0.4 % (0.0-2.0); RBC 3.41 Mil/uL (4.40-5.90); RED CELL DISTRIBUTION WIDTH 16.9 % (11.5-14.5); WHITE BLOOD COUNT 6.7 K/uL (4.8-10.8)
[2018-01-05 08:10] LABS: CALCIUM 8.9 mg/dl (8.6-10.4)
[2018-01-05] MEDS: (Novolin R) Insulin Human Regular 100 units/ml vial SC SCH ×4 (08:23→21:00)
[2018-01-05] MEDS ORDERED: Lactulose 10 gm/15 ml (Rectal Use) PR ONE (10:00)
--- NOTE | 2018-01-05 10:08 | CP.PCM.PN ---
Subjective - Date & Time of Evaluation Date of Evaluation: 01/05/18 Time of Evaluation: 10:07 - Subjective Subjective: pt is seen and examined, follow up consult is dictated #[id number] c/w ivf Objective - Vital Signs/Intake and Output Vital Signs (last 24 hours): Temp Pulse Resp BP Pulse Ox 98.8 F 97 H 20 101/63 98 01/05/18 07:15 01/05/18 07:15 01/05/18 07:15 01/05/18 07:15 01/05/18 07:15 Intake and Output: 01/05/18 01/05/18 06:59 18:59 Intake Total 1500 Output Total 275 Balance 1225 - Medications Medications: Current Medications Acetaminophen (Tylenol 650 Mg Supp) 650 mg [place] Q6 PRN PRN Reason: fever of >100.4 and above Last Admin: 12/19/17 18:08 Dose: 650 mg Meropenem 250 mg/ Sodium (Chloride) 100 mls @ 100 mls/hr IVPB Q12 JE PRN Reason: Protocol Last Admin: 01/04/18 21:23 Dose: 100 mls/hr Dextrose/Sodium Chloride (Dextrose 5%/0.45% Ns 1000 Ml) 1,000 mls @ 70 mls/hr IV .[id number] [facility] Last Admin: 01/04/18 19:17 Dose: 70 mls/hr Insulin Human Regular (Novolin R) 0 unit SC ACHS JE PRN Reason: Protocol Last Admin: 01/05/18 08:23 Dose: 5 unit Lactulose (Enulose) 20 gm PO BID [facility] Last Admin: 01/05/18 09:24 Dose: Not Given Multivitamins (Hexavitamin) 1 tab PO DAILY [facility] Last Admin: 01/04/18 11:42 Dose: 1 tab Sitagliptin Phosphate (Januvia) 25 mg PO DAILY [facility] Last Admin: 01/04/18 11:42 Dose: 25 mg Tamsulosin HCl (Flomax) 0.4 mg PO DAILY [facility] Last Admin: 01/04/18 11:42 Dose: 0.4 mg Thiamine HCl (Vitamin B1 Tab) 100 mg PO BID [facility] Last Admin: 01/04/18 17:45 Dose: 100 mg - Labs Labs: 01/05/18 07:46 01/05/18 07:46 PT 16.2 SECONDS (9.7-12.2) H 12/29/17 06:22 INR 1.4 12/29/17 06:22 APTT 37 SECONDS (21-34) H 12/29/17 06:22
[2018-01-05] MEDS: Multiple Vitamins Tab PO SCH (10:34)
[2018-01-05] MEDS: Dextrose 5%/0.45% NS 1,000 ML IV SCH (10:37)
--- NOTE | 2018-01-05 12:47 | MRI ---
PROCEDURE: MRI of the brain dated 01/05/2018 HISTORY: AMS. COMPARISON: No prior study available for comparison. TECHNIQUE: Multiplanar, multisequence MR images of the brain were obtained without intravenous contrast by enhancement. Study is limited by motion artifact FINDINGS: HEMORRHAGE: No acute parenchymal, subarachnoid or extra-axial hemorrhage. No evidence of gross hemosiderin deposition seen on gradient echo weighted sequence. DWI: No evidence of an acute or early subacute infarction seen on diffusion imaging. BRAIN PARENCHYMA: Mild diffuse/confluent chronic periventricular white matter ischemic changes seen extending peripherally into the deep and subcortical white matter both cerebral hemispheres. More discrete chronic appearing right posterior temporal parietal watershed zone chronic infarct also felt to be present. Moderate to fairly significant generalized volume loss. VENTRICLES: No obstructive hydrocephalus CRANIUM: No acute calvarial abnormality so far as can be seen on this limited exam ORBITS: Orbits and contents appear grossly unremarkable so far as can be seen. PARANASAL SINUSES/MASTOIDS: Visualized paranasal sinuses are well-developed and currently well-aerated. Mastoid air complexes also clear so far as can be seen. VASCULAR SYSTEM: Visualized major vascular flow voids at skull base patent. OTHER FINDINGS: None. IMPRESSION: Very limited motion degraded study. No acute intracranial hemorrhage or infarct. Chronic white matter ischemic changes with more discrete chronic appearing right posterior temporoparietal watershed zone infarct. Moderate to up fairly significant generalized volume loss
--- NOTE | 2018-01-05 13:51 | PN ---
DATE: LOCATION: [facility], bed B. SUBJECTIVE: This is a 72-year-old male seen and examined in rounds without significant clinical changes, with right hip skin pain, reported to have skin tear and intermittent periods of abdominal pain on and off, but no reported active bleeding. No nausea or vomiting. No chest pain or palpitation. The entire chart is reviewed including, but not limited to the most recent lab and radiology study results, current and the previous medication list, current and the previous medical events. Case discussed with the staff at length. Today's labs showed hemoglobin 11.9, hematocrit 34.4, with thrombocytopenia of 60, but normal white blood cells, BUN 84, creatinine 3.4, blood glucose level 382. Ammonia level elevated to 135. Alpha fetoprotein 3.1. The patient had brain MRI, is still pending. PHYSICAL EXAMINATION: GENERAL: A 72-year-old male. VITAL SIGNS: Afebrile, with heart rate of 94, respiratory rate of 20 to 22, blood pressure 110/66. HEENT: Showed pale, dry, oral mucous membranes, with bilateral icteric sclerae. LUNGS: Few scattered crepitations. Decreased air entry at bases. HEART: Positive S1 and S2, with increased rate. ABDOMEN: Soft, bowel sounds are present with mild generalized tenderness. No mass or organomegaly. No rebound tenderness or guarding. EXTREMITIES: Mild lower extremity edematous changes. No clubbing or cyanosis. NEUROLOGIC: No reported new neurological deficits, sensory or motor. IMPRESSION: 1. Alcoholism with alcohol-induced liver cirrhosis with abnormal liver function tests. 2. Hepatic encephalopathy with increased ammonia level. 3. Jaundice secondary to above most likely with evidence of papillary spasm by endoscopic retrograde cholangio-pancreatography. 4. Thrombocytopenia secondary to above. 5. Known history of hypertension. 6. Gram-negative septicemia, with possible bacterial endocarditis. 7. Urinary tract infection, seen by Urology hospice care consultant, with acute renal failure believed to be secondary to tubular necrosis. 8. Anemia secondary to above most likely. 9. Very poor oral intake with malnutrition and hypoalbuminemia. SUGGESTION: 1. Peripheral hyperalimentation. 2. Continue current IV antibiotics. 3. The patient again will need a repeat ERCP with possible biliary stent insertion only when he is more stable clinically. Otherwise, further recommendations to follow. Lachelle Rodrigues MD [facility] # [phone]
--- NOTE | 2018-01-05 21:20 | PN ---
DATE: SUBJECTIVE: The patient is seen with family. The patient is more confused and lethargic, having difficulty taking p.o. meds. PHYSICAL EXAMINATION: VITAL SIGNS: Temperature 98.8, pulse is 88, blood pressure is 101/66, respirations 20, oxygen saturations 98%. The rest of the labs showed his ammonia level went up, it is now 135 from earlier, which was 66. His creatinine now has gone up from 3.1 to 3.4 and the BUN is now 84. The patient could hardly converse. He has very poor p.o. intake and family is concerned about his deteriorating medical condition. The patient had an MRI of the brain done and showed no acute abnormality, chronic white matter ischemic changes, as well as moderate to fairly significant generalized volume loss. REVIEW OF SYSTEMS: GENERAL: The patient is very drowsy, lethargic, could hardly converse, confused, has difficulty swallowing. SKIN: No diaphoresis. HEENT: Sclerae still icteric, but improving. NECK: Supple. RESPIRATORY: Not in acute respiratory distress. CARDIOVASCULAR: No chest pain. GASTROINTESTINAL: No diarrhea. EXTREMITIES: The patient is moving extremities. NEUROLOGIC: Very lethargic and somnolent. GENITOURINARY: No dysuria. MENTAL STATUS EXAMINATION: Elderly male, who is very confused. Speech is slow. Affect restricted. Mood dysphoric. Thought process, confused. Thought content, no overt psychosis. No suicidal or homicidal ideation. Attention and memory impaired. Insight and judgment impaired. Impulse control is fair at this time. IMPRESSION: Delirium, multifactorial, as well as superimposed alcohol dependence as well as history of failure to thrive. PLAN AND RECOMMENDATIONS: The patient was seen, meds reviewed. Continue present management. Continue treatment plan. Monitor his ammonia level, as well as monitor electrolytes. At this time, the patient seems to be declining medically. I do strongly suggest Palliative Care to address the patient's medical issues. The family is hesitant at this time to deal with end-of-life issues. Stas Knox MD
--- NOTE | 2018-01-05 23:17 | CP.PCM.PN ---
Subjective - Date & Time of Evaluation Date of Evaluation: 01/05/18 Time of Evaluation: 23:17 - Subjective Subjective: Patient seen today , JAUNDICED +VE lethargic, POORLY AROUSABLE afebrile FAMILY AT BEDSIDE. Objective - Vital Signs/Intake and Output Vital Signs (last 24 hours): Temp Pulse Resp BP Pulse Ox 97.4 F L 91 H 22 102/63 98 01/05/18 21:48 01/05/18 21:48 01/05/18 21:48 01/05/18 21:48 01/05/18 21:48 Intake and Output: 01/05/18 01/06/18 18:59 06:59 Intake Total 590 Output Total 100 100 Balance -100 490 - Medications Medications: Current Medications Acetaminophen (Tylenol 650 Mg Supp) 650 mg [place] Q6 PRN PRN Reason: fever of >100.4 and above Last Admin: 12/19/17 18:08 Dose: 650 mg Meropenem 250 mg/ Sodium (Chloride) 100 mls @ 100 mls/hr IVPB Q12 JE PRN Reason: Protocol Last Admin: 01/05/18 21:23 Dose: 100 mls/hr Dextrose/Sodium Chloride (Dextrose 5%/0.45% Ns 1000 Ml) 1,000 mls @ 70 mls/hr IV .[id number] [facility] Last Admin: 01/05/18 10:37 Dose: 70 mls/hr Insulin Human Regular (Novolin R) 0 unit SC ACHS JE PRN Reason: Protocol Last Admin: 01/05/18 21:00 Dose: Not Given Lactulose (Enulose) 20 gm PO BID [facility] Last Admin: 01/05/18 18:29 Dose: Not Given Multivitamins (Hexavitamin) 1 tab PO DAILY [facility] Last Admin: 01/05/18 10:34 Dose: Not Given Rifaximin (Xifaxan) 550 mg PO BID JE PRN Reason: Protocol Last Admin: 01/05/18 18:29 Dose: Not Given Sitagliptin Phosphate (Januvia) 25 mg PO DAILY [facility] Last Admin: 01/05/18 10:34 Dose: Not Given Tamsulosin HCl (Flomax) 0.4 mg PO DAILY [facility] Last Admin: 01/05/18 10:34 Dose: Not Given Thiamine HCl (Vitamin B1 Tab) 100 mg PO BID [facility] Last Admin: 01/05/18 18:29 Dose: Not Given - Labs Labs: 01/05/18 07:46 01/05/18 07:46 PT 16.2 SECONDS (9.7-12.2) H 12/29/17 06:22 INR 1.4 12/29/17 06:22 APTT 37 SECONDS (21-34) H 12/29/17 06:22 - Constitutional Appears: Confused, Chronically Ill - Head Exam Head Exam: NORMAL INSPECTION - Eye Exam Eye Exam: PERRL, Scleral icterus - ENT Exam ENT Exam: Mucous Membranes Dry - Neck Exam Neck Exam: Normal Inspection - Respiratory Exam Respiratory Exam: Decreased Breath Sounds - Cardiovascular Exam Cardiovascular Exam: Tachycardia, REGULAR RHYTHM, +S1, +S2 - GI/Abdominal Exam GI & Abdominal Exam: Soft, Tenderness (ON PALPATION.), Hypoactive Bowel Sounds ( +VE ASCITES) - Extremities Exam Extremities Exam: Pedal Edema. absent: Calf Tenderness - Neurological Exam Neurological Exam: Altered - Skin Skin Exam: Warm Assessment and Plan (1) Gram-negative sepsis Status: Acute (2) Wound infection, posttraumatic Status: Acute (3) Alcoholic hepatitis Status: Acute (4) Fatty liver with encephalopathy Status: Acute (5) Leg edema Status: Acute (6) Failure to thrive Status: Acute (7) Thrombocytopenia Status: Acute (8) Hypertension Status: Acute - Assessment and Plan (Free Text) Assessment: GRAM NEGATIVE SEPSIS E. COLI. AORTIC VALVE ENDOCARDITIS- 2D-ECHO +VEGETATIONS GLENN- ATN ? DIURETICS/HTN. ALCOHOLIC HEPATITIS S/P ERCP ( NOT-STENTED ?SPASM ) CIRRHOSIS OF LIVER TOXIC METABOLIC ENCEPHALOPATHY. DIABETES MELLITUS. PLAN ON IV MERRUM 250 MG Q 12 HRS . F/U RENAL FUNCTION. ON LACTULOSE PER GI PATIENT SEEN BY PALLIATIVE CARE. NEPHROLOGY ON THE CASE. FAMILY STILL IN DENIAL. CASE DISCUSSED WITH SENIOR TECHNICAL PROJECT MANAGER / STAFF [employer] INFORMATION CLERK. PROGNOSIS POOR.
--- NOTE | 2018-01-05 23:25 | CP.PCM.PN ---
Subjective - Date & Time of Evaluation Date of Evaluation: 01/05/18 Time of Evaluation: 16:30 - Subjective Subjective: Patient seen and examined at bedside , is improved Patient remains afebrile. Objective - Vital Signs/Intake and Output Vital Signs (last 24 hours): Temp Pulse Resp BP Pulse Ox 97.4 F L 91 H 22 102/63 98 01/05/18 21:48 01/05/18 21:48 01/05/18 21:48 01/05/18 21:48 01/05/18 21:48 Intake and Output: 01/05/18 01/06/18 18:59 06:59 Intake Total 590 Output Total 100 100 Balance -100 490 - Medications Medications: Current Medications Acetaminophen (Tylenol 650 Mg Supp) [address] Q6 PRN PRN Reason: fever of >100.4 and above Last Admin: 12/19/17 18:08 Dose: 650 mg Meropenem 250 mg/ Sodium (Chloride) 100 mls @ 100 mls/hr IVPB Q12 JE PRN Reason: Protocol Last Admin: 01/05/18 21:23 Dose: 100 mls/hr Dextrose/Sodium Chloride (Dextrose 5%/0.45% Ns 1000 Ml) 1,000 mls @ 70 mls/hr IV .[id number] [facility] Last Admin: 01/05/18 10:37 Dose: 70 mls/hr Insulin Human Regular (Novolin R) 0 unit SC ACHS JE PRN Reason: Protocol Last Admin: 01/05/18 21:00 Dose: Not Given Lactulose (Enulose) 20 gm PO BID [facility] Last Admin: 01/05/18 18:29 Dose: Not Given Multivitamins (Hexavitamin) 1 tab PO DAILY [facility] Last Admin: 01/05/18 10:34 Dose: Not Given Rifaximin (Xifaxan) 550 mg PO BID JE PRN Reason: Protocol Last Admin: 01/05/18 18:29 Dose: Not Given Sitagliptin Phosphate (Januvia) 25 mg PO DAILY [facility] Last Admin: 01/05/18 10:34 Dose: Not Given Tamsulosin HCl (Flomax) 0.4 mg PO DAILY [facility] Last Admin: 01/05/18 10:34 Dose: Not Given Thiamine HCl (Vitamin B1 Tab) 100 mg PO BID [facility] Last Admin: 01/05/18 18:29 Dose: Not Given - Labs Labs: 01/05/18 07:46 01/05/18 07:46 PT 16.2 SECONDS (9.7-12.2) H 12/29/17 06:22 INR 1.4 12/29/17 06:22 APTT 37 SECONDS (21-34) H 12/29/17 06:22 Assessment and Plan (1) Alcoholic hepatitis Status: Acute (2) Hypertension Status: Acute
[2018-01-06] MEDS: Dextrose 5%/0.45% NS 1,000 ML IV SCH (03:08)
[2018-01-06 06:52] LABS: CALCIUM 8.6 mg/dl (8.6-10.4)
[2018-01-06 07:09] LABS: BASO # 0.1 K/uL (0.0-0.2); BASO % 0.8 % (0.0-2.0); EOS # 0.2 K/uL (0.0-0.7); EOS % 2.8 % (0.0-4.0); HEMOGLOBIN 10.3 g/dL (12.0-18.0); LYMPH # 1.7 K/uL (1.0-4.3); LYMPH % 23.2 % (20.0-40.0); MEAN CELL VOLUME 100.8 fL (80.0-94.0); MEAN CORPUSCULAR HEMOGLOBIN 34.1 pg (27.0-31.0); MEAN CORPUSCULAR HGB CONC 33.8 g/dL (33.0-37.0); MEAN PLATELET VOLUME 11.7 fL (7.2-11.7); MONO % 13.2 % (0.0-10.0); NEUT # 4.4 K/uL (1.8-7.0); NRBC % 0.1 % (0.0-2.0); RBC 3.03 Mil/uL (4.40-5.90); RED CELL DISTRIBUTION WIDTH 16.6 % (11.5-14.5); WHITE BLOOD COUNT 7.4 K/uL (4.8-10.8)
[2018-01-06] MEDS: (Novolin R) Insulin Human Regular 100 units/ml vial SC SCH ×4 (07:45→21:13)
[2018-01-06] MEDS: Multiple Vitamins Tab PO SCH (09:34)
--- NOTE | 2018-01-06 11:53 | PN ---
DATE: LOCATION: [facility], bed B. SUBJECTIVE: This is a 72-year-old male, seen and examined in rounds early today, appeared to be somewhat mildly cachectic without any reported active bleeding or reported chest pain. The entire chart is reviewed including but not limited to the most recent lab and radiology study results, current and the previous medication list, current and the previous medical events. Today's lab showed low hemoglobin of 10.3, hematocrit 30.5, with thrombocytopenia 55, BUN 85, creatinine 3.5, blood glucose level 278, with ammonia level of 72 less than before. Brain MRI done yesterday, official report is seen. PHYSICAL EXAMINATION: GENERAL: A 72-year-old male who appeared to be restless. VITAL SIGNS: Afebrile, with pulse of 80, respiratory rate 20 to 22, blood pressure 124/82. HEENT: Showed pale, dry, oral mucous membranes. Bilateral icteric sclerae. LUNGS: Few scattered crepitations. Decreased air entry at bases. HEART: Positive S1 and S2. ABDOMEN: Soft with generalized mild tenderness and distention. No mass or organomegaly. No rebound tenderness or guarding. NEUROLOGIC: No reported new neurological deficits, sensory or motor. The patient is somewhat confused and mildly disoriented. IMPRESSION: 1. Alcoholism with alcoholic liver disease with recurrent episodes of delirium tremens and hepatic insufficiency. 2. Abnormal liver function tests with jaundice, most likely secondary to above. 3. Thrombocytopenia secondary to above. 4. Anemia, the possibility of gastrointestinal blood loss upper versus lower was raised. 5. Known history of hypertension. 7. Recent history of negative septicemia with possible bacterial endocarditis. 8. Poor oral intake recently. The patient could be a candidate for percutaneous endoscopic gastrostomy insertion. 9. Papillary stenosis, severe spasm by endoscopic retrograde cholangio-pancreatography recently. SUGGESTIONS: 1. Continue current management. 2. Peripheral hyperalimentation. 3. Neomycin p.o. 4. Lactulose enemas. 5. Repeat serum lipase and amylase level. 6. Further recommendations to follow. Lachelle Rodrigues MD
--- NOTE | 2018-01-06 17:01 | CP.PCM.PN ---
Subjective - Date & Time of Evaluation Date of Evaluation: 01/06/18 Time of Evaluation: 17:00 - Subjective Subjective: pt is seen and examined, follow up consult is dictated #[id number] check 24 hr up,cr, cr cl may need temporary hd check vit. b12, folate level Objective - Vital Signs/Intake and Output Vital Signs (last 24 hours): Temp Pulse Resp BP Pulse Ox 97.3 F L 85 20 97/64 L 100 01/06/18 15:00 01/06/18 15:30 01/06/18 15:00 01/06/18 15:00 01/06/18 15:00 Intake and Output: 01/06/18 01/06/18 06:59 18:59 Intake Total 1150 710 Output Total 200 150 Balance 950 560 - Medications Medications: Current Medications Acetaminophen (Tylenol 650 Mg Supp) 650 mg [place] Q6 PRN PRN Reason: fever of >100.4 and above Last Admin: 12/19/17 18:08 Dose: 650 mg Meropenem 250 mg/ Sodium (Chloride) 100 mls @ 100 mls/hr IVPB Q12 JE PRN Reason: Protocol Last Admin: 01/06/18 10:00 Dose: 100 mls/hr Dextrose/Sodium Chloride (Dextrose 5%/0.45% Ns 1000 Ml) 1,000 mls @ 70 mls/hr IV .[id number] [facility] Last Admin: 01/06/18 03:08 Dose: 70 mls/hr Insulin Human Regular (Novolin R) 0 unit SC ACHS JE PRN Reason: Protocol Last Admin: 01/06/18 12:22 Dose: 3 unit Lactulose (Enulose) 20 gm PO BID JE Last Admin: 01/06/18 09:32 Dose: 20 gm Multivitamins (Hexavitamin) 1 tab PO DAILY JE Last Admin: 01/06/18 09:34 Dose: 1 tab Rifaximin (Xifaxan) 550 mg PO BID JE PRN Reason: Protocol Last Admin: 01/06/18 10:26 Dose: 550 mg Sitagliptin Phosphate (Januvia) 25 mg PO DAILY [facility] Last Admin: 01/06/18 10:24 Dose: Not Given Tamsulosin HCl (Flomax) 0.4 mg PO DAILY [facility] Last Admin: 01/06/18 09:34 Dose: 0.4 mg Thiamine HCl (Vitamin B1 Tab) 100 mg PO BID JE Last Admin: 01/06/18 09:34 Dose: 100 mg - Labs Labs: 01/06/18 06:30 01/06/18 06:30 PT 16.2 SECONDS (9.7-12.2) H 12/29/17 06:22 INR 1.4 12/29/17 06:22 APTT 37 SECONDS (21-34) H 12/29/17 06:22
--- NOTE | 2018-01-06 18:54 | PN ---
DATE: SUBJECTIVE: The patient is seen. The patient is less lethargic today with improvement of his ammonia level, his last ammonia level now is 72 compared to before which was 135; however, his BUN is still 85 and creatinine is 3.5. The GFR is 21. According to the nurse, the patient's urine output is very poor and his random blood sugar is 278. He has been getting IV fluids. VITAL SIGNS: Temperature is 97, pulse rate is 85, blood pressure is 115/70, respirations 20, oxygen saturation is 98 on nasal cannula. REVIEW OF SYSTEMS: GENERAL: The patient is still drowsy, but more arousable. He is able to cooperate with staff when they tried to give him p.o. meds. SKIN: No diaphoresis. HEENT: Sclerae is anicteric. NECK: Supple. RESPIRATORY: No dyspnea. CARDIOVASCULAR: No chest pain. GASTROINTESTINAL: The patient did not complain of abdominal pain. He has very poor p.o. intake. EXTREMITIES: The patient has been bed-bound. MUSCULOSKELETAL: Generalized weakness. NEUROLOGIC: Alert, still drowsy, but more arousable. MENTAL STATUS EXAMINATION: Elderly male, who looks stated age, still confused, oriented to person. The patient is still lethargic. Mood is dysphoric. Affect restricted. Thought process, still confused. Thought content, no overt paranoia. No suicidal or homicidal ideation. Attention and memory seem to be impaired. Insight and judgment impaired. Impulse control is fair at this time. IMPRESSION: History of alcohol dependence, alcohol withdrawal, history of delirium, metabolic encephalopathy secondary to hepatic encephalopathy as well as kidney failure as well as history of failure to thrive. PLAN AND RECOMMENDATIONS: The patient was seen, meds reviewed. Continue present management. Continue lactulose as ordered to reduce his ammonia. The patient is followed by Dr. Lee. The patient has been given rifaximin to help him with his liver problems. Continue thiamine as ordered. Continue treatment plan as outlined. Stas Knox MD
--- NOTE | 2018-01-06 20:23 | CP.PCM.CON ---
Past Patient History - Past Medical History & Family History Past Medical History?: Yes - Past Social History Smoking Status: Former Smoker - CARDIAC Hx Hypertension: Yes - RENAL Hx Renal Failure: Yes - ENDOCRINE/METABOLIC Hx Diabetes Mellitus Type 2: Yes - MUSCULOSKELETAL/RHEUMATOLOGICAL Hx Falls: Yes - PSYCHIATRIC Hx Substance Use: No - SURGICAL HISTORY Hx Surgeries: Yes Hx Herniorrhaphy: Yes (Umbilical) - ANESTHESIA Hx Anesthesia: Yes Hx Anesthesia Reactions: No Hx Malignant Hyperthermia: No Has any member of the family had a problem w/ anesthesia?: No Meds Allergies/Adverse Reactions: Allergies Allergy/AdvReac Type Severity Reaction Status Date / Time No Known Allergies Allergy Verified 12/14/17 15:26 - Medications Medications: Current Medications Acetaminophen (Tylenol 650 Mg Supp) 650 mg [place] Q6 PRN PRN Reason: fever of >100.4 and above Last Admin: 12/19/17 18:08 Dose: 650 mg Meropenem 250 mg/ Sodium (Chloride) 100 mls @ 100 mls/hr IVPB Q12 JE PRN Reason: Protocol Last Admin: 01/06/18 10:00 Dose: 100 mls/hr Dextrose/Sodium Chloride (Dextrose 5%/0.45% Ns 1000 Ml) 1,000 mls @ 70 mls/hr IV .[id number] [facility] Last Admin: 01/06/18 03:08 Dose: 70 mls/hr Insulin Human Regular (Novolin R) 0 unit SC ACHS [facility] PRN Reason: Protocol Last Admin: 01/06/18 17:00 Dose: 3 unit Lactulose (Enulose) 20 gm PO BID [facility] Last Admin: 01/06/18 17:01 Dose: 20 gm Multivitamins (Hexavitamin) 1 tab PO DAILY [facility] Last Admin: 01/06/18 09:34 Dose: 1 tab Rifaximin (Xifaxan) 550 mg PO BID JE PRN Reason: Protocol Last Admin: 01/06/18 17:01 Dose: 550 mg Sitagliptin Phosphate (Januvia) 25 mg PO DAILY [facility] Last Admin: 01/06/18 10:24 Dose: Not Given Tamsulosin HCl (Flomax) 0.4 mg PO DAILY [facility] Last Admin: 01/06/18 09:34 Dose: 0.4 mg Thiamine HCl (Vitamin B1 Tab) 100 mg PO BID [facility] Last Admin: 01/06/18 17:01 Dose: 100 mg Results - Vital Signs Recent Vital Signs: Last Vital Signs Temp 97.3 F L 01/06/18 15:00 Pulse 90 01/06/18 19:30 Resp 20 01/06/18 15:00 BP 105/69 01/06/18 19:30 Pulse Ox 100 01/06/18 15:00 - Labs Result Diagrams: 01/06/18 06:30 01/06/18 06:30 Labs: Laboratory Results - last 24 hr 01/05/18 01/06/18 01/06/18 20:52 06:07 06:30 WBC 7.4 RBC 3.03 L Hgb 10.3 L Hct 30.5 L MCV 100.8 H MCH 34.1 H MCHC 33.8 RDW 16.6 H Plt Count 55 L MPV 11.7 Neut % (Auto) 60.0 Lymph % (Auto) 23.2 [place] % (Auto) 13.2 H Eos % (Auto) 2.8 Baso % (Auto) 0.8 Neut # (Auto) 4.4 Lymph # (Auto) 1.7 [place] # (Auto) 1.0 H Eos # (Auto) 0.2 Baso # (Auto) 0.1 Sodium Potassium Chloride Carbon Dioxide Anion Gap BUN Creatinine Est GFR ( Amer) Est GFR (Non-Af Amer) POC Glucose (mg/dL) 331 H 299 H Random Glucose Calcium Ammonia 01/06/18 01/06/18 01/06/18 06:30 06:30 11:37 WBC RBC Hgb Hct MCV MCH MCHC RDW Plt Count MPV Neut % (Auto) Lymph % (Auto) [place] % (Auto) Eos % (Auto) Baso % (Auto) Neut # (Auto) Lymph # (Auto) [place] # (Auto) Eos # (Auto) Baso # (Auto) Sodium 140 Potassium 4.2 Chloride 103 Carbon Dioxide 24 Anion Gap 17 BUN 85 H Creatinine 3.5 H Est GFR ( Amer) 21 Est GFR (Non-Af Amer) 17 POC Glucose (mg/dL) 294 H Random Glucose 278 H Calcium 8.6 Ammonia 72 H D 01/06/18 16:09 WBC RBC Hgb Hct MCV MCH MCHC RDW Plt Count MPV Neut % (Auto) Lymph % (Auto) [place] % (Auto) Eos % (Auto) Baso % (Auto) Neut # (Auto) Lymph # (Auto) [place] # (Auto) Eos # (Auto) Baso # (Auto) Sodium Potassium Chloride Carbon Dioxide Anion Gap BUN Creatinine Est GFR ( Amer) Est GFR (Non-Af Amer) POC Glucose (mg/dL) 296 H Random Glucose Calcium Ammonia
--- NOTE | 2018-01-06 23:51 | CP.PCM.PN ---
Subjective - Date & Time of Evaluation Date of Evaluation: 01/06/18 Time of Evaluation: 23:51 - Subjective Subjective: Patient seen today AFEBRILE , JAUNDICED +VE POORLY AROUSABLE. SERUM NH3 LEVELS HIGH--72 TODAY STARTED ON RIFAXAMIN BY GI SEEN BY HEMATOLOGY FOR THROMBOCYTOPENIA Objective - Vital Signs/Intake and Output Vital Signs (last 24 hours): Temp Pulse Resp BP Pulse Ox 97.3 F L 90 20 105/69 100 01/06/18 15:00 01/06/18 19:30 01/06/18 15:00 01/06/18 19:30 01/06/18 15:00 Intake and Output: 01/06/18 01/07/18 18:59 06:59 Intake Total 710 590 Output Total 150 50 Balance 560 540 - Medications Medications: Current Medications Acetaminophen (Tylenol 650 Mg Supp) 650 mg [place] Q6 PRN PRN Reason: fever of >100.4 and above Last Admin: 12/19/17 18:08 Dose: 650 mg Meropenem 250 mg/ Sodium (Chloride) 100 mls @ 100 mls/hr IVPB Q12 JE PRN Reason: Protocol Last Admin: 01/06/18 21:28 Dose: 100 mls/hr Dextrose/Sodium Chloride (Dextrose 5%/0.45% Ns 1000 Ml) 1,000 mls @ 70 mls/hr IV .[id number] [facility] Last Admin: 01/06/18 03:08 Dose: 70 mls/hr Insulin Human Regular (Novolin R) 0 unit SC ACHS JE PRN Reason: Protocol Last Admin: 01/06/18 21:13 Dose: Not Given Lactulose (Enulose) 20 gm PO BID [facility] Last Admin: 01/06/18 17:01 Dose: 20 gm Multivitamins (Hexavitamin) 1 tab PO DAILY [facility] Last Admin: 01/06/18 09:34 Dose: 1 tab Rifaximin (Xifaxan) 550 mg PO BID JE PRN Reason: Protocol Last Admin: 01/06/18 17:01 Dose: 550 mg Sitagliptin Phosphate (Januvia) 25 mg PO DAILY [facility] Last Admin: 01/06/18 10:24 Dose: Not Given Tamsulosin HCl (Flomax) 0.4 mg PO DAILY [facility] Last Admin: 01/06/18 09:34 Dose: 0.4 mg Thiamine HCl (Vitamin B1 Tab) 100 mg PO BID JE Last Admin: 01/06/18 17:01 Dose: 100 mg - Labs Labs: 01/06/18 06:30 01/06/18 06:30 PT 16.2 SECONDS (9.7-12.2) H 12/29/17 06:22 INR 1.4 12/29/17 06:22 APTT 37 SECONDS (21-34) H 12/29/17 06:22 - Constitutional Appears: No Acute Distress, Chronically Ill - Head Exam Head Exam: NORMAL INSPECTION - Eye Exam Eye Exam: EOMI, PERRL, Scleral icterus - ENT Exam ENT Exam: Normal Oropharynx - Neck Exam Neck Exam: Normal Inspection - Respiratory Exam Respiratory Exam: Decreased Breath Sounds - GI/Abdominal Exam GI & Abdominal Exam: Soft, Tenderness (GENERALIZED), Hypoactive Bowel Sounds - Extremities Exam Extremities Exam: absent: Calf Tenderness, Pedal Edema - Neurological Exam Neurological Exam: Altered - Psychiatric Exam Psychiatric exam: Flat Affect Assessment and Plan (1) Gram-negative sepsis Status: Acute (2) Wound infection, posttraumatic Status: Acute (3) Alcoholic hepatitis Status: Acute (4) Fatty liver with encephalopathy Status: Acute (5) Leg edema Status: Acute (6) Failure to thrive Status: Acute (7) Thrombocytopenia Status: Acute (8) Hypertension Status: Acute - Assessment and Plan (Free Text) Assessment: GRAM NEGATIVE SEPSIS E. COLI. AORTIC VALVE ENDOCARDITIS- 2D-ECHO +VEGETATIONS GLENN- ATN ? DIURETICS/HTN. ALCOHOLIC HEPATITIS S/P ERCP ( NOT-STENTED ?SPASM ) CIRRHOSIS OF LIVER TOXIC METABOLIC ENCEPHALOPATHY. DIABETES MELLITUS. PLAN ON IV MERRUM 250 MG Q 12 HRS . F/U RENAL FUNCTION. ON LACTULOSE PER GI PER CONSULTANTS -HEMATOLOGY/RENAL CASE DISCUSSED WITH STAFF INSPECTOR PLATING. PROGNOSIS POOR.
--- NOTE | 2018-01-06 23:52 | CP.PCM.PN ---
Subjective - Date & Time of Evaluation Date of Evaluation: 01/06/18 Time of Evaluation: 17:00 - Subjective Subjective: PT IS SEEN AND EXAMINED, AFEBRILE Objective - Vital Signs/Intake and Output Vital Signs (last 24 hours): Temp Pulse Resp BP Pulse Ox 97.3 F L 90 20 105/69 100 01/06/18 15:00 01/06/18 19:30 01/06/18 15:00 01/06/18 19:30 01/06/18 15:00 Intake and Output: 01/06/18 01/07/18 18:59 06:59 Intake Total 710 590 Output Total 150 50 Balance 560 540 - Medications Medications: Current Medications Acetaminophen (Tylenol 650 Mg Supp) 650 mg [place] Q6 PRN PRN Reason: fever of >100.4 and above Last Admin: 12/19/17 18:08 Dose: 650 mg Meropenem 250 mg/ Sodium (Chloride) 100 mls @ 100 mls/hr IVPB Q12 JE PRN Reason: Protocol Last Admin: 01/06/18 21:28 Dose: 100 mls/hr Dextrose/Sodium Chloride (Dextrose 5%/0.45% Ns 1000 Ml) 1,000 mls @ 70 mls/hr IV .[id number] [facility] Last Admin: 01/06/18 03:08 Dose: 70 mls/hr Insulin Human Regular (Novolin R) 0 unit SC ACHS JE PRN Reason: Protocol Last Admin: 01/06/18 21:13 Dose: Not Given Lactulose (Enulose) 20 gm PO BID [facility] Last Admin: 01/06/18 17:01 Dose: 20 gm Multivitamins (Hexavitamin) 1 tab PO DAILY JE Last Admin: 01/06/18 09:34 Dose: 1 tab Rifaximin (Xifaxan) 550 mg PO BID JE PRN Reason: Protocol Last Admin: 01/06/18 17:01 Dose: 550 mg Sitagliptin Phosphate (Januvia) 25 mg PO DAILY [facility] Last Admin: 01/06/18 10:24 Dose: Not Given Tamsulosin HCl (Flomax) 0.4 mg PO DAILY [facility] Last Admin: 01/06/18 09:34 Dose: 0.4 mg Thiamine HCl (Vitamin B1 Tab) 100 mg PO BID [facility] Last Admin: 01/06/18 17:01 Dose: 100 mg - Labs Labs: 01/06/18 06:30 01/06/18 06:30 PT 16.2 SECONDS (9.7-12.2) H 12/29/17 06:22 INR 1.4 12/29/17 06:22 APTT 37 SECONDS (21-34) H 12/29/17 06:22
--- NOTE | 2018-01-07 02:57 | CP.PCM.CON ---
History of Present Illness - History of Present Illness History of Present Illness: 72 year old male with a history of DM, alcohol abuse, admitted with LE swelling , found to have liver disease, hepatic encephalopathy, ascites s/p paracentesis , bacteremia on antibiotics, with progressive anemia, thromobocytopenia and coagulopathy. I am unable to obtain a history from the patient due to lethargy. Review of his medical records shows a platelet vera of 55 and hgb of 10. His CEA and CA 19-9 are mildly elevated. Past medical, surgical, family history cannot be obtained. Allergies: Per documentation NKA Review of systems cannot be obtained. Past Patient History - Past Medical History & Family History Past Medical History?: Yes - Past Social History Smoking Status: Former Smoker - CARDIAC Hx Hypertension: Yes - RENAL Hx Renal Failure: Yes - ENDOCRINE/METABOLIC Hx Diabetes Mellitus Type 2: Yes - MUSCULOSKELETAL/RHEUMATOLOGICAL Hx Falls: Yes - PSYCHIATRIC Hx Substance Use: No - SURGICAL HISTORY Hx Surgeries: Yes Hx Herniorrhaphy: Yes (Umbilical) - ANESTHESIA Hx Anesthesia: Yes Hx Anesthesia Reactions: No Hx Malignant Hyperthermia: No Has any member of the family had a problem w/ anesthesia?: No Meds Allergies/Adverse Reactions: Allergies Allergy/AdvReac Type Severity Reaction Status Date / Time No Known Allergies Allergy Verified 12/14/17 15:26 - Medications Medications: Current Medications Acetaminophen (Tylenol 650 Mg Supp) 650 mg [place] Q6 PRN PRN Reason: fever of >100.4 and above Last Admin: 12/19/17 18:08 Dose: 650 mg Meropenem 250 mg/ Sodium (Chloride) 100 mls @ 100 mls/hr IVPB Q12 JE PRN Reason: Protocol Last Admin: 01/06/18 21:28 Dose: 100 mls/hr Dextrose/Sodium Chloride (Dextrose 5%/0.45% Ns 1000 Ml) 1,000 mls @ 70 mls/hr IV .[id number] JE Last Admin: 01/06/18 03:08 Dose: 70 mls/hr Insulin Human Regular (Novolin R) 0 unit SC ACHS JE PRN Reason: Protocol Last Admin: 01/06/18 21:13 Dose: Not Given Lactulose (Enulose) 20 gm PO BID JE Last Admin: 01/06/18 17:01 Dose: 20 gm Multivitamins (Hexavitamin) 1 tab PO DAILY JE Last Admin: 01/06/18 09:34 Dose: 1 tab Rifaximin (Xifaxan) 550 mg PO BID [facility] PRN Reason: Protocol Last Admin: 01/06/18 17:01 Dose: 550 mg Sitagliptin Phosphate (Januvia) 25 mg PO DAILY [facility] Last Admin: 01/06/18 10:24 Dose: Not Given Tamsulosin HCl (Flomax) 0.4 mg PO DAILY [facility] Last Admin: 01/06/18 09:34 Dose: 0.4 mg Thiamine HCl (Vitamin B1 Tab) 100 mg PO BID [facility] Last Admin: 01/06/18 17:01 Dose: 100 mg Physical Exam - Head Exam Head Exam: ATRAUMATIC - Eye Exam Eye Exam: Normal appearance - ENT Exam ENT Exam: Mucous Membranes Dry - Respiratory Exam Respiratory Exam: NORMAL BREATHING PATTERN - Cardiovascular Exam Cardiovascular Exam: +S1, +S2 - GI/Abdominal Exam GI & Abdominal Exam: Normal Bowel Sounds - Extremities Exam Extremities exam: Positive for: pedal edema - Neurological Exam Additional comments: lethargic - Psychiatric Exam Psychiatric exam: Depressed - Skin Skin Exam: Warm Results - Vital Signs Recent Vital Signs: Last Vital Signs Temp 97.6 F 01/06/18 23:11 Pulse 83 01/06/18 23:11 Resp 22 01/06/18 23:11 BP 120/70 01/06/18 23:11 Pulse Ox 96 01/06/18 23:11 - Labs Result Diagrams: 01/06/18 06:30 01/06/18 06:30 Labs: Laboratory Results - last 24 hr 01/06/18 01/06/18 01/06/18 06:07 06:30 06:30 WBC 7.4 RBC 3.03 L Hgb 10.3 L Hct 30.5 L MCV 100.8 H MCH 34.1 H MCHC 33.8 RDW 16.6 H Plt Count 55 L MPV 11.7 Neut % (Auto) 60.0 Lymph % (Auto) 23.2 [place] % (Auto) 13.2 H Eos % (Auto) 2.8 Baso % (Auto) 0.8 Neut # (Auto) 4.4 Lymph # (Auto) 1.7 [place] # (Auto) 1.0 H Eos # (Auto) 0.2 Baso # (Auto) 0.1 Sodium 140 Potassium 4.2 Chloride 103 Carbon Dioxide 24 Anion Gap 17 BUN 85 H Creatinine 3.5 H Est GFR ( Amer) 21 Est GFR (Non-Af Amer) 17 POC Glucose (mg/dL) 299 H Random Glucose 278 H Calcium 8.6 Ammonia 01/06/18 01/06/18 01/06/18 06:30 11:37 16:09 WBC RBC Hgb Hct MCV MCH MCHC RDW Plt Count MPV Neut % (Auto) Lymph % (Auto) [place] % (Auto) Eos % (Auto) Baso % (Auto) Neut # (Auto) Lymph # (Auto) [place] # (Auto) Eos # (Auto) Baso # (Auto) Sodium Potassium Chloride Carbon Dioxide Anion Gap BUN Creatinine Est GFR ( Amer) Est GFR (Non-Af Amer) POC Glucose (mg/dL) 294 H 296 H Random Glucose Calcium Ammonia 72 H D 01/06/18 20:53 WBC RBC Hgb Hct MCV MCH MCHC RDW Plt Count MPV Neut % (Auto) Lymph % (Auto) [place] % (Auto) Eos % (Auto) Baso % (Auto) Neut # (Auto) Lymph # (Auto) [place] # (Auto) Eos # (Auto) Baso # (Auto) Sodium Potassium Chloride Carbon Dioxide Anion Gap BUN Creatinine Est GFR ( Amer) Est GFR (Non-Af Amer) POC Glucose (mg/dL) 300 H Random Glucose Calcium Ammonia Assessment & Plan (1) Thrombocytopenia Assessment and Plan: liver disease causing thrombopietin dysregulation may be exacerbated by infection Status: Acute (2) Anemia Assessment and Plan: will check ferritin, retic count, b12, folate, FOBT to further characterize Status: Acute (3) Coagulopathy Assessment and Plan: likely secondary to liver disease may have a nutritional component Status: Acute (4) Elevated CEA Assessment and Plan: mild may be related to liver disease upper and lower endoscopy when more stable Status: Acute (5) Elevated CA 19-9 level Assessment and Plan: may be elevated due to liver disease CT of pancrease when more stable Status: Acute (6) Elevated serum globulin level Assessment and Plan: monoclonal protein work up sent Thank you for this interesting consult. Status: Acute
--- NOTE | 2018-01-07 04:15 | PN ---
DATE: 01/06/2018 The patient is located in room 651, bed B. Requested Dr. Jayden Johnson. SUBJECTIVE: Mr. Crain is a 72-year-old elderly male with a past medical history significant for hypertension, recently diagnosed diabetes, EtOH abuse, cirrhosis of the liver, smoker, was admitted with weakness and difficulty to ambulate and found to have gram-negative sepsis and status post treatment with vancomycin and Zosyn, subsequently changed to meropenem. The patient also found to have ascites and status post paracentesis. His hospital course complicated by acute renal failure and also hepatic encephalopathy. The patient is not in distress, following simple commands today, not in distress. No chest pain. No palpitation. No fever. No cough. PHYSICAL EXAMINATION: VITAL SIGNS: As follows: This afternoon: Blood pressure 197/64, pulse 83, respirations 20, temperature 97.3, saturation 100. Height 5 feet 7 inches, weight is 180 pounds. GENERAL: Mr. Crain is a 72-year-old elderly male, moderately built, moderately nourished, not in distress. HEENT: Pupils normal and reactive to light and accommodation. Conjunctiva pink. Sclera is icteric. Tongue is moist. Trachea is midline. LUNGS: Symmetric on both sides. Bilateral breath sounds present. Clear to auscultation. CVS: [place] at the fifth intercostal space, midclavicular line. S1 and S2 audible. No murmur or gallop. ABDOMEN: Normal in appearance, soft, tympanic. Slightly distended. No guarding. No rigidity. No hepatosplenomegaly. PERMIT TECHNICIAN: The patient is awake, following simple commands. EXTREMITIES: No cyanosis, no clubbing. The patient has a trace edema in both lower extremities. CURRENT MEDICATIONS: Include as follows: D5 half normal saline at 70 mL/hour, lactulose 20 g p.o. b.i.d., Flomax 0.4 mg p.o. daily, Januvia 25 mg p.o. daily, multivitamin 1 tablet daily, meropenem 250 mg p.o. every 12 hours, Novolin R for sliding scale, Tylenol, thiamine 100 mg p.o. t.i.d., rifaximin 500 mg p.o. b.i.d. LABORATORY DATA: Include as follows: As of 01/06/2018: WBC of 7.4, hemoglobin 10.3, hematocrit is 30.5, MCV 100.8, platelets 55. Sodium 140, potassium 4.2, chloride 103, CO2 of 24, BUN 85, creatinine 3.5. GFR is about 21 mL. Glucose 278, calcium 8.6. ammonia is 72. In summary, Mr. Crain is a 72-year-old elderly male with a history of hypertension, diabetes, EtOH abuse, cirrhosis of the liver with abnormal LFTs, low platelets. and status post gram-negative sepsis and increased BUN and creatinine. 1. Acute renal failure most likely secondary to ATN secondary to sepsis, cannot rule out secondary to medications, diuretics and antibiotics. 2. Cirrhosis of the liver. 3. Thrombocytopenia, most likely secondary to cirrhosis of the liver. 4. Uncontrolled diabetes. 5. Hepatic encephalopathy. Continue rifaximin and also lactulose. If renal function does not improve, the patient may need to undergo temporary hemodialysis and discussed with the patient's son at bedside. Overall prognosis is guarded. We will follow with you. Thank you for allowing me to participate in your patient's care, and we will also check 24-hour urine protein, creatinine, and and also check vitamin B12 levels and folic acid level. Neri Lee MD
[2018-01-07] MEDS: (Novolin R) Insulin Human Regular 100 units/ml vial SC SCH ×4 (07:41→21:09)
[2018-01-07 08:10] LABS: BASO % 0.6 % (0.0-2.0); EOS # 0.2 K/uL (0.0-0.7); EOS % 2.8 % (0.0-4.0); HEMOGLOBIN 10.4 g/dL (12.0-18.0); LYMPH % 25.9 % (20.0-40.0); MEAN CORPUSCULAR HGB CONC 34.6 g/dL (33.0-37.0); MEAN PLATELET VOLUME 11.4 fL (7.2-11.7); MONO # 0.8 K/uL (0.0-0.8); MONO % 10.7 % (0.0-10.0); NEUT # 4.6 K/uL (1.8-7.0); NRBC % 0.1 % (0.0-2.0); RBC 2.97 Mil/uL (4.40-5.90); RED CELL DISTRIBUTION WIDTH 16.9 % (11.5-14.5); WHITE BLOOD COUNT 7.7 K/uL (4.8-10.8)
[2018-01-07 08:29] LABS: ALB/GLOB RATIO 0.5 (1.0-2.1); ALBUMIN 2.1 g/dL (3.5-5.0); CALCIUM 8.9 mg/dl (8.6-10.4)
[2018-01-07] MEDS: Multiple Vitamins Tab PO SCH (09:45)
--- NOTE | 2018-01-07 12:01 | PN ---
DATE: 01/07/2018 LOCATION: 651, bed B. SUBJECTIVE: This 72-year-old male seen and examined in rounds with reported previous blisters at the lower extremities and left buttock with generalized jaundice, appeared to be mildly cachectic with reported less oral intake. No reported chest pain, palpitations, or evidence of active bleeding. No reported chills or fever. Today's lab is still pending; however, the patient has persistent thrombocytopenia with low hemoglobin and hematocrit with increased BUN and creatinine and elevated blood glucose levels, the latest was 300. The latest ammonia was 72 with increased total bilirubin, AST elevated with karma ALT with elevated alkaline phosphatase. PHYSICAL EXAMINATION: GENERAL: A 72-year-old male appeared to be somewhat semi-disoriented early in the morning. VITAL SIGNS: Afebrile with pulse of 80, respiratory rate 20 to 22, blood pressure of 112/68. HEENT: Showed pale, dry oral mucous membranes. Nonicteric sclerae. LUNGS: Few scattered crepitations. Decreased air entry at bases. HEART: Positive S1 and S2. ABDOMEN: Soft with slight generalized tenderness. No mass or organomegaly. No rebound tenderness or guarding. EXTREMITIES: Evidence of muscle wasting syndrome. No clubbing or cyanosis. NEUROLOGIC: No reported new neurological deficits, sensory or motor. Again, the patient has periods of semi-disorientation and semi-confusion. IMPRESSION: 1. Alcoholism with alcoholic liver disease, liver cirrhosis, portal hypertension, ascites. 2. Jaundice with elevated total bilirubin secondary to above. 3. Thrombocytopenia most likely secondary to above. 4. 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 5. Re-exacerbation of peptic ulcer disease. 6. Recent history of gram-negative septicemia with possible bacterial endocarditis. 7. Known history of hypertension. 8. Hypoalbuminemia with malnutrition. SUGGESTIONS: 1. Continue current management. 2. The patient is a candidate for possible PEG insertion. 3. Due to the patient's hepatic encephalopathy, neomycin to be considered; otherwise, lactulose enema to be added. MD Lachelle Kebede MD55:[id number]
[2018-01-07] MEDS: Dextrose 5%/0.45% NS 1,000 ML IV SCH ×2 (12:40→19:07)
--- NOTE | 2018-01-07 15:32 | CP.PCM.PN ---
Subjective - Date & Time of Evaluation Date of Evaluation: 01/07/18 Time of Evaluation: 15:31 - Subjective Subjective: pt is seen and examined, follow up consult is dictated #[id number] Objective - Vital Signs/Intake and Output Vital Signs (last 24 hours): Temp Pulse Resp BP Pulse Ox 97.4 F L 96 H 20 128/83 100 01/07/18 07:00 01/07/18 07:10 01/07/18 07:00 01/07/18 07:00 01/07/18 07:00 Intake and Output: 01/07/18 01/07/18 06:59 18:59 Intake Total 590 Output Total 175 Balance 415 - Medications Medications: Current Medications Acetaminophen (Tylenol 650 Mg Supp) 650 mg [place] Q6 PRN PRN Reason: fever of >100.4 and above Last Admin: 12/19/17 18:08 Dose: 650 mg Dextrose/Sodium Chloride (Dextrose 5%/0.45% Ns 1000 Ml) 1,000 mls @ 70 mls/hr IV .[id number] [facility] Last Admin: 01/07/18 12:40 Dose: 70 mls/hr Meropenem 250 mg/ Sodium (Chloride) 100 mls @ 100 mls/hr IVPB Q12 JE PRN Reason: Protocol Insulin Human Regular (Novolin R) 0 unit SC ACHS JE PRN Reason: Protocol Last Admin: 01/07/18 12:42 Dose: Not Given Lactulose (Enulose) 20 gm PO BID [facility] Last Admin: 01/07/18 09:46 Dose: 20 gm Multivitamins (Hexavitamin) 1 tab PO DAILY [facility] Last Admin: 01/07/18 09:45 Dose: 1 tab Rifaximin (Xifaxan) 550 mg PO BID JE PRN Reason: Protocol Last Admin: 01/07/18 09:45 Dose: 550 mg Sitagliptin Phosphate (Januvia) 25 mg PO DAILY [facility] Last Admin: 01/07/18 09:45 Dose: 25 mg Tamsulosin HCl (Flomax) 0.4 mg PO DAILY [facility] Last Admin: 01/07/18 09:45 Dose: 0.4 mg Thiamine HCl (Vitamin B1 Tab) 100 mg PO BID [facility] Last Admin: 01/07/18 09:45 Dose: 100 mg - Labs Labs: 01/07/18 07:47 01/07/18 07:47 PT 16.2 SECONDS (9.7-12.2) H 12/29/17 06:22 INR 1.4 12/29/17 06:22 APTT 37 SECONDS (21-34) H 12/29/17 06:22
--- NOTE | 2018-01-07 19:49 | PN ---
DATE: SUBJECTIVE: The patient is seen. The patient;s mental status seems to deteriorate. He is more drowsy and lethargic and can hardly converse. LABORATORY DATA: Review of his labs, his BUN is now 88, creatinine is 3.7, blood sugar is 285. The last ammonia level was 72. VITAL SIGNS: Temperature is 97.4, pulse is 96, blood pressure is 128/83, respirations 20, oxygen saturation is 100%. REVIEW OF SYSTEMS: GENERAL: The patient is very drowsy, could hardly converse, seen in his room, not in acute respiratory distress, but his mental status is noted to be more somnolent. He is not agitated. SKIN: No pruritus. HEENT: No headache. NECK: Supple. RESPIRATORY: No dyspnea. CARDIOVASCULAR: No chest pain. GASTROINTESTINAL: The patient has very poor p.o. intake. EXTREMITIES: The patient is moving extremities. NEUROLOGIC: Very drowsy, confused. GENITOURINARY: No problems. MENTAL STATUS EXAMINATION: A very lethargic, drowsy male seen in his room, can hardly converse. Mood is dysphoric. Affect is restricted. Speech is slow. Thought process, confused. Thought content, no overt psychosis. No suicidal or homicidal ideations. Attention and memory impaired. Insight and judgment impaired. Impulse control is fair at this time. IMPRESSION: Delirium, multifactorial, probably secondary to renal failure and hepatic encephalopathy as well as history of alcohol dependence, alcohol withdrawal, history of gram-negative sepsis, failure to thrive. PLAN AND RECOMMENDATION: The patient is seen and meds reviewed. Continue present management. The patient is followed by Dr. Lee for his renal problems and also Dr. Lyles for his gram-negative infection. I do suggest as the patient's mental status seems to be deteriorating as well as medical problems, to discuss more with Palliative Care on this patient. Stas Knox MD
[2018-01-07 22:52] LABS: ABG ALLEN TEST UNABLE; ARTERIAL BLOOD GAS HCO3 25.7 mmol/L (21-28); ARTERIAL BLOOD GAS O2 SAT 97.3 % (95-98); ARTERIAL BLOOD GAS PCO2 29 mm/Hg (35-45); ARTERIAL BLOOD GAS PH 7.51 (7.35-7.45); ARTERIAL BLOOD GAS PO2 69 mm/Hg (80-100)
--- NOTE | 2018-01-07 23:09 | CP.PCM.CON ---
History of Present Illness - History of Present Illness History of Present Illness: 72 y/o male admitted on 12/14/2017 [facility] with c/o LE edema X 2 months. Patient was diagnosed with SBP with GNR bacteremia, hematorenal syndrome , hepatic encehalopathy. ICU consulted for worsening clinical condition. PAtient not responsive. limited ROS Review of Systems - Review of Systems Review of Systems: limited 2nd hepatic encephalopathy Past Patient History - Past Medical History & Family History Past Medical History?: Yes - Past Social History Smoking Status: Former Smoker - CARDIAC Hx Hypertension: Yes - RENAL Hx Renal Failure: Yes - ENDOCRINE/METABOLIC Hx Diabetes Mellitus Type 2: Yes - MUSCULOSKELETAL/RHEUMATOLOGICAL Hx Falls: Yes - PSYCHIATRIC Hx Substance Use: No - SURGICAL HISTORY Hx Surgeries: Yes Hx Herniorrhaphy: Yes (Umbilical) - ANESTHESIA Hx Anesthesia: Yes Hx Anesthesia Reactions: No Hx Malignant Hyperthermia: No Has any member of the family had a problem w/ anesthesia?: No Meds Allergies/Adverse Reactions: Allergies Allergy/AdvReac Type Severity Reaction Status Date / Time No Known Allergies Allergy Verified 12/14/17 15:26 - Medications Medications: Current Medications Acetaminophen (Tylenol 650 Mg Supp) 650 mg MD Q6 PRN PRN Reason: fever of >100.4 and above Last Admin: 12/19/17 18:08 Dose: 650 mg Dextrose/Sodium Chloride (Dextrose 5%/0.45% Ns 1000 Ml) 1,000 mls @ 70 mls/hr IV .[id number] [facility] Last Admin: 01/07/18 19:07 Dose: Not Given Meropenem 250 mg/ Sodium (Chloride) 100 mls @ 100 mls/hr IVPB Q12 JE PRN Reason: Protocol Last Admin: 01/07/18 21:08 Dose: 100 mls/hr Insulin Human Regular (Novolin R) 0 unit SC ACHS JE PRN Reason: Protocol Last Admin: 01/07/18 21:09 Dose: Not Given Lactulose (Enulose) 20 gm PO BID [facility] Last Admin: 01/07/18 18:08 Dose: Not Given Multivitamins (Hexavitamin) 1 tab PO DAILY [facility] Last Admin: 01/07/18 09:45 Dose: 1 tab Rifaximin (Xifaxan) 550 mg PO BID JE PRN Reason: Protocol Last Admin: 01/07/18 18:08 Dose: Not Given Sitagliptin Phosphate (Januvia) 25 mg PO DAILY [facility] Last Admin: 01/07/18 09:45 Dose: 25 mg Tamsulosin HCl (Flomax) 0.4 mg PO DAILY [facility] Last Admin: 01/07/18 09:45 Dose: 0.4 mg Thiamine HCl (Vitamin B1 Tab) 100 mg PO BID [facility] Last Admin: 01/07/18 18:08 Dose: Not Given Physical Exam - Constitutional Appears: No Acute Distress - Head Exam Head Exam: ATRAUMATIC, NORMAL INSPECTION - Eye Exam Pupil Exam: NORMAL ACCOMODATION - Respiratory Exam Respiratory Exam: Clear to Auscultation Bilateral, NORMAL BREATHING PATTERN - Cardiovascular Exam Cardiovascular Exam: REGULAR RHYTHM, +S1, +S2, Systolic Murmur - GI/Abdominal Exam GI & Abdominal Exam: Normal Bowel Sounds, Organomegaly, Soft - Extremities Exam Extremities exam: Positive for: pedal edema Results - Vital Signs Recent Vital Signs: Last Vital Signs Temp 97.5 F L 01/07/18 15:15 Pulse 83 01/07/18 21:18 Resp 24 01/07/18 21:18 BP 105/58 L 01/07/18 21:18 Pulse Ox 96 01/07/18 21:18 - Labs Result Diagrams: 01/07/18 07:47 01/07/18 18:18 Labs: Laboratory Results - last 24 hr 01/07/18 01/07/18 01/07/18 06:03 07:47 07:47 WBC 7.7 RBC 2.97 L Hgb 10.4 L Hct 30.0 L MCV 101.0 H MCH 35.0 H MCHC 34.6 RDW 16.9 H Plt Count 58 L MPV 11.4 Neut % (Auto) 60.0 Lymph % (Auto) 25.9 [place] % (Auto) 10.7 H Eos % (Auto) 2.8 Baso % (Auto) 0.6 Neut # (Auto) 4.6 Lymph # (Auto) 2.0 [place] # (Auto) 0.8 Eos # (Auto) 0.2 Baso # (Auto) 0.0 Puncture Site pCO2 pO2 HCO3 ABG pH ABG Total CO2 ABG O2 Saturation ABG Base Excess [place] Test ABG Potassium A-a O2 Difference Respiratory Index Glucose Lactate Liter Flow FiO2 Sodium 138 Potassium 4.4 Chloride 103 Carbon Dioxide 23 Anion Gap 17 BUN 88 H Creatinine 3.7 H Est GFR ( Amer) 20 Est GFR (Non-Af Amer) 16 POC Glucose (mg/dL) 306 H Random Glucose 285 H Calcium 8.9 Total Bilirubin 5.8 H AST 125 H ALT 54 Alkaline Phosphatase 210 H Total Protein 6.7 Albumin 2.1 L Globulin 4.6 H Albumin/Globulin Ratio 0.5 L Arterial Blood Potassium Urine Collection Time Urine Total Volume Ur Creatinine 24 Hour Creatinine Clearance Ur Protein 24 Hr Calc 01/07/18 01/07/18 01/07/18 11:24 16:45 18:18 WBC RBC Hgb Hct MCV MCH MCHC RDW Plt Count MPV Neut % (Auto) Lymph % (Auto) [place] % (Auto) Eos % (Auto) Baso % (Auto) Neut # (Auto) Lymph # (Auto) [place] # (Auto) Eos # (Auto) Baso # (Auto) Puncture Site pCO2 pO2 HCO3 ABG pH ABG Total CO2 ABG O2 Saturation ABG Base Excess [place] Test ABG Potassium A-a O2 Difference Respiratory Index Glucose Lactate Liter Flow FiO2 Sodium Potassium Chloride Carbon Dioxide Anion Gap BUN Creatinine 3.7 H Est GFR ( Amer) Est GFR (Non-Af Amer) POC Glucose (mg/dL) 285 H 298 H Random Glucose Calcium Total Bilirubin AST ALT Alkaline Phosphatase Total Protein Albumin Globulin Albumin/Globulin Ratio Arterial Blood Potassium Urine Collection Time 24 Urine Total Volume 300 Ur Creatinine 24 Hour 522.0 L Creatinine Clearance 9.0 L Ur Protein 24 Hr Calc 57.0 01/07/18 01/07/18 21:05 22:49 WBC RBC Hgb Hct MCV MCH MCHC RDW Plt Count MPV Neut % (Auto) Lymph % (Auto) [place] % (Auto) Eos % (Auto) Baso % (Auto) Neut # (Auto) Lymph # (Auto) [place] # (Auto) Eos # (Auto) Baso # (Auto) Puncture Site Lr pCO2 29 L pO2 69 L HCO3 25.7 ABG pH 7.51 H ABG Total CO2 24.0 ABG O2 Saturation 97.3 ABG Base Excess 1.0 [place] Test Unable ABG Potassium 4.1 A-a O2 Difference 123.0 Respiratory Index 1.8 Glucose 234 H Lactate 2.1 Liter Flow 3.0 FiO2 32.0 Sodium 138.0 Potassium Chloride 106.0 Carbon Dioxide Anion Gap BUN Creatinine Est GFR ( Amer) Est GFR (Non-Af Amer) POC Glucose (mg/dL) 263 H Random Glucose Calcium Total Bilirubin AST ALT Alkaline Phosphatase Total Protein Albumin Globulin Albumin/Globulin Ratio Arterial Blood Potassium 4.1 Urine Collection Time Urine Total Volume Ur Creatinine 24 Hour Creatinine Clearance Ur Protein 24 Hr Calc Assessment & Plan - Assessment and Plan (Free Text) Assessment: Hepatic encephalopathy: palce NG tube ans start lactulose + rifampin to keep 3 BMs/day -Sepsis: GNR bacteremia; continue abx as per ID, de-escalate as per sensitivity -Hepatorenal syndrome: start albumin, midodrine and renal consult, possible HD -thrombocytopenia: possible 2nd spleenomegaly 2nd cirrhosis -dvt ppx scds -PUD ppx protonix q12 + octrotide Patient will benefit from ICU level care until clinical conditions improve - Date & Time Date: 01/07/18 Time: 23:11
[2018-01-07] MEDS ORDERED: Lactulose 10 gm/15 ml (Rectal Use) PR ONE (23:15)
[2018-01-07] MEDS ORDERED: (Novolin R) Insulin Human Regular 100 units/ml vial SC SCH (23:15)
--- NOTE | 2018-01-07 23:37 | CP.PCM.PN ---
Subjective - Date & Time of Evaluation Date of Evaluation: 01/07/18 Time of Evaluation: 18:00 - Subjective Subjective: patient seen and examined Lying comfortably in no distress No shortness of breath Afebrile Objective - Vital Signs/Intake and Output Vital Signs (last 24 hours): Temp Pulse Resp BP Pulse Ox 97.5 F L 83 24 105/58 L 96 01/07/18 15:15 01/07/18 21:18 01/07/18 21:18 01/07/18 21:18 01/07/18 21:18 Intake and Output: 01/07/18 01/08/18 18:59 06:59 Intake Total 590 Balance 590 - Medications Medications: Current Medications Acetaminophen (Tylenol 650 Mg Supp) 650 mg CA Q6 PRN PRN Reason: fever of >100.4 and above Last Admin: 12/19/17 18:08 Dose: 650 mg Albumin Human (Albumin Human 25% (12.5 Gm/50 Ml)) 25 gm IV Q6H JE Stop: 01/08/18 17:16 Meropenem 250 mg/ Sodium (Chloride) 100 mls @ 100 mls/hr IVPB Q12 JE PRN Reason: Protocol Last Admin: 01/07/18 21:08 Dose: 100 mls/hr Insulin Human Regular (Novolin R) 0 unit SC Q6H JE PRN Reason: Protocol Lactulose (Enulose) 20 gm PO Q8H JE Lactulose (Generlac) 200 gm CA ONCE ONE Stop: 01/07/18 23:16 Midodrine (Proamatine) 2.5 mg PO TID [facility] Multivitamins (Hexavitamin) 1 tab PO DAILY [facility] Last Admin: 01/07/18 09:45 Dose: 1 tab Rifaximin (Xifaxan) 550 mg PO BID JE PRN Reason: Protocol Last Admin: 01/07/18 18:08 Dose: Not Given Tamsulosin HCl (Flomax) 0.4 mg PO DAILY [facility] Last Admin: 01/07/18 09:45 Dose: 0.4 mg Thiamine HCl (Vitamin B1 Tab) 100 mg PO BID [facility] Last Admin: 01/07/18 18:08 Dose: Not Given - Labs Labs: 01/07/18 07:47 01/07/18 18:18 PT 16.2 SECONDS (9.7-12.2) H 12/29/17 06:22 INR 1.4 12/29/17 06:22 APTT 37 SECONDS (21-34) H 12/29/17 06:22
[2018-01-08] MEDS: Albumin Human 25% (12.5 gm/50 ml) IV SCH ×4 (00:21→17:18)
--- NOTE | 2018-01-08 00:54 | PN ---
DATE: 01/07/2018 FOLLOWUP RENAL CONSULTATION LOCATION: The patient is located in room 651, bed B. REQUESTED BY: Jayden Johnson MD REASON FOR FOLLOWUP: Acute renal failure. HISTORY OF PRESENT ILLNESS: Mr. Crain is a 72 years old elderly male with a past medical history significant for hypertension, recently diagnosed diabetes, EtOH abuse, cirrhosis of the liver, ascites, status post paracentesis and also hyperammonemia, being treated for hepatic encephalopathy with increased BUN and creatinine. The patient is very drowsy, responds slightly to verbal stimuli, not in distress. The patient's family is at bedside. Opens eyes to deep painful stimuli. PHYSICAL EXAMINATION: VITAL SIGNS: As follows, blood pressure 137/57, pulse 81, respirations 20, temperature 97.5, saturation 96%. Height 5 feet 7 inches, weight is about 180 pounds. GENERAL: Mr. Crain is a 72 years old elderly male, moderately built, moderately nourished, not in distress, drowsy, opens eyes to deep painful stimuli. HEENT: Pupils normal and reactive to light and accommodation. Conjunctivae pink. Sclera is icteric. Tongue is moist. Trachea is midline. LUNGS: Symmetric on both sides. Bilateral breath sounds present. Clear to auscultation. CVS: [place] at the fifth intercostal space, midclavicular line. S1, S2 audible. No murmur or gallop. ABDOMEN: Normal in appearance, soft, tympanic. Slightly distended. Bowel sounds present. No guarding. No rigidity. 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 EXTREMITIES: No cyanosis, no clubbing. The patient has a 1+ edema in both lower extremities. MEDICATIONS: His current medications include as follows, IV fluids D5 half normal saline at 70 mL/hour, lactulose 20 gm p.o. b.i.d., Flomax 0.4 mg p.o. daily, multivitamin 1 tablet daily, Januvia 25 mg p.o. daily, meropenem 250 mg p.o. every 12 hours, Novolin R for sliding scale, Tylenol, thiamine 100 mg p.o. b.i.d., and rifaximin 550 mg p.o. b.i.d.. LABORATORY DATA: As follows, WBC 7.7, hemoglobin 10.4, hematocrit is 30, platelets 58. Sodium 138, potassium 4.4, chloride 103, CO2 of 23, BUN 88, creatinine 3.7, glucose is 285, calcium 8.9. Total bili 5.8, AST 125, ALT 24, alkaline phosphatase is 210, total protein 6.7, albumin is 2.1. His 24-hour urine volume is about 300 mL and 24-hour urine creatinine is about 522, serum creatinine 3.7, and creatinine clearance about 9 mL. IMPRESSION: In summary, Mr. Crain is a 72 years old elderly male with hypertension, diabetes, EtOH abuse, cirrhosis of the liver, ascites, status post paracentesis, status post E. Coli sepsis with hyperammonemia and abnormal LFTs and increased BUN and creatinine. 1. Acute renal failure, on chronic kidney disease, most likely secondary to acute tubular necrosis, cannot rule out hepatorenal syndrome. 3. Hepatic encephalopathy. 4. Hypertension. 5. Uncontrolled diabetes. PLAN: Continue gentle IV hydration. Consider placing an NG tube and given the lactulose as patient has difficulty in swallowing as per the registered nurse and discussed with the patient's son regarding the possible need for hemodialysis, continue to deteriorate if it does not improve, and follow up with the GI for further management and NG tube placement and giving lactulose by NG tube or rectal. We will follow with you. Thank you for allowing me to participate in your patient's care. Overall, prognosis is very poor. Neri Lee MD
[2018-01-08 04:01] LABS: SQUAMOUS EPITHIAL 3 /hpf (0-5); URINE BACTERIA MOD (<OCC); URINE BILIRUBIN NEGATIVE (NEGATIVE); URINE BLOOD 3+ (NEGATIVE); URINE CALCIUM OXALATE CRYSTALS FEW /hpf (<OCC); URINE CLARITY Hazy (Clear); URINE COLOR Amber (YELLOW); URINE GLUCOSE (UA) NORMAL (Normal); URINE LEUKOCYTE ESTERASE 3+ Leu/uL (Negative); URINE PROTEIN 1+ mg/dL (NEGATIVE); WBC CLUMPS FEW /hpf
[2018-01-08 05:56] LABS: BASO % 0.6 % (0.0-2.0); EOS # 0.2 K/uL (0.0-0.7); EOS % 3.1 % (0.0-4.0); HEMOGLOBIN 9.7 g/dL (12.0-18.0); LYMPH # 1.7 K/uL (1.0-4.3); LYMPH % 22.6 % (20.0-40.0); MEAN CELL VOLUME 99.9 fL (80.0-94.0); MEAN CORPUSCULAR HEMOGLOBIN 34.6 pg (27.0-31.0); MEAN CORPUSCULAR HGB CONC 34.6 g/dL (33.0-37.0); MEAN PLATELET VOLUME 11.3 fL (7.2-11.7); MONO % 13.2 % (0.0-10.0); NEUT # 4.5 K/uL (1.8-7.0); NEUT % 60.5 % (50.0-75.0); NRBC % 0.1 % (0.0-2.0); RBC 2.81 Mil/uL (4.40-5.90); RED CELL DISTRIBUTION WIDTH 17.6 % (11.5-14.5); WHITE BLOOD COUNT 7.4 K/uL (4.8-10.8)
[2018-01-08] MEDS: (Novolin R) Insulin Human Regular 100 units/ml vial SC SCH ×3 (06:00→17:22)
[2018-01-08 06:32] LABS: ALB/GLOB RATIO 0.6 (1.0-2.1); ALBUMIN 2.7 g/dL (3.5-5.0); ALT/SGPT 48 U/L (21-72); AST/SGOT 101 U/L (17-59); BLOOD UREA NITROGEN 86 mg/dL (9-20); CALCIUM 9.3 mg/dl (8.6-10.4); GFR AFRICAN-AMERICAN 19; GFR NON-AFRICAN AMERICAN 15
[2018-01-08 07:58] LABS: FOLATE 6.5 ng/mL
--- NOTE | 2018-01-08 07:59 | PN ---
DATE: 01/05/2018 FOLLOWUP RENAL CONSULTATION LOCATION: The patient is located in room 651, bed B. REQUESTED BY: Jayden Johnson MD REASON FOR FOLLOWUP: Acute renal failure for further evaluation. HISTORY OF PRESENT ILLNESS: Mr. Crain is a 72 years old elderly male with a history of longstanding hypertension, EtOH abuse, recently diagnosed diabetes, cirrhosis of the liver, status post paracentesis who was admitted initially with altered mental status and found to have E. Coli sepsis. The patient is not in acute distress. The patient is arousable and following simple commands, not in distress. PHYSICAL EXAMINATION: VITAL SINGS: This morning as follows, blood pressure this morning 101/63, pulse 97, respirations 20, temperature 98.8, saturation 98%. Height 5 feet 7 inches, weight is 180 pounds. GENERAL: Mr. Crain is a 72 years old elderly male, moderately built, moderately nourished, not in distress. HEENT: Pupils normal and reactive to light and accommodation. Conjunctivae pink. Sclerae is icteric. Tongue is moist. Trachea is midline. LUNGS: Symmetric on both sides. Bilateral breath sounds present. Clear on auscultation. CVS: [place] at the fifth intercostal space, midclavicular line. S1, S2 audible. No murmur or gallop. ABDOMEN: Slightly distended, tympanic. No guarding. No rigidity. No hepatosplenomegaly. 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 Cranial nerves II through XII grossly intact. Sensory and motor system is within normal limits. EXTREMITIES: No cyanosis, no clubbing. The patient has trace edema in both lower extremities. MEDICATIONS: His current medications include as follows, IV fluids D5 half normal saline 70 mL/hour, lactulose 20 gm p.o. b.i.d., Flomax 0.4 mg p.o. daily, multivitamin 1 tablet daily, Januvia 25 mg p.o. daily, meropenem 250 mg every 12 hours, Novolin R for sliding scale, Tylenol 650 mg every 6 hours p.r.n., thiamine 100 mg p.o. b.i.d., rifaximin 550 mg p.o. b.i.d. LABORATORY DATA: Include as follows, as of 01/05/2018, WBC 6.7, hemoglobin 11.8, hematocrit is 34.4, platelets 60. Sodium 139, potassium 4.4, chloride 101, CO of 24, BUN 84, creatinine 3.4, glucose 346, calcium 8.9, ammonia 135, and alpha-fetoprotein is 3.1. Peritoneal fluid culture negative. No fungal element seen. IMPRESSION: In summary, Mr. Crain is a 72 years old elderly male with a history of hypertension, diabetes, status post gram-negative sepsis, EtOH abuse, cirrhosis of the liver, status post paracentesis and abnormal LFTs due to jaundice, and increased BUN and creatinine. 1. Acute renal failure, most likely secondary to acute tubular necrosis secondary to sepsis, cannot rule out secondary to diuretics and intravascular depletion. 2. Cirrhosis of the liver. 3. Hepatic encephalopathy. 4. Thrombocytopenia. PLAN: Continue gentle IV hydration, and we will continue to monitor BMP. If renal function further deteriorates, the patient may need temporary hemodialysis. We will follow with you. Thank you for allowing me to participate in your patient's care. Repeat BMP and CBC in a.m. and also ammonia level. Continue to follow up with GI. Neri Lee MD
--- NOTE | 2018-01-08 08:22 | RAD ---
HISTORY: eval lungs COMPARISON: Portable chest 12/17/2017. FINDINGS: LUNGS: Skin flows noted the lateral left chest extending below the base with vascular markings extending beyond it. Trace airspace disease is seen at the bilateral bases though diminished in the interval. PLEURA: No significant pleural effusion identified, no pneumothorax apparent. CARDIOVASCULAR: Stable cardiomediastinal silhouette including pulmonary pattern. OSSEOUS STRUCTURES: No significant abnormalities. VISUALIZED UPPER ABDOMEN: Normal. OTHER FINDINGS: None. IMPRESSION: Limited bibasilar atelectasis is favored over infiltrates. Clinically correlate further.
[2018-01-08] MEDS: Multiple Vitamins Tab PO SCH (09:26)
--- NOTE | 2018-01-08 10:23 | CP.CCUPN ---
CCU Subjective - Physician Review Subjective (Free Text): 01/08/18 10:07 Patient seen and examined. Lethargic and does not respond to questioning; however, he grunts with stimulation. CCU Objective - Vital Signs / Intake & Output Vital Signs (Last 4 hours): Vital Signs Temp Pulse Resp BP Pulse Ox 01/08/18 09:01 88 24 118/65 95 01/08/18 09:00 87 20 96 01/08/18 08:37 89 27 H 133/63 94 L 01/08/18 08:00 97.5 F L 84 22 98 01/08/18 07:37 86 21 125/69 96 01/08/18 07:00 83 22 99 01/08/18 06:36 108/56 L Intake and Output (Last 8hrs): Intake & Output 01/07/18 01/08/18 01/08/18 22:59 06:59 14:59 Intake Total 590 200 Output Total 200 Balance 590 0 Weight 207 lb 3.2 oz Intake: Intake, IV Amount 590 200 Right Proximal Port PICC 200 Right Upper arm 590 Output: Urine 200 Urethral (Lara) 200 Other: # Bowel Movements 0 1 - Physical Exam Physical Exam Limitations: Positive for: Altered Mental Status Head: Positive for: Atraumatic, Normocephalic Pupils: Positive for: Pinpoint, Other (scleral icterus) Mouth: Positive for: Moist Mucous Membranes Nose (External): Positive for: Other (NGT in place) Respiratory/Chest: Positive for: Decreased Breath Sounds. Negative for: Wheezes , Rales, Rhonchi Cardiovascular: Positive for: Normal S1, S2 Abdomen: Positive for: Distention, Normal Bowel Sounds, Other (fluid shift). Negative for: Tenderness Upper Extremity: Positive for: Other (Right sided PICC line). Negative for: Edema Lower Extremity: Positive for: Edema (bilateral) Skin: Positive for: Warm, Dry - Medications Active Medications: Active Medications Generic Name Dose Route Start Last Admin Trade Name Freq PRN Reason Stop Dose Admin Acetaminophen 650 mg 12/16/17 16:50 12/19/17 18:08 Tylenol 650 Mg Supp WI 650 mg Q6 PRN Administration fever of >100.4 and above Albumin Human 25 gm 01/07/18 23:15 01/08/18 04:23 Albumin Human 25% (12.5 Gm/50 Ml) IV 01/08/18 17:16 25 gm Q6H JE Administration Meropenem 250 mg/ Sodium 100 mls @ 100 mls/hr 01/07/18 22:00 01/08/18 09:27 Chloride IVPB 100 mls/hr Q12 JE Administration Protocol Insulin Human Regular 0 unit 01/08/18 06:00 Novolin R SC Q6H JE Protocol Lactulose 20 gm 01/07/18 23:15 01/08/18 06:43 Enulose PO 20 gm Q8H JE Administration Midodrine 2.5 mg 01/08/18 10:00 01/08/18 09:26 Proamatine PO 2.5 mg TID EJ Administration Multivitamins 1 tab 01/03/18 10:00 01/08/18 09:26 Hexavitamin PO 1 tab DAILY JE Administration Rifaximin 550 mg 01/05/18 18:00 01/08/18 09:27 Xifaxan PO 550 mg BID JE Administration Protocol Tamsulosin HCl 0.4 mg 01/01/18 12:00 01/08/18 09:25 Flomax PO 0.4 mg DAILY JE Administration Thiamine HCl 100 mg 12/17/17 18:00 01/08/18 09:26 Vitamin B1 Tab PO 100 mg BID JE Administration - Patient Studies Lab Studies: Lab Studies 01/08/18 01/08/18 01/08/18 Range/Units 05:52 05:52 05:52 WBC 7.4 (4.8-10.8) K/uL RBC 2.81 L (4.40-5.90) Mil/uL Hgb 9.7 L (12.0-18.0) g/dL Hct 28.1 L (35.0-51.0) % MCV 99.9 H (80.0-94.0) fL MCH 34.6 H (27.0-31.0) pg MCHC 34.6 (33.0-37.0) g/dL RDW 17.6 H (11.5-14.5) % Plt Count 51 L (130-400) K/uL MPV 11.3 (7.2-11.7) fL Neut % (Auto) 60.5 (50.0-75.0) % Lymph % (Auto) 22.6 (20.0-40.0) % Mason % (Auto) 13.2 H (0.0-10.0) % Eos % (Auto) 3.1 (0.0-4.0) % Baso % (Auto) 0.6 (0.0-2.0) % Neut # (Auto) 4.5 (1.8-7.0) K/uL Lymph # (Auto) 1.7 (1.0-4.3) K/uL Mason # (Auto) 1.0 H (0.0-0.8) K/uL Eos # (Auto) 0.2 (0.0-0.7) K/uL Baso # (Auto) 0.0 (0.0-0.2) K/uL Retic Count 2.3 H (0.5-1.5) % Puncture Site pCO2 (35-45) mm/Hg pO2 (80-100) mm/Hg HCO3 (21-28) mmol/L ABG pH (7.35-7.45) ABG Total CO2 (22-28) mmol/L ABG O2 Saturation (95-98) % ABG Base Excess (-2.0-3.0) mmol/L Elkin Test ABG Potassium (3.6-5.2) mmol/L A-a O2 Difference mm/Hg Respiratory Index Sodium (132-148) mmol/l Chloride (98-107) mmol/L Glucose (75-110) mg/dl Lactate (0.7-2.1) mmol/L Liter Flow FiO2 % Potassium (3.6-5.2) mmol/L Carbon Dioxide (22-30) mmol/L Anion Gap (10-20) BUN (9-20) mg/dL Creatinine (0.8-1.5) mg/dL Est GFR ( Amer) Est GFR (Non-Af Amer) POC Glucose (mg/dL) (65-110) mg/dL Random Glucose (75-110) mg/dL Lactic Acid 2.2 H (0.7-2.1) mmol/L Calcium (8.6-10.4) mg/dl Phosphorus (2.5-4.5) mg/dL Magnesium (1.6-2.3) mg/dL Ferritin ng/mL Total Bilirubin (0.2-1.3) mg/dL AST (17-59) U/L ALT (21-72) U/L Alkaline Phosphatase (38-126) U/L Ammonia 102 H D (9-33) umol/L Total Protein (6.3-8.3) g/dL Albumin (3.5-5.0) g/dL Globulin (2.2-3.9) gm/dL Albumin/Globulin Ratio (1.0-2.1) Vitamin B12 (239-931) pg/mL Folate ng/mL Arterial Blood Potassium (3.6-5.2) mmol/L Urine Color (YELLOW) Urine Clarity (Clear) Urine pH (5.0-8.0) Ur Specific [place] (1.003-1.030) Urine Protein (NEGATIVE) mg/dL Urine Glucose (UA) (Normal) mg/dL Urine Ketones (NEGATIVE) mg/dL Urine Blood (NEGATIVE) Urine Nitrate (NEGATIVE) Urine Bilirubin (NEGATIVE) Urine Urobilinogen (0.2-1.0) mg/dL Ur Leukocyte Esterase (Negative) Julianne/uL Urine WBC (Auto) (0-5) /hpf Urine RBC (Auto) (0-3) /hpf Urine WBC Clumps (Auto) (NONE) /hpf Ur Squamous Epith Cells (0-5) /hpf Calcium Oxalate Crystal (<OCC) /hpf Urine Bacteria (<OCC) Hyaline Casts (0-2) /lpf Urine Yeast (Budding) (NEGATIVE) /hpf Urine Collection Time HRS Urine Total Volume mL Ur Creatinine 24 Hour (800-2800) mg/24hr Creatinine Clearance (107-139) mL/min Ur Protein 24 Hr Calc (42-225) mg/24hr 01/08/18 01/08/18 01/08/18 Range/Units 05:52 05:46 03:24 WBC (4.8-10.8) K/uL RBC (4.40-5.90) Mil/uL Hgb (12.0-18.0) g/dL Hct (35.0-51.0) % MCV (80.0-94.0) fL MCH (27.0-31.0) pg MCHC (33.0-37.0) g/dL RDW (11.5-14.5) % Plt Count (130-400) K/uL MPV (7.2-11.7) fL Neut % (Auto) (50.0-75.0) % Lymph % (Auto) (20.0-40.0) % Mason % (Auto) (0.0-10.0) % Eos % (Auto) (0.0-4.0) % Baso % (Auto) (0.0-2.0) % Neut # (Auto) (1.8-7.0) K/uL Lymph # (Auto) (1.0-4.3) K/uL Mason # (Auto) (0.0-0.8) K/uL Eos # (Auto) (0.0-0.7) K/uL Baso # (Auto) (0.0-0.2) K/uL Retic Count (0.5-1.5) % Puncture Site pCO2 (35-45) mm/Hg pO2 (80-100) mm/Hg HCO3 (21-28) mmol/L ABG pH (7.35-7.45) ABG Total CO2 (22-28) mmol/L ABG O2 Saturation (95-98) % ABG Base Excess (-2.0-3.0) mmol/L Elkin Test ABG Potassium (3.6-5.2) mmol/L A-a O2 Difference mm/Hg Respiratory Index Sodium 141 (132-148) mmol/l Chloride 104 (98-107) mmol/L Glucose (75-110) mg/dl Lactate (0.7-2.1) mmol/L Liter Flow FiO2 % Potassium 4.2 (3.6-5.2) mmol/L Carbon Dioxide 22 (22-30) mmol/L Anion Gap 19 (10-20) BUN 86 H (9-20) mg/dL Creatinine 3.9 H (0.8-1.5) mg/dL Est GFR ( Amer) 19 Est GFR (Non-Af Amer) 15 POC Glucose (mg/dL) 194 H (65-110) mg/dL Random Glucose 186 H (75-110) mg/dL Lactic Acid (0.7-2.1) mmol/L Calcium 9.3 (8.6-10.4) mg/dl Phosphorus 5.0 H (2.5-4.5) mg/dL Magnesium 2.2 (1.6-2.3) mg/dL Ferritin 969.0 ng/mL Total Bilirubin 6.7 H (0.2-1.3) mg/dL AST 101 H (17-59) U/L ALT 48 (21-72) U/L Alkaline Phosphatase 196 H (38-126) U/L Ammonia (9-33) umol/L Total Protein 7.3 (6.3-8.3) g/dL Albumin 2.7 L D (3.5-5.0) g/dL Globulin 4.6 H (2.2-3.9) gm/dL Albumin/Globulin Ratio 0.6 L (1.0-2.1) Vitamin B12 > 1000 H (239-931) pg/mL Folate 6.5 ng/mL Arterial Blood Potassium (3.6-5.2) mmol/L Urine Color Calista (YELLOW) Urine Clarity Hazy (Clear) Urine pH 5.0 (5.0-8.0) Ur Specific [place] 1.017 (1.003-1.030) Urine Protein 1+ H (NEGATIVE) mg/dL Urine Glucose (UA) Normal (Normal) mg/dL Urine Ketones Negative (NEGATIVE) mg/dL Urine Blood 3+ H (NEGATIVE) Urine Nitrate Negative (NEGATIVE) Urine Bilirubin Negative (NEGATIVE) Urine Urobilinogen 4.0 (0.2-1.0) mg/dL Ur Leukocyte Esterase 3+ H (Negative) Julianne/uL Urine WBC (Auto) 489 H (0-5) /hpf Urine RBC (Auto) 296 H (0-3) /hpf Urine WBC Clumps (Auto) Few H (NONE) /hpf Ur Squamous Epith Cells 3 (0-5) /hpf Calcium Oxalate Crystal Few H (<OCC) /hpf Urine Bacteria Mod H (<OCC) Hyaline Casts 11-20 H (0-2) /lpf Urine Yeast (Budding) Many H (NEGATIVE) /hpf Urine Collection Time HRS Urine Total Volume mL Ur Creatinine 24 Hour (800-2800) mg/24hr Creatinine Clearance (107-139) mL/min Ur Protein 24 Hr Calc (42-225) mg/24hr 01/07/18 01/07/18 01/07/18 Range/Units 23:53 22:49 21:05 WBC (4.8-10.8) K/uL RBC (4.40-5.90) Mil/uL Hgb (12.0-18.0) g/dL Hct (35.0-51.0) % MCV (80.0-94.0) fL MCH (27.0-31.0) pg MCHC (33.0-37.0) g/dL RDW (11.5-14.5) % Plt Count (130-400) K/uL MPV (7.2-11.7) fL Neut % (Auto) (50.0-75.0) % Lymph % (Auto) (20.0-40.0) % Mason % (Auto) (0.0-10.0) % Eos % (Auto) (0.0-4.0) % Baso % (Auto) (0.0-2.0) % Neut # (Auto) (1.8-7.0) K/uL Lymph # (Auto) (1.0-4.3) K/uL Mason # (Auto) (0.0-0.8) K/uL Eos # (Auto) (0.0-0.7) K/uL Baso # (Auto) (0.0-0.2) K/uL Retic Count (0.5-1.5) % Puncture Site Lr pCO2 29 L (35-45) mm/Hg pO2 69 L (80-100) mm/Hg HCO3 25.7 (21-28) mmol/L ABG pH 7.51 H (7.35-7.45) ABG Total CO2 24.0 (22-28) mmol/L ABG O2 Saturation 97.3 (95-98) % ABG Base Excess 1.0 (-2.0-3.0) mmol/L Elkin Test Unable ABG Potassium 4.1 (3.6-5.2) mmol/L A-a O2 Difference 123.0 mm/Hg Respiratory Index 1.8 Sodium 138.0 (132-148) mmol/l Chloride 106.0 (98-107) mmol/L Glucose 234 H (75-110) mg/dl Lactate 2.1 (0.7-2.1) mmol/L Liter Flow 3.0 FiO2 32.0 % Potassium (3.6-5.2) mmol/L Carbon Dioxide (22-30) mmol/L Anion Gap (10-20) BUN (9-20) mg/dL Creatinine (0.8-1.5) mg/dL Est GFR ( Amer) Est GFR (Non-Af Amer) POC Glucose (mg/dL) 231 H 263 H (65-110) mg/dL Random Glucose (75-110) mg/dL Lactic Acid (0.7-2.1) mmol/L Calcium (8.6-10.4) mg/dl Phosphorus (2.5-4.5) mg/dL Magnesium (1.6-2.3) mg/dL Ferritin ng/mL Total Bilirubin (0.2-1.3) mg/dL AST (17-59) U/L ALT (21-72) U/L Alkaline Phosphatase (38-126) U/L Ammonia (9-33) umol/L Total Protein (6.3-8.3) g/dL Albumin (3.5-5.0) g/dL Globulin (2.2-3.9) gm/dL Albumin/Globulin Ratio (1.0-2.1) Vitamin B12 (239-931) pg/mL Folate ng/mL Arterial Blood Potassium 4.1 (3.6-5.2) mmol/L Urine Color (YELLOW) Urine Clarity (Clear) Urine pH (5.0-8.0) Ur Specific [place] (1.003-1.030) Urine Protein (NEGATIVE) mg/dL Urine Glucose (UA) (Normal) mg/dL Urine Ketones (NEGATIVE) mg/dL Urine Blood (NEGATIVE) Urine Nitrate (NEGATIVE) Urine Bilirubin (NEGATIVE) Urine Urobilinogen (0.2-1.0) mg/dL Ur Leukocyte Esterase (Negative) Julianne/uL Urine WBC (Auto) (0-5) /hpf Urine RBC (Auto) (0-3) /hpf Urine WBC Clumps (Auto) (NONE) /hpf Ur Squamous Epith Cells (0-5) /hpf Calcium Oxalate Crystal (<OCC) /hpf Urine Bacteria (<OCC) Hyaline Casts (0-2) /lpf Urine Yeast (Budding) (NEGATIVE) /hpf Urine Collection Time HRS Urine Total Volume mL Ur Creatinine 24 Hour (800-2800) mg/24hr Creatinine Clearance (107-139) mL/min Ur Protein 24 Hr Calc (42-225) mg/24hr 01/07/18 01/07/1818 Range/Units 18:18 16:45 11:24 WBC (4.8-10.8) K/uL RBC (4.40-5.90) Mil/uL Hgb (12.0-18.0) g/dL Hct (35.0-51.0) % MCV (80.0-94.0) fL MCH (27.0-31.0) pg MCHC (33.0-37.0) g/dL RDW (11.5-14.5) % Plt Count (130-400) K/uL MPV (7.2-11.7) fL Neut % (Auto) (50.0-75.0) % Lymph % (Auto) (20.0-40.0) % Mason % (Auto) (0.0-10.0) % Eos % (Auto) (0.0-4.0) % Baso % (Auto) (0.0-2.0) % Neut # (Auto) (1.8-7.0) K/uL Lymph # (Auto) (1.0-4.3) K/uL Mason # (Auto) (0.0-0.8) K/uL Eos # (Auto) (0.0-0.7) K/uL Baso # (Auto) (0.0-0.2) K/uL Retic Count (0.5-1.5) % Puncture Site pCO2 (35-45) mm/Hg pO2 (80-100) mm/Hg HCO3 (21-28) mmol/L ABG pH (7.35-7.45) ABG Total CO2 (22-28) mmol/L ABG O2 Saturation (95-98) % ABG Base Excess (-2.0-3.0) mmol/L El[place] Test ABG Potassium (3.6-5.2) mmol/L A-a O2 Difference mm/Hg Respiratory Index Sodium (132-148) mmol/l Chloride (98-107) mmol/L Glucose (75-110) mg/dl Lactate (0.7-2.1) mmol/L Liter Flow FiO2 % Potassium (3.6-5.2) mmol/L Carbon Dioxide (22-30) mmol/L Anion Gap (10-20) BUN (9-20) mg/dL Creatinine 3.7 H (0.8-1.5) mg/dL Est GFR ( Amer) Est GFR (Non-Af Amer) POC Glucose (mg/dL) 298 H 285 H (65-110) mg/dL Random Glucose (75-110) mg/dL Lactic Acid (0.7-2.1) mmol/L Calcium (8.6-10.4) mg/dl Phosphorus (2.5-4.5) mg/dL Magnesium (1.6-2.3) mg/dL Ferritin ng/mL Total Bilirubin (0.2-1.3) mg/dL AST (17-59) U/L ALT (21-72) U/L Alkaline Phosphatase (38-126) U/L Ammonia (9-33) umol/L Total Protein (6.3-8.3) g/dL Albumin (3.5-5.0) g/dL Globulin (2.2-3.9) gm/dL Albumin/Globulin Ratio (1.0-2.1) Vitamin B12 (239-931) pg/mL Folate ng/mL Arterial Blood Potassium (3.6-5.2) mmol/L Urine Color (YELLOW) Urine Clarity (Clear) Urine pH (5.0-8.0) Ur Specific [place] (1.003-1.030) Urine Protein (NEGATIVE) mg/dL Urine Glucose (UA) (Normal) mg/dL Urine Ketones (NEGATIVE) mg/dL Urine Blood (NEGATIVE) Urine Nitrate (NEGATIVE) Urine Bilirubin (NEGATIVE) Urine Urobilinogen (0.2-1.0) mg/dL Ur Leukocyte Esterase (Negative) Julianne/uL Urine WBC (Auto) (0-5) /hpf Urine RBC (Auto) (0-3) /hpf Urine WBC Clumps (Auto) (NONE) /hpf Ur Squamous Epith Cells (0-5) /hpf Calcium Oxalate Crystal (<OCC) /hpf Urine Bacteria (<OCC) Hyaline Casts (0-2) /lpf Urine Yeast (Budding) (NEGATIVE) /hpf Urine Collection Time 24 HRS Urine Total Volume 300 mL Ur Creatinine 24 Hour 522.0 L (800-2800) mg/24hr Creatinine Clearance 9.0 L (107-139) mL/min Ur Protein 24 Hr Calc 57.0 (42-225) mg/24hr 01/07/18 Range/Units 06:03 WBC (4.8-10.8) K/uL RBC (4.40-5.90) Mil/uL Hgb (12.0-18.0) g/dL Hct (35.0-51.0) % MCV (80.0-94.0) fL MCH (27.0-31.0) pg MCHC (33.0-37.0) g/dL RDW (11.5-14.5) % Plt Count (130-400) K/uL MPV (7.2-11.7) fL Neut % (Auto) (50.0-75.0) % Lymph % (Auto) (20.0-40.0) % Mason % (Auto) (0.0-10.0) % Eos % (Auto) (0.0-4.0) % Baso % (Auto) (0.0-2.0) % Neut # (Auto) (1.8-7.0) K/uL Lymph # (Auto) (1.0-4.3) K/uL Mason # (Auto) (0.0-0.8) K/uL Eos # (Auto) (0.0-0.7) K/uL Baso # (Auto) (0.0-0.2) K/uL Retic Count (0.5-1.5) % Puncture Site pCO2 (35-45) mm/Hg pO2 (80-100) mm/Hg HCO3 (21-28) mmol/L ABG pH (7.35-7.45) ABG Total CO2 (22-28) mmol/L ABG O2 Saturation (95-98) % ABG Base Excess (-2.0-3.0) mmol/L [place] Test ABG Potassium (3.6-5.2) mmol/L A-a O2 Difference mm/Hg Respiratory Index Sodium (132-148) mmol/l Chloride (98-107) mmol/L Glucose (75-110) mg/dl Lactate (0.7-2.1) mmol/L Liter Flow FiO2 % Potassium (3.6-5.2) mmol/L Carbon Dioxide (22-30) mmol/L Anion Gap (10-20) BUN (9-20) mg/dL Creatinine (0.8-1.5) mg/dL Est GFR ( Amer) Est GFR (Non-Af Amer) POC Glucose (mg/dL) 306 H (65-110) mg/dL Random Glucose (75-110) mg/dL Lactic Acid (0.7-2.1) mmol/L Calcium (8.6-10.4) mg/dl Phosphorus (2.5-4.5) mg/dL Magnesium (1.6-2.3) mg/dL Ferritin ng/mL Total Bilirubin (0.2-1.3) mg/dL AST (17-59) U/L ALT (21-72) U/L Alkaline Phosphatase (38-126) U/L Ammonia (9-33) umol/L Total Protein (6.3-8.3) g/dL Albumin (3.5-5.0) g/dL Globulin (2.2-3.9) gm/dL Albumin/Globulin Ratio (1.0-2.1) Vitamin B12 (239-931) pg/mL Folate ng/mL Arterial Blood Potassium (3.6-5.2) mmol/L Urine Color (YELLOW) Urine Clarity (Clear) Urine pH (5.0-8.0) Ur Specific [place] (1.003-1.030) Urine Protein (NEGATIVE) mg/dL Urine Glucose (UA) (Normal) mg/dL Urine Ketones (NEGATIVE) mg/dL Urine Blood (NEGATIVE) Urine Nitrate (NEGATIVE) Urine Bilirubin (NEGATIVE) Urine Urobilinogen (0.2-1.0) mg/dL Ur Leukocyte Esterase (Negative) Julianne/uL Urine WBC (Auto) (0-5) /hpf Urine RBC (Auto) (0-3) /hpf Urine WBC Clumps (Auto) (NONE) /hpf Ur Squamous Epith Cells (0-5) /hpf Calcium Oxalate Crystal (<OCC) /hpf Urine Bacteria (<OCC) Hyaline Casts (0-2) /lpf Urine Yeast (Budding) (NEGATIVE) /hpf Urine Collection Time HRS Urine Total Volume mL Ur Creatinine 24 Hour (800-2800) mg/24hr Creatinine Clearance (107-139) mL/min Ur Protein 24 Hr Calc (42-225) mg/24hr Laboratory Results - last 24 hr 01/07/18 01/07/18 01/07/18 06:03 11:24 16:45 WBC RBC Hgb Hct MCV MCH MCHC RDW Plt Count MPV Neut % (Auto) Lymph % (Auto) Mason % (Auto) Eos % (Auto) Baso % (Auto) Neut # (Auto) Lymph # (Auto) Mason # (Auto) Eos # (Auto) Baso # (Auto) Retic Count Puncture Site pCO2 pO2 HCO3 ABG pH ABG Total CO2 ABG O2 Saturation ABG Base Excess [place] Test ABG Potassium A-a O2 Difference Respiratory Index Sodium Chloride Glucose Lactate Liter Flow FiO2 Potassium Carbon Dioxide Anion Gap BUN Creatinine Est GFR ( Amer) Est GFR (Non-Af Amer) POC Glucose (mg/dL) 306 H 285 H 298 H Random Glucose Lactic Acid Calcium Phosphorus Magnesium Ferritin Total Bilirubin AST ALT Alkaline Phosphatase Ammonia Total Protein Albumin Globulin Albumin/Globulin Ratio Vitamin B12 Folate Arterial Blood Potassium Urine Color Urine Clarity Urine pH Ur Specific [place] Urine Protein Urine Glucose (UA) Urine Ketones Urine Blood Urine Nitrate Urine Bilirubin Urine Urobilinogen Ur Leukocyte Esterase Urine WBC (Auto) Urine RBC (Auto) Urine WBC Clumps (Auto) Ur Squamous Epith Cells Calcium Oxalate Crystal Urine Bacteria Hyaline Casts Urine Yeast (Budding) Urine Collection Time Urine Total Volume Ur Creatinine 24 Hour Creatinine Clearance Ur Protein 24 Hr Calc 01/07/18 01/07/18 01/07/18 18:18 21:05 22:49 WBC RBC Hgb Hct MCV MCH MCHC RDW Plt Count MPV Neut % (Auto) Lymph % (Auto) Mason % (Auto) Eos % (Auto) Baso % (Auto) Neut # (Auto) Lymph # (Auto) Mason # (Auto) Eos # (Auto) Baso # (Auto) Retic Count Puncture Site Lr pCO2 29 L pO2 69 L HCO3 25.7 ABG pH 7.51 H ABG Total CO2 24.0 ABG O2 Saturation 97.3 ABG Base Excess 1.0 [place] Test Unable ABG Potassium 4.1 A-a O2 Difference 123.0 Respiratory Index 1.8 Sodium 138.0 Chloride 106.0 Glucose 234 H Lactate 2.1 Liter Flow 3.0 FiO2 32.0 Potassium Carbon Dioxide Anion Gap BUN Creatinine 3.7 H Est GFR ( Amer) Est GFR (Non-Af Amer) POC Glucose (mg/dL) 263 H Random Glucose Lactic Acid Calcium Phosphorus Magnesium Ferritin Total Bilirubin AST ALT Alkaline Phosphatase Ammonia Total Protein Albumin Globulin Albumin/Globulin Ratio Vitamin B12 Folate Arterial Blood Potassium 4.1 Urine Color Urine Clarity Urine pH Ur Specific [place] Urine Protein Urine Glucose (UA) Urine Ketones Urine Blood Urine Nitrate Urine Bilirubin Urine Urobilinogen Ur Leukocyte Esterase Urine WBC (Auto) Urine RBC (Auto) Urine WBC Clumps (Auto) Ur Squamous Epith Cells Calcium Oxalate Crystal Urine Bacteria Hyaline Casts Urine Yeast (Budding) Urine Collection Time 24 Urine Total Volume 300 Ur Creatinine 24 Hour 522.0 L Creatinine Clearance 9.0 L Ur Protein 24 Hr Calc 57.0 01/07/18 01/08/18 01/08/18 23:53 03:24 05:46 WBC RBC Hgb Hct MCV MCH MCHC RDW Plt Count MPV Neut % (Auto) Lymph % (Auto) Mason % (Auto) Eos % (Auto) Baso % (Auto) Neut # (Auto) Lymph # (Auto) Mason # (Auto) Eos # (Auto) Baso # (Auto) Retic Count Puncture Site pCO2 pO2 HCO3 ABG pH ABG Total CO2 ABG O2 Saturation ABG Base Excess [place] Test ABG Potassium A-a O2 Difference Respiratory Index Sodium Chloride Glucose Lactate Liter Flow FiO2 Potassium Carbon Dioxide Anion Gap BUN Creatinine Est GFR ( Amer) Est GFR (Non-Af Amer) POC Glucose (mg/dL) 231 H 194 H Random Glucose Lactic Acid Calcium Phosphorus Magnesium Ferritin Total Bilirubin AST ALT Alkaline Phosphatase Ammonia Total Protein Albumin Globulin Albumin/Globulin Ratio Vitamin B12 Folate Arterial Blood Potassium Urine Color Calista Urine Clarity Hazy Urine pH 5.0 Ur Specific [place] 1.017 Urine Protein 1+ H Urine Glucose (UA) Normal Urine Ketones Negative Urine Blood 3+ H Urine Nitrate Negative Urine Bilirubin Negative Urine Urobilinogen 4.0 Ur Leukocyte Esterase 3+ H Urine WBC (Auto) 489 H Urine RBC (Auto) 296 H Urine WBC Clumps (Auto) Few H Ur Squamous Epith Cells 3 Calcium Oxalate Crystal Few H Urine Bacteria Mod H Hyaline Casts 11-20 H Urine Yeast (Budding) Many H Urine Collection Time Urine Total Volume Ur Creatinine 24 Hour Creatinine Clearance Ur Protein 24 Hr Calc 01/08/18 01/08/18 01/08/18 05:52 05:52 05:52 WBC 7.4 RBC 2.81 L Hgb 9.7 L Hct 28.1 L MCV 99.9 H MCH 34.6 H MCHC 34.6 RDW 17.6 H Plt Count 51 L MPV 11.3 Neut % (Auto) 60.5 Lymph % (Auto) 22.6 Mason % (Auto) 13.2 H Eos % (Auto) 3.1 Baso % (Auto) 0.6 Neut # (Auto) 4.5 Lymph # (Auto) 1.7 Mason # (Auto) 1.0 H Eos # (Auto) 0.2 Baso # (Auto) 0.0 Retic Count 2.3 H Puncture Site pCO2 pO2 HCO3 ABG pH ABG Total CO2 ABG O2 Saturation ABG Base Excess [place] Test ABG Potassium A-a O2 Difference Respiratory Index Sodium 141 Chloride 104 Glucose Lactate Liter Flow FiO2 Potassium 4.2 Carbon Dioxide 22 Anion Gap 19 BUN 86 H Creatinine 3.9 H Est GFR ( Amer) 19 Est GFR (Non-Af Amer) 15 POC Glucose (mg/dL) Random Glucose 186 H Lactic Acid Calcium 9.3 Phosphorus 5.0 H Magnesium 2.2 Ferritin 969.0 Total Bilirubin 6.7 H AST 101 H ALT 48 Alkaline Phosphatase 196 H Ammonia 102 H D Total Protein 7.3 Albumin 2.7 L D Globulin 4.6 H Albumin/Globulin Ratio 0.6 L Vitamin B12 > 1000 H Folate 6.5 Arterial Blood Potassium Urine Color Urine Clarity Urine pH Ur Specific [place] Urine Protein Urine Glucose (UA) Urine Ketones Urine Blood Urine Nitrate Urine Bilirubin Urine Urobilinogen Ur Leukocyte Esterase Urine WBC (Auto) Urine RBC (Auto) Urine WBC Clumps (Auto) Ur Squamous Epith Cells Calcium Oxalate Crystal Urine Bacteria Hyaline Casts Urine Yeast (Budding) Urine Collection Time Urine Total Volume Ur Creatinine 24 Hour Creatinine Clearance Ur Protein 24 Hr Calc 01/08/18 05:52 WBC RBC Hgb Hct MCV MCH MCHC RDW Plt Count MPV Neut % (Auto) Lymph % (Auto) Mason % (Auto) Eos % (Auto) Baso % (Auto) Neut # (Auto) Lymph # (Auto) Mason # (Auto) Eos # (Auto) Baso # (Auto) Retic Count Puncture Site pCO2 pO2 HCO3 ABG pH ABG Total CO2 ABG O2 Saturation ABG Base Excess [place] Test ABG Potassium A-a O2 Difference Respiratory Index Sodium Chloride Glucose Lactate Liter Flow FiO2 Potassium Carbon Dioxide Anion Gap BUN Creatinine Est GFR ( Amer) Est GFR (Non-Af Amer) POC Glucose (mg/dL) Random Glucose Lactic Acid 2.2 H Calcium Phosphorus Magnesium Ferritin Total Bilirubin AST ALT Alkaline Phosphatase Ammonia Total Protein Albumin Globulin Albumin/Globulin Ratio Vitamin B12 Folate Arterial Blood Potassium Urine Color Urine Clarity Urine pH Ur Specific [place] Urine Protein Urine Glucose (UA) Urine Ketones Urine Blood Urine Nitrate Urine Bilirubin Urine Urobilinogen Ur Leukocyte Esterase Urine WBC (Auto) Urine RBC (Auto) Urine WBC Clumps (Auto) Ur Squamous Epith Cells Calcium Oxalate Crystal Urine Bacteria Hyaline Casts Urine Yeast (Budding) Urine Collection Time Urine Total Volume Ur Creatinine 24 Hour Creatinine Clearance Ur Protein 24 Hr Calc Fingerstick Blood Sugar Results: 231 Critical Care Progress Note - Nutrition Nutrition: Nutrition Category Date Time Status Liquid Diet [DIET] Diets 12/29/17 Dinner Active Assessment/Plan - Assessment and Plan (Free Text) Plan: This is a 72 year old male with PMHx ETOH abuse, HTN with hepatic encephalopathy , hepatorenal syndrome who was sent to the ICU for worsening clinical status. Neuro Hepatic encephalopathy with ammonia 102 Cardio Midodrine 2.5 mg PO TID Receiving 4 total bottles of albumin since yesterday Pulmonology Saturating well on nasal cannula GI Lactulose 20 mg PO [id number] for 3 bowel movements daily Rifaximin 550 mg PO BID Endocrine Regular ISS Q6H low dose Hgb A1c 7.0 Nephrology Hepatorenal syndrome May possibly need hemodialysis per nephro on consult Infectious Disease on Merrem 250 mg IV Q12 per ID on consult Heme/onc Platelet dysfunction secondary to chronic alcoholism Prophylaxis Holding VTE ppx due to thrombocytopenia Dispo: ICU care. Poor prognosis. Family wishes full code at this time. Seen and discussed with Dr. Apple
--- NOTE | 2018-01-08 12:40 | CP.PCM.PN ---
Subjective - Date & Time of Evaluation Date of Evaluation: 01/08/18 Time of Evaluation: 12:21 - Subjective Subjective: Patient unresponsive. Objective - Vital Signs/Intake and Output Vital Signs (last 24 hours): Temp Pulse Resp BP Pulse Ox 97.5 F L 92 H 22 103/51 L 98 01/08/18 08:00 01/08/18 11:01 01/08/18 11:01 01/08/18 11:01 01/08/18 11:01 Intake and Output: 01/08/18 01/08/18 06:59 18:59 Intake Total 790 200 Output Total 200 115 Balance 590 85 - Medications Medications: Current Medications Acetaminophen (Tylenol 650 Mg Supp) 650 mg [place] Q6 PRN PRN Reason: fever of >100.4 and above Last Admin: 12/19/17 18:08 Dose: 650 mg Albumin Human (Albumin Human 25% (12.5 Gm/50 Ml)) 25 gm IV Q6H [facility] Stop: 01/08/18 17:16 Last Admin: 01/08/18 10:38 Dose: 25 gm Meropenem 250 mg/ Sodium (Chloride) 100 mls @ 100 mls/hr IVPB Q12 JE PRN Reason: Protocol Last Admin: 01/08/18 09:27 Dose: 100 mls/hr Insulin Human Regular (Novolin R) 0 unit SC Q6H JE PRN Reason: Protocol Last Admin: 01/08/18 11:54 Dose: 1 unit Lactulose (Enulose) 20 gm PO Q8H [facility] Last Admin: 01/08/18 06:43 Dose: 20 gm Midodrine (Proamatine) 2.5 mg PO TID JE Last Admin: 01/08/18 09:26 Dose: 2.5 mg Multivitamins (Hexavitamin) 1 tab PO DAILY JE Last Admin: 01/08/18 09:26 Dose: 1 tab Rifaximin (Xifaxan) 550 mg PO BID JE PRN Reason: Protocol Last Admin: 01/08/18 09:27 Dose: 550 mg Tamsulosin HCl (Flomax) 0.4 mg PO DAILY [facility] Last Admin: 01/08/18 09:25 Dose: 0.4 mg Thiamine HCl (Vitamin B1 Tab) 100 mg PO BID [facility] Last Admin: 01/08/18 09:26 Dose: 100 mg - Labs Labs: 01/08/18 05:52 01/08/18 05:52 PT 16.2 SECONDS (9.7-12.2) H 12/29/17 06:22 INR 1.4 12/29/17 06:22 APTT 37 SECONDS (21-34) H 12/29/17 06:22 - Constitutional Appears: In Acute Distress, Chronically Ill - Head Exam Head Exam: ATRAUMATIC, NORMAL INSPECTION, NORMOCEPHALIC - Eye Exam Eye Exam: Normal appearance Additional comments: slow reaction to light - ENT Exam ENT Exam: Mucous Membranes Dry Additional comments: NGT - Neck Exam Neck Exam: Normal Inspection - Respiratory Exam Respiratory Exam: Decreased Breath Sounds - Cardiovascular Exam Cardiovascular Exam: Tachycardia - GI/Abdominal Exam GI & Abdominal Exam: Distended, Firm, Hypoactive Bowel Sounds - Rectal Exam Rectal Exam: Deferred - Exam Additional comments: Lara cath - Extremities Exam Extremities Exam: Pedal Edema - Back Exam Back Exam: NORMAL INSPECTION - Neurological Exam Neurological Exam: Motor Sensory Deficit Neuro motor strength exam: Left Upper Extremity: 0, Right Upper Extremity: 0, Left Lower Extremity: 0, Right Lower Extremity: 0 - Psychiatric Exam Psychiatric exam: Flat Affect - Skin Skin Exam: Normal Color Assessment and Plan - Assessment and Plan (Free Text) Assessment: Patient seen and examined in bed ,unresponsive to tactile and verbal stimuli. Ammonia level high at 102. Eyes closed. NGT in place for Lactulose administration. Upper and lower extremities flaccid. Breath sounds shallow.Abdomen distended and firm. Urine dark tea color. BP 103/51, HR 92. BUN 65, Cathode Builder 3.7. Urologyst on consult. Patient may need HD. One of the sons at bed side. Goals of care discussed. Family is still focused on recovery. There is a poor insight about the complexity of condition. Impression * Patient is rapidly declining due to liver cirrhosis and metabolic encephalopathy * Patient is unresponsive and non verbal * Abdominal distention * Family is not accepting the present condition and is focused on recovery * Anticipatory grieving among family Suggestions * At this condition and stage of disease comfort care only would be best level of care for this patient * Pleurex cath if patient clinically stable for procedure * Family needs spiritual support during this difficult time * Pastoral care for spiritual support *
--- NOTE | 2018-01-08 16:44 | PN ---
DATE: LOCATION: ICU 12. SUBJECTIVE: This is a 72-year-old male, seen and examined early in rounds, somewhat responding occasionally to deep painful stimuli with very poor oral intake, appeared to be somewhat lethargic and capneic. The patient was transferred to the intensive care unit due to above with intermittent periods of nonproductive cough as well as some blisters and skin lesions in the right side of his body mainly with generalized jaundice and . The most recent lab results, current and the previous medication list, current and the previous medical events seen and the patient post lactulose enema had brownish dark in color bowel movement as reported. Today's lab showed hemoglobin 9.7, hematocrit 28.1, thrombocytopenia 51, BUN 86, creatinine 3.9, blood glucose level 194, lactic acid 2.2, phosphorus 5, total bilirubin 6.7, AST 101, ammonia level elevated to 102, with low albumin 2.7. Most recent chest x-ray done yesterday, official report is seen. PHYSICAL EXAMINATION: GENERAL: A 72-year-old male, appeared to be somewhat cachectic. VITAL SIGNS: Afebrile, with pulse of 86, respiratory rate 20 to 22, blood pressure 108/64. HEENT: Showed pale, dry, oral mucous membranes with bilateral icteric sclerae. LUNGS: Scattered bilateral crepitations with decreased air entry at bases. HEART: Positive S1 and S2 with increased rate. ABDOMEN: Mild abdominal distention, positive for ascites with slight generalized tenderness. No mass or organomegaly. No rebound tenderness or guarding. EXTREMITIES: With lower extremities edematous changes and evidence of muscle wasting syndrome. No clubbing or cyanosis. NEUROLOGIC: No reported new neurological deficits, sensory or motor. IMPRESSION: 1. Hepatic failure. 2. Alcohol-induced liver cirrhosis, portal hypertension, and ascites. 3. Hepatic encephalopathy. 4. Anemia secondary to above. 5. Metabolic acidosis, malnutrition, with thrombocytopenia secondary to above. 6. Evidence of papillary stenosis by endoscopic retrograde cholangiopancreatogram, known history of hypertension. 7. Gram-negative septicemia. SUGGESTIONS: 1. Continue current management. 2. The patient carries a very poor prognosis in the meantime. 3. Repeat blood cultures x2. Lachelle Rodrigues MD Psychiatric # [id number]
[2018-01-08] MEDS: metOLazone 5 MG TAB NG SCH (17:19)
--- NOTE | 2018-01-08 17:28 | PN ---
DATE: SUBJECTIVE: The patient's medical condition has deteriorated as well as mental status. The patient is more lethargic. Mental status has deteriorated, can hardly converse. The patient is currently in ICU. I discussed with family, but the patient's family wants everything to be d one at this time. They are still hopeful that he will bounce back to health despite his prognosis not very good. On review of his labs, the patient's glucose is 234. However, his BUN is 86, and now his GFR is only 19. His liver function tests are also elevated. The patient's prognosis is not good, the patient seems to have hepatorenal syndrome. The patient has long history of alcoholism for more than 50 years. Earlier in ICU. REVIEW OF SYSTEMS: The patient is lethargic, can hardly converse. He has NG tube in place, but the rest of the review of systems cannot be assessed due to his current mental status. He is not agitated. Seen with family members at bedside, restless, but could hardly converse. MENTAL STATUS EXAMINATION: Elderly male, medically healed, very lethargic. Poor historian. Speech is poor. Affect is restricted. Mood dysphoric. Thought process, confused. Thought content, no overt psychosis. No suicidal or homicidal ideation. Attention and memory seem to be impaired. Insight and judgment impaired. Impulse control is fair at this time. IMPRESSION: Terminal stage, delirium, as well as history of alcohol dependence, hepatorenal syndrome, failure to thrive, history of Gram-negative sepsis. PLAN AND RECOMMENDATIONS: The patient is seen, meds reviewed. Continue present management. The patient's family as stated wants everything to be done. I did recommend palliative care, but the patient's family wants everything to be done at this time. The patient is currently in ICU. Stas Knox MD MTDD
--- NOTE | 2018-01-08 19:00 | CP.PCM.PN ---
Subjective - Date & Time of Evaluation Date of Evaluation: 01/08/18 Time of Evaluation: 19:00 - Subjective Subjective: pt is seen and examined, follow up co adri escobedo is dictated #[id number] Objective - Vital Signs/Intake and Output Vital Signs (last 24 hours): Temp Pulse Resp BP Pulse Ox 97.6 F 85 24 114/57 L 98 01/08/18 16:00 01/08/18 18:00 01/08/18 18:00 01/08/18 17:01 01/08/18 18:00 Intake and Output: 01/08/18 01/09/18 18:59 06:59 Intake Total 520 Output Total 230 Balance 290 - Medications Medications: Current Medications Acetaminophen (Tylenol 650 Mg Supp) 650 mg [place] Q6 PRN PRN Reason: fever of >100.4 and above Last Admin: 12/19/17 18:08 Dose: 650 mg Meropenem 250 mg/ Sodium (Chloride) 100 mls @ 100 mls/hr IVPB Q12 JE PRN Reason: Protocol Last Admin: 01/08/18 09:27 Dose: 100 mls/hr Insulin Human Regular (Novolin R) 0 unit SC Q6H JE PRN Reason: Protocol Last Admin: 01/08/18 17:22 Dose: 1 unit Lactulose (Enulose) 20 gm PO Q8H JE Last Admin: 01/08/18 14:15 Dose: 20 gm Metolazone (Zaroxolyn) 5 mg NG DAILY [facility] Last Admin: 01/08/18 17:19 Dose: 5 mg Midodrine (Proamatine) 2.5 mg PO TID [facility] Last Admin: 01/08/18 17:18 Dose: 2.5 mg Multivitamins (Hexavitamin) 1 tab PO DAILY JE Last Admin: 01/08/18 09:26 Dose: 1 tab Rifaximin (Xifaxan) 550 mg PO BID JE PRN Reason: Protocol Last Admin: 01/08/18 17:18 Dose: 550 mg Tamsulosin HCl (Flomax) 0.4 mg PO DAILY [facility] Last Admin: 01/08/18 09:25 Dose: 0.4 mg Thiamine HCl (Vitamin B1 Tab) 100 mg PO BID [facility] Last Admin: 01/08/18 17:19 Dose: 100 mg - Labs Labs: 01/08/18 05:52 01/08/18 05:52 PT 16.2 SECONDS (9.7-12.2) H 12/29/17 06:22 INR 1.4 12/29/17 06:22 APTT 37 SECONDS (21-34) H 12/29/17 06:22
--- NOTE | 2018-01-08 21:10 | PN ---
DATE: 01/08/2018 SUBJECTIVE: The patient is transferred back to ICU because of extreme lethargy. No reported significant hypotension. No reported ventricular arrhythmia. A nasogastric tube was placed for oral medication intake; otherwise, the patient is currently lethargic. The patient's son is at bedside. PHYSICAL EXAMINATION: VITAL SIGNS: Blood pressure 105/48, heart rate 81, temperature 97.6, respirations 21. HEENT: Pale conjunctivae with icteric sclerae. CHEST: Absent breath sounds over the bases. HEART: S1 and S2, regular. ABDOMEN: Moderate ascites. EXTREMITIES: Worsening bilateral leg edema. LABORATORY DATA: Today's BUN and creatinine are 86 and 3.9 respectively, glucose 186. Rest of SMA-7 is within normal limit. Today's hemoglobin and hematocrit are 9.7 and 28.1, white count 7.4, platelet count declined to 51,000. Brain MRI done on 01/05/2018. a very limited study, no acute intracranial hemorrhage or infarct. 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 Ammonia level today is 102. ASSESSMENT: 1. Liver failure. 2. Hepatic encephalopathy. 3. Gram-negative bacteremia. 4. Bacterial endocarditis of the aortic valve. 5. Anemia. 6. Obstructive uropathy and worsening renal insufficiency. 7. Portal hypertension with anasarca. 8. Significant hypoalbuminemia, the albumin level is 2.7. RECOMMENDATIONS: Continue current albumin infusion as well as lactulose via nasogastric tube. Continue IV meropenem 250 mg every 12 hours and ProAmatine at 2.5 mg t.i.d. and rifaximin at 550 mg twice a day via nasogastric tube. Start Zaroxolyn at 5 mg daily via nasogastric tube. Case was discussed with the medical billing and coding instructor as well as the ID mgmt consultant. A AWILDA is not justified this time. The patient will be treated for bacterial endocarditis for the full course. Case discussed with the patient's son at the bedside. Gurinder Hernandez MD
--- NOTE | 2018-01-08 21:36 | CP.PCM.PN ---
Subjective - Date & Time of Evaluation Date of Evaluation: 01/08/18 Time of Evaluation: 18:40 - Subjective Subjective: Pt seen and examined at bedside Objective - Vital Signs/Intake and Output Vital Signs (last 24 hours): Temp Pulse Resp BP Pulse Ox 97.4 F L 82 23 135/66 97 01/08/18 20:00 01/08/18 21:00 01/08/18 21:00 01/08/18 21:01 01/08/18 21:00 Intake and Output: 01/08/18 01/09/18 18:59 06:59 Intake Total 520 Output Total 255 15 Balance 265 -15 - Medications Medications: Current Medications Acetaminophen (Tylenol 650 Mg Supp) 650 mg [place] Q6 PRN PRN Reason: fever of >100.4 and above Last Admin: 12/19/17 18:08 Dose: 650 mg Meropenem 250 mg/ Sodium (Chloride) 100 mls @ 100 mls/hr IVPB Q12 JE PRN Reason: Protocol Last Admin: 01/08/18 09:27 Dose: 100 mls/hr Insulin Human Regular (Novolin R) 0 unit SC Q6H JE PRN Reason: Protocol Last Admin: 01/08/18 17:22 Dose: 1 unit Lactulose (Enulose) 20 gm PO Q8H JE Last Admin: 01/08/18 14:15 Dose: 20 gm Metolazone (Zaroxolyn) 5 mg NG DAILY [facility] Last Admin: 01/08/18 17:19 Dose: 5 mg Midodrine (Proamatine) 2.5 mg PO TID [facility] Last Admin: 01/08/18 17:18 Dose: 2.5 mg Multivitamins (Hexavitamin) 1 tab PO DAILY JE Last Admin: 01/08/18 09:26 Dose: 1 tab Neomycin Sulfate (Neomycin Tab) 500 mg PO Q6 JE Rifaximin (Xifaxan) 550 mg PO BID JE PRN Reason: Protocol Last Admin: 01/08/18 17:18 Dose: 550 mg Tamsulosin HCl (Flomax) 0.4 mg PO DAILY [facility] Last Admin: 01/08/18 09:25 Dose: 0.4 mg Thiamine HCl (Vitamin B1 Tab) 100 mg PO BID [facility] Last Admin: 01/08/18 17:19 Dose: 100 mg - Labs Labs: 01/08/18 05:52 01/08/18 05:52 PT 16.2 SECONDS (9.7-12.2) H 12/29/17 06:22 INR 1.4 12/29/17 06:22 APTT 37 SECONDS (21-34) H 12/29/17 06:22
--- NOTE | 2018-01-08 22:33 | CP.PCM.PN ---
Subjective - Date & Time of Evaluation Date of Evaluation: 01/08/18 Time of Evaluation: 22:33 - Subjective Subjective: events noted Patient seen today in ICU BED 12 AFEBRILE , JAUNDICED +VE NOT RESPONDING TO VERBAL STIMULI CONDITION DETERIORATING CONSULTANTS AND DEFECTIVE CIGARETTE SLITTER NOTED FAMILY AT BEDSIDE. Objective - Vital Signs/Intake and Output Vital Signs (last 24 hours): Temp Pulse Resp BP Pulse Ox 97.4 F L 84 22 132/60 96 01/08/18 20:00 01/08/18 22:00 01/08/18 22:00 01/08/18 22:02 01/08/18 22:00 Intake and Output: 01/08/18 01/09/18 18:59 06:59 Intake Total 520 100 Output Total 255 15 Balance 265 85 - Medications Medications: Current Medications Acetaminophen (Tylenol 650 Mg Supp) 650 mg [place] Q6 PRN PRN Reason: fever of >100.4 and above Last Admin: 12/19/17 18:08 Dose: 650 mg Meropenem 250 mg/ Sodium (Chloride) 100 mls @ 100 mls/hr IVPB Q12 JE PRN Reason: Protocol Last Admin: 01/08/18 21:53 Dose: 100 mls/hr Insulin Human Regular (Novolin R) 0 unit SC Q6H JE PRN Reason: Protocol Last Admin: 01/08/18 17:22 Dose: 1 unit Lactulose (Enulose) 20 gm PO Q2H JE Stop: 01/09/18 04:01 Last Admin: 01/08/18 21:53 Dose: 20 gm Metolazone (Zaroxolyn) 5 mg NG DAILY [facility] Last Admin: 01/08/18 17:19 Dose: 5 mg Midodrine (Proamatine) 2.5 mg PO TID JE Last Admin: 01/08/18 17:18 Dose: 2.5 mg Multivitamins (Hexavitamin) 1 tab PO DAILY JE Last Admin: 01/08/18 09:26 Dose: 1 tab Neomycin Sulfate (Neomycin Tab) 500 mg PO Q6 JE Rifaximin (Xifaxan) 550 mg PO BID JE PRN Reason: Protocol Last Admin: 01/08/18 17:18 Dose: 550 mg Tamsulosin HCl (Flomax) 0.4 mg PO DAILY [facility] Last Admin: 01/08/18 09:25 Dose: 0.4 mg Thiamine HCl (Vitamin B1 Tab) 100 mg PO BID JE Last Admin: 01/08/18 17:19 Dose: 100 mg - Labs Labs: 01/08/18 05:52 01/08/18 05:52 PT 16.2 SECONDS (9.7-12.2) H 12/29/17 06:22 INR 1.4 12/29/17 06:22 APTT 37 SECONDS (21-34) H 12/29/17 06:22 - Constitutional Appears: Cachectic, Chronically Ill - Head Exam Head Exam: NORMAL INSPECTION - Eye Exam Eye Exam: PERRL, Scleral icterus - ENT Exam ENT Exam: Normal Oropharynx - Neck Exam Neck Exam: Normal Inspection - Respiratory Exam Respiratory Exam: Rales (BIBASILAR RALES .) - Cardiovascular Exam Cardiovascular Exam: REGULAR RHYTHM, +S1, +S2 - GI/Abdominal Exam GI & Abdominal Exam: Distended, Soft (+VE ASCITES ), Hypoactive Bowel Sounds - Extremities Exam Extremities Exam: Pedal Edema. absent: Calf Tenderness - Neurological Exam Neurological Exam: Altered Additional comments: DUCK OPERATOR COULD NOT BE EVALUATED . DROWSY, POORLY RESPONDTO TACTILE STIMULATIONS - Skin Skin Exam: Warm Assessment and Plan (1) Gram-negative sepsis Status: Acute (2) Wound infection, posttraumatic Status: Acute (3) Alcoholic hepatitis Status: Acute (4) Fatty liver with encephalopathy Status: Acute (5) Leg edema Status: Acute (6) Failure to thrive Status: Acute (7) Thrombocytopenia Status: Acute (8) Hypertension Status: Acute - Assessment and Plan (Free Text) Assessment: HEPATORENAL SYNDROME GRAM NEGATIVE SEPSIS E. COLI. AORTIC VALVE ENDOCARDITIS- 2D-ECHO +VEGETATIONS GLENN- ATN ? DIURETICS/HTN. ALCOHOLIC HEPATITIS S/P ERCP ( NOT-STENTED ?SPASM ) CIRRHOSIS OF LIVER/ASCITES +VE TOXIC METABOLIC ENCEPHALOPATHY. DIABETES MELLITUS. PLAN ON IV MERRUM 250 MG Q 12 HRS . F/U RENAL /HEPATIC FUNCTION. ON LACTULOSE/AND RIFAXOMIN PER GI PER CONSULTANTS -HEMATOLOGY/RENAL CASE DISCUSSED WITH STAFF EXPLOSIVE OPERATOR/ AND FAMILY PROGNOSIS POOR.
[2018-01-09] MEDS: (Novolin R) Insulin Human Regular 100 units/ml vial SC SCH ×3 (00:10→11:55)
--- NOTE | 2018-01-09 03:04 | PN ---
DATE: 01/09/2016 FOLLOWUP RENAL CONSULTATION LOCATION: The patient is located in ICU, bed 12. REQUESTED BY: Jayden Johnson MD REASON FOR FOLLOWUP: Acute renal failure and hepatic encephalopathy, cirrhosis of the liver. HISTORY OF PRESENT ILLNESS: Mr. Crain is a 72 years old elderly male with a past medical history significant for longstanding hypertension, recently diagnosed diabetes, and also EtOH abuse, cirrhosis of the liver who was initially admitted with weakness and difficult to ambulate and found to have gram-negative sepsis on admission, and initially treated with vancomycin and Zosyn, subsequently changed to meropenem. The patient is still drowsy, responds slightly to painful stimuli. Not in distress. The patient has an NG tube now and receiving lactulose though the NG tube every 8 hours, not in distress. PHYSICAL EXAMINATION: VITAL SIGNS: As follows, blood pressure 103/54, pulse 55, respirations 18, temperature 97.4, saturation 98%. Height 5 feet 7 inches, and weight is 207 pounds. GENERAL: Mr. Crain is a 72 years old elderly male, moderately built, moderately nourished, not in distress. HEENT: Pupils normal and reactive to light and accommodation. Conjunctivae pink. Sclerae is icteric. Tongue is moist. The patient also has an NG tube. No thyroid enlargement. LUNGS: Symmetric on both sides. Bilateral breath sounds present. No crackles. CVS: [place] at the fifth intercostal space, midclavicular line. S1, S2 audible. No murmur or gallop. ABDOMEN: Distended, soft, and bilateral flank dullness present. No guarding. No rigidity. MANAGEMENT COORDINATOR: The patient is drowsy, opens eyes to painful stimuli. Sensory and motor system is grossly within normal limits. EXTREMITIES: No cyanosis, no clubbing. The patient has 2+ edema in both lower extremities now. MEDICATIONS: His current medications include lactulose 20 gm p.o. every 8 hours, Flomax 0.4 mg p.o. daily, multivitamin 1 tablet daily, meropenem 250 mg every 12 hours, neomycin 500 mg p.o. every 6 hours, Novolin R for sliding scale, Midodrine 2.5 mg p.o. t.i.d., Tylenol, thiamine 100 mg p.o. b.i.d., Xifaxan 550 mg p.o. b.i.d., Zaroxolyn 5 mg by NG tube daily. His I's and O's in the last 24 hours, intake is 790, output is 200 mL only. LABORATORY DATA: His current laboratory data as of 01/08/2018, WBC 7.4, hemoglobin 9.7, hematocrit is 28.1, platelets 51. Sodium 141, potassium 4.2, chloride 104, CO2 of 22, BUN 86, creatinine 3.9, glucose 186, lactic acid 2.2, calcium 9.3, phosphorus 5, magnesium 2.2, ferritin , total bili 6.7, AST 101, ALT 48, alkaline phosphatase 196, ammonia 102, total protein 7.3, albumin is 2.7. Urinalysis as of 01/08/2018, shyam, hazy, pH 5, specific 1.017, protein 1+, glucose normal, ketones negative, blood 3+, nitrites negative, bilirubin negative, urobilinogen 4, leukocyte esterase 3+, wbc 489, rbc 296, WBC clumps present, bacteria moderate, and hyaline casts 11 to 20, yeasts many. Stool for C. diff toxin is negative. Chest x-ray as of 01/07/2018, limited bibasilar atelectasis, stable over infiltrates. Clinically correlate. IMPRESSION: In summary, Mr. Crain is 72 years old elderly male with history of hypertension, diabetes, EtOH abuse, cirrhosis of the liver, status post gram-negative sepsis with worsening renal function and liver failure and hyperammonemia. 1. Oliguric acute renal failure, most likely secondary to hepatorenal syndrome, cannot rule out acute tubular necrosis. 2. Hepatic encephalopathy. 3. Cirrhosis of the liver. 4. Diabetes. 5. Hypertension. Blood pressure is stable. PLAN: Continue lactulose. Continue neomycin. Continue to monitor ammonia level. Discussed with the patient's son yesterday regarding possible dialysis and regarding the code status. If the patient family agrees, we will consider temporary dialysis. Overall prognosis is guarded and very poor in long-term hemodialysis. The patient is not a good candidate for long-term hemodialysis due to underlying cirrhosis of the liver. We will follow with you. Thank you for allowing me to participate in your patient's care. Consider IV albumin and Midodrine 5 mg b.i.d. and albumin 50 gm every 8 hours. Neri Lee MD
[2018-01-09 06:31] LABS: BASO % 0.5 % (0.0-2.0); EOS # 0.3 K/uL (0.0-0.7); EOS % 4.1 % (0.0-4.0); HEMOGLOBIN 9.6 g/dL (12.0-18.0); LYMPH # 1.9 K/uL (1.0-4.3); LYMPH % 26.4 % (20.0-40.0); MEAN CELL VOLUME 99.6 fL (80.0-94.0); MEAN CORPUSCULAR HEMOGLOBIN 34.5 pg (27.0-31.0); MEAN CORPUSCULAR HGB CONC 34.6 g/dL (33.0-37.0); MEAN PLATELET VOLUME 11.1 fL (7.2-11.7); MONO # 0.9 K/uL (0.0-0.8); MONO % 11.8 % (0.0-10.0); NEUT # 4.1 K/uL (1.8-7.0); NEUT % 57.2 % (50.0-75.0); NRBC % 0.1 % (0.0-2.0); RBC 2.8 Mil/uL (4.40-5.90); RED CELL DISTRIBUTION WIDTH 17.1 % (11.5-14.5); WHITE BLOOD COUNT 7.2 K/uL (4.8-10.8)
[2018-01-09 06:33] LABS: INR 1.6; PROTHROMBIN TIME 18.4 SECONDS (9.7-12.2)
[2018-01-09 06:46] LABS: CALCIUM 9.4 mg/dl (8.6-10.4)
[2018-01-09] MEDS: metOLazone 5 MG TAB NG SCH (09:08)
[2018-01-09] MEDS: Multiple Vitamins Tab PO SCH (09:08)
--- NOTE | 2018-01-09 10:21 | CP.CCUPN ---
Addendum entered and electronically signed by Rudy Salas DO 01/09/18 16:38: Family has decided for inpatient hospice. Original Note: <Rudy Salas - Last Filed: 01/09/18 14:35> CCU Subjective - Physician Review Subjective (Free Text): 01/08/18 10:07 Patient seen and examined. Lethargic and does not respond to questioning; however, he grunts with stimulation. 01/09/18 10:17 Patient seen and examined. Patient remains encephalopathic. Today he is less responsive to stimuli. CCU Objective - Vital Signs / Intake & Output Vital Signs (Last 4 hours): Vital Signs Pulse Resp BP 01/09/18 07:49 88 22 133/73 Intake and Output (Last 8hrs): Intake & Output 01/08/18 01/09/18 01/09/18 22:59 06:59 14:59 Intake Total 300 150 Output Total 90 400 75 Balance 210 -250 -75 Weight 205 lb Intake: Intake, IV Amount 200 Right Proximal Port PICC 200 Other 100 150 Output: Urine 90 400 75 Urethral (Lara) 90 400 75 Other: # Bowel Movements 1 1 - Physical Exam Head: Positive for: Atraumatic, Normocephalic Pupils: Positive for: Pinpoint, Other (scleral icterus) Mouth: Positive for: Moist Mucous Membranes Nose (External): Positive for: Other (NGT in place) Respiratory/Chest: Positive for: Decreased Breath Sounds. Negative for: Wheezes , Rales, Rhonchi Cardiovascular: Positive for: Normal S1, S2 Abdomen: Positive for: Distention, Normal Bowel Sounds, Other (fluid shift). Negative for: Tenderness Upper Extremity: Positive for: Other (Right sided PICC line). Negative for: Edema Lower Extremity: Positive for: Edema (bilateral) Skin: Positive for: Warm, Dry - Medications Active Medications: Active Medications Generic Name Dose Route Start Last Admin Trade Name Freq PRN Reason Stop Dose Admin Acetaminophen 650 mg 12/16/17 16:50 12/19/17 18:08 Tylenol 650 Mg Supp [place] 650 mg Q6 PRN Administration fever of >100.4 and above Meropenem 250 mg/ Sodium 100 mls @ 100 mls/hr 01/07/18 22:00 01/09/18 09:08 Chloride IVPB 100 mls/hr Q12 JE Administration Protocol Insulin Human Regular 0 unit 01/08/18 06:00 01/09/18 05:59 Novolin R SC 2 unit Q6H JE Administration Protocol Metolazone 5 mg 01/08/18 17:00 01/09/18 09:08 Zaroxolyn NG 5 mg DAILY JE Administration Midodrine 2.5 mg 01/08/18 10:00 01/09/18 09:08 Proamatine PO 2.5 mg TID JE Administration Multivitamins 1 tab 01/03/18 10:00 01/09/18 09:08 Hexavitamin PO 1 tab DAILY JE Administration Neomycin Sulfate 500 mg 01/09/18 00:00 01/09/18 05:59 Neomycin Tab PO 500 mg Q6 JE Administration Rifaximin 550 mg 01/05/18 18:00 01/09/18 09:08 Xifaxan PO 550 mg BID JE Administration Protocol Tamsulosin HCl 0.4 mg 01/01/18 12:00 01/09/18 09:08 Flomax PO 0.4 mg DAILY JE Administration Thiamine HCl 100 mg 12/17/17 18:00 01/09/18 09:08 Vitamin B1 Tab PO 100 mg BID JE Administration - Patient Studies Lab Studies: Lab Studies 01/09/18 01/09/18 01/09/18 Range/Units 06:22 06:22 06:22 WBC 7.2 (4.8-10.8) K/uL RBC 2.80 L (4.40-5.90) Mil/uL Hgb 9.6 L (12.0-18.0) g/dL Hct 27.9 L (35.0-51.0) % MCV 99.6 H (80.0-94.0) fL MCH 34.5 H (27.0-31.0) pg MCHC 34.6 (33.0-37.0) g/dL RDW 17.1 H (11.5-14.5) % Plt Count 55 L (130-400) K/uL MPV 11.1 (7.2-11.7) fL Neut % (Auto) 57.2 (50.0-75.0) % Lymph % (Auto) 26.4 (20.0-40.0) % Bureau % (Auto) 11.8 H (0.0-10.0) % Eos % (Auto) 4.1 H (0.0-4.0) % Baso % (Auto) 0.5 (0.0-2.0) % Neut # (Auto) 4.1 (1.8-7.0) K/uL Lymph # (Auto) 1.9 (1.0-4.3) K/uL Bureau # (Auto) 0.9 H (0.0-0.8) K/uL Eos # (Auto) 0.3 (0.0-0.7) K/uL Baso # (Auto) 0.0 (0.0-0.2) K/uL PT 18.4 H (9.7-12.2) SECONDS INR 1.6 Sodium (132-148) mmol/L Potassium (3.6-5.2) mmol/L Chloride (98-107) mmol/L Carbon Dioxide (22-30) mmol/L Anion Gap (10-20) BUN (9-20) mg/dL Creatinine (0.8-1.5) mg/dL Est GFR ( Amer) Est GFR (Non-Af Amer) POC Glucose (mg/dL) (65-110) mg/dL Random Glucose (75-110) mg/dL Calcium (8.6-10.4) mg/dl Phosphorus (2.5-4.5) mg/dL Magnesium (1.6-2.3) mg/dL Ammonia 130 H (9-33) umol/L Total Protein (PEP) (6.1-8.1) g/dL C. difficile Ag & Toxin (NEGATIVE) 01/09/18 01/09/18 01/09/18 Range/Units 06:22 05:49 00:34 WBC (4.8-10.8) K/uL RBC (4.40-5.90) Mil/uL Hgb (12.0-18.0) g/dL Hct (35.0-51.0) % MCV (80.0-94.0) fL MCH (27.0-31.0) pg MCHC (33.0-37.0) g/dL RDW (11.5-14.5) % Plt Count (130-400) K/uL MPV (7.2-11.7) fL Neut % (Auto) (50.0-75.0) % Lymph % (Auto) (20.0-40.0) % Bureau % (Auto) (0.0-10.0) % Eos % (Auto) (0.0-4.0) % Baso % (Auto) (0.0-2.0) % Neut # (Auto) (1.8-7.0) K/uL Lymph # (Auto) (1.0-4.3) K/uL Bureau # (Auto) (0.0-0.8) K/uL Eos # (Auto) (0.0-0.7) K/uL Baso # (Auto) (0.0-0.2) K/uL PT (9.7-12.2) SECONDS INR Sodium 145 (132-148) mmol/L Potassium 4.1 (3.6-5.2) mmol/L Chloride 106 (98-107) mmol/L Carbon Dioxide 21 L (22-30) mmol/L Anion Gap 22 H (10-20) BUN 86 H (9-20) mg/dL Creatinine 3.8 H (0.8-1.5) mg/dL Est GFR ( Amer) 19 Est GFR (Non-Af Amer) 16 POC Glucose (mg/dL) 219 H 185 H (65-110) mg/dL Random Glucose 180 H (75-110) mg/dL Calcium 9.4 (8.6-10.4) mg/dl Phosphorus 4.9 H (2.5-4.5) mg/dL Magnesium 2.3 (1.6-2.3) mg/dL Ammonia (9-33) umol/L Total Protein (PEP) (6.1-8.1) g/dL C. difficile Ag & Toxin (NEGATIVE) 01/08/18 01/08/18 01/08/18 Range/Units 20:37 17:18 11:44 WBC (4.8-10.8) K/uL RBC (4.40-5.90) Mil/uL Hgb (12.0-18.0) g/dL Hct (35.0-51.0) % MCV (80.0-94.0) fL MCH (27.0-31.0) pg MCHC (33.0-37.0) g/dL RDW (11.5-14.5) % Plt Count (130-400) K/uL MPV (7.2-11.7) fL Neut % (Auto) (50.0-75.0) % Lymph % (Auto) (20.0-40.0) % Bureau % (Auto) (0.0-10.0) % Eos % (Auto) (0.0-4.0) % Baso % (Auto) (0.0-2.0) % Neut # (Auto) (1.8-7.0) K/uL Lymph # (Auto) (1.0-4.3) K/uL Bureau # (Auto) (0.0-0.8) K/uL Eos # (Auto) (0.0-0.7) K/uL Baso # (Auto) (0.0-0.2) K/uL PT (9.7-12.2) SECONDS INR Sodium (132-148) mmol/L Potassium (3.6-5.2) mmol/L Chloride (98-107) mmol/L Carbon Dioxide (22-30) mmol/L Anion Gap (10-20) BUN (9-20) mg/dL Creatinine (0.8-1.5) mg/dL Est GFR ( Amer) Est GFR (Non-Af Amer) POC Glucose (mg/dL) 197 H 197 H (65-110) mg/dL Random Glucose (75-110) mg/dL Calcium (8.6-10.4) mg/dl Phosphorus (2.5-4.5) mg/dL Magnesium (1.6-2.3) mg/dL Ammonia 118 H (9-33) umol/L Total Protein (PEP) (6.1-8.1) g/dL C. difficile Ag & Toxin (NEGATIVE) 01/08/18 01/08/18 Range/Units 05:52 02:39 WBC (4.8-10.8) K/uL RBC (4.40-5.90) Mil/uL Hgb (12.0-18.0) g/dL Hct (35.0-51.0) % MCV (80.0-94.0) fL MCH (27.0-31.0) pg MCHC (33.0-37.0) g/dL RDW (11.5-14.5) % Plt Count (130-400) K/uL MPV (7.2-11.7) fL Neut % (Auto) (50.0-75.0) % Lymph % (Auto) (20.0-40.0) % Bureau % (Auto) (0.0-10.0) % Eos % (Auto) (0.0-4.0) % Baso % (Auto) (0.0-2.0) % Neut # (Auto) (1.8-7.0) K/uL Lymph # (Auto) (1.0-4.3) K/uL Bureau # (Auto) (0.0-0.8) K/uL Eos # (Auto) (0.0-0.7) K/uL Baso # (Auto) (0.0-0.2) K/uL PT (9.7-12.2) SECONDS INR Sodium (132-148) mmol/L Potassium (3.6-5.2) mmol/L Chloride (98-107) mmol/L Carbon Dioxide (22-30) mmol/L Anion Gap (10-20) BUN (9-20) mg/dL Creatinine (0.8-1.5) mg/dL Est GFR ( Amer) Est GFR (Non-Af Amer) POC Glucose (mg/dL) (65-110) mg/dL Random Glucose (75-110) mg/dL Calcium (8.6-10.4) mg/dl Phosphorus (2.5-4.5) mg/dL Magnesium (1.6-2.3) mg/dL Ammonia (9-33) umol/L Total Protein (PEP) 6.7 (6.1-8.1) g/dL C. difficile Ag & Toxin Negative (NEGATIVE) Laboratory Results - last 24 hr 01/08/18 01/08/18 01/08/18 02:39 05:52 11:44 WBC RBC Hgb Hct MCV MCH MCHC RDW Plt Count MPV Neut % (Auto) Lymph % (Auto) Bureau % (Auto) Eos % (Auto) Baso % (Auto) Neut # (Auto) Lymph # (Auto) Bureau # (Auto) Eos # (Auto) Baso # (Auto) PT INR Sodium Potassium Chloride Carbon Dioxide Anion Gap BUN Creatinine Est GFR ( Amer) Est GFR (Non-Af Amer) POC Glucose (mg/dL) 197 H Random Glucose Calcium Phosphorus Magnesium Ammonia Total Protein (PEP) 6.7 C. difficile Ag & Toxin Negative 01/08/18 01/08/18 01/09/18 17:18 20:37 00:34 WBC RBC Hgb Hct MCV MCH MCHC RDW Plt Count MPV Neut % (Auto) Lymph % (Auto) Bureau % (Auto) Eos % (Auto) Baso % (Auto) Neut # (Auto) Lymph # (Auto) Bureau # (Auto) Eos # (Auto) Baso # (Auto) PT INR Sodium Potassium Chloride Carbon Dioxide Anion Gap BUN Creatinine Est GFR ( Amer) Est GFR (Non-Af Amer) POC Glucose (mg/dL) 197 H 185 H Random Glucose Calcium Phosphorus Magnesium Ammonia 118 H Total Protein (PEP) C. difficile Ag & Toxin 01/09/18 01/09/18 01/09/18 05:49 06:22 06:22 WBC 7.2 RBC 2.80 L Hgb 9.6 L Hct 27.9 L MCV 99.6 H MCH 34.5 H MCHC 34.6 RDW 17.1 H Plt Count 55 L MPV 11.1 Neut % (Auto) 57.2 Lymph % (Auto) 26.4 Bureau % (Auto) 11.8 H Eos % (Auto) 4.1 H Baso % (Auto) 0.5 Neut # (Auto) 4.1 Lymph # (Auto) 1.9 Bureau # (Auto) 0.9 H Eos # (Auto) 0.3 Baso # (Auto) 0.0 PT INR Sodium 145 Potassium 4.1 Chloride 106 Carbon Dioxide 21 L Anion Gap 22 H BUN 86 H Creatinine 3.8 H Est GFR ( Amer) 19 Est GFR (Non-Af Amer) 16 POC Glucose (mg/dL) 219 H Random Glucose 180 H Calcium 9.4 Phosphorus 4.9 H Magnesium 2.3 Ammonia Total Protein (PEP) C. difficile Ag & Toxin 01/09/18 01/09/18 06:22 06:22 WBC RBC Hgb Hct MCV MCH MCHC RDW Plt Count MPV Neut % (Auto) Lymph % (Auto) Bureau % (Auto) Eos % (Auto) Baso % (Auto) Neut # (Auto) Lymph # (Auto) Bureau # (Auto) Eos # (Auto) Baso # (Auto) PT 18.4 H INR 1.6 Sodium Potassium Chloride Carbon Dioxide Anion Gap BUN Creatinine Est GFR ( Amer) Est GFR (Non-Af Amer) POC Glucose (mg/dL) Random Glucose Calcium Phosphorus Magnesium Ammonia 130 H Total Protein (PEP) C. difficile Ag & Toxin Fingerstick Blood Sugar Results: 185 Critical Care Progress Note - Nutrition Nutrition: Nutrition Category Date Time Status Liquid Diet [DIET] Diets 12/29/17 Dinner Active Assessment/Plan - Assessment and Plan (Free Text) Assessment: This is a 72 year old male with PMHx ETOH abuse, HTN with hepatic encephalopathy , hepatorenal syndrome who was sent to the ICU for worsening clinical status. Neuro Hepatic encephalopathy with ammonia 130 Cardio Midodrine 2.5 mg NG TID Metalozone 5 mg NG daily Pulmonology Saturating well on nasal cannula GI Neomycin 500 mg NG Q6 Rifaximin 550 mg NG BID Endocrine Regular ISS Q6H low dose Hgb A1c 7.0 Nephrology Hepatorenal syndrome May possibly need temporary hemodialysis per nephro on consult Infectious Disease on Merrem 250 mg IV Q12 per ID on consult Previously treating for e.coli bacteremia. 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 Unable to confirm with [facility] due to acuity of condition. Heme/onc Platelet dysfunction secondary to chronic alcoholism Prophylaxis Holding VTE ppx due to thrombocytopenia Dispo: Poor prognosis. After family meeting, the conclusion is that the patient will have hospice evaluation. Seen and discussed with Dr. Reyna <Winston Reyna - Last Filed: 01/09/18 17:01> CCU Objective - Vital Signs / Intake & Output Vital Signs (Last 4 hours): Vital Signs Temp Pulse Resp BP Pulse Ox 01/09/18 16:49 98 H 31 H 138/59 L 98 01/09/18 16:00 97.5 F L 01/09/18 15:49 92 H 22 122/55 L 98 01/09/18 14:49 94 H 23 111/52 L 98 01/09/18 13:49 94 H 31 H 138/66 99 Intake and Output (Last 8hrs): Intake & Output 01/09/18 01/09/18 01/09/18 06:59 14:59 22:59 Intake Total 150 100 Output Total 400 205 50 Balance -250 -105 -50 Weight 205 lb Intake: Intake, IV Amount 100 Right Proximal Port PICC 100 Other 150 Output: Urine 400 205 50 Urethral (Lara) 400 205 50 Other: # Bowel Movements 1 - Patient Studies Lab Studies: Microbiology Studies 01/08/18 00:05 MRSA Culture (Admit) - Final Naris MRSA NOT DETECTED 12/26/17 10:03 Fungal Culture - Preliminary Peritoneal Fluid NO FUNGUS GROWTH IN 1 WEEK. Lab Studies 01/09/18 01/09/18 01/09/18 Range/Units 11:49 06:22 06:22 WBC (4.8-10.8) K/uL RBC (4.40-5.90) Mil/uL Hgb (12.0-18.0) g/dL Hct (35.0-51.0) % MCV (80.0-94.0) fL MCH (27.0-31.0) pg MCHC (33.0-37.0) g/dL RDW (11.5-14.5) % Plt Count (130-400) K/uL MPV (7.2-11.7) fL Neut % (Auto) (50.0-75.0) % Lymph % (Auto) (20.0-40.0) % Bureau % (Auto) (0.0-10.0) % Eos % (Auto) (0.0-4.0) % Baso % (Auto) (0.0-2.0) % Neut # (Auto) (1.8-7.0) K/uL Lymph # (Auto) (1.0-4.3) K/uL Bureau # (Auto) (0.0-0.8) K/uL Eos # (Auto) (0.0-0.7) K/uL Baso # (Auto) (0.0-0.2) K/uL PT 18.4 H (9.7-12.2) SECONDS INR 1.6 Sodium (132-148) mmol/L Potassium (3.6-5.2) mmol/L Chloride (98-107) mmol/L Carbon Dioxide (22-30) mmol/L Anion Gap (10-20) BUN (9-20) mg/dL Creatinine (0.8-1.5) mg/dL Est GFR ( Amer) Est GFR (Non-Af Amer) POC Glucose (mg/dL) 197 H (65-110) mg/dL Random Glucose (75-110) mg/dL Calcium (8.6-10.4) mg/dl Phosphorus (2.5-4.5) mg/dL Magnesium (1.6-2.3) mg/dL Ammonia 130 H (9-33) umol/L Total Protein (PEP) (6.1-8.1) g/dL 01/09/18 01/09/18 01/09/18 Range/Units 06:22 06:22 05:49 WBC 7.2 (4.8-10.8) K/uL RBC 2.80 L (4.40-5.90) Mil/uL Hgb 9.6 L (12.0-18.0) g/dL Hct 27.9 L (35.0-51.0) % MCV 99.6 H (80.0-94.0) fL MCH 34.5 H (27.0-31.0) pg MCHC 34.6 (33.0-37.0) g/dL RDW 17.1 H (11.5-14.5) % Plt Count 55 L (130-400) K/uL MPV 11.1 (7.2-11.7) fL Neut % (Auto) 57.2 (50.0-75.0) % Lymph % (Auto) 26.4 (20.0-40.0) % Bureau % (Auto) 11.8 H (0.0-10.0) % Eos % (Auto) 4.1 H (0.0-4.0) % Baso % (Auto) 0.5 (0.0-2.0) % Neut # (Auto) 4.1 (1.8-7.0) K/uL Lymph # (Auto) 1.9 (1.0-4.3) K/uL Bureau # (Auto) 0.9 H (0.0-0.8) K/uL Eos # (Auto) 0.3 (0.0-0.7) K/uL Baso # (Auto) 0.0 (0.0-0.2) K/uL PT (9.7-12.2) SECONDS INR Sodium 145 (132-148) mmol/L Potassium 4.1 (3.6-5.2) mmol/L Chloride 106 (98-107) mmol/L Carbon Dioxide 21 L (22-30) mmol/L Anion Gap 22 H (10-20) BUN 86 H (9-20) mg/dL Creatinine 3.8 H (0.8-1.5) mg/dL Est GFR ( Amer) 19 Est GFR (Non-Af Amer) 16 POC Glucose (mg/dL) 219 H (65-110) mg/dL Random Glucose 180 H (75-110) mg/dL Calcium 9.4 (8.6-10.4) mg/dl Phosphorus 4.9 H (2.5-4.5) mg/dL Magnesium 2.3 (1.6-2.3) mg/dL Ammonia (9-33) umol/L Total Protein (PEP) (6.1-8.1) g/dL 01/09/18 01/08/18 01/08/18 Range/Units 00:34 20:37 17:18 WBC (4.8-10.8) K/uL RBC (4.40-5.90) Mil/uL Hgb (12.0-18.0) g/dL Hct (35.0-51.0) % MCV (80.0-94.0) fL MCH (27.0-31.0) pg MCHC (33.0-37.0) g/dL RDW (11.5-14.5) % Plt Count (130-400) K/uL MPV (7.2-11.7) fL Neut % (Auto) (50.0-75.0) % Lymph % (Auto) (20.0-40.0) % Bureau % (Auto) (0.0-10.0) % Eos % (Auto) (0.0-4.0) % Baso % (Auto) (0.0-2.0) % Neut # (Auto) (1.8-7.0) K/uL Lymph # (Auto) (1.0-4.3) K/uL Bureau # (Auto) (0.0-0.8) K/uL Eos # (Auto) (0.0-0.7) K/uL Baso # (Auto) (0.0-0.2) K/uL PT (9.7-12.2) SECONDS INR Sodium (132-148) mmol/L Potassium (3.6-5.2) mmol/L Chloride (98-107) mmol/L Carbon Dioxide (22-30) mmol/L Anion Gap (10-20) BUN (9-20) mg/dL Creatinine (0.8-1.5) mg/dL Est GFR ( Amer) Est GFR (Non-Af Amer) POC Glucose (mg/dL) 185 H 197 H (65-110) mg/dL Random Glucose (75-110) mg/dL Calcium (8.6-10.4) mg/dl Phosphorus (2.5-4.5) mg/dL Magnesium (1.6-2.3) mg/dL Ammonia 118 H (9-33) umol/L Total Protein (PEP) (6.1-8.1) g/dL 01/08/18 Range/Units 05:52 WBC (4.8-10.8) K/uL RBC (4.40-5.90) Mil/uL Hgb (12.0-18.0) g/dL Hct (35.0-51.0) % MCV (80.0-94.0) fL MCH (27.0-31.0) pg MCHC (33.0-37.0) g/dL RDW (11.5-14.5) % Plt Count (130-400) K/uL MPV (7.2-11.7) fL Neut % (Auto) (50.0-75.0) % Lymph % (Auto) (20.0-40.0) % Bureau % (Auto) (0.0-10.0) % Eos % (Auto) (0.0-4.0) % Baso % (Auto) (0.0-2.0) % Neut # (Auto) (1.8-7.0) K/uL Lymph # (Auto) (1.0-4.3) K/uL Bureau # (Auto) (0.0-0.8) K/uL Eos # (Auto) (0.0-0.7) K/uL Baso # (Auto) (0.0-0.2) K/uL PT (9.7-12.2) SECONDS INR Sodium (132-148) mmol/L Potassium (3.6-5.2) mmol/L Chloride (98-107) mmol/L Carbon Dioxide (22-30) mmol/L Anion Gap (10-20) BUN (9-20) mg/dL Creatinine (0.8-1.5) mg/dL Est GFR ( Amer) Est GFR (Non-Af Amer) POC Glucose (mg/dL) (65-110) mg/dL Random Glucose (75-110) mg/dL Calcium (8.6-10.4) mg/dl Phosphorus (2.5-4.5) mg/dL Magnesium (1.6-2.3) mg/dL Ammonia (9-33) umol/L Total Protein (PEP) 6.7 (6.1-8.1) g/dL Laboratory Results - last 24 hr 01/08/18 01/08/18 01/08/18 05:52 17:18 20:37 WBC RBC Hgb Hct MCV MCH MCHC RDW Plt Count MPV Neut % (Auto) Lymph % (Auto) Bureau % (Auto) Eos % (Auto) Baso % (Auto) Neut # (Auto) Lymph # (Auto) Bureau # (Auto) Eos # (Auto) Baso # (Auto) PT INR Sodium Potassium Chloride Carbon Dioxide Anion Gap BUN Creatinine Est GFR ( Amer) Est GFR (Non-Af Amer) POC Glucose (mg/dL) 197 H Random Glucose Calcium Phosphorus Magnesium Ammonia 118 H Total Protein (PEP) 6.7 01/09/18 01/09/18 01/09/18 00:34 05:49 06:22 WBC RBC Hgb Hct MCV MCH MCHC RDW Plt Count MPV Neut % (Auto) Lymph % (Auto) Bureau % (Auto) Eos % (Auto) Baso % (Auto) Neut # (Auto) Lymph # (Auto) Bureau # (Auto) Eos # (Auto) Baso # (Auto) PT INR Sodium 145 Potassium 4.1 Chloride 106 Carbon Dioxide 21 L Anion Gap 22 H BUN 86 H Creatinine 3.8 H Est GFR ( Amer) 19 Est GFR (Non-Af Amer) 16 POC Glucose (mg/dL) 185 H 219 H Random Glucose 180 H Calcium 9.4 Phosphorus 4.9 H Magnesium 2.3 Ammonia Total Protein (PEP) 01/09/18 01/09/18 01/09/18 06:22 06:22 06:22 WBC 7.2 RBC 2.80 L Hgb 9.6 L Hct 27.9 L MCV 99.6 H MCH 34.5 H MCHC 34.6 RDW 17.1 H Plt Count 55 L MPV 11.1 Neut % (Auto) 57.2 Lymph % (Auto) 26.4 Bureau % (Auto) 11.8 H Eos % (Auto) 4.1 H Baso % (Auto) 0.5 Neut # (Auto) 4.1 Lymph # (Auto) 1.9 Bureau # (Auto) 0.9 H Eos # (Auto) 0.3 Baso # (Auto) 0.0 PT 18.4 H INR 1.6 Sodium Potassium Chloride Carbon Dioxide Anion Gap BUN Creatinine Est GFR ( Amer) Est GFR (Non-Af Amer) POC Glucose (mg/dL) Random Glucose Calcium Phosphorus Magnesium Ammonia 130 H Total Protein (PEP) 01/09/18 11:49 WBC RBC Hgb Hct MCV MCH MCHC RDW Plt Count MPV Neut % (Auto) Lymph % (Auto) Bureau % (Auto) Eos % (Auto) Baso % (Auto) Neut # (Auto) Lymph # (Auto) Bureau # (Auto) Eos # (Auto) Baso # (Auto) PT INR Sodium Potassium Chloride Carbon Dioxide Anion Gap BUN Creatinine Est GFR ( Amer) Est GFR (Non-Af Amer) POC Glucose (mg/dL) 197 H Random Glucose Calcium Phosphorus Magnesium Ammonia Total Protein (PEP) Critical Care Progress Note - Nutrition Nutrition: Nutrition Category Date Time Status Liquid Diet [DIET] Diets 12/29/17 Dinner Active Attending/Attestation - Attestation I have personally seen and examined this patient.: Yes I have fully participated in the care of the patient.: Yes I have reviewed all pertinent clinical information: Yes Notes (Text): 01/09/18 17:00 patient seen and examined in the intensive care unit. He is discussed with family at length and his poor prognosis family decided for inpatient hospice care
--- NOTE | 2018-01-09 10:40 | CP.PCM.PN ---
Subjective - Date & Time of Evaluation Date of Evaluation: 01/09/18 Time of Evaluation: 10:40 - Subjective Subjective: pt is seen and examined, follow up consult is dictated #[id number] Objective - Vital Signs/Intake and Output Vital Signs (last 24 hours): Temp Pulse Resp BP Pulse Ox 98 F 88 22 133/73 98 01/09/18 04:00 01/09/18 07:49 01/09/18 07:49 01/09/18 07:49 01/09/18 06:00 Intake and Output: 01/09/18 01/09/18 06:59 18:59 Intake Total 250 Output Total 415 75 Balance -165 -75 - Medications Medications: Current Medications Acetaminophen (Tylenol 650 Mg Supp) 650 mg SC Q6 PRN PRN Reason: fever of >100.4 and above Last Admin: 12/19/17 18:08 Dose: 650 mg Meropenem 250 mg/ Sodium (Chloride) 100 mls @ 100 mls/hr IVPB Q12 JE PRN Reason: Protocol Last Admin: 01/09/18 09:08 Dose: 100 mls/hr Insulin Human Regular (Novolin R) 0 unit SC Q6H JE PRN Reason: Protocol Last Admin: 01/09/18 05:59 Dose: 2 unit Metolazone (Zaroxolyn) 5 mg NG DAILY [facility] Last Admin: 01/09/18 09:08 Dose: 5 mg Midodrine (Proamatine) 2.5 mg PO TID [facility] Last Admin: 01/09/18 09:08 Dose: 2.5 mg Multivitamins (Hexavitamin) 1 tab PO DAILY [facility] Last Admin: 01/09/18 09:08 Dose: 1 tab Neomycin Sulfate (Neomycin Tab) 500 mg PO Q6 JE Last Admin: 01/09/18 05:59 Dose: 500 mg Rifaximin (Xifaxan) 550 mg PO BID JE PRN Reason: Protocol Last Admin: 01/09/18 09:08 Dose: 550 mg Tamsulosin HCl (Flomax) 0.4 mg PO DAILY [facility] Last Admin: 01/09/18 09:08 Dose: 0.4 mg Thiamine HCl (Vitamin B1 Tab) 100 mg PO BID [facility] Last Admin: 01/09/18 09:08 Dose: 100 mg - Labs Labs: 01/09/18 06:22 01/09/18 06:22 PT 18.4 SECONDS (9.7-12.2) H 01/09/18 06:22 INR 1.6 01/09/18 06:22 APTT 37 SECONDS (21-34) H 12/29/17 06:22
--- NOTE | 2018-01-09 13:39 | CP.PCM.PN ---
Subjective - Date & Time of Evaluation Date of Evaluation: 01/09/18 Time of Evaluation: 12:00 - Subjective Subjective: Patient unresponsive. Objective - Vital Signs/Intake and Output Vital Signs (last 24 hours): Temp Pulse Resp BP Pulse Ox 98 F 88 22 133/73 98 01/09/18 04:00 01/09/18 07:49 01/09/18 07:49 01/09/18 07:49 01/09/18 06:00 Intake and Output: 01/09/18 01/09/18 06:59 18:59 Intake Total 250 Output Total 415 75 Balance -165 -75 - Medications Medications: Current Medications Acetaminophen (Tylenol 650 Mg Supp) 650 mg SC Q6 PRN PRN Reason: fever of >100.4 and above Last Admin: 12/19/17 18:08 Dose: 650 mg Meropenem 250 mg/ Sodium (Chloride) 100 mls @ 100 mls/hr IVPB Q12 JE PRN Reason: Protocol Last Admin: 01/09/18 09:08 Dose: 100 mls/hr Insulin Human Regular (Novolin R) 0 unit SC Q6H JE PRN Reason: Protocol Last Admin: 01/09/18 11:55 Dose: Not Given Metolazone (Zaroxolyn) 5 mg NG DAILY [facility] Last Admin: 01/09/18 09:08 Dose: 5 mg Midodrine (Proamatine) 2.5 mg PO TID JE Last Admin: 01/09/18 09:08 Dose: 2.5 mg Multivitamins (Hexavitamin) 1 tab PO DAILY [facility] Last Admin: 01/09/18 09:08 Dose: 1 tab Neomycin Sulfate (Neomycin Tab) 500 mg PO Q6 JE Last Admin: 01/09/18 12:21 Dose: 500 mg Rifaximin (Xifaxan) 550 mg PO BID JE PRN Reason: Protocol Last Admin: 01/09/18 09:08 Dose: 550 mg Tamsulosin HCl (Flomax) 0.4 mg PO DAILY [facility] Last Admin: 01/09/18 09:08 Dose: 0.4 mg Thiamine HCl (Vitamin B1 Tab) 100 mg PO BID [facility] Last Admin: 01/09/18 09:08 Dose: 100 mg - Labs Labs: 01/09/18 06:22 01/09/18 06:22 PT 18.4 SECONDS (9.7-12.2) H 01/09/18 06:22 INR 1.6 01/09/18 06:22 APTT 37 SECONDS (21-34) H 12/29/17 06:22 - Constitutional Appears: In Acute Distress, Chronically Ill - Head Exam Head Exam: ATRAUMATIC, NORMAL INSPECTION, NORMOCEPHALIC - Eye Exam Eye Exam: Normal appearance - ENT Exam ENT Exam: Mucous Membranes Dry Additional comments: NGT in place - Neck Exam Neck Exam: Normal Inspection - Respiratory Exam Respiratory Exam: Decreased Breath Sounds - Cardiovascular Exam Cardiovascular Exam: Tachycardia - GI/Abdominal Exam GI & Abdominal Exam: Distended, Firm, Diminished Bowel Sounds - Rectal Exam Rectal Exam: Deferred - Extremities Exam Extremities Exam: Pedal Edema - Back Exam Back Exam: NORMAL INSPECTION - Neurological Exam Neurological Exam: Motor Sensory Deficit Neuro motor strength exam: Left Upper Extremity: 0, Right Upper Extremity: 0, Left Lower Extremity: 0, Right Lower Extremity: 0 - Psychiatric Exam Psychiatric exam: Flat Affect - Skin Skin Exam: Pallor Assessment and Plan - Assessment and Plan (Free Text) Assessment: Patient seen and examined in bed, unresponsive to verbal and tactile stimuli, eyes closed. NGT in place.Breath sounds diminished, abdomen distnded and large with diminished bowel sounds. Lara cath with poor output. Hydration via IVF. Lactulose very high, 38. Lactulose given via NGT. Kidney functions are worsening. UTI and wound infection are treated with Merrem IV. There is also other electrolyte imbalance. Family meeting held attended by roslyn family, Sally Reyna, supervisor residential and myself. Product/Industry Consultant Sue joined us as well. Patient's condition reviewed . We ana lilia concerns regarding poor prognosis and quality of life issues. I suggested that patient was dying despite all prudent medical care due to severe liver cirrhosis. Doctor Axel and Doctor Vargas supported Medical facts. One of patient's sisters asked what would be the nex level of care. I offered more information about comfort care. Family accepted it. Product/Industry Consultant Joana remained with family for spiritual support. SS and Case management informed. Hospice eval by [facility] is pending. Impression * This is a very sick man with multi organ failure * Patient will moat likely at this hospitalisation * Quality of life issues * Family came to a closure and wished for peaceful Suggestion * DNR/DNI * Hospice care, would stop all IV antibotics and all diagnostic studies * Possible paracentesis for increased comfort * Spiritual support for family Advance planing time, 45 min
[2018-01-09 16:22] VITALS: O2SAT 98
[2018-01-09 16:32] VITALS: TEMP 97.5
--- NOTE | 2018-01-09 16:54 | PN ---
DATE: SUBJECTIVE: The patient is lethargic. No reported hypertension or ventricular tachycardia. PHYSICAL EXAMINATION: VITAL SIGNS: Blood pressure 132/73, heart rate 88, respirations 22, temperature 98 degrees Fahrenheit. HEENT: Facial edema, icteric sclerae. NECK: No JVD. CHEST: Absent breath sounds basally bilaterally. HEART: S1 and S2 regular. ABDOMEN: Moderate ascites. EXTREMITIES: 2 to 3+ pitting edema. LABORATORIES: Today's BUN and creatinine 86 and 3.8, glucose is 180. Ammonia level is 130. Today's hemoglobin and hematocrit 9.6 and 27.9, platelet count 65,000. White count is 7.2. ASSESSMENT: 1. Aortic valve endocarditis. 2. Gram-negative bacteremia. 3. Liver failure. 4. Hepatic encephalopathy. 5. Anemia and thrombocytopenia. 6. Uncontrolled diabetes mellitus. 7. Obstructive uropathy and chronic renal insufficiency. RECOMMENDATIONS: Continue current IV meropenem at 250 mg every 12 hours, Neomycin 500 mg every 6 hours via nasogastric tube. Continue ProAmatine, Zaroxolyn, and rifaximine via nasogastric tube. Overall prognosis is grave. Gurinder Hernandez MD
[2018-01-09 16:55] VITALS: BP 138/59; PULSE 98; RESP 31
--- NOTE | 2018-01-09 18:33 | PN ---
DATE: LOCATION: ICU 12. SUBJECTIVE: This 72-year-old male seen and examined in rounds without reported significant changes or reported active bleeding, but still appeared to be lethargic but did not communicate well to verbal stimuli or questions, but responds to stimuli. The entire chart is reviewed including, but not limited to the most recent lab and radiology study results, current and the previous medication list, current and the previous medical events. Case discussed with the staff at length. The patient is still in the status of hepatic encephalopathy. Today's lab showed hemoglobin 9.6, hematocrit 27.9, thrombocytopenia 55, CO2 content of 21, BUN 86, creatinine 3.8. Blood glucose level 219, phosphorus 4.9, ammonia 130. PHYSICAL EXAMINATION: HEENT: Showed pale, dry oral mucous membranes. Mild icteric sclerae. LUNGS: Few scattered crepitations. Decreased air entry at bases. HEART: Positive S1 and S2. VITAL SIGNS: The patient is afebrile with heart rate of 90, respiratory rate 26 to 28, blood pressure 130/54. NEUROLOGIC: No reported new neurological deficits, sensory or motor. EXTREMITIES: Lower extremities with mild edematous changes. IMPRESSION: 1. Hepatic encephalopathy with hepatic insufficiency. 2. Alcohol-induced liver cirrhosis, portal hypertension, and ascites. 3. Anemia, secondary to above. 4. Metabolic acidosis secondary to above. 5. Hypoalbuminemia and malnutrition with hypoproteinemia. 6. Thrombocytopenia secondary to above most likely. 7. 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 8. Known history of hypertension. 9. Gram-negative septicemia. SUGGESTIONS: 1. Continue current management. 2. Lactulose enema. 3. May add neomycin p.o. 4. Repeat blood cultures x2. 5. Alpha-fetoprotein. 6. Further recommendations to follow. Lachelle Rodrigues MD
--- NOTE | 2018-01-09 22:59 | CP.PCM.DIS ---
Provider - Provider Date of Admission: 12/14/17 17:31 Attending physician: Jayden Johnson MD Time Spent in preparation of Discharge (in minutes): 45 Hospital Course - Lab Results Lab Results: Micro Results 01/08/18 00:05 Naris MRSA Culture (Admit) - Final MRSA NOT DETECTED 12/26/17 10:03 Peritoneal Fluid Fungal Culture - Preliminary NO FUNGUS GROWTH IN 1 WEEK. 12/26/17 10:03 Ascitic Fluid Gram Stain - Final 12/26/17 10:03 Ascitic Fluid Body Fluid Culture - Final NO GROWTH AFTER 4 DAYS 12/19/17 12:50 Blood-Venous Blood Culture - Final NO GROWTH AFTER 5 DAYS 12/19/17 12:50 Blood-Venous Gram Stain - Final TEST NOT PERFORMED 12/19/17 11:30 Blood-Venous Blood Culture - Final NO GROWTH AFTER 5 DAYS 12/19/17 11:30 Blood-Venous Gram Stain - Final TEST NOT PERFORMED 12/16/17 16:30 Blood Blood Culture - Final Escherichia Coli 12/16/17 16:30 Blood Gram Stain - Final 12/16/17 16:00 Blood Blood Culture - Final Escherichia Coli 12/16/17 16:00 Blood Gram Stain - Final 12/16/17 18:59 Back Gram Stain - Final 12/16/17 18:59 Back Wound Culture - Final Klebsiella Pneumoniae Ssp Pneu Staphylococcus Epidermidis 12/16/17 18:59 Urine,Clean Catch Urine Culture - Final No Growth (<1,000 CFU/ML) Most Recent Lab Values WBC 7.2 K/uL (4.8-10.8) 01/09/18 06:22 RBC 2.80 Mil/uL (4.40-5.90) L 01/09/18 06:22 Hgb 9.6 g/dL (12.0-18.0) L 01/09/18 06:22 Hct 27.9 % (35.0-51.0) L 01/09/18 06:22 MCV 99.6 fL (80.0-94.0) H 01/09/18 06:22 MCH 34.5 pg (27.0-31.0) H 01/09/18 06:22 MCHC 34.6 g/dL (33.0-37.0) 01/09/18 06:22 RDW 17.1 % (11.5-14.5) H 01/09/18 06:22 Plt Count 55 K/uL (130-400) L 01/09/18 06:22 MPV 11.1 fL (7.2-11.7) 01/09/18 06:22 Neut % (Auto) 57.2 % (50.0-75.0) 01/09/18 06:22 Lymph % (Auto) 26.4 % (20.0-40.0) 01/09/18 06:22 [place] % (Auto) 11.8 % (0.0-10.0) H 01/09/18 06:22 Eos % (Auto) 4.1 % (0.0-4.0) H 01/09/18 06:22 Baso % (Auto) 0.5 % (0.0-2.0) 01/09/18 06:22 Neut # (Auto) 4.1 K/uL (1.8-7.0) 01/09/18 06:22 Lymph # (Auto) 1.9 K/uL (1.0-4.3) 01/09/18 06:22 [place] # (Auto) 0.9 K/uL (0.0-0.8) H 01/09/18 06:22 Eos # (Auto) 0.3 K/uL (0.0-0.7) 01/09/18 06:22 Baso # (Auto) 0.0 K/uL (0.0-0.2) 01/09/18 06:22 Differential Comment 12/30/17 07:07 ESR 60 mm/hr (0-15) H 12/20/17 07:18 Retic Count 2.3 % (0.5-1.5) H 01/08/18 05:52 PT 18.4 SECONDS (9.7-12.2) H 01/09/18 06:22 INR 1.6 01/09/18 06:22 APTT 37 SECONDS (21-34) H 12/29/17 06:22 Puncture Site Lr 01/07/18 22:49 pCO2 29 mm/Hg (35-45) L 01/07/18 22:49 pO2 69 mm/Hg (80-100) L 01/07/18 22:49 HCO3 25.7 mmol/L (21-28) 01/07/18 22:49 ABG pH 7.51 (7.35-7.45) H 01/07/18 22:49 ABG Total CO2 24.0 mmol/L (22-28) 01/07/18 22:49 ABG O2 Saturation 97.3 % (95-98) 01/07/18 22:49 ABG Base Excess 1.0 mmol/L (-2.0-3.0) 01/07/18 22:49 ABG Hemoglobin 11.9 g/dL (11.7-17.4) 01/03/18 09:45 ABG Carboxyhemoglobin 2.7 % (0.5-1.5) H 01/03/18 09:45 POC ABG HHb (Measured) 8.3 % (0.0-5.0) H 01/03/18 09:45 ABG Methemoglobin 1.1 % (0.0-3.0) 01/03/18 09:45 [place] Test Unable 01/07/18 22:49 ABG Potassium 4.1 mmol/L (3.6-5.2) 01/07/18 22:49 A-a O2 Difference 123.0 mm/Hg 01/07/18 22:49 Respiratory Index 1.8 01/07/18 22:49 Hgb O2 Saturation 87.9 % (95.0-98.0) L 01/03/18 09:45 Sodium 138.0 mmol/l (132-148) 01/07/18 22:49 Chloride 106.0 mmol/L (98-107) 01/07/18 22:49 Glucose 234 mg/dl (75-110) H 01/07/18 22:49 Lactate 2.1 mmol/L (0.7-2.1) 01/07/18 22:49 Liter Flow 3.0 01/07/18 22:49 FiO2 32.0 % 01/07/18 22:49 Sodium 145 mmol/L (132-148) 01/09/18 06:22 Potassium 4.1 mmol/L (3.6-5.2) 01/09/18 06:22 Chloride 106 mmol/L (98-107) 01/09/18 06:22 Carbon Dioxide 21 mmol/L (22-30) L 01/09/18 06:22 Anion Gap 22 (10-20) H 01/09/18 06:22 BUN 86 mg/dL (9-20) H 01/09/18 06:22 Creatinine 3.8 mg/dL (0.8-1.5) H 01/09/18 06:22 Est GFR ( Amer) 19 01/09/18 06:22 Est GFR (Non-Af Amer) 16 01/09/18 06:22 POC Glucose (mg/dL) 197 mg/dL (65-110) H 01/09/18 11:49 Random Glucose 180 mg/dL (75-110) H 01/09/18 06:22 Hemoglobin A1c 7.0 % (4.2-6.5) H 01/02/18 11:13 Lactic Acid 2.2 mmol/L (0.7-2.1) H 01/08/18 05:52 Calcium 9.4 mg/dl (8.6-10.4) 01/09/18 06:22 Phosphorus 4.9 mg/dL (2.5-4.5) H 01/09/18 06:22 Magnesium 2.3 mg/dL (1.6-2.3) 01/09/18 06:22 Iron 78 ug/dL (49-181) 12/15/17 12:15 TIBC 206 ug/dL (250-450) L 12/15/17 12:15 % Saturation 38 (20-55) 12/15/17 12:15 Ferritin 969.0 ng/mL 01/08/18 05:52 Total Bilirubin 6.7 mg/dL (0.2-1.3) H 01/08/18 05:52 Direct Bilirubin 3.0 mg/dL (0.0-0.4) H 01/04/18 07:03 AST 101 U/L (17-59) H 01/08/18 05:52 ALT 48 U/L (21-72) 01/08/18 05:52 Alkaline Phosphatase 196 U/L (38-126) H 01/08/18 05:52 Ammonia 130 umol/L (9-33) H 01/09/18 06:22 Troponin I < 0.0120 ng/mL (0.00-0.120) 12/21/17 19:43 NT-Pro-B Natriuret Pep 1100 pg/mL (0-900) H 12/14/17 16:33 Total Protein 7.3 g/dL (6.3-8.3) 01/08/18 05:52 Total Protein (PEP) 6.7 g/dL (6.1-8.1) 01/08/18 05:52 Albumin 2.7 g/dL (3.5-5.0) L D 01/08/18 05:52 Globulin 4.6 gm/dL (2.2-3.9) H 01/08/18 05:52 Albumin/Globulin Ratio 0.6 (1.0-2.1) L 01/08/18 05:52 Triglycerides 96 mg/dL (0-149) 01/03/18 06:45 Cholesterol 82 mg/dL (0-199) 01/03/18 06:45 LDL Cholesterol Direct 45 mg/dL (0-129) 01/03/18 06:45 HDL Cholesterol 7 mg/dL (30-70) L 01/03/18 06:45 Alpha Fetoprotein 3.1 ng/mL (0.0-7.5) 01/05/18 07:46 Carcinoembryonic Ag 9.4 ng/mL (0-3.0) H 12/15/17 12:15 CA 19-9 Antigen 129 U/mL (0-37) H 12/15/17 12:15 Vitamin B12 > 1000 pg/mL (239-931) H 01/08/18 05:52 Vitamin K 420 pg/mL (80-1160) 12/21/17 11:10 Folate 6.5 ng/mL 01/08/18 05:52 Arterial Blood Potassium 4.1 mmol/L (3.6-5.2) 01/07/18 22:49 Urine Color [place]ista (YELLOW) 01/08/18 03:24 Urine Clarity Hazy (Clear) 01/08/18 03:24 Urine pH 5.0 (5.0-8.0) 01/08/18 03:24 Ur Specific [place] 1.017 (1.003-1.030) 01/08/18 03:24 Urine Protein 1+ mg/dL (NEGATIVE) H 01/08/18 03:24 Urine Glucose (UA) Normal mg/dL (Normal) 01/08/18 03:24 Urine Ketones Negative mg/dL (NEGATIVE) 01/08/18 03:24 Urine Blood 3+ (NEGATIVE) H 01/08/18 03:24 Urine Nitrate Negative (NEGATIVE) 01/08/18 03:24 Urine Bilirubin Negative (NEGATIVE) 01/08/18 03:24 Urine Urobilinogen 4.0 mg/dL (0.2-1.0) 01/08/18 03:24 Ur Leukocyte Esterase 3+ Julianne/uL (Negative) H 01/08/18 03:24 Urine WBC (Auto) 489 /hpf (0-5) H 01/08/18 03:24 Urine RBC (Auto) 296 /hpf (0-3) H 01/08/18 03:24 Urine WBC Clumps (Auto) Few /hpf (NONE) H 01/08/18 03:24 Ur Squamous Epith Cells 3 /hpf (0-5) 01/08/18 03:24 Calcium Oxalate Crystal Few /hpf (<OCC) H 01/08/18 03:24 Urine Bacteria Mod (<OCC) H 01/08/18 03:24 Hyaline Casts 11-20 /lpf (0-2) H 01/08/18 03:24 Urine Yeast (Budding) Many /hpf (NEGATIVE) H 01/08/18 03:24 Urine Eosinophils Negative (NEGATIVE) 12/31/17 17:59 Urine Osmolality 463 mosm/kg (300-1000) 12/31/17 17:59 Ur Random Creatinine 92.4 mg/dL 12/31/17 17:59 Ur Random Sodium 95 mmol/L 12/31/17 17:59 Urine Collection Time 24 HRS 01/07/18 18:18 Urine Total Volume 300 mL 01/07/18 18:18 Ur Creatinine 24 Hour 522.0 mg/24hr (800-2800) L 01/07/18 18:18 Creatinine Clearance 9.0 mL/min (107-139) L 01/07/18 18:18 Urine Chloride 78 mmol/L (32-290) 12/31/17 17:59 Ur Protein 24 Hr Calc 57.0 mg/24hr (42-225) 01/07/18 18:18 Fluid Source Peritoneal 12/26/17 10:03 Fluid Appearance Sl cloudy (CLEAR) 12/26/17 10:03 Fluid WBC 1082.0 /mm3 (0.0-300.0) H 12/26/17 10:03 Fluid RBC 91.0 /mm3 (0.0-0.0) H 12/26/17 10:03 Fluid Tot Cell Count 100 (0-0) H 12/26/17 10:03 Fluid Neutrophils 88.0 % (0-0) H 12/26/17 10:03 Fluid Lymphocytes 10.0 % (0-0) H 12/26/17 10:03 Fld Monocyte/Macrophag 2 % (0-0) H 12/26/17 10:03 Fluid Albumin 0.2 g/dL 12/25/17 10:03 Fluid Comment 12/26/17 10:03 Peritoneal Tot Protein <3.0 g/dL 12/25/17 10:03 Peritoneal LDH 93 U/L (<63) H 12/25/17 10:03 Peritoneal Glucose 265 mg/dL 12/25/17 10:03 Vancomycin Trough 21.6 ug/mL (5.0-10.0) H 12/23/17 20:33 Urine Opiates Screen Negative (NEGATIVE) 12/16/17 06:40 Urine Methadone Screen Negative (NEGATIVE) 12/16/17 06:40 Ur Barbiturates Screen Negative (NEGATIVE) 12/16/17 06:40 Ur Phencyclidine Scrn Negative (NEGATIVE) 12/16/17 06:40 Ur Amphetamines Screen Negative (NEGATIVE) 12/16/17 06:40 U Benzodiazepines Scrn Positive (NEGATIVE) 12/16/17 06:40 U Oth Cocaine Metabols Negative (NEGATIVE) 12/16/17 06:40 U Cannabinoids Screen Negative (NEGATIVE) 12/16/17 06:40 C. difficile Ag & Toxin Negative (NEGATIVE) 01/08/18 02:39 Hepatitis A IgM Ab Negative (NEGATIVE) 01/02/18 11:13 Hep Bs Antigen Negative (NEGATIVE) 01/02/18 11:13 Hep B Core IgM Ab Negative (NEGATIVE) 01/02/18 11:13 Hepatitis C Antibody Negative (NEGATIVE) 01/02/18 11:13 Influenza Typ A,B (EIA) Negative for flu a/b (NEGATIVE) 12/17/17 23:30 Blood Type O POSITIVE 12/23/17 06:18 Antibody Screen Negative 12/23/17 06:18 - Hospital Course Hospital Course: Patient seen and examined in bed, unresponsive to verbal and tactile stimuli, eyes closed. NGT in place.Breath sounds diminished, abdomen distnded and large with diminished bowel sounds. Lara cath with poor output. Hydration via IVF. Lactulose very high, 38. Lactulose given via NGT. Kidney functions are worsening. UTI and wound infection are treated with Merrem IV. There is also other electrolyte imbalance. Family meeting held attended by roslyn family, Sally Reyna, residential designer and myself. Associate Brand Manager Sue joined us as well. Patient's condition reviewed . We ana lilia concerns regarding poor prognosis and quality of life issues. I suggested that patient was dying despite all prudent medical care due to severe liver cirrhosis. Doctor Axel and Doctor Alicia supported Medical facts. One of patient's sisters asked what would be the nex level of care. I offered more information about comfort care. Family accepted it. Associate Brand Manager Sue remained with family for spiritual support. SS and Case management informed. Hospice eval by [facility] is pending. Impression * This is a very sick man with multi organ failure * Patient will moat likely at this hospitalisation * Quality of life issues * Family came to a closure and wished for peaceful Suggestion * DNR/DNI * Hospice care, would stop all IV antibotics and all diagnostic studies * Possible paracentesis for increased comfort * Spiritual support for family Discharge Exam - Head Exam Head Exam: ATRAUMATIC, NORMAL INSPECTION, NORMOCEPHALIC Discharge Plan - Follow Up Plan Condition: FAIR Disposition: HOSPICE - MEDICAL FACILITY Instructions: High Blood Pressure (DC), Dependent Edema (DC), Nonalcoholic Fatty Liver Disease (DC), Weakness (ED), Hypertension (DC)
--- NOTE | 2018-01-10 06:18 | PN ---
DATE: 01/09/2018 FOLLOWUP RENAL CONSULTATION LOCATION: The patient is located in ICU, room 12. REQUESTED BY: Jayden Johnson MD REASON FOR FOLLOWUP: Followup acute renal failure, cirrhosis of the liver, hepatic encephalopathy. HISTORY OF PRESENT ILLNESS: Mr. Crain is a 72 years old elderly male with a past medical history significant for hypertension, diabetes, EtOH abuse, cirrhosis of the liver, status post gram-negative sepsis with E. Coli, status post paracentesis, was found to have a worsening renal function, and also hepatic encephalopathy with worsening ammonia, on NG tube with lactulose and neomycin. The patient is very drowsy, opens eyes to painful stimuli this morning, patient's family at bedside, not in distress. PHYSICAL EXAMINATION: VITAL SIGNS: This morning, blood pressure 123/58, pulse 89, respirations about 30, temperature 97.3, and saturation 96%. Height 5 feet 7 inches, weight is 205 pounds. GENERAL: Mr. Crain is a 72 years old elderly male, moderately built, moderately nourished, not in distress, on NG tube. The patient is very drowsy, opens eyes to painful stimuli. HEENT: Pupils are normal and reactive to light. Conjunctivae pink. Sclerae is icteric. Tongue is moist. Trachea is midline. LUNGS: Symmetric on both sides. Bilateral breath sounds present. No crackles. CVS: [place] at the fifth intercostal space, midclavicular line. S1, S2 audible. No murmur or gallop. ABDOMEN: Distended, soft, and dullness in both flanks. 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 Opens eyes slightly to painful stimuli. EXTREMITIES: No cyanosis, no clubbing. The patient has 2+ edema in both lower extremities. MEDICATIONS: His current medications were reviewed. The patient is on meropenem, lactulose, also neomycin and Zaroxolyn. His I's and O's in the last 24 hours, intake is 770 and output is 670. LABORATORY DATA: Include as follows: WBC 7.2, hemoglobin 9.6, hematocrit is 27.9, platelets 55. PT 18.4. INR 1.6. Sodium 145, potassium 4.1, chloride 106, CO of 21, BUN 86, creatinine 3.8, glucose 180, calcium 9.4, phosphorus 4.9, magnesium 2.3, ammonia 130. IMPRESSION: In summary, Mr. Crain is 72 years old elderly male with a history of hypertension, diabetes, EtOH abuse, cirrhosis of the liver, hepatic encephalopathy, ascites, status post paracentesis, thrombocytopenia with increased BUN and creatinine and high ammonia levels. 1. Acute renal failure, most likely secondary to hepatorenal syndrome, cannot rule out acute tubular necrosis. 2. Hepatic encephalopathy. 3. Cirrhosis of the liver. 4. Thrombocytopenia. Discussed with the patient's sister at bedside regarding the patient's condition and possible need for hemodialysis, and the patient's family want to discuss together. He has a big family, and they will decide whether patient's family agrees for the dialysis and/or hospice and DNR. Once they will have a discussion, they will notify the ICU team. Continue supportive care in the meantime. Overall prognosis is very poor. Thank you for allowing me to participate in your patient's care. Discussed with the nursing staff in rounds.. Neri Lee MD
--- NOTE | 2018-01-10 12:03 | CP.PCM.PN ---
Subjective - Date & Time of Evaluation Date of Evaluation: 01/08/18 Time of Evaluation: 18:30 - Subjective Subjective: Lethargic, transferred to MICU Objective - Vital Signs/Intake and Output Vital Signs (last 24 hours): Temp Pulse Resp BP Pulse Ox 97.5 F L 98 H 31 H 138/59 L 98 01/09/18 16:00 01/09/18 16:49 01/09/18 16:49 01/09/18 16:49 01/09/18 16:49 - Labs Labs: 01/09/18 06:22 01/09/18 06:22 PT 18.4 SECONDS (9.7-12.2) H 01/09/18 06:22 INR 1.6 01/09/18 06:22 APTT 37 SECONDS (21-34) H 12/29/17 06:22 - Head Exam Head Exam: ATRAUMATIC - Eye Exam Eye Exam: Scleral icterus - ENT Exam ENT Exam: Mucous Membranes Dry - Respiratory Exam Respiratory Exam: NORMAL BREATHING PATTERN - Cardiovascular Exam Cardiovascular Exam: +S1, +S2 - GI/Abdominal Exam GI & Abdominal Exam: Normal Bowel Sounds Assessment and Plan (1) Thrombocytopenia Assessment & Plan: liver disease, splenic sequestration Status: Acute (2) Anemia Assessment & Plan: chronic disease no iron/b12/folate deficiency Status: Acute (3) Coagulopathy Assessment & Plan: liver disease Status: Acute (4) Elevated CEA Assessment & Plan: ? related to liver disease ? occult malignancy acutely ill for more invasive w/u Status: Acute (5) Elevated CA 19-9 level Assessment & Plan: pancreatic imaging when more stable Status: Acute (6) Elevated serum globulin level Assessment & Plan: f/u monoclonal protein w/u Status: Acute
--- NOTE | 2018-01-10 12:05 | CP.PCM.PN ---
Subjective - Date & Time of Evaluation Date of Evaluation: 01/09/18 Time of Evaluation: 11:00 - Subjective Subjective: Lethargic, unresponsive Objective - Vital Signs/Intake and Output Vital Signs (last 24 hours): Temp Pulse Resp BP Pulse Ox 97.5 F L 98 H 31 H 138/59 L 98 01/09/18 16:00 01/09/18 16:49 01/09/18 16:49 01/09/18 16:49 01/09/18 16:49 - Labs Labs: 01/09/18 06:22 01/09/18 06:22 PT 18.4 SECONDS (9.7-12.2) H 01/09/18 06:22 INR 1.6 01/09/18 06:22 APTT 37 SECONDS (21-34) H 12/29/17 06:22 - Head Exam Head Exam: ATRAUMATIC - Eye Exam Eye Exam: Scleral icterus - ENT Exam ENT Exam: Mucous Membranes Dry - Respiratory Exam Respiratory Exam: NORMAL BREATHING PATTERN - Cardiovascular Exam Cardiovascular Exam: +S1, +S2 - GI/Abdominal Exam GI & Abdominal Exam: Normal Bowel Sounds Assessment and Plan (1) Thrombocytopenia Assessment & Plan: liver disease, splenic sequestration slightly improved Status: Acute (2) Anemia Assessment & Plan: chronic disease no iron/b12/folate deficiency Status: Acute (3) Coagulopathy Assessment & Plan: liver disease Status: Acute (4) Elevated CEA Assessment & Plan: ? related to liver disease acutely ill, unable to tolerate more invasive w/u Status: Acute (5) Elevated CA 19-9 level Assessment & Plan: acutely ill for pancreatic imaging Status: Acute (6) Elevated serum globulin level Assessment & Plan: monoclonal protein w/u sent Status: Acute
[2018-01-10 21:20] LABS: ALBUMIN (PEP) 2.7 g/dL (3.8-4.8); ALPHA-1-GLOBULIN (PEP) 0.3 g/dL (0.2-0.3)
== END 2018-01-09 17:41 | disposition hospice, inpatient (51) | DRG 871 ==
LOC: C.ER 15:15 → C.9E 17:31 → C.3T 19:41 → C.6T 12-21 23:12 → C.9I 01-08 00:14
PROVIDERS: ADMIT Internal Medicine; ATTEND Internal Medicine
PROC: 3E0234Z Introduction of Serum, Toxoid and Vaccine into Muscle, Percutaneous Approach (ICD-10-PCS; 2017-12-16)
PROC: 02HV33Z Insertion of Infusion Device into Superior Vena Cava, Percutaneous Approach (ICD-10-PCS; 2017-12-22)
PROC: B548ZZA Ultrasonography of Superior Vena Cava, Guidance (ICD-10-PCS; 2017-12-22)
PROC: 0W9G3ZZ Drainage of Peritoneal Cavity, Percutaneous Approach (ICD-10-PCS; principal; 2017-12-26 09:00)
PROC: 0F798ZZ Dilation of Common Bile Duct, Via Natural or Artificial Opening Endoscopic (ICD-10-PCS; 2017-12-29)
DX: A41.51 Sepsis due to Escherichia coli [E. coli] (principal); G93.41 Metabolic encephalopathy; J15.0 Pneumonia due to Klebsiella pneumoniae; K83.1 Obstruction of bile duct; K76.7 Hepatorenal syndrome; N17.0 Acute kidney failure with tubular necrosis; I33.0 Acute and subacute infective endocarditis; D68.9 Coagulation defect, unspecified; E46 Unspecified protein-calorie malnutrition; E87.2 Acidosis; K76.6 Portal hypertension; N39.0 Urinary tract infection, site not specified; N17.9 Acute kidney failure, unspecified; N13.8 Other obstructive and reflux uropathy; F10.231 Alcohol dependence with withdrawal delirium; D64.9 Anemia, unspecified; D69.59 Other secondary thrombocytopenia; E11.22 Type 2 diabetes mellitus with diabetic chronic kidney disease; E11.65 Type 2 diabetes mellitus with hyperglycemia; F17.200 Nicotine dependence, unspecified, uncomplicated; I12.9 Hypertensive chronic kidney disease with stage 1 through stage 4 chronic kidney disease, or unspecified chronic kidney disease; I45.81 Long QT syndrome; K70.11 Alcoholic hepatitis with ascites; K70.31 Alcoholic cirrhosis of liver with ascites; N18.9 Chronic kidney disease, unspecified; N40.1 Benign prostatic hyperplasia with lower urinary tract symptoms; R62.7 Adult failure to thrive; Z51.5 Encounter for palliative care; Z66 Do not resuscitate; Z74.01 Bed confinement status; Z23 Encounter for immunization

== ENCOUNTER 2018-01-09 16:11 | Inpatient (IN) | payer OTHER ==
[2018-01-09 18:45] VITALS: BMI 32.1
--- NOTE | 2018-01-09 23:09 | CP.PCM.PN ---
Subjective - Date & Time of Evaluation Date of Evaluation: 01/09/18 Time of Evaluation: 19:35 - Subjective Subjective: PT SEEN AND EXAMINED, PT IS ON END OF LIFE CARE/ HOSPICE IN HOSPITAL PER FAMILY WISHES, HE IS ON MORPHONE DRIP, NO DISTRESS END STAGE LIVER DISEASE AND DIABETES Objective - Vital Signs/Intake and Output Vital Signs (last 24 hours): Temp Pulse Resp BP Pulse Ox 98 01/09/18 17:58 Intake and Output: 01/09/18 01/10/18 18:59 06:59 Intake Total 0 Output Total 250 Balance -250 - Medications Medications: Current Medications Morphine Sulfate 250 mg/ (Sodium Chloride) 250 mls @ 1 mls/hr IV .Q24H PRN; Protocol PRN Reason: Pain, Mild (1-3) Last Admin: 01/09/18 19:58 Dose: 1 ml/hr, 1 mls/hr Scopolamine (Transderm-Scop) 1 patch TD Q3D JE Last Admin: 01/09/18 19:58 Dose: 1 patch - Constitutional Appears: Well, In Acute Distress, Chronically Ill - Head Exam Head Exam: ATRAUMATIC, NORMAL INSPECTION, NORMOCEPHALIC - Respiratory Exam Respiratory Exam: Clear to Ausculation Bilateral, NORMAL BREATHING PATTERN - Cardiovascular Exam Cardiovascular Exam: REGULAR RHYTHM, +S1, +S2. absent: Murmur - GI/Abdominal Exam GI & Abdominal Exam: Hypoactive Bowel Sounds - Rectal Exam Rectal Exam: Deferred Assessment and Plan (1) Diabetes Status: Acute (2) End stage liver disease Status: Acute (3) Hepatic encephalopathy Status: Acute (4) Hospice care patient Status: Acute
--- NOTE | 2018-01-10 23:57 | CP.PCM.PN ---
Subjective - Date & Time of Evaluation Date of Evaluation: 01/10/18 Time of Evaluation: 18:00 - Subjective Subjective: PT SEEN AND EXAMINED, PT IS ON END OF LIFE CARE/ HOSPICE IN HOSPITAL PER FAMILY WISHES, HE IS ON MORPHONE DRIP, NO DISTRESS END STAGE LIVER DISEASE AND DIABETES Objective - Vital Signs/Intake and Output Vital Signs (last 24 hours): Temp Pulse Resp BP Pulse Ox 83 6 L 107/55 L 99 01/10/18 22:00 01/10/18 22:00 01/10/18 19:49 01/10/18 22:00 Intake and Output: 01/10/18 01/11/18 18:59 06:59 Intake Total 74 Balance 74 - Medications Medications: Current Medications Morphine Sulfate 250 mg/ (Sodium Chloride) 250 mls @ 1 mls/hr IV .Q24H PRN; Protocol PRN Reason: Pain, Mild (1-3) Last Titration: 01/10/18 06:00 Dose: 10 ml/hr, 10 mls/hr Scopolamine (Transderm-Scop) 1 patch TD Q3D JE Last Admin: 01/09/18 19:58 Dose: 1 patch - Constitutional Appears: Confused, Chronically Ill - Head Exam Head Exam: ATRAUMATIC, NORMAL INSPECTION, NORMOCEPHALIC - Eye Exam Eye Exam: EOMI, Normal appearance, PERRL Pupil Exam: NORMAL ACCOMODATION, PERRL - Respiratory Exam Respiratory Exam: Clear to Ausculation Bilateral, NORMAL BREATHING PATTERN - Cardiovascular Exam Cardiovascular Exam: REGULAR RHYTHM, +S1, +S2. absent: Murmur - GI/Abdominal Exam GI & Abdominal Exam: Distended - Rectal Exam Rectal Exam: Deferred Assessment and Plan (1) Diabetes Status: Acute (2) End stage liver disease Status: Acute (3) Hepatic encephalopathy Status: Acute (4) Hospice care patient Status: Acute
[2018-01-11] MEDS ORDERED: Morphine Sulfate 250 MG in Dextrose 5% In Water 240 ML IV PRN (12:54)
--- NOTE | 2018-01-11 23:33 | CP.PCM.PN ---
Subjective - Date & Time of Evaluation Date of Evaluation: 01/11/18 Time of Evaluation: 18:00 - Subjective Subjective: PT SEEN AND EXAMINED, PT IS ON END OF LIFE CARE/ HOSPICE IN HOSPITAL PER FAMILY WISHES, HE IS ON MORPHONE DRIP, NO DISTRESS END STAGE LIVER DISEASE AND DIABETES Objective - Vital Signs/Intake and Output Vital Signs (last 24 hours): Temp Pulse Resp BP Pulse Ox 97.8 F 85 20 102/55 L 97 01/11/18 16:06 01/11/18 16:06 01/11/18 16:06 01/11/18 16:06 01/11/18 16:06 Intake and Output: 01/11/18 01/12/18 18:59 06:59 Intake Total 8 Balance 8 - Medications Medications: Current Medications Morphine Sulfate 250 mg/ (Sodium Chloride) 250 mls @ 1.5 mls/hr IV .Q24H PRN PRN Reason: Pain, severe (8-10) Last Admin: 01/11/18 22:41 Dose: 1.5 mls/hr Scopolamine (Transderm-Scop) 1 patch TD Q3D JE Last Admin: 01/09/18 19:58 Dose: 1 patch - Constitutional Appears: Confused, Chronically Ill - Head Exam Head Exam: ATRAUMATIC, NORMAL INSPECTION, NORMOCEPHALIC - Eye Exam Eye Exam: EOMI, Normal appearance, PERRL Pupil Exam: NORMAL ACCOMODATION, PERRL - Respiratory Exam Respiratory Exam: Clear to Ausculation Bilateral, NORMAL BREATHING PATTERN - Cardiovascular Exam Cardiovascular Exam: REGULAR RHYTHM, +S1, +S2. absent: Murmur - GI/Abdominal Exam GI & Abdominal Exam: Soft, Normal Bowel Sounds. absent: Tenderness - Psychiatric Exam Additional comments: UN RESPONSIVE Assessment and Plan (1) Hospice care patient Assessment & Plan: MORPHINE DRP END OF LIFE SUPPORT Status: Acute (2) Diabetes Status: Acute (3) End stage liver disease Assessment & Plan: DUE TO ALCOHOLISM Status: Acute (4) Hepatic encephalopathy Status: Acute
--- NOTE | 2018-01-12 12:47 | CP.PCM.PN ---
Subjective - Date & Time of Evaluation Date of Evaluation: 01/12/18 Time of Evaluation: 12:46 - Subjective Subjective: PT EVAL'D BY [facility] STAFF AT BEDSIDE; WHEN TOUCHED OR TURNED PT GRIMACES AND MOANS. [facility] TEAM RECOMMENDS INCREASING MORPHINE DRIP BY 1 MG. PT' S DOSE INCREASED FROM 1.5 MG/HR TO 2.5 MG/HR PER THEIR RECOMMENDATIONS. PRIMARY RN CABRERA ALSO AWARE OF PLAN. NO FURTHER ORDERS. Objective - Vital Signs/Intake and Output Vital Signs (last 24 hours): Temp Pulse Resp BP Pulse Ox 98.5 F 81 8 L 87/41 L 84 L 01/12/18 07:00 01/12/18 07:00 01/12/18 07:00 01/12/18 07:00 01/12/18 07:00 Intake and Output: 01/12/18 01/12/18 06:59 18:59 Intake Total 8 Output Total 200 Balance -192 - Medications Medications: Current Medications Morphine Sulfate 250 mg/ (Sodium Chloride) 250 mls @ 2.5 mls/hr IV .Q24H PRN PRN Reason: Pain, severe (8-10) Scopolamine (Transderm-Scop) 1 patch TD Q3D JE Last Admin: 01/09/18 19:58 Dose: 1 patch
--- NOTE | 2018-01-12 23:38 | CP.PCM.PN ---
Subjective - Date & Time of Evaluation Date of Evaluation: 01/12/18 Time of Evaluation: 18:35 - Subjective Subjective: PT SEEN AND EXAMINED, IS ON HOSPICE CARE, END OF LIFE CARE, IS TERMINALLY SICK, WHEN TOUCHED OR TURNED PT GRIMACES AND MOANS. [facility] TEAM RECOMMENDS INCREASING MORPHINE DRIP BY 1 MG. PT'S DOSE INCREASED FROM 1.5 MG/HR TO 2.5 MG/ HR PER THEIR RECOMMENDATIONS. PRIMARY RN CABRERA ALSO AWARE OF PLAN. NO FURTHER ORDERS. Objective - Vital Signs/Intake and Output Vital Signs (last 24 hours): Temp Pulse Resp BP Pulse Ox 98.2 F 78 20 109/51 L 91 L 01/12/18 15:00 01/12/18 15:00 01/12/18 15:00 01/12/18 15:00 01/12/18 15:00 Intake and Output: 01/12/18 01/13/18 18:59 06:59 Intake Total 0 24 Output Total 180 Balance -180 24 - Medications Medications: Current Medications Morphine Sulfate 250 mg/ (Sodium Chloride) 250 mls @ 3 mls/hr IV .Q24H PRN; Protocol PRN Reason: Pain, severe (8-10) Last Admin: 01/12/18 18:40 Dose: 3 mg/hr, 3 mls/hr Scopolamine (Transderm-Scop) 1 patch TD Q3D JE Last Admin: 01/12/18 19:31 Dose: 1 patch - Constitutional Appears: No Acute Distress, Chronically Ill - Head Exam Head Exam: ATRAUMATIC, NORMAL INSPECTION, NORMOCEPHALIC - Respiratory Exam Respiratory Exam: Clear to Ausculation Bilateral, NORMAL BREATHING PATTERN - Cardiovascular Exam Cardiovascular Exam: REGULAR RHYTHM, +S1, +S2. absent: Murmur Assessment and Plan (1) Diabetes Status: Acute (2) End stage liver disease Status: Acute (3) Hepatic encephalopathy Status: Acute (4) Hospice care patient Status: Acute
[2018-01-13 16:51] VITALS: BP 77/43; PULSE 87; RESP 22; TEMP 98; O2SAT 95
--- NOTE | 2018-01-13 23:06 | CP.PCM.PN ---
Subjective - Date & Time of Evaluation Date of Evaluation: 01/13/18 Time of Evaluation: 18:35 - Subjective Subjective: Pt seen and examined Objective - Vital Signs/Intake and Output Vital Signs (last 24 hours): Temp Pulse Resp BP Pulse Ox 98.0 F 87 22 77/43 L 95 01/13/18 15:25 01/13/18 15:25 01/13/18 15:25 01/13/18 15:25 01/13/18 15:25 Intake and Output: 01/13/18 01/14/18 18:59 06:59 Intake Total 48 Output Total 160 Balance -112 - Medications Medications: Current Medications Morphine Sulfate 250 mg/ (Sodium Chloride) 250 mls @ 3 mls/hr IV .Q24H PRN; Protocol PRN Reason: Pain, severe (8-10) Last Admin: 01/12/18 18:40 Dose: 3 mg/hr, 3 mls/hr Scopolamine (Transderm-Scop) 1 patch TD Q3D JE Last Admin: 01/12/18 19:31 Dose: 1 patch Assessment and Plan (1) Diabetes Status: Acute (2) End stage liver disease Status: Acute (3) Hepatic encephalopathy Status: Acute (4) Hospice care patient Status: Acute
--- NOTE | 2018-01-14 22:18 | CP.PCM.DIS ---
Provider - Provider Date of Admission: 01/09/18 16:11 Attending physician: Jayden Johnson MD Diagnosis - Discharge Diagnosis (1) Diabetes Status: Acute (2) End stage liver disease Status: Acute (3) Hepatic encephalopathy Status: Acute (4) Hospice care patient Status: Acute Discharge Exam - Head Exam Head Exam: ATRAUMATIC, NORMAL INSPECTION, NORMOCEPHALIC Discharge Plan - Follow Up Plan Condition: GOOD Disposition: WITH WITHOUT AUTOPSY
== END 2018-01-14 00:05 | DRG 443 ==
LOC: C.9I 16:11 → C.5S 01-11 09:31
PROVIDERS: ADMIT Internal Medicine; ATTEND Internal Medicine
DX: K72.90 Hepatic failure, unspecified without coma (principal); E11.9 Type 2 diabetes mellitus without complications; Z51.5 Encounter for palliative care; Z79.4 Long term (current) use of insulin